=== PATIENT | female | born 1935 | race Caucasian/White ===

== ENCOUNTER → 2016-10-02 | Outpatient (CLI) | payer OTHER, BC ==
[~2016-10-02] MED LIST: ASPI81TA28 PO; ATOR-26 PO; CIPR1TAB11 PO; LISI-725 PO; METO50TA7 PO; NTRGSL/4 UT; ULT50X PO; VTMD1000 PO; XRL10 PO
[2016-10-02 14:55] LABS: BASO % 0.3 %; BASO ABS # 0.02 K/uL (0-0.2); COMPLETE YES; HEMATOCRIT 43.4 % (37-47); IG% 0.2 %; LYMPH % 17.7 %; LYMPH ABS # 1.07 K/uL (1.2-3.4); MEAN CORPUSCULAR HEMOGLOBIN 30.9 pg (25-34); MEAN CORPUSCULAR HGB CONC 32.5 g/dl (32-36); MEAN PLATELET VOLUME 10.6 fL (7.4-10.4); MONO % 7.5 %; NEUT % 73.3 %; PLATELET COUNT 217 K/uL (130-400); RED BLOOD COUNT 4.57 M/uL (4.2-5.4); WHITE BLOOD COUNT 6.04 K/uL (4.8-10.8)
[2016-10-02 15:04] LABS: ALT/SGPT 29 U/L (12-78); AST/SGOT 56 U/L (15-37); BLOOD UREA NITROGEN 19 mg/dl (7-18); BUN/CREATININE RATIO 29.4 (10-20); CALCIUM 8.5 mg/dl (8.5-10.1); CARBON DIOXIDE 30 mmol/L (21-32); CHLORIDE 107 mmol/L (98-107); CREATININE 0.65 mg/dl (0.60-1.20); GLUCOSE 87 mg/dl (70-99); POTASSIUM 4.2 mmol/L (3.5-5.1); SODIUM 144 mmol/L (136-145)
[2016-10-02 15:17] LABS: ALKALINE PHOSPHATASE 75 U/L (45-117); CHOLESTEROL 113 mg/dl (0-200); HDL CHOLESTEROL 56 mg/dl; LDL CHOLESTEROL CALCULATED 45 mg/dl; THYROID STIMULATING HORMONE 0.869 uIu/ml (0.300-4.500); TRIGLYCERIDES 59 mg/dl (0-150); VERY LOW DENSITY LIPOPROT CALC 12 mg/dl
[2016-10-02 15:25] LABS: ESTIMATED AVERAGE GLUCOSE 117 mg/dl; HA1C FLAG Normal (Normal)
--- NOTE | 2016-10-06 12:06 | CODING QUERY MEDICAL NECESSITY ---
SUPPORTING DIAGNOSIS NEEDED Dr. Lujan, A supporting diagnosis is required for the test/procedure performed on this patient in order for us to be reimbursed by the patient's insurance. Please provide a supporting diagnosis for the following test/procedure listed below next to the test name along with your signature. *If there is no additional diagnosis for this patient that would support the following test/procedure please document that below next to the test/procedure. Test(s)/Procedure(s) that require a supporting diagnosis: * 13707 GLYCATED HEMOGLOBIN DIAGNOSIS: DATE OF SERVICE: 10/02/16 Provider Signature: Date: Thank you Bryan Winter [facility] Information Management Once completed, please kindly fax back to [phone] For questions please call [phone]
== END | disposition home or self-care (01) ==
LOC: C.LABBC 10:28
PROVIDERS: ATTEND Internal Medicine
DX: I25.10 Atherosclerotic heart disease of native coronary artery without angina pectoris (principal); E78.5 Hyperlipidemia, unspecified; R73.01 Impaired fasting glucose

== ENCOUNTER 2017-03-25 19:48 | Inpatient (IN) | payer OTHER, BC ==
[~2017-03-25] VITALS: Ht 167.6 cm; Wt 71.0 kg
[~2017-03-25 19:48] MED LIST changes: -CIPR1TAB11 PO; -ULT50X PO; -VTMD1000 PO
[2017-03-25] MEDS ORDERED: ONDANSETRON INJ 2 MG/ML 2 ML VIAL IV STA (20:09)
[2017-03-25] MEDS ORDERED: SODIUM CHLORIDE 0.9% 1000ML 1,000 ML IV ONE (20:09)
[2017-03-25] MEDS ORDERED: ACETAMINOPHEN 500 MG TAB PO STA (20:09)
[2017-03-25] MEDS ORDERED: MoRPHine SULFATE 4 MG/ML 1 ML CARP\\VIAL IV PRN (20:15)
[2017-03-25] MEDS ORDERED: MoRPHine SULFATE 2 MG/ML CARP ONE ×2 (20:25→21:17)
[2017-03-25 20:40] LABS: BASO % 0.3 %; BASO ABS # 0.03 K/uL (0-0.2); COMPLETE YES; EOS % 0.7 %; HEMATOCRIT 41.5 % (37-47); IG% 0.3 %; LYMPH % 12.6 %; LYMPH ABS # 1.15 K/uL (1.2-3.4); MEAN CELL VOLUME 95.4 fL (80-100); MEAN CORPUSCULAR HEMOGLOBIN 31.7 pg (25-34); MEAN CORPUSCULAR HGB CONC 33.3 g/dl (32-36); MEAN PLATELET VOLUME 10.1 fL (7.4-10.4); NEUT % 78.1 %; PLATELET COUNT 211 K/uL (130-400); RED BLOOD COUNT 4.35 M/uL (4.2-5.4)
[2017-03-25 20:50] LABS: PARTIAL THROMBOPLASTIN RATIO 1.1; PROTHROMBIN TIME (PATIENT) 11.1 SECONDS (9.0-12.0)
[2017-03-25 20:56] LABS: BUN/CREATININE RATIO 26.2 (10-20); CALCIUM 9.4 mg/dl (8.5-10.1); CREATININE 0.78 mg/dl (0.60-1.20); POTASSIUM 3.9 mmol/L (3.5-5.1)
--- NOTE | 2017-03-25 21:28 | DIAGNOSTIC IMAGING REPORT ---
HEAD WITHOUT CONTRAST (CT) CT DOSE: 537.48 mGy.cm HISTORY: Trauma fall, xarelto use TECHNIQUE: Multiaxial CT images of the head were performed without the use of intravenous contrast. A dose lowering technique was utilized adhering to the principles of ALARA. Comparison: None. Findings: The paranasal sinuses and mastoid air cells are clear. The calvarium and skull base are intact. The ventricles and sulci are within normal limits. There is no mass, hematoma, midline shift, or acute infarct. Impression: No acute intracranial abnormality. The above report was generated using voice recognition software. It may contain grammatical, syntax or spelling errors. Electronically signed by: Tito Hernandes M.D. 03/25/2017 9:26 PM Dictated Date/Time: 03/25/2017 9:24 PM
--- NOTE | 2017-03-25 21:33 | DIAGNOSTIC IMAGING REPORT ---
RIGHT LOWER EXTREMITY WITHOUT CT DOSE: 303.47 mGy.cm HISTORY: Trauma. Pain. fall, right hip pain Right TECHNIQUE: Multiaxial CT images of the right were performed and reformatted in the sagittal and coronal plane without the use of contrast. A dose lowering technique was utilized adhering to the principles of ALARA. COMPARISON: None. FINDINGS: Findings highly suspect for a nondisplaced subcapital fracture of the right hip. Peripheral osteophytic reaction complicates evaluation to a degree. Nevertheless, there is a high suspicion for nondisplaced 7P fracture. Acetabulum is intact. There are mild degenerative changes of the articular services. Mild soft tissue edematous changes present. Main osseous structures show moderate degenerative change but no additional abnormalities appreciated. Moderate degenerative change throughout. IMPRESSION: Findings highly suspect for a nondisplaced subcapital fracture right hip. The above report was generated using voice recognition software. It may contain grammatical, syntax or spelling errors. Electronically signed by: Tito Hernandes M.D. 03/25/2017 9:32 PM Dictated Date/Time: 03/25/2017 9:26 PM
--- NOTE | 2017-03-25 22:01 | DIAGNOSTIC IMAGING REPORT ---
CHEST ONE VIEW PORTABLE CLINICAL HISTORY: hip fx trauma. Pain. COMPARISON STUDY: 12/14/2015 FINDINGS: Mild stable cardiomegaly. Lungs are clear. Minimal chronic pleural reactive change left base. IMPRESSION: Mild stable cardiomegaly. Chronic change. No acute process. The above report was generated using voice recognition software. It may contain grammatical, syntax or spelling errors. Electronically signed by: Tito Hernandes M.D. 03/25/2017 9:59 PM Dictated Date/Time: 03/25/2017 9:59 PM
[2017-03-25 22:23] LABS: URINE APPEARANCE CLEAR (CLEAR); URINE BILIRUBIN NEG (NEG); URINE COLOR YELLOW; URINE NITRITE POS (NEG); URINE PH 6.5 (4.5-7.5); URINE SPECIFIC GRAVITY 1.019 (1.000-1.030); UROBILINOGEN NEG (NEG); ZZURINE CULT IF INDIC CATH YES
[2017-03-25] MEDS ORDERED: ONDANSETRON INJ 2 MG/ML 2 ML VIAL IV PRN (22:30)
[2017-03-25] MEDS ORDERED: ZOLPIDEM TARTRATE 5 MG TAB PO PRN (22:30)
[2017-03-25] MEDS ORDERED: MoRPHine SULFATE 2 MG/ML CARP IV PRN (22:30)
[2017-03-25 22:41] LABS: MANUAL MICROSCOPIC REQUIRED? NO; REVIEW REQ? NO
[2017-03-25] MEDS ORDERED: MoRPHine SULFATE 2 MG/ML CARP IV STA (22:42)
--- NOTE | 2017-03-25 22:42 | EMERGENCY ROOM VISIT NOTE ---
History Report prepared by Pilar: Martha Bell Under the Supervision of: Dr. Jamie Mojica M.D. First contact with patient: 20:02 Chief Complaint: HIP PAIN Stated Complaint: FALL/ RT HIP PAIN History of Present Illness The patient is an 81 year old female who presents to the Emergency Room with complaints of an episode of right hip pain starting two and a half hours ago. The patient states that she was at the park walking her dog when another dog approached her dog to say hello. The patient states that her dog yanked her to meet the other dog and she fell in the grass on her right hip. She reports that she did walk home, but had to be assisted. The patient states that since the accident the pain in her hip has worsened. The patient denies loss of consciousness, illness, and hitting her head. She states she is on Xarelto for a mild heart attack that occurred 10 years ago. Source of History: patient Onset: two and a half hours ago Position: other (right hip) Timing: other (episode) Modifying Factors (Worsening): movement Associated Symptoms: No LOC Note: The patient denies illness and hitting her head. Review of Systems See HPI for pertinent positives & negatives. A total of 10 systems reviewed and were otherwise negative. Past Medical & Surgical Medical Problems: (1) Arthritis (2) History of SD (myocardial infarction) (3) HYPERLIPIDEMIA NEC/NOS (4) Hypertension (5) SD (myocardial infarction) (6) PNEUMONIA, ORGANISM NOS (7) Shingles (8) Subcapital fracture of right hip Surgical Problems: (1) History of cardiac catheterization (2) History of knee surgery Family History Hypertension Social History Smoking Status: Never Smoker Alcohol Use: occasionally Drug Use: none Marital Status: Housing Status: lives with family Occupation Status: retired Current/Historical Medications Scheduled Aspirin (Aspirin Ec), 81 MG PO DAILY Atorvastatin (Lipitor), 80 MG PO HS Lisinopril (Zestril), 20 MG PO DAILY Metoprolol Succ (Toprol Xl) (Toprol-Xl), 50 MG PO DAILY Rivaroxaban (Xarelto), 20 MG PO DAILYBD Scheduled PRN Nitroglycerin (Nitrostat), 0.4 MG UT UD PRN for Chest Pain Allergies Coded Allergies: Penicillins (Verified Allergy, Intermediate, hands swell, rash, 03/25/17) Rofecoxib (Verified Allergy, Mild, 03/25/17) Shellfish Allergy (Verified Allergy, Unknown, UNKNOWN, 03/25/17) Sulfa Antibiotics (Verified Allergy, Unknown, UNKNOWN, 03/25/17) Physical Exam Vital Signs Date Time Temp Pulse Resp B/P (MAP) Pulse Ox O2 Delivery O2 Flow Rate FiO2 03/25/17 21:49 70 20 169/72 94 Nasal Cannula 2.0 03/25/17 20:38 81 20 152/82 97 Room Air 03/25/17 19:48 37.1 69 20 136/74 95 Room Air Physical Exam GENERAL: Patient is in no acute distress. HEENT: No acute trauma, normocephalic atraumatic, mucous membranes moist, no nasal congestion, no scleral icterus. NECK: No stridor, no adenopathy, no meningismus, trachea is midline. No posterior c-spine tenderness. LUNGS: Clear to auscultation bilaterally, no wheeze, no rhonchi, breath sounds equal. HEART: Without murmurs gallops or rubs, regular rate and rhythm. ABDOMEN: Soft, nontender, bowel sounds positive, no hernias, no peritonitis. EXTREMITIES: No gross deformity to the right lower extremity. Pain is present to palpation of the right groin and proximal femur. The right knee, right ankle , and right foot are nontender. The pelvis is stable. No upper extremity trauma noted. NEUROLOGIC: Oriented x 3, no acute motor or sensory deficits, no focal weakness. SKIN: No rash, no jaundice, no diaphoresis. Medical Decision & Procedures ER Provider Diagnostic Interpretation: Radiology results as stated below per my review and radiologist interpretation: CHEST ONE VIEW PORTABLE CLINICAL HISTORY: hip fx trauma. Pain. COMPARISON STUDY: 12/14/2015 FINDINGS: Mild stable cardiomegaly. Lungs are clear. Minimal chronic pleural reactive change left base. IMPRESSION: Mild stable cardiomegaly. Chronic change. No acute process. The above report was generated using voice recognition software. It may contain grammatical, syntax or spelling errors. Electronically signed by: Tito Hernandes M.D. 03/25/2017 9:59 PM Dictated Date/Time: 03/25/2017 9:59 PM HEAD WITHOUT CONTRAST (CT) CT DOSE: 537.48 mGy.cm HISTORY: Trauma fall, xarelto use TECHNIQUE: Multiaxial CT images of the head were performed without the use of intravenous contrast. A dose lowering technique was utilized adhering to the principles of ALARA. Comparison: None. Findings: The paranasal sinuses and mastoid air cells are clear. The calvarium and skull base are intact. The ventricles and sulci are within normal limits. There is no mass, hematoma, midline shift, or acute infarct. Impression: No acute intracranial abnormality. The above report was generated using voice recognition software. It may contain grammatical, syntax or spelling errors. Electronically signed by: Tito Hernandes M.D. 03/25/2017 9:26 PM Dictated Date/Time: 03/25/2017 9:24 PM RIGHT LOWER EXTREMITY WITHOUT CT DOSE: 303.47 mGy.cm HISTORY: Trauma. Pain. fall, right hip pain Right TECHNIQUE: Multiaxial CT images of the right were performed and reformatted in the sagittal and coronal plane without the use of contrast. A dose lowering technique was utilized adhering to the principles of ALARA. COMPARISON: None. FINDINGS: Findings highly suspect for a nondisplaced subcapital fracture of the right hip. Peripheral osteophytic reaction complicates evaluation to a degree. Nevertheless, there is a high suspicion for nondisplaced 7P fracture. Acetabulum is intact. There are mild degenerative changes of the articular services. Mild soft tissue edematous changes present. Main osseous structures show moderate degenerative change but no additional abnormalities appreciated. Moderate degenerative change throughout. IMPRESSION: Findings highly suspect for a nondisplaced subcapital fracture right hip. The above report was generated using voice recognition software. It may contain grammatical, syntax or spelling errors. Electronically signed by: Tito Hernandes M.D. 03/25/2017 9:32 PM Dictated Date/Time: 03/25/2017 9:26 PM Laboratory Results 03/25/17 20:31 Red Blood Count 4.35, Mean Corpuscular Volume 95.4, Mean Corpuscular Hemoglobin 31.7, Mean Corpuscular Hemoglobin Concent 33.3, Mean Platelet Volume 10.1, Neutrophils (%) (Auto) 78.1, Lymphocytes (%) (Auto) 12.6, Monocytes (%) (Auto) 8.0, Eosinophils (%) (Auto) 0.7, Basophils (%) (Auto) 0.3, Neutrophils # (Auto) 7.10, Lymphocytes # (Auto) 1.15, Monocytes # (Auto) 0.73, Eosinophils # (Auto) 0.06, Basophils # (Auto) 0.03 03/25/17 20:31 Test 03/25/17 20:31 03/25/17 22:07 White Blood Count 9.10 K/uL (4.8-10.8) Red Blood Count 4.35 M/uL (4.2-5.4) Hemoglobin 13.8 g/dL (12.0-16.0) Hematocrit 41.5 % (37-47) Mean Corpuscular Volume 95.4 fL (80-100) Mean Corpuscular Hemoglobin 31.7 pg (25-34) Mean Corpuscular Hemoglobin Concent 33.3 g/dl (32-36) Platelet Count 211 K/uL (130-400) Mean Platelet Volume 10.1 fL (7.4-10.4) Neutrophils (%) (Auto) 78.1 % Lymphocytes (%) (Auto) 12.6 % Monocytes (%) (Auto) 8.0 % Eosinophils (%) (Auto) 0.7 % Basophils (%) (Auto) 0.3 % Neutrophils # (Auto) 7.10 K/uL (1.4-6.5) Lymphocytes # (Auto) 1.15 K/uL (1.2-3.4) Monocytes # (Auto) 0.73 K/uL (0.11-0.59) Eosinophils # (Auto) 0.06 K/uL (0-0.5) Basophils # (Auto) 0.03 K/uL (0-0.2) RDW Standard Deviation 50.9 fL (36.4-46.3) RDW Coefficient of Variation 14.5 % (11.5-14.5) Immature Granulocyte % (Auto) 0.3 % Immature Granulocyte # (Auto) 0.03 K/uL (0.00-0.02) Prothrombin Time 11.1 SECONDS (9.0-12.0) Prothromb Time International Ratio 1.0 (0.9-1.1) Activated Partial Thromboplast Time 29.4 SECONDS (21.0-31.0) Partial Thromboplastin Ratio 1.1 Anion Gap 7.0 mmol/L (3-11) Est Creatinine Clear Calc Drug Dose 55.2 ml/min Estimated GFR () 81.5 Estimated GFR (Non- 70.3 BUN/Creatinine Ratio 26.2 (10-20) Calcium Level 9.4 mg/dl (8.5-10.1) Laboratory results reviewed by me. Medications Administered Medications (Trade) Dose Ordered Sig/Samuel Route Start Time Stop Time Status Last Admin Dose Admin Sodium Chloride 1,000 ml @ 150 mls/hr [id number] ONCE IV 03/25/17 20:09 03/26/17 02:48 03/25/17 20:34 150 MLS/HR Acetaminophen (Tylenol Tab) 1,000 mg NOW STAT PO 03/25/17 20:09 03/25/17 20:12 DC 03/25/17 20:34 1,000 MG Ondansetron HCl (Zofran Inj) 4 mg NOW STAT IV 03/25/17 20:09 03/25/17 20:12 DC 03/25/17 20:33 4 MG Morphine Sulfate (MoRPHine SULFATE INJ) 2 mg STK-MED ONCE .ROUTE 03/25/17 20:25 03/25/17 20:26 DC 03/25/17 20:33 2 MG Morphine Sulfate (MoRPHine SULFATE INJ) 2 mg STK-MED ONCE .ROUTE 03/25/17 21:17 03/25/17 21:18 DC 03/25/17 21:20 2 MG ECG Indication: other (hip fracture) Rate (beats per minute): 84 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 A complete history and physical exam was performed. 2008: Ordered Zofran Inj 4 mg IV, Tylenol Tab 1000 mg PO, NSS 1000 ml @ 150 mls/ hr IV. 2014: Ordered Morphine Sulfate 2 mg PRN IV pain. 2024: Morphine Sulfate 2 mg given for pain. 2116: Morphine Sulfate 2 mg given for pain. 2139: I updated the patient on the test results and discussed what the future treatment plan will be. 2158: Discussed the patient's case with Dr. Aragon. The patient will be evaluated for further management. Medical Decision Differential diagnoses include pelvic fracture, hip fracture, femur fracture, hematoma, contusion, intracranial bleeding, neck injury, chest or abdominal trauma. There is no leukocytosis or concerning anemia. No significant electrolyte abnormality, kidney failure or hepatitis. There is no coagulopathy. Urinalysis result is pending. EKG shows a sinus rhythm, no acute ischemia. Brain CT shows no acute bleed or mass effect. Hip CT shows a subcapital hip fracture. On exam, there was no evidence for injury to the chest, abdomen or neck. The patient received IV saline, IV Zofran, IV morphine and oral Tylenol. She is more comfortable. The patient was updated on her findings. She does require a hospital stay. I did speak with case management. The on-call hospitalist was consulted. The patient will require orthopedic intervention. Medication Reconcilliation Current Medication List: was personally reviewed by me Blood Pressure Screening Patient's blood pressure: Elevated blood pressure Blood pressure disposition: Elevated BP felt to be situational Consults Time Called: 2144 Consulting Physician: Dr. Aragon Returned Call: [id number] Discussed the patient's case with Dr. Aragon. The patient will be evaluated for further management. Impression Primary Impression: Hip fracture, right Additional Impression: Fall Scribe Attestation The scribe's documentation has been prepared under my direction and personally reviewed by me in its entirety. I confirm that the note above accurately reflects all work, treatment, procedures, and medical decision making performed by me. Departure Information Dispostion Being Evaluated By Hospitalist Referrals Endy Lujan M.D. (PCP) Patient Instructions My [facility] Problem Qualifiers
[2017-03-25] MEDS ORDERED: CIPROFLOXACIN 400MG / 200ML D5W IV STA (22:44)
[2017-03-25] MEDS ORDERED: MAGNESIUM HYDROXIDE SUSP 30 ML UDC PO PRN (23:00)
[2017-03-25] MEDS ORDERED: POLYETHYLENE (MIRALAX) 17 GM PACK PO PRN (23:00)
[2017-03-25] MEDS ORDERED: HYDROmorphone INJ 0.5 MG/0.5 ML SYR IV PRN ×2 (23:00)
[2017-03-25] MEDS ORDERED: NALOXONE HCL 0.4 MG/1 ML VIAL/CARP IV PRN (23:00)
[2017-03-25] MEDS ORDERED: BISACODYL 10 MG SUPP PR PRN (23:00)
[2017-03-25 23:21] VITALS: BP 171/78; PULSE 76; TEMP 37.2; O2SAT 98; Ht 167.6 cm; Wt 71.0 kg
--- NOTE | 2017-03-25 23:52 | History and Physical ---
History & Physical Date & Time of Service: Mar 25, 2017 at 22:56 Chief Complaint: Fall/ Rt Hip Pain Primary Care Physician: Endy Lujan M.D. History of Present Illness Source: patient, clinic records, hospital records Mrs Negron is an 81 year old female who presents to the ER with right hip pain after falling. She was pulled over by her dog onto her right hip around 17:30. She fell onto grass without any loss of consciousness. She was helped up by a bystander and walked 75 yards back to her house partially weight bearing on her right hip. She was able to partially weight bear at that time. She phoned for an ambulance due to pain in her right groin increasing. She denies any symptoms before the fall and was in good health. No chest pain, shortness of breath or dizziness specifically. After the fall she denies any loss of consciousness, dizziness, memory loss, weakness or change in sensation in her upper or lower extremities other than some pain in her right groin when she moves her hip. She denies any change in speech, hearing or vision. She denies any back pain, left groin/hip pain, knee pain, wrist pain post fall. She is under Dr Renteria for coronary artery disease after an NSTEMI in September 2013 (medically managed due to too small for intervention) and paroxysmal atrial fibrillation with RVR in November 2014 (hence her rivaroxaban). Last echo in 2015 showed normal wall motion abnormalities and LVEF 65-70%, mild mitral regurgitation, mild tricuspid regurgitation. She also has a remote history of obstructive sleep apnea but is non compliant with CPAP (uses once/week as per her daughter). Although last sleep test was in 2012 needing on 4cm CPAP and she has lost significant weight since then. Past Medical/Surgical History Medical Problems: (1) Arthritis Status: Chronic (2) HYPERLIPIDEMIA NEC/NOS Status: Chronic (3) Hypertension Status: Chronic (4) TX (myocardial infarction) Status: Chronic (5) PNEUMONIA, ORGANISM NOS Status: Resolved (6) Shingles Status: Chronic Surgical Problems: (1) History of cardiac catheterization Status: Resolved (2) History of knee surgery Status: Resolved Family History Hypertension Social History Smoking Status: Never Smoker Drug Use: none Marital Status: Occupational Status: retired Immunizations History of Influenza Vaccine: Yes Influenza Vaccine Date: Apr 03, 2012 History of Tetanus Vaccine?: Yes Tetanus Immunization Date: Apr 04, 2010 History of Pneumococcal: Yes Pneumococcal Date: Apr 04, 2011 History of Hepatitis B Vaccine: No Multi-Drug Resistant Organisms History of MDRO: No Allergies Coded Allergies: Penicillins (Verified Allergy, Intermediate, hands swell, rash, 03/27/17) Rofecoxib (Verified Allergy, Mild, 03/27/17) Shellfish Allergy (Verified Allergy, Unknown, UNKNOWN, 03/27/17) Sulfa Antibiotics (Verified Allergy, Unknown, UNKNOWN, 03/27/17) Home Medications Scheduled Aspirin (Aspirin Ec), 81 MG PO DAILY Atorvastatin (Lipitor), 80 MG PO HS Cholecalciferol (Vitamin D3), 2,000 INTER.UNIT PO QAM Lisinopril (Zestril), 20 MG PO DAILY Metoprolol Succ (Toprol Xl) (Toprol-Xl), 50 MG PO DAILY Rivaroxaban (Xarelto), 20 MG PO DAILYBD Scheduled PRN Nitroglycerin (Nitrostat), 0.4 MG UT UD PRN for Chest Pain Review of Systems Constitutional: + weight loss, No fever, No chills, No weakness Eyes: No worsening of vision, No eye pain, No redness ENT: No hearing loss Respiratory: No cough, No sputum, No wheezing, No shortness of breath, No dyspnea on exertion, No dyspnea at rest, No hemoptysis Cardiovascular: No chest pain, No orthopnea, No PND, No edema, No claudication , No palpitations Abdomen: No pain, No nausea, No vomiting, No diarrhea, No constipation, No GI bleeding Musculoskeletal: + joint pain (right groin) Genitourinary - Female: + problem reported (zhang catheter placed), No dysuria , No urinary frequency, No urinary urgency, No urinary incontinence, No urinary retention Endocrine: No fatigue Hematologic / Lymphatic: No abnormal bleeding/bruising Integumentary: No rash, No itch Physical Exam Vital Signs Date Time Temp Pulse Resp B/P (MAP) Pulse Ox O2 Delivery O2 Flow Rate FiO2 03/25/17 21:49 70 20 169/72 94 Nasal Cannula 2.0 03/25/17 20:38 81 20 152/82 97 Room Air 03/25/17 19:48 37.1 69 20 136/74 95 Room Air General Appearance: WD/WN, no apparent distress Head: normocephalic, atraumatic Eyes: normal inspection, PERRL, EOMI ENT: normal ENT inspection Neck: supple, no JVD, trachea midline Respiratory/Chest: chest non-tender, lungs clear, normal breath sounds, no respiratory distress, no accessory muscle use Cardiovascular: regular rate, rhythm, no edema, no murmur, normal peripheral pulses (Right DT and PT pulses palpable) Abdomen/GI: normal bowel sounds, non tender, soft Extremities/Musculoskelatal: no calf tenderness, normal capillary refill, no pedal edema, + pertinent finding (cap refil in right foot <2s, PT/DP pulses right intact, Sensation intact distal to right hip, right groin pain with rotation of her right hip, at rest right hip with 20 degrees internally rotated) Neurologic/Psych: no motor/sensory deficits (limited secondary to right groin pain from right hip fracture) Skin: normal color (no bruising over right hip, intact skin), warm/dry, no rash Diagnostics Laboratory Results Results Past 24 Hours Test 03/25/17 20:31 03/25/17 22:07 Range/Units White Blood Count 9.10 4.8-10.8 K/uL Red Blood Count 4.35 4.2-5.4 M/uL Hemoglobin 13.8 12.0-16.0 g/dL Hematocrit 41.5 37-47 % Mean Corpuscular Volume 95.4 80-100 fL Mean Corpuscular Hemoglobin 31.7 25-34 pg Mean Corpuscular Hemoglobin Concent 33.3 32-36 g/dl Platelet Count 211 130-400 K/uL Mean Platelet Volume 10.1 7.4-10.4 fL Neutrophils (%) (Auto) 78.1 % Lymphocytes (%) (Auto) 12.6 % Monocytes (%) (Auto) 8.0 % Eosinophils (%) (Auto) 0.7 % Basophils (%) (Auto) 0.3 % Neutrophils # (Auto) 7.10 1.4-6.5 K/uL Lymphocytes # (Auto) 1.15 1.2-3.4 K/uL Monocytes # (Auto) 0.73 0.11-0.59 K/uL Eosinophils # (Auto) 0.06 0-0.5 K/uL Basophils # (Auto) 0.03 0-0.2 K/uL RDW Standard Deviation 50.9 36.4-46.3 fL RDW Coefficient of Variation 14.5 11.5-14.5 % Immature Granulocyte % (Auto) 0.3 % Immature Granulocyte # (Auto) 0.03 0.00-0.02 K/uL Prothrombin Time 11.1 9.0-12.0 SECONDS Prothromb Time International Ratio 1.0 0.9-1.1 Activated Partial Thromboplast Time 29.4 21.0-31.0 SECONDS Partial Thromboplastin Ratio 1.1 Sodium Level 141 136-145 mmol/L Potassium Level 3.9 3.5-5.1 mmol/L Chloride Level 106 98-107 mmol/L Carbon Dioxide Level 28 21-32 mmol/L Anion Gap 7.0 3-11 mmol/L Blood Urea Nitrogen 20 7-18 mg/dl Creatinine 0.78 0.60-1.20 mg/dl Est Creatinine Clear Calc Drug Dose 55.2 ml/min Estimated GFR () 81.5 Estimated GFR (Non- 70.3 BUN/Creatinine Ratio 26.2 10-20 Random Glucose 86 70-99 mg/dl Calcium Level 9.4 8.5-10.1 mg/dl Urine Color YELLOW Urine Appearance CLEAR CLEAR Urine pH 6.5 4.5-7.5 Urine Specific [place] 1.019 1.000-1.030 Urine Protein NEG NEG Urine Glucose (UA) NEG NEG Urine Ketones TRACE NEG Urine Occult Blood NEG NEG Urine Nitrite POS NEG Urine Bilirubin NEG NEG Urine Urobilinogen NEG NEG Urine Leukocyte Esterase TRACE NEG Urine WBC (Auto) 1-5 0-5 /hpf Urine RBC (Auto) 0-4 0-4 /hpf Urine Hyaline Casts (Auto) 1-5 0-5 /lpf Urine Epithelial Cells (Auto) 10-20 0-5 /lpf Urine Bacteria (Auto) 4+ NEG Microbiology Results 03/25/17 Urine Culture, Received Pending Diagnostic Radiology CHEST ONE VIEW PORTABLE CLINICAL HISTORY: hip fx trauma. Pain. COMPARISON STUDY: 12/14/2015 FINDINGS: Mild stable cardiomegaly. Lungs are clear. Minimal chronic pleural reactive change left base. IMPRESSION: Mild stable cardiomegaly. Chronic change. No acute process. The above report was generated using voice recognition software. It may contain grammatical, syntax or spelling errors. Electronically signed by: Tito Hernandes M.D. 03/25/2017 9:59 PM Dictated Date/Time: 03/25/2017 9:59 PM HEAD WITHOUT CONTRAST (CT) CT DOSE: 537.48 mGy.cm HISTORY: Trauma fall, xarelto use TECHNIQUE: Multiaxial CT images of the head were performed without the use of intravenous contrast. A dose lowering technique was utilized adhering to the principles of ALARA. Comparison: None. Findings: The paranasal sinuses and mastoid air cells are clear. The calvarium and skull base are intact. The ventricles and sulci are within normal limits. There is no mass, hematoma, midline shift, or acute infarct. Impression: No acute intracranial abnormality. The above report was generated using voice recognition software. It may contain grammatical, syntax or spelling errors. Electronically signed by: Tito Hernandes M.D. 03/25/2017 9:26 PM Dictated Date/Time: 03/25/2017 9:24 PM RIGHT LOWER EXTREMITY WITHOUT CT DOSE: 303.47 mGy.cm HISTORY: Trauma. Pain. fall, right hip pain Right TECHNIQUE: Multiaxial CT images of the right were performed and reformatted in the sagittal and coronal plane without the use of contrast. A dose lowering technique was utilized adhering to the principles of ALARA. COMPARISON: None. FINDINGS: Findings highly suspect for a nondisplaced subcapital fracture of the right hip. Peripheral osteophytic reaction complicates evaluation to a degree. Nevertheless, there is a high suspicion for nondisplaced 7P fracture. Acetabulum is intact. There are mild degenerative changes of the articular services. Mild soft tissue edematous changes present. Main osseous structures show moderate degenerative change but no additional abnormalities appreciated. Moderate degenerative change throughout. IMPRESSION: Findings highly suspect for a nondisplaced subcapital fracture right hip. The above report was generated using voice recognition software. It may contain grammatical, syntax or spelling errors. Electronically signed by: Tito Hernandes M.D. 03/25/2017 9:32 PM Dictated Date/Time: 03/25/2017 9:26 PM CXR normal EKG As read by myself: 84 bpm NSR Q waves in III and aVF similar to previous EKG on 12/14/2015 No significant changes to EKG from 12/14/2015 No change from prior EKG Impression Assessment and Plan 81 year old female with PMHx CAD and paroxysmal atrial fibrillation presents with a right non displaced subcapital hip fracture Right subcapital hip fracture - Consult ortho in morning - right knee done by Dr Marcos therefore will consult the [facility] - Imaging not definitive but given examination and history picture is consistent with right hip fracture - will defer any further imaging ie. MRI to ortho in morning if required. - Hold rivaroxaban and aspirin for surgery. - Bed rest - Consult anesthesiology in morning - NV checks Q4H per protocol UTI - complicated with urinary catheter needed due to hip fracture. Nitrites and LE positive, 4+ bacteria. - ciprofloxacin 400 mg Q12H (penicillin allergy with some swelling therefore will avoid cephalosporin) - Follow up urine culture - No fever, chills or WBC to suggest bacteremia Coronary artery disease, Paroxysmal atrial fibrillation, dyslipidemia - no current atrial fibrillation or ischemia - hold aspirin and lisinopril (can restart lisinopril if Cr stable in morning and BP high) - continue atorvastatin and metoprolol - admit to telemetry Minor neurocognitive disorder - concern for opiate use while inpatient. Monitor for signs of delirium. Caution with narcotic use. Obstructive sleep apnea - will defer CPAP given she does not use this at home and significant weight loss since last sleep study showing ALISTAIR. VTE Prophylaxis - hold rivaroxaban for surgery - DINAH + SCD on left leg Code - Full as per patient wishes Disposition - will admit to telemetry due to cardiac history Attending Addendum: I have physically seen and examined this patient, have directed the resident's medical activities, and agree with the H&P as noted above with the following exceptions as noted. The patient is awake, alert and oriented 3, well-developed and well-nourished , normocephalic and atraumatic, lying in bed and in no acute distress. HEENT--PERRL, EOMI, mucous membranes and oropharynx dry. Neck--supple, no JVD or bruits, thyroid normal, trachea midline, no adenopathy. Heart--normal S1 and S2, no extra beats, no murmurs, rubs or gallops. Lungs--clear bilaterally with good air movement, no respiratory distress, no accessory muscle use. Abdomen--normal bowel sounds and soft, nontender and nondistended, no hernias or masses, no organomegaly. Extremities--no cyanosis, clubbing or edema. There are good distal pulses b/l. Dermatologic--normal skin turgor, normal color, warm and dry, no abnormal lymph nodes, no rash. Neurologic--cranial nerves II through XII grossly intact. Rheumatologic--right groin pain with movement and direct pressure. Psychiatric--normal affect. Assessment and Plan: 1. Right subcapital hip fracture-- Hold Xarelto and aspirin. Nothing by mouth except meds after midnight. Consult Dr. Marcos. Pain control. 2. Complicated UTI-- Cipro 400 mg IV every 12 hours. Follow urine culture and sensitivities. 3. CAD/hypertension/PAF-- Admission to telemetry. Continue metoprolol with hold parameters. Hold aspirin, Xarelto and lisinopril. Level of Care Telemetry Resuscitation Status FULL RESUSCITATION VTE Prophylaxis VTE Risk Assessment Done? Y/N: Yes Risk Level: Moderate Given or contraindicated: T.E.DNicholas Stockings, SCD's Additional Copies To Endy Lujan M.D.; Abe Renteria MD Resident Tracking Resident Involvement: Resident Care Provided Care Provided: Adult Hospital Medicine
[2017-03-26] VITALS (9 sets, daily range): BP systolic 120–169; BP diastolic 66–96; PULSE 57–104; TEMP 36.8–37.3; O2SAT 91–99
[2017-03-26] MEDS: CIPROFLOXACIN / D5W 400 MG in PREMIXED IN D5W 200 ML IV SCH ×3 (00:25→23:51)
[2017-03-26] MEDS: FAMOTIDINE IV INJ 20 MG in DEXTROSE 5% 100ML 100 ML IV SCH ×2 (00:25→11:49)
[2017-03-26] MEDS: ACETAMINOPHEN IV 650 MG in EMPTY BAG 0 ML IV SCH ×4 (02:19→21:47)
[2017-03-26 06:26] LABS: BASO % 0.2 %; BASO ABS # 0.02 K/uL (0-0.2); COMPLETE YES; EOS % 0.5 %; HEMATOCRIT 38.8 % (37-47); IG% 0.3 %; LYMPH ABS # 0.92 K/uL (1.2-3.4); MEAN CELL VOLUME 95.3 fL (80-100); MEAN CORPUSCULAR HEMOGLOBIN 30.7 pg (25-34); MEAN CORPUSCULAR HGB CONC 32.2 g/dl (32-36); MEAN PLATELET VOLUME 10.1 fL (7.4-10.4); MONO % 8.6 %; NEUT % 81.4 %; PLATELET COUNT 176 K/uL (130-400); RED BLOOD COUNT 4.07 M/uL (4.2-5.4); WHITE BLOOD COUNT 10.21 K/uL (4.8-10.8)
--- NOTE | 2017-03-26 06:55 | DIAGNOSTIC IMAGING REPORT ---
LEFT SHOULDER MIN 2 VIEWS ROUTINE CLINICAL HISTORY: 81 years-old Female presenting with left proximal humerus pain s/p fall. TECHNIQUE: Internal rotation, external rotation, and Grashey views of the left shoulder were obtained. COMPARISON: Correlation made to plain radiographs of the right shoulder from 2008. FINDINGS: Image quality is degraded by suboptimal positioning on Grashey view. Allowing for this limitation, no subluxation or acute fracture. Glenohumeral and acromioclavicular joints congruent. Visualized portion of the left hemithorax demonstrates atherosclerosis of aortic arch. IMPRESSION: No acute osseous injury of the left shoulder allowing for suboptimal positioning. Electronically signed by: Endy Quan M.D. 03/26/2017 6:54 AM Dictated Date/Time: 03/26/2017 6:52 AM
[2017-03-26 07:03] LABS: BUN/CREATININE RATIO 25.3 (10-20); CALCIUM 8.2 mg/dl (8.5-10.1); CREATININE 0.66 mg/dl (0.60-1.20); POTASSIUM 4.1 mmol/L (3.5-5.1)
--- NOTE | 2017-03-26 07:23 | DIAGNOSTIC IMAGING REPORT ---
RIGHT SHOULDER MIN 2 VIEWS ROUTINE CLINICAL HISTORY: 81 years-old Female presenting with right proximal humeral pain s/p fall Right. TECHNIQUE: Internal rotation, external rotation, and Grashey views of the right shoulder were obtained. COMPARISON: 2008. FINDINGS: Image quality is slightly limited due to suboptimal positioning on Grashey view. Allowing for this limitation, no subluxation or acute fracture. Glenohumeral and acromioclavicular joints congruent. Degenerative change noted at the glenohumeral joint, not significantly changed since 2008. Calcification also noted in the region of the greater tubercle, which could suggest calcific tendinitis. Visualized portion of the right hemithorax within normal limits. IMPRESSION: No acute osseous injury of the right shoulder. Degenerative change of the glenohumeral joint, similar to 2008. Electronically signed by: Endy Quan M.D. 03/26/2017 7:22 AM Dictated Date/Time: 03/26/2017 7:20 AM
[2017-03-26] MEDS: METOPROLOL SUCC 50MG EXT REL TAB PO SCH (08:15)
--- NOTE | 2017-03-26 08:36 | DIAGNOSTIC IMAGING REPORT ---
RIGHT PELVIS/UNILATERAL HIP 2-3VIEWS CLINICAL HISTORY: 81 years-old Female presenting with right hip pain. TECHNIQUE: Single frontal view of the pelvis and frontal and crosstable lateral views of the right hip were obtained. COMPARISON: Correlation made to CT from 03/25/2017. FINDINGS: Again demonstrated is the nondisplaced subcapital right femoral neck fracture with slight angulation similar to most recent CT. The femoral head remains congruent in the hip joint. Osteopenia may be present. No underlying osseous lesion is evident. Regional soft tissues in the pelvis grossly normal. IMPRESSION: Nondisplaced mildly angulated subcapital right femoral neck fracture, unchanged since most recent CT. Electronically signed by: Endy Quan M.D. 03/26/2017 8:35 AM Dictated Date/Time: 03/26/2017 8:31 AM
[2017-03-26] MEDS: SODIUM CHLORIDE 0.9% 1000ML 1,000 ML IV SCH ×2 (08:57→21:47)
--- NOTE | 2017-03-26 09:33 | Medical Consult ---
Consultation Date of Consultation: Mar 26, 2017. Attending Physician: Joshua Ramirez MD Reason for Consultation: Left Subcapital Femoral Fracture History of Present Illness This 81 yo female sustained a fall while walking her dog last evening. Pt states that she tripped over the dog's leash, causing her to fall and strike her left hip off of a grassy surface. Pt state that she was able to ambulate approx 40 yards back to her residence with assistance, but had significant pain localized to the anterior surface of her Left hip. Pt states that as the evening progressed that the pain increases so she called EMS and was transported to the ED for evaluation and hospital admission. At this time pt only complains of pain in the hip when attempting a straight leg raise. She has no pain with palpation of the Left hip. Pt also denies N/T, CP, SOB, N/V/D/ C, head trauma, LOC, syncope, open skin areas or discharge. Past Medical/Surgical History Medical Problems: (1) Fall Status: Acute (2) Hip fracture, right Status: Acute (3) Substernal chest pain Status: Acute Family History Hypertension Social History Smoking Status: Never Smoker Smokeless Tobacco Use: No Alcohol Use: occasionally Drug Use: none Marital Status: Housing Status: lives with family (Daughter) Occupation Status: retired Allergies Coded Allergies: Penicillins (Verified Allergy, Intermediate, hands swell, rash, 03/25/17) Rofecoxib (Verified Allergy, Mild, 03/25/17) Shellfish Allergy (Verified Allergy, Unknown, UNKNOWN, 03/25/17) Sulfa Antibiotics (Verified Allergy, Unknown, UNKNOWN, 03/25/17) Current Inpatient Medications Current Inpatient Medications Medications (Trade) Dose Ordered Sig/Samuel Route Start Time Stop Time Status Last Admin Dose Admin Atorvastatin Calcium (Lipitor Tab) 80 mg HS PO 03/26/17 21:00 04/25/17 20:59 Metoprolol Succinate (Toprol Xl Tab) 50 mg DAILY PO 03/26/17 09:00 04/25/17 08:59 03/26/17 08:15 50 MG Ondansetron HCl (Zofran Inj) 4 mg Q6H PRN IV 03/25/17 22:30 04/24/17 22:29 Zolpidem Tartrate (Ambien Tab) 5 mg HS PRN PO 03/25/17 22:30 04/24/17 22:29 Famotidine 20 mg/ Dextrose 102 ml @ 200 mls/hr Q12H IV 03/26/17 00:00 04/25/17 00:00 03/26/17 00:25 200 MLS/HR Ciprofloxacin/ Dextrose 400 mg/ Prmx 200 ml @ 100 mls/hr Q12H IV 03/26/17 00:00 04/05/17 00:00 03/26/17 00:25 100 MLS/HR Hydromorphone HCl (Dilaudid Inj) 0.25 mg Q20M PRN IV 03/25/17 23:00 04/08/17 22:59 Hydromorphone HCl (Dilaudid Inj) 0.5 mg Q20M PRN IV 03/25/17 23:00 04/08/17 22:59 03/26/17 00:28 0.5 MG Naloxone HCl (Narcan Inj) 0.1 mg PRN PRN IV 03/25/17 23:00 04/24/17 22:59 Senna/Docusate Sodium (Senokot S Tab) 2 tab HS PO 03/26/17 21:00 04/25/17 20:59 Polyethylene (Miralax Powder Packet) 17 gm DAILY PRN PO 03/25/17 23:00 04/24/17 22:59 Magnesium Hydroxide (Milk Of Magnesia Susp) 30 ml DAILY PRN PO 03/25/17 23:00 04/24/17 22:59 Bisacodyl (Dulcolax Supp) 10 mg DAILY PRN MD 03/25/17 23:00 04/24/17 22:59 Acetaminophen 650 mg/Empty Bag 65 ml @ 260 mls/hr Q6H IV 03/26/17 02:00 04/25/17 01:59 03/26/17 08:15 260 MLS/HR Sodium Chloride 1,000 ml @ 100 mls/hr Q10H IV 03/26/17 08:00 04/25/17 07:59 03/26/17 08:57 100 MLS/HR Review of Systems Constitutional: + weakness (in Left LE), No fever, No chills, No sweats, No weight loss, No fatigue, No problem reported Cardiovascular: No chest pain, No orthopnea, No PND, No edema, No claudication , No palpitations, No problem reported Abdomen: No pain, No nausea, No vomiting, No diarrhea, No constipation, No GI bleeding, No problem reported Musculoskeletal: No joint pain, No muscle pain, No swelling, No calf pain, No problem reported Neurologic: + balance problems (Unable to bear wt on Left LE), No memory loss, No paralysis, No weakness, No numbness/tingling, No vertigo, No problem reported Psychiatric: No depression symptoms, No anhedonism, No anxiety, No insomnia, No substance abuse, No problem reported Hematologic / Lymphatic: No abnormal bleeding/bruising, No clotting problems, No swollen lymph nodes, No night sweats, No problem reported Integumentary: No rash, No itch, No new/changing skin lesions, No color change , No bleeding, No problem reported Physical Exam Date Time Temp Pulse Resp B/P (MAP) Pulse Ox O2 Delivery O2 Flow Rate FiO2 03/26/17 07:17 36.8 68 20 151/78 (102) 99 Nasal Cannula 2.0 03/26/17 04:07 37.0 72 18 120/88 (99) 98 03/26/17 04:00 97 Nasal Cannula 2.0 03/26/17 00:00 97 Nasal Cannula 2.0 03/26/17 00:00 37.1 78 16 169/96 (120) 97 Nasal Cannula 2.0 03/25/17 23:21 37.2 76 18 171/78 98 Nasal Cannula 2.0 03/25/17 21:49 70 20 169/72 94 Nasal Cannula 2.0 03/25/17 20:38 81 20 152/82 97 Room Air 03/25/17 19:48 37.1 69 20 136/74 95 Room Air General Appearance: WD/WN, no apparent distress Head: normocephalic, atraumatic Eyes: normal inspection, PERRL, EOMI ENT: normal ENT inspection, hearing grossly normal, pharynx normal Neck: no JVD, trachea midline Respiratory/Chest: chest non-tender, lungs clear, normal breath sounds, no respiratory distress, no accessory muscle use Cardiovascular: regular rate, rhythm, no edema, no gallop, no murmur, normal peripheral pulses Abdomen/GI: normal bowel sounds, non tender, soft Extremities/Musculoskelatal: normal inspection, no calf tenderness, normal capillary refill, no pedal edema, non-tender, + pertinent finding (ROM at Left hip very limited due to subcapital femoral fracture. Unable to perform SLRT in Lt LE. Hammer to defect in digits 2-4. N/V intact in Lt LE. Perip pulses easily palpable. Cap refill < 2 seconds. Calf soft, supply and non-tender. No tenderness to palpation over Anterior, lateral or posterior aspect of Left Hip. Minimal edema. No erythema, ecchymosis, warmth or palpable deformity. 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6 % 9.0 % Monocytes (%) (Auto) 8.0 % 8.6 % Eosinophils (%) (Auto) 0.7 % 0.5 % Basophils (%) (Auto) 0.3 % 0.2 % Neutrophils # (Auto) 7.10 K/uL 8.31 K/uL Lymphocytes # (Auto) 1.15 K/uL 0.92 K/uL Monocytes # (Auto) 0.73 K/uL 0.88 K/uL Eosinophils # (Auto) 0.06 K/uL 0.05 K/uL Basophils # (Auto) 0.03 K/uL 0.02 K/uL RDW Standard Deviation 50.9 fL 50.9 fL RDW Coefficient of Variation 14.5 % 14.6 % Immature Granulocyte % (Auto) 0.3 % 0.3 % Immature Granulocyte # (Auto) 0.03 K/uL 0.03 K/uL Prothrombin Time 11.1 SECONDS Prothromb Time International Ratio 1.0 Activated Partial Thromboplast Time 29.4 SECONDS Partial Thromboplastin Ratio 1.1 Sodium Level 141 mmol/L 139 mmol/L Potassium Level 3.9 mmol/L 4.1 mmol/L Chloride Level 106 mmol/L 106 mmol/L Carbon Dioxide Level 28 mmol/L 29 mmol/L Anion Gap 7.0 mmol/L 4.0 mmol/L Blood Urea Nitrogen 20 mg/dl 17 mg/dl Creatinine 0.78 mg/dl 0.66 mg/dl Est Creatinine Clear Calc Drug Dose 55.2 ml/min 65.8 ml/min Estimated GFR () 81.5 94.7 Estimated GFR (Non- 70.3 81.7 BUN/Creatinine Ratio 26.2 25.3 Random Glucose 86 mg/dl 114 mg/dl Calcium Level 9.4 mg/dl 8.2 mg/dl Urine Color YELLOW Urine Appearance CLEAR Urine pH 6.5 Urine Specific [place] 1.019 Urine Protein NEG Urine Glucose (UA) NEG Urine Ketones TRACE Urine Occult Blood NEG Urine Nitrite POS Urine Bilirubin NEG Urine Urobilinogen NEG Urine Leukocyte Esterase TRACE Urine WBC (Auto) 1-5 /hpf Urine RBC (Auto) 0-4 /hpf Urine Hyaline Casts (Auto) 1-5 /lpf Urine Epithelial Cells (Auto) 10-20 /lpf Urine Bacteria (Auto) 4+ Total Bilirubin 1.3 mg/dl Aspartate Amino Transf (AST/SGOT) 51 U/L Alanine Aminotransferase (ALT/SGPT) 28 U/L Alkaline Phosphatase 84 U/L Total Protein 6.1 gm/dl Albumin 3.0 gm/dl Globulin 3.1 gm/dl Albumin/Globulin Ratio 1.0 Assessment & Plan Assessment: Acute non-displaced left subcapital femoral fracture Plan: Will discuss findings with Dr. Gutierrez Patient is to be NPO after midnight today No blood thinners after 11 PM Later today will have Dr. Gutierrez go over consent for surgery All risks of surgery discussed with patient and she understands. Cont all home meds. Meds for pain control as prev instructed. Additional Copies To Endy Gutierrez M.D.
--- NOTE | 2017-03-26 10:20 | Medical Consult ---
Consultation Note Date of Service Mar 26, 2017. Consultation Note Fawn is an 81-year-old female who fell yesterday while walking her dog. She was able to ambulate afterwards. Because of right hip pain she came to the emergency room. The patient is seen in conjunction with DELISA Sánchez for further details refer to his dictation he and I saw and evaluated this patient together and I am in agreement with the plan. She is afebrile her vital signs are stable. Her labs are noted her white count and hematocrit are acceptable. Her PRP is noted. X-rays of both shoulders are reviewed showing no evidence of fracture. Hip films and CT scan show a impacted nondisplaced subcapital fracture of the right hip there is no arthritis. She is awake alert and oriented. She moves both upper extremities without difficulty. She can flex left knee without any problems. She can move her right leg with knee flexion causing some pain in the groin. Both upper extremities and both lower extremities are nontender to palpation. Right foot cells pedis pulses 1+. She has normal sensation no swelling and 5 out of 5 ankle and toe plantarflexion and dorsiflexion strength. Her skin is intact. The impression is a nondisplaced impacted subcapital fracture of the right hip Plan findings are discussed with the patient treatment options are reviewed. Recommend surgical stabilization with percutaneous cannulated screws. We discussed the possibility of hemiarthroplasty. An informed consent is obtained. Bed rest with no weightbearing on the right lower extremity. Hold her anticoagulation. Nothing by mouth after midnight for surgery tomorrow morning.
--- NOTE | 2017-03-26 11:46 | Anesthesiology Progress Note ---
Anesthesia Progress Note Date of Service Mar 26, 2017. Progress Notes Ms. Miller fell while walking her dog (denied LOC, CP, SOB, syncope) and sustained fracture to RIGHT hip. Allergies to PCN (she thinks it is hives), Rofecoxib, shellfish and sulfa medications. Medications notable for outpatient XARELTO use (last dose 03/25/17). PSH significant for heart cath (2013 NSTEMI no stents), knee surgery (2012). PMH significant for ALISTAIR (non-compliant CPAP), VA ( NSTEMI 09/2013), HTN, HLD, hx/o PAF with RVR (November 2014), OA. Never smoker. Prior to injury was able to do stairs without CP/SOB. EKG shows inferior infarct noted prior to 2003 with HR of 84 in NSR. Echo from 2016 showed EF 65-70% with mild MR and mild TR. Patient type and screened. Airway exam notable for MP 2 but with poor dentition with multiple missing teeth. Anesthesia plan was discussed with patient and she was consented for GA given that it will be only 48 hours since her last dose of xarelto (TALAT recommends 3 days). All questions answered.
--- NOTE | 2017-03-26 16:32 | Family Medicine Progress Note ---
Progress Note Date of Service Mar 26, 2017. Subjective Pt evaluation today including: conversation w/ patient, physical exam, chart review, lab review, conversation w/ [employer] product consultant, review of inpatient medication list Pain: minimal 1-08/25 Voiding: zhang catheter in place Patient admitted yesterday evening for hip fracture and UTI Pain currently /. Has some mild left shoulder discomfort from fall Denies any shortness of breath, chest pain, palpitations Denies any calf tenderness Denies any pain with urination, lower abdominal pain or increased frequency of urination Constitutional: No fever, No chills, No sweats Respiratory: No cough, No sputum, No shortness of breath Cardiovascular: No chest pain, No edema, No palpitations Abdomen: No pain, No nausea, No vomiting Musculoskeletal: + joint pain, No swelling, No calf pain Female : No dysuria, No urinary frequency, No hematuria Neurologic: No paralysis, No weakness, No numbness/tingling Heme: No abnormal bleeding/bruising Skin: No rash, No itch, No new/changing skin lesions Medications Current Inpatient Medications Medications (Trade) Dose Ordered Sig/Samuel Route Start Time Stop Time Status Last Admin Dose Admin Atorvastatin Calcium (Lipitor Tab) 80 mg HS PO 03/26/17 21:00 04/25/17 20:59 Metoprolol Succinate (Toprol Xl Tab) 50 mg DAILY PO 03/26/17 09:00 04/25/17 08:59 03/26/17 08:15 50 MG Ondansetron HCl (Zofran Inj) 4 mg Q6H PRN IV 03/25/17 22:30 04/24/17 22:29 Zolpidem Tartrate (Ambien Tab) 5 mg HS PRN PO 03/25/17 22:30 04/24/17 22:29 Ciprofloxacin/ Dextrose 400 mg/ Prmx 200 ml @ 100 mls/hr Q12H IV 03/26/17 00:00 04/05/17 00:00 03/26/17 11:49 100 MLS/HR Hydromorphone HCl (Dilaudid Inj) 0.25 mg Q20M PRN IV 03/25/17 23:00 04/08/17 22:59 03/26/17 14:36 0.25 MG Hydromorphone HCl (Dilaudid Inj) 0.5 mg Q20M PRN IV 03/25/17 23:00 04/08/17 22:59 03/26/17 00:28 0.5 MG Naloxone HCl (Narcan Inj) 0.1 mg PRN PRN IV 03/25/17 23:00 04/24/17 22:59 Senna/Docusate Sodium (Senokot S Tab) 2 tab HS PO 03/26/17 21:00 04/25/17 20:59 Polyethylene (Miralax Powder Packet) 17 gm DAILY PRN PO 03/25/17 23:00 04/24/17 22:59 Magnesium Hydroxide (Milk Of Magnesia Susp) 30 ml DAILY PRN PO 03/25/17 23:00 04/24/17 22:59 Bisacodyl (Dulcolax Supp) 10 mg DAILY PRN [place] 03/25/17 23:00 04/24/17 22:59 Acetaminophen 650 mg/Empty Bag 65 ml @ 260 mls/hr Q6H IV 03/26/17 02:00 04/25/17 01:59 03/26/17 14:36 260 MLS/HR Sodium Chloride 1,000 ml @ 100 mls/hr Q10H IV 03/26/17 08:00 04/25/17 07:59 03/26/17 08:57 100 MLS/HR Cefazolin Sodium (Ancef 2000mg/60 ml D5W) 2,000 mg PREOP IV 03/27/17 06:00 03/27/17 18:00 Famotidine (Pepcid Tab) 20 mg BID PO 03/26/17 21:00 04/25/17 20:59 Objective Vital Signs Date Time Temp Pulse Resp B/P (MAP) Pulse Ox O2 Delivery O2 Flow Rate FiO2 03/26/17 16:10 Room Air 03/26/17 15:05 37.3 70 20 127/66 (86) 93 Room Air 03/26/17 12:10 Room Air 03/26/17 10:53 37.1 57 20 138/71 (93) 95 03/26/17 08:30 99 Room Air 03/26/17 07:17 36.8 68 20 151/78 (102) 99 Nasal Cannula 2.0 03/26/17 04:07 37.0 72 18 120/88 (99) 98 03/26/17 04:00 97 Nasal Cannula 2.0 03/26/17 00:00 97 Nasal Cannula 2.0 03/26/17 00:00 37.1 78 16 169/96 (120) 97 Nasal Cannula 2.0 03/25/17 23:21 37.2 76 18 171/78 98 Nasal Cannula 2.0 03/25/17 21:49 70 20 169/72 94 Nasal Cannula 2.0 03/25/17 20:38 81 20 152/82 97 Room Air 03/25/17 19:48 37.1 69 20 136/74 95 Room Air Physical Exam General Appearance: WD/WN, no apparent distress Respiratory/Chest: lungs clear, no respiratory distress, no accessory muscle use Cardiovascular: regular rate, rhythm, no edema, no JVD, no murmur Abdomen: normal bowel sounds, non tender, soft Extremities: non-tender, no pedal edema, no calf tenderness, normal capillary refill, + pertinent finding (R foot minimally shortened and internally rotated, no erythema or pain to palpation along hip joint, good peripheral pulses) Neurologic/Psychiatric: no motor/sensory deficits, normal mood/affect, oriented x 3 Skin: normal color, warm/dry, no rash Laboratory Results Results Past 24 Hours Test 03/25/17 20:31 03/25/17 22:07 03/26/17 06:12 Range/Units White Blood Count 9.10 10.21 4.8-10.8 K/uL Red Blood Count 4.35 4.07 4.2-5.4 M/uL Hemoglobin 13.8 12.5 12.0-16.0 g/dL Hematocrit 41.5 38.8 37-47 % Mean Corpuscular Volume 95.4 95.3 80-100 fL Mean Corpuscular Hemoglobin 31.7 30.7 25-34 pg Mean Corpuscular Hemoglobin Concent 33.3 32.2 32-36 g/dl Platelet Count 211 176 130-400 K/uL Mean Platelet Volume 10.1 10.1 7.4-10.4 fL Neutrophils (%) (Auto) 78.1 81.4 % Lymphocytes (%) (Auto) 12.6 9.0 % Monocytes (%) (Auto) 8.0 8.6 % Eosinophils (%) (Auto) 0.7 0.5 % Basophils (%) (Auto) 0.3 0.2 % Neutrophils # (Auto) 7.10 8.31 1.4-6.5 K/uL Lymphocytes # (Auto) 1.15 0.92 1.2-3.4 K/uL Monocytes # (Auto) 0.73 0.88 0.11-0.59 K/uL Eosinophils # (Auto) 0.06 0.05 0-0.5 K/uL Basophils # (Auto) 0.03 0.02 0-0.2 K/uL RDW Standard Deviation 50.9 50.9 36.4-46.3 fL RDW Coefficient of Variation 14.5 14.6 11.5-14.5 % Immature Granulocyte % (Auto) 0.3 0.3 % Immature Granulocyte # (Auto) 0.03 0.03 0.00-0.02 K/uL Prothrombin Time 11.1 9.0-12.0 SECONDS Prothromb Time International Ratio 1.0 0.9-1.1 Activated Partial Thromboplast Time 29.4 21.0-31.0 SECONDS Partial Thromboplastin Ratio 1.1 Sodium Level 141 139 136-145 mmol/L Potassium Level 3.9 4.1 3.5-5.1 mmol/L Chloride Level 106 106 98-107 mmol/L Carbon Dioxide Level 28 29 21-32 mmol/L Anion Gap 7.0 4.0 3-11 mmol/L Blood Urea Nitrogen 20 17 7-18 mg/dl Creatinine 0.78 0.66 0.60-1.20 mg/dl Est Creatinine Clear Calc Drug Dose 55.2 65.8 ml/min Estimated GFR () 81.5 94.7 Estimated GFR (Non- 70.3 81.7 BUN/Creatinine Ratio 26.2 25.3 10-20 Random Glucose 86 114 70-99 mg/dl Calcium Level 9.4 8.2 8.5-10.1 mg/dl Urine Color YELLOW Urine Appearance CLEAR CLEAR Urine pH 6.5 4.5-7.5 Urine Specific [place] 1.019 1.000-1.030 Urine Protein NEG NEG Urine Glucose (UA) NEG NEG Urine Ketones TRACE NEG Urine Occult Blood NEG NEG Urine Nitrite POS NEG Urine Bilirubin NEG NEG Urine Urobilinogen NEG NEG Urine Leukocyte Esterase TRACE NEG Urine WBC (Auto) 1-5 0-5 /hpf Urine RBC (Auto) 0-4 0-4 /hpf Urine Hyaline Casts (Auto) 1-5 0-5 /lpf Urine Epithelial Cells (Auto) 10-20 0-5 /lpf Urine Bacteria (Auto) 4+ NEG Total Bilirubin 1.3 0.2-1 mg/dl Aspartate Amino Transf (AST/SGOT) 51 15-37 U/L Alanine Aminotransferase (ALT/SGPT) 28 12-78 U/L Alkaline Phosphatase 84 45-117 U/L Total Protein 6.1 6.4-8.2 gm/dl Albumin 3.0 3.4-5.0 gm/dl Globulin 3.1 2.5-4.0 gm/dl Albumin/Globulin Ratio 1.0 0.9-2 Microbiology Results 03/26/17 MRSA DNA Surveillance Screen - Final, Complete Specimen Negative for MRSA by DNA Probe 03/25/17 Urine Culture - Preliminary, Resulted Gram Negative Bacilli Assessment and Plan 81 year old female with PMHx CAD and paroxysmal atrial fibrillation presents with a right non displaced subcapital hip fracture Right subcapital hip fracture - Consult ortho for definitive surgery - Hold rivaroxaban and aspirin for surgery. - Bed rest - Consult anesthesiology in morning - NV checks Q4H per protocol UTI - complicated with urinary catheter needed due to hip fracture. - Nitrites and LE positive, 4+ bacteria --->patient has remained asymptomatic - ciprofloxacin 400 mg Q12H (penicillin allergy with some swelling therefore will avoid cephalosporin) - Follow up urine culture - No fever, chills or WBC to suggest bacteremia Coronary artery disease, Paroxysmal atrial fibrillation, dyslipidemia - hold aspirin - restart lisinopril as patient with normal creatinine - continue atorvastatin and metoprolol - admit to telemetry Obstructive sleep apnea - will defer CPAP given she does not use this at home and significant weight loss since last sleep study showing ALISTAIR. VTE Prophylaxis - hold rivaroxaban for surgery - DINAH + SCD on left leg Code - Full as per patient wishes Disposition - will admit to telemetry due to cardiac history Continued [facility] stay due to: ambulation difficulties History Resident Physician Supervision Note: I was present with Dr. Cabral during the history and exam. I discussed the case with the resident and agree with the findings and plan as documented in the note. Any exceptions or clarifications are listed here. Pt resting in bed with minimal pain without direct pressure on the right hip, pain well controlled w/ medication otherwise. General Appearance: no apparent distress, thin Respiratory: chest non-tender, lungs clear, normal breath sounds, no respiratory distress Cardiovascular: normal peripheral pulses, regular rate, rhythm, no edema, no murmur Gastrointestinal: normal bowel sounds, non tender, soft, no organomegaly Neurologic/Psychiatric: no motor/sensory deficits, alert, normal mood/affect, oriented x 3 Assessment/Plan 81 y/o female w/ h/o CAD, pAF p/w R hip fracture and UTI Right hip fracture (subcap) - orthopaedics consulted, input appreciated - OR in AM, holding AC/AP UTI - treating empirically while awaiting Cx 2/2 pending OR - continue cipro pAF - holding AC/AP, continue atorvastatin, metoprolol, lisinopril ALISTAIR - patient defers CPAP at this time
[2017-03-26] MEDS: FAMOTIDINE 20 MG TAB PO SCH (21:48)
[2017-03-26] MEDS: DOCUSATE SODIUM/SENNA 50/8.6MG TAB PO SCH (21:48)
[2017-03-26] MEDS: ATORVASTATIN 40 MG TAB PO SCH (21:48)
[2017-03-27] VITALS (7 sets, daily range): BP systolic 123–153; BP diastolic 63–83; PULSE 68–88; TEMP 36.5–37; O2SAT 92–97
[2017-03-27] MEDS: ACETAMINOPHEN IV 650 MG in EMPTY BAG 0 ML IV SCH ×4 (02:49→21:05)
[2017-03-27] MEDS: SODIUM CHLORIDE 0.9% 1000ML 1,000 ML IV SCH ×3 (04:29→23:59)
[2017-03-27] MEDS ORDERED: CEFAZOLIN IV 2,000 MG/60 ML D5W IV SCH (06:00)
[2017-03-27] MEDS ORDERED: BUPIVACAINE 0.5 % 5 MG/1 ML PF 10ML VIAL ONE (06:17)
--- NOTE | 2017-03-27 06:59 | Family Medicine Progress Note ---
Progress Note Date of Service Mar 27, 2017. Subjective Pt evaluation today including: conversation w/ patient, physical exam, chart review, lab review, conversation w/ senior wind energy consultant, review of inpatient medication list Pain: minimal PO Intake: NPO Voiding: zhang catheter in place Patient with no acute events overnight I saw the patient in the surgery holding room this morning Patient was in minimal pain and says the only time she has hip pain is when she tries to move it She is feeling ready for surgery and does not have any concerns this morning She denies any redness, or swelling around the hip joint She denies any chest pain, palpitations or shortness of breath Constitutional: No fever, No chills Respiratory: No cough, No wheezing, No shortness of breath Cardiovascular: No chest pain, No edema, No palpitations Abdomen: No pain, No nausea, No vomiting Musculoskeletal: No joint pain, No muscle pain, No calf pain Psychiatric: No anxiety Medications Current Inpatient Medications Medications (Trade) Dose Ordered Sig/Samuel Route Start Time Stop Time Status Last Admin Dose Admin Atorvastatin Calcium (Lipitor Tab) 80 mg HS PO 03/26/17 21:00 04/25/17 20:59 03/26/17 21:48 80 MG Metoprolol Succinate (Toprol Xl Tab) 50 mg DAILY PO 03/26/17 09:00 04/25/17 08:59 03/26/17 08:15 50 MG Ondansetron HCl (Zofran Inj) 4 mg Q6H PRN IV 03/25/17 22:30 04/24/17 22:29 Zolpidem Tartrate (Ambien Tab) 5 mg HS PRN PO 03/25/17 22:30 04/24/17 22:29 Ciprofloxacin/ Dextrose 400 mg/ Prmx 200 ml @ 100 mls/hr Q12H IV 03/26/17 00:00 04/05/17 00:00 03/26/17 23:51 100 MLS/HR Hydromorphone HCl (Dilaudid Inj) 0.25 mg Q20M PRN IV 03/25/17 23:00 04/08/17 22:59 03/26/17 14:36 0.25 MG Hydromorphone HCl (Dilaudid Inj) 0.5 mg Q20M PRN IV 03/25/17 23:00 04/08/17 22:59 03/26/17 00:28 0.5 MG Naloxone HCl (Narcan Inj) 0.1 mg PRN PRN IV 03/25/17 23:00 04/24/17 22:59 Senna/Docusate Sodium (Senokot S Tab) 2 tab HS PO 03/26/17 21:00 04/25/17 20:59 03/26/17 21:48 2 TAB Polyethylene (Miralax Powder Packet) 17 gm DAILY PRN PO 03/25/17 23:00 04/24/17 22:59 Magnesium Hydroxide (Milk Of Magnesia Susp) 30 ml DAILY PRN PO 03/25/17 23:00 04/24/17 22:59 Bisacodyl (Dulcolax Supp) 10 mg DAILY PRN NV 03/25/17 23:00 04/24/17 22:59 Acetaminophen 650 mg/Empty Bag 65 ml @ 260 mls/hr Q6H IV 03/26/17 02:00 04/25/17 01:59 03/27/17 02:49 260 MLS/HR Sodium Chloride 1,000 ml @ 100 mls/hr Q10H IV 03/26/17 08:00 04/25/17 07:59 03/27/17 04:29 100 MLS/HR Cefazolin Sodium (Ancef 2000mg/60 ml D5W) 2,000 mg PREOP IV 03/27/17 06:00 03/27/17 18:00 Famotidine (Pepcid Tab) 20 mg BID PO 03/26/17 21:00 04/25/17 20:59 03/26/17 21:48 20 MG Lisinopril (Zestril Tab) 20 mg DAILY PO 03/27/17 09:00 04/26/17 08:59 Objective Vital Signs Date Time Temp Pulse Resp B/P (MAP) Pulse Ox O2 Delivery O2 Flow Rate FiO2 03/27/17 04:00 Room Air 03/27/17 03:00 36.8 85 18 125/66 (85) 93 Room Air 03/27/17 00:00 Room Air 03/26/17 23:55 37.2 104 20 167/79 (108) 91 Room Air 03/26/17 20:00 Room Air 03/26/17 19:01 37.1 76 20 141/82 (101) 94 Room Air 03/26/17 16:10 Room Air 03/26/17 15:05 37.3 70 20 127/66 (86) 93 Room Air 03/26/17 12:10 Room Air 03/26/17 10:53 37.1 57 20 138/71 (93) 95 03/26/17 08:30 99 Room Air 03/26/17 07:17 36.8 68 20 151/78 (102) 99 Nasal Cannula 2.0 Physical Exam General Appearance: WD/WN, no apparent distress Respiratory/Chest: lungs clear, no respiratory distress, no accessory muscle use Cardiovascular: regular rate, rhythm, no JVD, no murmur Abdomen: normal bowel sounds, non tender, soft Extremities: non-tender, no pedal edema, no calf tenderness, normal capillary refill, + pertinent finding (R foot internally rotated and with SCD's on ) Neurologic/Psychiatric: alert, normal mood/affect, oriented x 3 Skin: normal color, warm/dry, no rash Assessment and Plan 81 year old female with PMHx CAD and paroxysmal atrial fibrillation presents with a right non displaced subcapital hip fracture Right subcapital hip fracture - Patient going for surgery this morning - Hold rivaroxaban and aspirin for surgery. - Bed rest - Consult anesthesiology - NV checks Q4H per protocol - Will receive cefazolin pre op - Famotidine bid for stress ulcer prophylaxis UTI - complicated with urinary catheter needed due to hip fracture. - Nitrites and LE positive, 4+ bacteria --->patient has remained asymptomatic - ciprofloxacin 400 mg Q12H (penicillin allergy with some swelling therefore will avoid cephalosporin) - Follow up urine culture - No fever, chills or WBC to suggest bacteremia Coronary artery disease, Paroxysmal atrial fibrillation, dyslipidemia - hold aspirin - restart lisinopril as patient with normal creatinine - continue atorvastatin and metoprolol - admit to telemetry Obstructive sleep apnea - will defer CPAP given she does not use this at home and significant weight loss since last sleep study showing ALISTAIR. VTE Prophylaxis - hold rivaroxaban for surgery - DINAH + SCD on left leg Code - Full as per patient wishes Disposition - will admit to telemetry due to cardiac history Continued [facility] stay due to: ambulation difficulties History Resident Physician Supervision Note: I was present with Dr. Cabral during the history and exam. I discussed the case with the resident and agree with the findings and plan as documented in the note. Any exceptions or clarifications are listed here. Pt seen and examined postoperatively at bedside. Resting comfortably in bed denying pain at this time but confused and pulling at IV/monitor leads. Reoriented effectively - when asked, oriented to self, place and time (date but not day). Stated that she was here for surgery for a chip in her skin but was reoriented to hip fracture easily. No family in room at present to compare baseline. Reports no pain, [place], vision changes, chest pain, SOB, nausea, sensory changes, fever, chills. 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 nml as tested, no motor/sensory deficits, alert, normal mood/affect, oriented x 3 Skin Characteristics: normal color, warm/dry Assessment/Plan 81 y/o female w/ h/o CAD, pAF p/w R hip fracture and UTI POD #0 for ORIF Delirium - likely sundowning from sleep/pain/postoperative - 1:1, contact family for more thorough establish of baseline, t/c CT head, though neuro exam nl and easily reoriented Right hip fracture (subcap) - orthopaedics consulted, input appreciated - restart AC in AM, pain well controlled at present UTI - UCx w/ ortiz sensitive klebsiella - continue cipro pAF - holding AC/AP, continue atorvastatin, metoprolol, lisinopril ALISTAIR - patient defers CPAP at this time
--- NOTE | 2017-03-27 07:00 | History & Physical Bridge Note ---
H&P Re-Evaluation Bridge Note: I have examined the patient, reviewed the History & Physical and in the interval since the performance of the History & Physical I have noted the following changes of clinical significance: No changes noted
[2017-03-27] MEDS ORDERED: FENTANYL CITRATE INJ 50 MCG/1 ML 2 ML VIAL ONE ×2 (07:02→08:22)
[2017-03-27] MEDS ORDERED: MIDAZOLAM HCL 1 MG/ML 2ML VIAL ONE (07:02)
[2017-03-27] MEDS ORDERED: BACITRACIN 50000 UNIT VIAL ONE (07:14)
[2017-03-27] MEDS ORDERED: POVIDONE-IODINE OP SOLN 30 ML BTL ONE (07:28)
[2017-03-27] MEDS ORDERED: FENTANYL CITRATE INJ 50 MCG/1 ML 2 ML VIAL IV PRN (08:00)
[2017-03-27] MEDS ORDERED: MEPERIDINE HCL 25 MG/ML CARP IV PRN (08:00)
[2017-03-27] MEDS ORDERED: HYDROmorphone INJ 2 MG/ML SYR/VIAL IV PRN (08:00)
[2017-03-27] MEDS ORDERED: LABETALOL HCL IV 5 MG/ML 20ML IV PRN (08:00)
[2017-03-27] MEDS ORDERED: ONDANSETRON INJ 2 MG/ML 2 ML VIAL IV PRN (08:00)
[2017-03-27] MEDS ORDERED: PHENYLEPHRINE 100MCG/ML 5ML SYR IV PRN (08:00)
[2017-03-27] MEDS ORDERED: EpHEDrine SULFATE INJ 50 MG/ML AMP IV PRN (08:00)
[2017-03-27] MEDS ORDERED: NALOXONE HCL 0.4 MG/1 ML VIAL/CARP IV PRN (08:00)
[2017-03-27] MEDS ORDERED: FLUMAZENIL 0.1 MG/1 ML 10 ML VIAL IV PRN (08:00)
[2017-03-27] MEDS ORDERED: ATROPINE SULFATE 0.1 MG/ML 5ML SYR IV PRN (08:00)
[2017-03-27] MEDS ORDERED: LARYING-O-JET KIT (LTA) ONE ×2 (08:04)
[2017-03-27] MEDS ORDERED: LIDOCAINE HCL 2% 2 ML VIAL (20MG/ML) ONE (08:04)
[2017-03-27] MEDS ORDERED: DEXAMETHASONE SOD INJ 4 MG/ML VIAL ONE (08:04)
[2017-03-27] MEDS ORDERED: NEOSTIGMINE METHYLSULFATE 5 MG/5 ML SYR ONE (08:04)
[2017-03-27] MEDS ORDERED: ROCURONIUM BROMIDE 10 MG/ML 5 ML VIAL IV ONE (08:04)
[2017-03-27] MEDS ORDERED: ONDANSETRON INJ 2 MG/ML 2 ML VIAL ONE (08:04)
[2017-03-27] MEDS ORDERED: GLYCOPYRROLATE INJ 0.2 MG/ML VIAL ONE (08:04)
[2017-03-27] MEDS ORDERED: PROPOFOL IV EMULSION 10 MG/ML 20 ML VIAL IV ONE (08:04)
[2017-03-27] MEDS ORDERED: EpHEDrine SULFATE 50MG/5ML SYR ONE (08:09)
--- NOTE | 2017-03-27 09:13 | [facility] Operative Report ---
Operative Report Operative Date Mar 27, 2017. Pre-Operative Diagnosis Nondisplaced impacted subcapital fracture of the right hip Post-Operative Diagnosis Nondisplaced impacted subcapital fracture of the right hip Procedure(s) Performed Closed Reduction Percutaneous Screws of the Right Hip Fracture Surgeon Dr. Endy Gutierrez Accordion Maker Surgeon(s) Bekah Villalba PA-C Estimated Blood Loss 10ml Findings Impacted subcapital fracture of the right hip Specimens None per surgeon Drains none Anesthesia Gen. Complication(s) None Disposition Recovery Room / PACU Indications Patient's an 81-year-old female status post fall resulting in the aformentioned injury. We'll intervention is recommended and she agreed to proceed. Description of Procedure Informed consent was obtained. The patient was identified as Fawn grijalva. She identified the operative site as the right hip. I marked with my initials. Preoperative surgical timeout was performed. Appropriate dose of IV antibiotics was given. She was positioned supine on the table. A padded peroneal post was applied. The torso was secured to the table. The right leg was placed into gentle longitudinal traction with internal rotation. The foot was well-padded. The left leg was placed in the well-leg blanco with the hip and knee flexed less than 90. The hip was also externally rotated. Fluoroscopic imaging confirmed good alignment. DVT prophylaxis will be done with her chronic is are also postoperatively. The right leg was prepped and draped in the usual sterile fashion with use of the shower curtain and C-armour drape. Fluoroscopic guidance was utilized to localize the area for the incision. The skin incision was made about 5 cm in length. Electrocautery dissection dissection was performed down to subcutaneous tissues and the IT band was split in line with the incision. A guidewire for the 7.3 cannulated screws was introduced and adjusted 1 to be just above the inferior cortex and central on the lateral view. A second pin was a introduced central on the AP view but posterior on the lateral. A third pin was introduced anterosuperior. Lengths were determined with the depth gauge. The outer cortex was opened with the reamer. Screws were then inserted under power and finished by hand. All threads crossed the fracture site. The screws were within 5-7 mm of the subchondral bone. Implants are in good position. The starting point was above the lesser trochanter. The fracture remained anatomically aligned and impacted. The wound was irrigated. The IT band was closed with inverted #1 Vicryl. The skin was closed with 2-0 Vicryl and jennifer. A soft sterile dressing was applied. The patient was then awakened and removed from the fracture table taken to the recovery room in stable condition. Her were no specimens or complications. Counts are correct in the case. Blood loss was approximately 10 mL. At the conclusion operation no one is was available to speak to. The patient will restart her anticoagulation in the morning. She'll weight-bear as tolerated with walker and PT/OT. Synthes 7.3 cannulated screws were utilized 3 I attest to the content of the Intraoperative Record and any orders documented therein. Any exceptions are noted below.
[2017-03-27] MEDS ORDERED: TRAMADOL HCL 50 MG TAB PO PRN (09:15)
--- NOTE | 2017-03-27 09:26 | [facility] Operative Report ---
Operative Report Operative Date Mar 27, 2017. Pre-Operative Diagnosis Nondisplaced impacted subcapital fracture of the right hip Post-Operative Diagnosis Nondisplaced impacted subcapital fracture of the right hip Procedure(s) Performed Closed Reduction Percutaneous Screws of the Right Hip Fracture Surgeon Dr. Endy Gutierrez Continuous Still Operator Surgeon(s) Bekah Villalba PA-C Estimated Blood Loss 10ml Findings right femoral neck fracture Specimens None per surgeon Drains none Anesthesia Gen. Disposition Recovery Room / PACU Indications Patient is an 81 year old female, s/p fall injuring her right hip, unable to ambulate without pain. Presented to the ED, x-rays/CT obtained, found to have a right impacted femoral neck fracture. Surgical intervention recommended. Risks/complications discussed, informed consent obtained. Description of Procedure She was taken to the operating room, given IV Ancef for surgical prophylaxis. Time out performed, prepped and draped in routine sterile fashion. I was present during the entire, please Dr. Gutierrez's operative report for further detail. Patient was awakened and taken to the recovery room in stable condition. I attest to the content of the Intraoperative Record and any orders documented therein. Any exceptions are noted below.
--- NOTE | 2017-03-27 09:58 | Anesthesiology Progress Note ---
Anesthesia Post Op Note Date & Time Mar 27, 2017 at 09:58 Vital Signs Pain Intensity: 0 Vital Signs Past 12 Hours Date Time Temp Pulse Resp B/P (MAP) Pulse Ox O2 Delivery O2 Flow Rate FiO2 03/27/17 09:40 96 16 123/83 96 Oxymask 2 03/27/17 09:30 92 16 163/71 97 Oxymask 10 03/27/17 09:20 92 16 147/63 100 Oxymask 10 03/27/17 09:14 36.7 83 16 141/62 96 Oxymask 10 03/27/17 04:00 Room Air 03/27/17 03:00 36.8 85 18 125/66 (85) 93 Room Air 03/27/17 00:00 Room Air 03/26/17 23:55 37.2 104 20 167/79 (108) 91 Room Air Notes Mental Status: alert / awake / arousable, participated in evaluation Pt Amnestic to Procedure: Yes Nausea / Vomiting: adequately controlled Pain: adequately controlled Airway Patency, RR, SpO2: stable & adequate BP & HR: stable & adequate Hydration State: stable & adequate Anesthetic Complications: no major complications apparent The patient is awake and stable at her baseline.
--- NOTE | 2017-03-27 10:55 | DIAGNOSTIC IMAGING REPORT ---
RIGHT HIP OR FILMS CLINICAL HISTORY: 81 years-old Female presenting with RT ORIF CANNULATED SCREWS HIP Right. TECHNIQUE: 2 fluoroscopic spot image(s) obtained as part of an intraoperative procedure. COMPARISON: Plain radiographs performed the previous day. FINDINGS/IMPRESSION: There has been interval 2 lag screw fixation across the right femoral neck for internal fixation of the subcapital fracture. Near-anatomic alignment maintained. Please see surgical report for further details. Fluoroscopy dosage (mGy): Not available. Fluoroscopy time: 1.14 minutes. Number of fluoroscopic spot images: 2. Electronically signed by: Endy Quan M.D. 03/27/2017 10:54 AM Dictated Date/Time: 03/27/2017 10:52 AM
[2017-03-27] MEDS: FAMOTIDINE 20 MG TAB PO SCH ×2 (11:08→21:05)
[2017-03-27] MEDS: METOPROLOL SUCC 50MG EXT REL TAB PO SCH (11:08)
[2017-03-27] MEDS: LISINOPRIL 20 MG TAB PO SCH (11:08)
[2017-03-27] MEDS: CIPROFLOXACIN / D5W 400 MG in PREMIXED IN D5W 200 ML IV SCH (12:07)
[2017-03-27 12:10] LABS: HEMATOCRIT 43.2 % (37-47); MEAN CELL VOLUME 97.5 fL (80-100); MEAN CORPUSCULAR HEMOGLOBIN 30.7 pg (25-34); MEAN CORPUSCULAR HGB CONC 31.5 g/dl (32-36); MEAN PLATELET VOLUME 9.9 fL (7.4-10.4); PLATELET COUNT 167 K/uL (130-400); RED BLOOD COUNT 4.43 M/uL (4.2-5.4); WHITE BLOOD COUNT 10.85 K/uL (4.8-10.8)
[2017-03-27 12:17] LABS: PROTHROMBIN TIME (PATIENT) 11.1 SECONDS (9.0-12.0)
[2017-03-27 12:38] LABS: BUN/CREATININE RATIO 14.4 (10-20); CALCIUM 8.7 mg/dl (8.5-10.1); CREATININE 0.55 mg/dl (0.60-1.20); POTASSIUM 3.7 mmol/L (3.5-5.1)
--- NOTE | 2017-03-27 16:29 | Orthopedic Progress Note ---
Orthopedic Progress Note Date of Service Mar 27, 2017. Subjective Reports: feeling well, Denies: complaints, chest pain, SOB, nausea / vomiting, light headedness, calf pain Additional Notes: States not having any pain, feels "great". Has one-on-one nurse at bedside. Objective calves soft nontender, N/V intact, capillary refill less than 2 sec., dressing C /D/I, A&O x3, toes mobile Distal pulses 1+. No edema, SCD's in place. Tolerates log rolling of right leg , tolerates gentle knee flexion to about 20 degrees with some discomfort in thigh with movement. Date Time Temp Pulse Resp B/P (MAP) Pulse Ox O2 Delivery O2 Flow Rate FiO2 03/27/17 15:32 36.6 68 18 129/64 (85) 96 Nasal Cannula 1.0 03/27/17 14:00 37.0 83 18 124/70 (88) 92 Room Air 03/27/17 12:00 Nasal Cannula 2.0 03/27/17 11:00 36.6 77 17 145/71 (95) 97 Nasal Cannula 2.0 03/27/17 10:24 36.7 88 18 153/69 (97) 96 Nasal Cannula 2.0 03/27/17 10:10 36.2 87 16 148/71 100 Oxymask 2 03/27/17 10:00 36.2 79 16 142/88 97 Oxymask 2 03/27/17 09:50 92 16 151/88 97 Oxymask 2 03/27/17 09:40 96 16 123/83 96 Oxymask 2 03/27/17 09:30 92 16 163/71 97 Oxymask 10 03/27/17 09:20 92 16 147/63 100 Oxymask 10 03/27/17 09:14 36.7 83 16 141/62 96 Oxymask 10 03/27/17 04:00 Room Air 03/27/17 03:00 36.8 85 18 125/66 (85) 93 Room Air 03/27/17 00:00 Room Air 03/26/17 23:55 37.2 104 20 167/79 (108) 91 Room Air 03/26/17 20:00 Room Air 03/26/17 19:01 37.1 76 20 141/82 (101) 94 Room Air Laboratory Results 24 Hours: Test 03/27/17 11:55 Hematocrit 43.2 % Hemoglobin 13.6 g/dL Prothromb Time International Ratio 1.0 Prothrombin Time 11.1 SECONDS Assessment & Plan Assessment: POD 0 - ORIF right hip with percutaneous screws Plan: May be OOB/WBAT RLE with assistance of a walker SCD's for DVT prophylaxis. will resume Xarelto in AM Pain medication PRN as prescribed Regular diet Care pre primary team Begin PT/OT for right hip Will re-eval in AM. Will discuss findings with Dr. Gutierrez. Discharge Planning DVT Prophylaxis: SCDs, Xarelto (to start POD 1 in AM)
[2017-03-27] MEDS: CEFAZOLIN IV 1,000 MG in DEXTROSE 5% 50ML 50 ML IV SCH (18:16)
[2017-03-27] MEDS: DOCUSATE SODIUM/SENNA 50/8.6MG TAB PO SCH (21:00)
[2017-03-27] MEDS: ATORVASTATIN 40 MG TAB PO SCH (21:05)
[2017-03-28] VITALS (9 sets, daily range): BP systolic 117–152; BP diastolic 57–79; PULSE 69–111; TEMP 36.6–37.8; O2SAT 92–97
[2017-03-28] MEDS: CIPROFLOXACIN / D5W 400 MG in PREMIXED IN D5W 200 ML IV SCH ×2 (00:10→12:19)
[2017-03-28] MEDS: ACETAMINOPHEN IV 650 MG in EMPTY BAG 0 ML IV SCH ×4 (02:15→20:03)
[2017-03-28] MEDS: CEFAZOLIN IV 1,000 MG in DEXTROSE 5% 50ML 50 ML IV SCH (02:47)
[2017-03-28 06:16] LABS: HEMATOCRIT 34.9 % (37-47); MEAN CELL VOLUME 95.1 fL (80-100); MEAN CORPUSCULAR HEMOGLOBIN 31.3 pg (25-34); PLATELET COUNT 151 K/uL (130-400); RED BLOOD COUNT 3.67 M/uL (4.2-5.4); WHITE BLOOD COUNT 10.48 K/uL (4.8-10.8)
[2017-03-28 06:57] LABS: BUN/CREATININE RATIO 19.8 (10-20); CALCIUM 8.4 mg/dl (8.5-10.1); CREATININE 0.55 mg/dl (0.60-1.20); POTASSIUM 4.2 mmol/L (3.5-5.1)
--- NOTE | 2017-03-28 07:52 | Family Medicine Progress Note ---
Progress Note Date of Service Mar 28, 2017. History Resident Physician Supervision Note: I was present with Dr. Cabral during the history and exam. I discussed the case with the resident and agree with the findings and plan as documented in the note. Any exceptions or clarifications are listed here. Pt seen at bedside, lying comfortably in bed. Denies pain in the right hip at rest, some discomfort with direct pressure or movement. Overnight, does not recall trying to get out of bed or removing monitor leads. Presently oriented x 3 with understanding of recent repair of right hip fx when asked. No contact with family per resident, daughter may be visiting briefly today. General Appearance: WD/WN, no apparent distress Eye Exam: bilateral eye PERRL, bilateral eye EOMI Neck: non-tender, full range of motion, supple Respiratory: chest non-tender, lungs clear, normal breath sounds, no respiratory distress Cardiovascular: normal peripheral pulses, regular rate, rhythm, no edema, no murmur Gastrointestinal: normal bowel sounds, non tender, soft Extremities: other (right hip dressing in place, C/D/I, distal strength 5/5) Neurologic/Psychiatric: alert, normal mood/affect, oriented x 3, other (some perseverating with relating previous events but generally accurate) Assessment/Plan 81 y/o female w/ h/o CAD, pAF p/w R hip fracture and UTI POD #1 for ORIF Delirium - likely sundowning from sleep/pain/postoperative - will do 1:1 if needed, try to contact familyagain today, CT head Right hip fracture (subcap) - orthopaedics consulted, input appreciated - pain well controlled at present, postoperative and PT management per surgical team UTI - UCx w/ ortiz sensitive klebsiella - continue cipro for 5 day course pAF - restarted apixaban, ASA, continue atorvastatin, metoprolol, lisinopril ALISTAIR - patient defers CPAP at this time
--- NOTE | 2017-03-28 08:37 | Orthopedic Progress Note ---
Orthopedic Progress Note Date of Service Mar 28, 2017. Subjective Post OP Day: 1 Reports: feeling well, pain controlled w PO medications, Denies: complaints, chest pain, SOB, nausea / vomiting, light headedness, calf pain Additional Notes: States feels so much better than before surgery Objective calves soft nontender, N/V intact, capillary refill less than 2 sec., dressing C /D/I, toes mobile Date Time Temp Pulse Resp B/P (MAP) Pulse Ox O2 Delivery O2 Flow Rate FiO2 03/28/17 07:35 36.9 85 20 137/78 (97) 93 Nasal Cannula 03/28/17 04:15 36.7 79 18 132/68 (89) 94 Room Air 03/28/17 04:00 Room Air 03/27/17 23:59 Room Air 03/27/17 23:45 36.5 77 16 123/63 (83) 95 Nasal Cannula 1.0 03/27/17 20:00 Nasal Cannula 1.0 03/27/17 19:41 36.6 78 16 146/83 (104) 95 Room Air 03/27/17 16:00 Nasal Cannula 1.0 03/27/17 15:32 36.6 68 18 129/64 (85) 96 Nasal Cannula 1.0 03/27/17 14:00 37.0 83 18 124/70 (88) 92 Room Air 03/27/17 12:00 Nasal Cannula 2.0 03/27/17 11:00 36.6 77 17 145/71 (95) 97 Nasal Cannula 2.0 03/27/17 10:24 36.7 88 18 153/69 (97) 96 Nasal Cannula 2.0 03/27/17 10:10 36.2 87 16 148/71 100 Oxymask 2 03/27/17 10:00 36.2 79 16 142/88 97 Oxymask 2 03/27/17 09:50 92 16 151/88 97 Oxymask 2 03/27/17 09:40 96 16 123/83 96 Oxymask 2 03/27/17 09:30 92 16 163/71 97 Oxymask 10 03/27/17 09:20 92 16 147/63 100 Oxymask 10 03/27/17 09:14 36.7 83 16 141/62 96 Oxymask 10 Laboratory Results 24 Hours: Test 03/27/17 11:55 03/28/17 05:55 Hematocrit 43.2 % 34.9 % Hemoglobin 13.6 g/dL 11.5 g/dL Prothromb Time International Ratio 1.0 Prothrombin Time 11.1 SECONDS Assessment & Plan Assessment: POD 1 - ORIF right hip with percutaneous screws Vitamin D deficiency Acute blood loss anemia Plan: May be OOB/WBAT RLE with assistance of a walker SCD's for DVT prophylaxis. Xarelto to be started today Pain medication PRN as prescribed Regular diet Care pre primary team Begin PT/OT for right hip Plans for discharge to [facility] when stable. Started Vitamin D due to Vitamin D deficiency Monitor H/H Will discuss findings with Dr. Gutierrez. Discharge Planning Discharge Planning: rehab hospital ([facility] DVT Prophylaxis: SCDs, Xarelto (to start POD 1 in AM)
[2017-03-28] MEDS: ASPIRIN 81 MG ECTAB PO SCH (08:43)
[2017-03-28] MEDS: LISINOPRIL 20 MG TAB PO SCH (08:44)
[2017-03-28] MEDS: FAMOTIDINE 20 MG TAB PO SCH ×2 (08:44→21:03)
[2017-03-28] MEDS: METOPROLOL SUCC 50MG EXT REL TAB PO SCH (08:44)
[2017-03-28] MEDS ORDERED: ERGOCALCIFEROL 50,000 INTER.UNIT CAP PO ONE (09:00)
--- NOTE | 2017-03-28 09:00 | Consultant Recommendations ---
Mail Distribution Clerk Recommendations Date of Service Mar 28, 2017. Mail Distribution Clerk Recommendations Physical Therapy: * Do your physical therapy at home. These are the exercises you learned while in the hospital (quad sets, leg raises, calf pumps, gluteal squeezes, knee bending, and heel props.) You should do these exercises 3-4 times per day. * You will either go to inpatient rehab ([facility]), home with Home Therapy and nursing or home with outpatient rehab. You should do rehab with the therapist 2-3 times per week. You should do therapy on your own daily. * You may bear full weight on your leg with crutches or walker unless otherwise advised. Home Exercise: * You were shown a series of exercises (heel props, heel slides, etc.) in the hospital. Do these exercises three to four times each day including the exercises you were shown in physical therapy. Dressings: * Keep incision covered with a dressing for 4-5 days after surgery. Then may keep open to air. You may begin to shower, do not soak, submerge or scrub incision. Walking: * You may weight bear as tolerated right lower extremity with the assistance of a walker. * You may be up for short periods of time. Standing and walking for 1-2 hours at a time is usually oK. You should not stand or walk for excessive periods of time as this may cause increased pain and swelling. A. Your balance may be shaky for a while. Use crutches or a walker until directed by your doctor. B. Use hand rails when walking on stairs. C. Wear low heeled shoes with non-slip soles. D. Be sure that your floors are free of things that could trip you - throw rugs, electrical cords, small objects. Avoid wet and waxed floors, especially with crutches and canes. E. Try to walk several times a day with rest periods between. F. Continue with all the exercises taught to you in the hospital. Again, make walking a part of your daily routine. VERY IMPORTANT TO READ AND REVIEW A. There are a few signs you need to watch for after you are home. If you notice any of the followin. Increased severe hip pain. Some pain is expected especially when you exercise. 2. Increased swelling in your leg or knee; pain or swelling of the calf muscle in either lower leg. 3. Any fluid drainage from the incision. 4. Shortness of breath or chest pain. TEDs/Elastic Stockings: * The white elastic stockings help limit swelling and prevent blood clots from forming in your legs. The more you wear them, the more they work. * Wear them for six weeks. Things to Watch For: * Drainage from the incision site that occurs more than one week after your surgery. * Severely increased leg pain or swelling. * Increased redness at the incision site. * Fever above 101 degrees Fahrenheit. * Unusual chest pain or shortness of breath. * Unusual pain or burning with urination. Follow-Up Visit: You will follow-up with Dr. Gutierrez 10-14 days after surgery. The office number is . You have a scheduled follow up appointment with Dr. Gutierrez on 04/11/17 at 11: 45 a.m. Avoid all tobacco products. If you need help to stop smoking, call [place]'s FREE QUITLINE at . This is a free call.
--- NOTE | 2017-03-28 10:08 | Anesthesiology Progress Note ---
Anesthesia Post Op Note Date & Time Mar 28, 2017 at 10:08 Vital Signs Pain Intensity: 0.0 Vital Signs Past 12 Hours Date Time Temp Pulse Resp B/P (MAP) Pulse Ox O2 Delivery O2 Flow Rate FiO2 03/28/17 07:35 36.9 85 20 137/78 (97) 93 Nasal Cannula 03/28/17 04:15 36.7 79 18 132/68 (89) 94 Room Air 03/28/17 04:00 Room Air 03/27/17 23:59 Room Air 03/27/17 23:45 36.5 77 16 123/63 (83) 95 Nasal Cannula 1.0 Notes Mental Status: alert / awake / arousable, participated in evaluation Pt Amnestic to Procedure: Yes Nausea / Vomiting: adequately controlled Pain: adequately controlled Airway Patency, RR, SpO2: stable & adequate BP & HR: stable & adequate Hydration State: stable & adequate Anesthetic Complications: no major complications apparent
[2017-03-28] MEDS: SODIUM CHLORIDE 0.9% 1000ML 1,000 ML IV SCH (12:19)
--- NOTE | 2017-03-28 14:42 | Family Medicine Progress Note ---
Progress Note Date of Service Mar 28, 2017. Subjective Pt evaluation today including: conversation w/ patient, physical exam, chart review, conversation w/ recruitment consultant, review of inpatient medication list Pain: none PO Intake: good Voiding: zhang catheter in place Patient with no acute events overnight Patient without any pain in her hip or leg Says she feels great Denies any leg swelling, calf pain, chest pain, palpitations or shortness of breath Constitutional: No fever, No chills, No sweats Respiratory: No cough, No shortness of breath Cardiovascular: No chest pain, No edema, No palpitations Abdomen: No pain, No nausea, No vomiting, No diarrhea, No constipation Musculoskeletal: No joint pain, No muscle pain, No swelling, No calf pain Neurologic: No paralysis, No weakness, No numbness/tingling Heme: No abnormal bleeding/bruising Skin: No rash, No new/changing skin lesions Medications Current Inpatient Medications Medications (Trade) Dose Ordered Sig/Samuel Route Start Time Stop Time Status Last Admin Dose Admin Atorvastatin Calcium (Lipitor Tab) 80 mg HS PO 03/26/17 21:00 04/25/17 20:59 03/27/17 21:05 80 MG Metoprolol Succinate (Toprol Xl Tab) 50 mg DAILY PO 03/26/17 09:00 04/25/17 08:59 03/28/17 08:44 50 MG Ondansetron HCl (Zofran Inj) 4 mg Q6H PRN IV 03/25/17 22:30 04/24/17 22:29 Zolpidem Tartrate (Ambien Tab) 5 mg HS PRN PO 03/25/17 22:30 04/24/17 22:29 Ciprofloxacin/ Dextrose 400 mg/ Prmx 200 ml @ 100 mls/hr Q12H IV 03/26/17 00:00 04/05/17 00:00 03/28/17 12:19 100 MLS/HR Hydromorphone HCl (Dilaudid Inj) 0.25 mg Q20M PRN IV 03/25/17 23:00 04/08/17 22:59 03/26/17 14:36 0.25 MG Hydromorphone HCl (Dilaudid Inj) 0.5 mg Q20M PRN IV 03/25/17 23:00 04/08/17 22:59 03/26/17 00:28 0.5 MG Naloxone HCl (Narcan Inj) 0.1 mg PRN PRN IV 03/25/17 23:00 04/24/17 22:59 Senna/Docusate Sodium (Senokot S Tab) 2 tab HS PO 03/26/17 21:00 04/25/17 20:59 03/26/17 21:48 2 TAB Polyethylene (Miralax Powder Packet) 17 gm DAILY PRN PO 03/25/17 23:00 04/24/17 22:59 Magnesium Hydroxide (Milk Of Magnesia Susp) 30 ml DAILY PRN PO 03/25/17 23:00 04/24/17 22:59 Bisacodyl (Dulcolax Supp) 10 mg DAILY PRN [place] 03/25/17 23:00 04/24/17 22:59 Acetaminophen 650 mg/Empty Bag 65 ml @ 260 mls/hr Q6H IV 03/26/17 02:00 04/25/17 01:59 03/28/17 14:32 260 MLS/HR Sodium Chloride 1,000 ml @ 100 mls/hr Q10H IV 03/26/17 08:00 04/25/17 07:59 03/28/17 12:19 100 MLS/HR Famotidine (Pepcid Tab) 20 mg BID PO 03/26/17 21:00 04/25/17 20:59 03/28/17 08:44 20 MG Lisinopril (Zestril Tab) 20 mg DAILY PO 03/27/17 09:00 04/26/17 08:59 03/28/17 08:44 20 MG Aspirin (Ecotrin Tab) 81 mg DAILY PO 03/28/17 09:00 04/27/17 08:59 03/28/17 08:43 81 MG Rivaroxaban (Xarelto Tab) 20 mg DAILYBD PO 03/28/17 16:15 04/27/17 16:14 Tramadol HCl (Ultram Tab) @ Q4H PRN PO 03/27/17 09:15 04/26/17 09:14 Cholecalciferol (Vitamin D Tab) 2,000 inter.unit QAM PO 03/29/17 09:00 04/28/17 08:59 Objective Vital Signs Date Time Temp Pulse Resp B/P (MAP) Pulse Ox O2 Delivery O2 Flow Rate FiO2 03/28/17 12:00 Room Air 03/28/17 10:57 73 93 03/28/17 10:42 36.6 69 20 117/57 (77) 97 Room Air 03/28/17 08:00 Room Air 03/28/17 07:35 36.9 85 20 137/78 (97) 93 Room Air 03/28/17 04:15 36.7 79 18 132/68 (89) 94 Room Air 03/28/17 04:00 Room Air 03/27/17 23:59 Room Air 03/27/17 23:45 36.5 77 16 123/63 (83) 95 Nasal Cannula 1.0 03/27/17 20:00 Nasal Cannula 1.0 03/27/17 19:41 36.6 78 16 146/83 (104) 95 Room Air 03/27/17 16:00 Nasal Cannula 1.0 03/27/17 15:32 36.6 68 18 129/64 (85) 96 Nasal Cannula 1.0 Physical Exam Notes: General Appearance: WD/WN, no apparent distress Respiratory/Chest: lungs clear, no respiratory distress, no accessory muscle use Cardiovascular: regular rate, rhythm, no JVD, no murmur Abdomen: normal bowel sounds, non tender, soft Extremities: non-tender, no pedal edema, no calf tenderness, normal capillary refill, + pertinent finding (bandage over R leg without any erythema surrounding , sensation intact, strong pedal push and pull without any pain) Neurologic/Psychiatric: alert, normal mood/affect, oriented x 3 Skin: normal color, warm/dry, no rash Laboratory Results Results Past 24 Hours Test 03/28/17 05:55 Range/Units White Blood Count 10.48 4.8-10.8 K/uL Red Blood Count 3.67 4.2-5.4 M/uL Hemoglobin 11.5 12.0-16.0 g/dL Hematocrit 34.9 37-47 % Mean Corpuscular Volume 95.1 80-100 fL Mean Corpuscular Hemoglobin 31.3 25-34 pg Mean Corpuscular Hemoglobin Concent 33.0 32-36 g/dl RDW Standard Deviation 50.1 36.4-46.3 fL RDW Coefficient of Variation 14.4 11.5-14.5 % Platelet Count 151 130-400 K/uL Mean Platelet Volume 10.0 7.4-10.4 fL Sodium Level 143 136-145 mmol/L Potassium Level 4.2 3.5-5.1 mmol/L Chloride Level 110 98-107 mmol/L Carbon Dioxide Level 28 21-32 mmol/L Anion Gap 5.0 3-11 mmol/L Blood Urea Nitrogen 11 7-18 mg/dl Creatinine 0.55 0.60-1.20 mg/dl Est Creatinine Clear Calc Drug Dose 72.6 ml/min Estimated GFR () 100.5 Estimated GFR (Non- 86.7 BUN/Creatinine Ratio 19.8 10-20 Random Glucose 99 70-99 mg/dl Calcium Level 8.4 8.5-10.1 mg/dl 25-Hydroxy Vitamin D Total 14.9 30-100 ng/ml Assessment and Plan 81 year old female with PMHx CAD and paroxysmal atrial fibrillation presents with a right non displaced subcapital hip fracture Right subcapital hip fracture - Patient went for screw fixation of subcapital fracture - Rivaroxaban and aspirin restarted this am - Ortho discharged patient and says patient ready for rehab at [facility] - Famotidine bid for stress ulcer prophylaxis Altered mental status - Patient has had slightl forgetfulness and long pauses when conversing - Likely delireum from pain meds, surgery, new environment vs underlying dementia - Have been trying to get hold of family to find out baseline but nobody has been answering phone - CT head w/out contrast ordered UTI - complicated with urinary catheter needed due to hip fracture. - Nitrites and LE positive, 4+ bacteria --->patient has remained asymptomatic - ciprofloxacin 400 mg Q12H (penicillin allergy with some swelling therefore will avoid cephalosporin) - Follow up urine culture - No fever, chills or WBC to suggest bacteremia Coronary artery disease, Paroxysmal atrial fibrillation, dyslipidemia -Aspirin restarted - restart lisinopril as patient with normal creatinine - continue atorvastatin and metoprolol - admit to telemetry Obstructive sleep apnea - will defer CPAP given she does not use this at home and significant weight loss since last sleep study showing ALISTAIR. VTE Prophylaxis - Rivaroxaban - DINAH + SCD on left leg Code - Full as per patient wishes Disposition - will transfer to normal medical floor - to go to [facility] for rehab Continued [facility] stay due to: ambulation difficulties, home environment unsafe for pt History Resident Physician Supervision Note: I was present with Dr. Cabral during the history and exam. I discussed the case with the resident and agree with the findings and plan as documented in the note. Any exceptions or clarifications are listed here. General Appearance: WD/WN, no apparent distress Respiratory: chest non-tender, lungs clear, normal breath sounds, no respiratory distress Cardiovascular: normal peripheral pulses, regular rate, rhythm, no edema, no murmur Neurologic/Psychiatric: no motor/sensory deficits, alert, normal mood/affect, oriented x 3 Assessment/Plan 81 y/o female w/ h/o CAD, pAF p/w R hip fracture and UTI POD #2 for ORIF Delirium - likely sundowning from sleep/pain/postoperative, CT negative - reorient and 1:1 overnight if needed Right hip fracture (subcap) - orthopaedics consulted, input appreciated - pain well controlled at present, postoperative and PT management per surgical team UTI - UCx w/ ortiz sensitive klebsiella - continue cipro for 5 day course pAF - apixaban, ASA, atorvastatin, metoprolol, lisinopril ALISTAIR - patient defers CPAP at this time
--- NOTE | 2017-03-28 15:39 | DIAGNOSTIC IMAGING REPORT ---
CT OF THE HEAD WITHOUT CONTRAST CLINICAL HISTORY: Altered mental status. COMPARISON STUDY: Head CT March 25, 2017. CT DOSE: 638.56 mGycm TECHNIQUE: Helical axial images of the head were obtained without IV contrast. Automated exposure control was utilized for the study. A dose lowering technique was utilized adhering to the principles of ALARA. FINDINGS: No acute intracranial hemorrhage, midline shift or mass effect is present. Ventricular system is stable. Basilar cisterns are patent. There are no extra-axial collections. White matter hypodensity suggests small vessel disease. There are no findings to suggest acute dural sinus thrombosis or acute territorial infarct. There are no significant calvarial abnormalities. Visualized portions of the sinuses and mastoid air cells are clear. IMPRESSION: No acute intracranial findings. Electronically signed by: Pierre Fish M.D. 03/28/2017 3:38 PM Dictated Date/Time: 03/28/2017 3:36 PM
[2017-03-28] MEDS ORDERED: CIPR1TAB11 PO (15:51)
[2017-03-28] MEDS ORDERED: ULT50X PO (15:51)
[2017-03-28] MEDS ORDERED: VTMD1000 PO (15:51)
[2017-03-28] MEDS: RIVAROXABAN 20 MG TAB PO SCH ×2 (16:27→16:28)
--- NOTE | 2017-03-28 17:53 | PROGRESS NOTE ---
DATE: 03/28/2017 She is sitting without any problem. She actually is able to cross her legs. She did well with therapy today. She has intact distal neurovascular function and motor sensation and 1+ dorsalis pedis pulse. Her pain is well controlled. She is afebrile with stable vital signs. Her urine output is adequate. Her labs are noted. She did have a head scan today which was negative. She does not remember exactly why she is here, but does recall once prompted. She also thinks that her daughter has abandoned her and she cannot understand why she cannot go home and see her cats. I discussed with her that she has had surgery and is here for rehabilitation and safety. She will hopefully eventually be sent to [facility] whenever her medical condition permits. I spoke with her daughter and discussed. As far as I am concerned, she can be transferred to [facility] when her medical condition allows. She will need to continue with her anticoagulant. She will need fall prevention precautions and use of a walker. RESHMA
[2017-03-28] MEDS ORDERED: NURSING DECISION MEDICATION ORDER SCH (19:45)
[2017-03-28] MEDS: ATORVASTATIN 40 MG TAB PO SCH (21:02)
[2017-03-28] MEDS: DOCUSATE SODIUM/SENNA 50/8.6MG TAB PO SCH (21:02)
[2017-03-28] MEDS ORDERED: MULTI-VITAMIN INFUSION INJ 10 ML, THIAMINE HCL INJ 100 MG, FoLIC ACID INJ 1 MG in SODIU... IV ONE (23:54)
[2017-03-29] VITALS (7 sets, daily range): BP systolic 143–189; BP diastolic 72–84; PULSE 73–84; TEMP 36.8–36.9; O2SAT 92–95
[2017-03-29] MEDS ORDERED: HALOPERIDOL LACTATE 5 MG/ML 1 ML VIAL IM STA (00:16)
[2017-03-29] MEDS: HALOPERIDOL LACTATE 5 MG/ML 1 ML VIAL ONE (00:32)
[2017-03-29] MEDS: CIPROFLOXACIN / D5W 400 MG in PREMIXED IN D5W 200 ML IV SCH (00:32)
[2017-03-29] MEDS: ACETAMINOPHEN IV 650 MG in EMPTY BAG 0 ML IV SCH ×4 (02:13→19:59)
--- NOTE | 2017-03-29 09:20 | Orthopedic Progress Note ---
Orthopedic Progress Note Date of Service Mar 29, 2017. Subjective Post OP Day: 2 Reports: feeling well, Denies: complaints, chest pain, SOB, nausea / vomiting, light headedness, calf pain Additional Notes: Pain controlled, states no pain in her leg today. She does recall it being her right hip that was operated on today. Asked if she could go to rehab today, because she's been "sitting here for days". Objective calves soft nontender, N/V intact, capillary refill less than 2 sec., incision C /D/I, toes mobile Mild bright red bloody drainage on dressing today, dressing removed and replaced with new dressing. Incision intact, jennifer retained. Mild bloody discharge from distal incision. No evidence of hematoma or seroma around right hip. No erythema, warmth or ecchymosis. New dressings applied. Date Time Temp Pulse Resp B/P (MAP) Pulse Ox O2 Delivery O2 Flow Rate FiO2 03/29/17 06:55 36.8 84 18 165/75 (105) 92 Room Air 03/28/17 23:09 36.9 91 19 152/79 (103) 92 Room Air 03/28/17 19:30 Room Air 03/28/17 16:31 37.0 69 18 147/77 (100) 96 Room Air 03/28/17 16:30 Room Air 03/28/17 15:45 37.0 69 18 96 1.0 03/28/17 15:42 36.9 86 19 140/64 (89) 96 Room Air 03/28/17 15:30 Room Air 03/28/17 12:00 Room Air 03/28/17 10:57 73 93 03/28/17 10:42 36.6 69 20 117/57 (77) 97 Room Air Laboratory Results 24 Hours: Test 03/29/17 04:44 Assessment & Plan Assessment: POD 2 - ORIF right hip with percutaneous screws Vitamin D deficiency Acute blood loss anemia Plan: May be OOB/WBAT RLE with assistance of a walker SCD's for DVT prophylaxis. Xarelto resumed yesterday Continue dressing changes/reinforce or change PRN right hip Pain medication PRN as prescribed Regular diet Care pre primary team Begin PT/OT for right hip Plans for discharge to [facility] when stable, okay from ortho standpoint for discharge when medically stable. Started Vitamin D due to Vitamin D deficiency Monitor H/H - results currently pending Will discuss findings with Dr. Gutierrez. CONSIDER REMOVAL OF [place] AT DISCRETION OF PRIMARY TEAM Discharge Planning [facility]charge Planning[facility] ([facility] Pain Management: Ultram DVT Prophylaxis: SCDs, Xarelto (to start POD 1 in AM)
[2017-03-29] MEDS: LISINOPRIL 20 MG TAB PO SCH (09:32)
[2017-03-29] MEDS: ASPIRIN 81 MG ECTAB PO SCH (09:33)
[2017-03-29] MEDS: CHOLECALCIFEROL 1000 INTER.UNIT TAB PO SCH (09:33)
[2017-03-29] MEDS: METOPROLOL SUCC 50MG EXT REL TAB PO SCH (09:33)
[2017-03-29] MEDS: FAMOTIDINE 20 MG TAB PO SCH ×2 (09:33→21:00)
--- NOTE | 2017-03-29 13:42 | Family Medicine Progress Note ---
Progress Note Date of Service Mar 29, 2017. Subjective Pt evaluation today including: conversation w/ patient, conversation w/ family , physical exam, conversation w/ [employer] consultant, review of inpatient medication list Pain: none PO Intake: good Voiding: zhang catheter in place Patient was pulling at IV's and wires around bed and was therefore given order 2.5 of haldol but was given 5mg. Patient unable to go to [facility] today because of receiving haldol overnight. Spoke to daughter at the bedside this morning and informed that patient drinks a large glass of spirits nightly and often has trouble making dinner for herself as she becomes frustrated with activities of daily living. She is not having any pain in her hip when at rest but is having some pain in her hip when ambulating. Constitutional: No fever, No chills, No sweats Respiratory: No cough, No sputum, No shortness of breath Cardiovascular: No chest pain, No palpitations Abdomen: No pain, No nausea, No vomiting, No diarrhea Musculoskeletal: No joint pain, No muscle pain, No calf pain Neurologic: No paralysis, No weakness, No numbness/tingling Medications Current Inpatient Medications Medications (Trade) Dose Ordered Sig/Samuel Route Start Time Stop Time Status Last Admin Dose Admin Atorvastatin Calcium (Lipitor Tab) 80 mg HS PO 03/26/17 21:00 04/25/17 20:59 03/28/17 21:02 80 MG Metoprolol Succinate (Toprol Xl Tab) 50 mg DAILY PO 03/26/17 09:00 04/25/17 08:59 03/29/17 09:33 50 MG Ondansetron HCl (Zofran Inj) 4 mg Q6H PRN IV 03/25/17 22:30 04/24/17 22:29 Zolpidem Tartrate (Ambien Tab) 5 mg HS PRN PO 03/25/17 22:30 04/24/17 22:29 Hydromorphone HCl (Dilaudid Inj) 0.25 mg Q20M PRN IV 03/25/17 23:00 04/08/17 22:59 03/26/17 14:36 0.25 MG Hydromorphone HCl (Dilaudid Inj) 0.5 mg Q20M PRN IV 03/25/17 23:00 04/08/17 22:59 03/26/17 00:28 0.5 MG Naloxone HCl (Narcan Inj) 0.1 mg PRN PRN IV 03/25/17 23:00 04/24/17 22:59 Senna/Docusate Sodium (Senokot S Tab) 2 tab HS PO 03/26/17 21:00 04/25/17 20:59 03/28/17 21:02 2 TAB Polyethylene (Miralax Powder Packet) 17 gm DAILY PRN PO 03/25/17 23:00 04/24/17 22:59 Magnesium Hydroxide (Milk Of Magnesia Susp) 30 ml DAILY PRN PO 03/25/17 23:00 04/24/17 22:59 Bisacodyl (Dulcolax Supp) 10 mg DAILY PRN [place] 03/25/17 23:00 04/24/17 22:59 Acetaminophen 650 mg/Empty Bag 65 ml @ 260 mls/hr Q6H IV 03/26/17 02:00 04/25/17 01:59 03/29/17 07:33 260 MLS/HR Famotidine (Pepcid Tab) 20 mg BID PO 03/26/17 21:00 04/25/17 20:59 03/29/17 09:33 20 MG Lisinopril (Zestril Tab) 20 mg DAILY PO 03/27/17 09:00 04/26/17 08:59 03/29/17 09:32 20 MG Aspirin (Ecotrin Tab) 81 mg DAILY PO 03/28/17 09:00 04/27/17 08:59 03/29/17 09:33 81 MG Rivaroxaban (Xarelto Tab) 20 mg DAILYBD PO 03/28/17 16:15 04/27/17 16:14 03/28/17 16:27 20 MG Tramadol HCl (Ultram Tab) @ Q4H PRN PO 03/27/17 09:15 04/26/17 09:14 Cholecalciferol (Vitamin D Tab) 2,000 inter.unit QAM PO 03/29/17 09:00 04/28/17 08:59 03/29/17 09:33 2,000 INTER.UNIT Ciprofloxacin (Cipro Tab) 500 mg BID PO 03/29/17 16:00 04/05/17 23:59 Objective Vital Signs Date Time Temp Pulse Resp B/P (MAP) Pulse Ox O2 Delivery O2 Flow Rate FiO2 03/29/17 10:15 Room Air 03/29/17 06:55 36.8 84 18 165/75 (105) 92 Room Air 03/28/17 23:09 36.9 91 19 152/79 (103) 92 Room Air 03/28/17 19:30 Room Air 03/28/17 16:31 37.0 69 18 147/77 (100) 96 Room Air 03/28/17 16:30 Room Air 03/28/17 15:45 37.0 69 18 96 1.0 03/28/17 15:42 36.9 86 19 140/64 (89) 96 Room Air 03/28/17 15:30 Room Air Physical Exam Notes: General Appearance: WD/WN, no apparent distress Respiratory/Chest: lungs clear, no respiratory distress, no accessory muscle use Cardiovascular: regular rate, rhythm, no JVD, no murmur Abdomen: normal bowel sounds, non tender, soft Extremities: non-tender, no pedal edema, no calf tenderness, normal capillary refill, + pertinent finding (bandage over R leg without any erythema surrounding , sensation intact, strong pedal push and pull without any pain) Neurologic/Psychiatric: alert, normal mood/affect, oriented x 3 Skin: normal color, warm/dry, no rash Laboratory Results Results Past 24 Hours Test 03/29/17 04:44 Range/Units Assessment and Plan 81 year old female with PMHx CAD and paroxysmal atrial fibrillation presents with a right non displaced subcapital hip fracture Right subcapital hip fracture - Patient went for screw fixation of subcapital fracture - Rivaroxaban and aspirin restarted - Ortho discharged patient and says patient ready for rehab at [facility] - Famotidine bid for stress ulcer prophylaxis - [facility] tomorrow Altered mental status - Patient has had slightl forgetfulness and long pauses when conversing - Likely delireum from pain meds, surgery, new environment vs underlying dementia - CT head w/out contrast ordered - Patient received haldol 5mg yesterday evening and will not be allowed to go to [facility] today - Will make sure patient gets 1 on 1 this evening and will attempt to calm patient to limit owning and prevent disorientation Alcohol Withdrawal - daughter states patient drinks 8 ounces of alcohol nightly - has not been hypertensive or tachycardic while in hospital - will supplement patient with thiamine, folic acid, multivitamin UTI - complicated with urinary catheter needed due to hip fracture. - Nitrites and LE positive, 4+ bacteria --->patient has remained asymptomatic - ciprofloxacin 400 mg Q12H (penicillin allergy with some swelling therefore will avoid cephalosporin) - Follow up urine culture - No fever, chills or WBC to suggest bacteremia Coronary artery disease, Paroxysmal atrial fibrillation, dyslipidemia -Aspirin restarted - restart lisinopril as patient with normal creatinine - continue atorvastatin and metoprolol - admit to telemetry Obstructive sleep apnea - will defer CPAP given she does not use this at home and significant weight loss since last sleep study showing ALISTAIR. VTE Prophylaxis - Rivaroxaban - DINAH + SCD on left leg Code - Full as per patient wishes Disposition - to go to [facility] for rehab - Case management to speak to daughter with regards to [facility] care Continued [facility] stay due to: ambulation difficulties Discharge planning: rehab hospital History Resident Physician Supervision Note: I was present with Dr. Cabral during the history and exam. I discussed the case with the resident and agree with the findings and plan as documented in the note. Any exceptions or clarifications are listed here. Pt resting in bed with mild aching pain of the right hip. Oriented x 3. No recollection of any agitation overnight. Conversant and with mood at baseline during evaluation. Reports no [place], vision changes, CP/SOB, nausea, fatigue, sensation changes. General Appearance: WD/WN, no apparent distress Respiratory: chest non-tender, lungs clear, normal breath sounds, no respiratory distress Cardiovascular: normal peripheral pulses, regular rate, rhythm, no edema, no murmur Extremities: other (right hip dressing C/D/I distal str 5/5 with good ROM of the distal extremity) Assessment/Plan 81 y/o female w/ h/o CAD, pAF p/w R hip fracture and UTI POD #2 for ORIF Delirium - likely sundowning from sleep/pain/postoperative, CT negative rec'd haldol O/N - NO HALDOL/ATIVAN - reorient and 1:1 overnight if needed Right hip fracture (subcap) - orthopaedics consulted, input appreciated - pain well controlled at present, postoperative and PT management per surgical team UTI - UCx w/ ortiz sensitive klebsiella - continue cipro for 5 day course pAF - apixaban, ASA, atorvastatin, metoprolol, lisinopril ALISTAIR - patient defers CPAP at this time Resident called for ongoing hypertension. Per resident, patient has been agitated, though reorientable during the afternoon without tremulousness. Recommended increasing lisinopril to 40mg (Cr OK) and w/ Hydralazine 5mg IV PRN x 1 with re-evaluation. Will s/o to night resident for further evaluation.
[2017-03-29] MEDS: CIPROFLOXACIN 500 MG TAB PO SCH (16:09)
[2017-03-29] MEDS ORDERED: CLONIDINE HCL 0.1 MG TAB PO PRN (17:15)
[2017-03-29] MEDS ORDERED: HydrALAZINE HCL 20 MG/ML VIAL IV. STA (17:34)
[2017-03-29] MEDS: RIVAROXABAN 20 MG TAB PO SCH (17:54)
--- NOTE | 2017-03-29 19:20 | PROGRESS NOTE ---
DATE: 03/29/2017 SUBJECTIVE: Fawn is sitting up in the chair. She reports no problems. She remains mildly confused. She does not know who I am or why she is here and is talking tangentially. Her incision is benign. Her neurovascular function is intact distally. She has done well with her physical therapy. Continue with her anticoagulation. I would consider removing her Lock[place] catheter. Orthopedically, she can go to [facility] whenever she is medically stable. Follow up instructions are in the platform consultant recommendation's note. She may weightbear as tolerated.
[2017-03-29] MEDS: ATORVASTATIN 40 MG TAB PO SCH (21:00)
[2017-03-29] MEDS: DOCUSATE SODIUM/SENNA 50/8.6MG TAB PO SCH (21:00)
[2017-03-30] MEDS: ACETAMINOPHEN IV 650 MG in EMPTY BAG 0 ML IV SCH ×4 (01:37→19:09)
[2017-03-30 07:37] VITALS: BP 180/82; PULSE 65; TEMP 36.5; O2SAT 97
[2017-03-30] MEDS: METOPROLOL SUCC 50MG EXT REL TAB PO SCH (07:41)
[2017-03-30] MEDS: LISINOPRIL 20 MG TAB PO SCH (07:41)
[2017-03-30] MEDS ORDERED: LISINOPRIL 20 MG TAB PO STA (08:28)
[2017-03-30] MEDS: CIPROFLOXACIN 500 MG TAB PO SCH ×2 (08:48→21:44)
[2017-03-30] MEDS: MULTIVITAMIN TAB PO SCH (08:49)
[2017-03-30] MEDS: ASPIRIN 81 MG ECTAB PO SCH (08:49)
[2017-03-30] MEDS: THIAMINE HCL 100 MG TAB PO SCH (08:50)
[2017-03-30] MEDS: CHOLECALCIFEROL 1000 INTER.UNIT TAB PO SCH (08:50)
--- NOTE | 2017-03-30 08:54 | Family Medicine Progress Note ---
Progress Note Date of Service Mar 30, 2017. Subjective Pt evaluation today including: conversation w/ patient, physical exam, chart review, lab review, review of studies Found pt resting comfortably. Says she's still unsure of what happened to her ( i.e. fracture). Says her leg is sore but otherwise no pain. Denies CP, SOB, abd pain, N/V/D, or other acute concerns. Is interested in rehab. Constitutional: No fever, No chills Respiratory: No cough, No shortness of breath Cardiovascular: No chest pain, No edema Abdomen: No pain, No nausea, No vomiting, No diarrhea Musculoskeletal: + joint pain Medications Current Inpatient Medications Medications (Trade) Dose Ordered Sig/Samuel Route Start Time Stop Time Status Last Admin Dose Admin Atorvastatin Calcium (Lipitor Tab) 80 mg HS PO 03/26/17 21:00 04/25/17 20:59 03/28/17 21:02 80 MG Metoprolol Succinate (Toprol Xl Tab) 50 mg DAILY PO 03/26/17 09:00 04/25/17 08:59 03/30/17 07:41 50 MG Ondansetron HCl (Zofran Inj) 4 mg Q6H PRN IV 03/25/17 22:30 04/24/17 22:29 Zolpidem Tartrate (Ambien Tab) 5 mg HS PRN PO 03/25/17 22:30 04/24/17 22:29 Hydromorphone HCl (Dilaudid Inj) 0.25 mg Q20M PRN IV 03/25/17 23:00 04/08/17 22:59 03/26/17 14:36 0.25 MG Hydromorphone HCl (Dilaudid Inj) 0.5 mg Q20M PRN IV 03/25/17 23:00 04/08/17 22:59 03/26/17 00:28 0.5 MG Naloxone HCl (Narcan Inj) 0.1 mg PRN PRN IV 03/25/17 23:00 04/24/17 22:59 Senna/Docusate Sodium (Senokot S Tab) 2 tab HS PO 03/26/17 21:00 04/25/17 20:59 03/28/17 21:02 2 TAB Polyethylene (Miralax Powder Packet) 17 gm DAILY PRN PO 03/25/17 23:00 04/24/17 22:59 Magnesium Hydroxide (Milk Of Magnesia Susp) 30 ml DAILY PRN PO 03/25/17 23:00 04/24/17 22:59 Bisacodyl (Dulcolax Supp) 10 mg DAILY PRN CO 03/25/17 23:00 04/24/17 22:59 Acetaminophen 650 mg/Empty Bag 65 ml @ 260 mls/hr Q6H IV 03/26/17 02:00 04/25/17 01:59 03/30/17 07:40 260 MLS/HR Famotidine (Pepcid Tab) 20 mg BID PO 03/26/17 21:00 04/25/17 20:59 03/29/17 09:33 20 MG Aspirin (Ecotrin Tab) 81 mg DAILY PO 03/28/17 09:00 04/27/17 08:59 03/29/17 09:33 81 MG Rivaroxaban (Xarelto Tab) 20 mg DAILYBD PO 03/28/17 16:15 04/27/17 16:14 03/29/17 17:54 20 MG Tramadol HCl (Ultram Tab) @ Q4H PRN PO 03/27/17 09:15 04/26/17 09:14 03/30/17 03:09 50 MG Cholecalciferol (Vitamin D Tab) 2,000 inter.unit QAM PO 03/29/17 09:00 04/28/17 08:59 03/29/17 09:33 2,000 INTER.UNIT Ciprofloxacin (Cipro Tab) 500 mg BID PO 03/29/17 16:00 04/05/17 23:59 03/29/17 16:09 500 MG Thiamine HCl (Vitamin B-1 Tab) 100 mg QAM PO 03/30/17 09:00 04/29/17 08:59 Folic Acid (Folvite Tab) 1 mg QAM PO 03/30/17 09:00 04/29/17 08:59 Multivitamins (Multivitamin Tab) 1 tab QAM PO 03/30/17 09:00 04/29/17 08:59 Lisinopril (Zestril Tab) 40 mg DAILY PO 03/30/17 09:00 04/26/17 08:59 Objective Vital Signs Date Time Temp Pulse Resp B/P (MAP) Pulse Ox O2 Delivery O2 Flow Rate FiO2 03/30/17 08:20 Room Air 03/30/17 07:37 36.5 65 18 180/82 (114) 97 Room Air 03/30/17 01:34 Room Air 03/29/17 23:19 36.9 82 15 146/72 (96) 92 Room Air 03/29/17 19:20 84 143/78 (99) 03/29/17 16:55 78 188/79 (115) 03/29/17 15:55 Room Air 03/29/17 15:55 189/84 (119) 03/29/17 15:55 188/79 (115) 03/29/17 15:03 36.9 73 18 160/80 (106) 95 Room Air 03/29/17 10:15 Room Air Physical Exam General Appearance: no apparent distress Respiratory/Chest: lungs clear, normal breath sounds Cardiovascular: regular rate, rhythm, no edema, no murmur Extremities: non-tender, no pedal edema, + pertinent finding (Strength 5/5 in ( B) foot movement) Skin: + pertinent finding (incision jennifer in place on right hip, no erythema/ discharge, dressing c/d/i overlying) Assessment and Plan 81 year old female with PMHx CAD and paroxysmal atrial fibrillation presents with a right non displaced subcapital hip fracture Right subcapital hip fracture: Patient s/p screw fixation of right subcapital fracture. - pain well controlled at present, postoperative and PT management per surgical team - Rivaroxaban and aspirin restarted - Ortho discharged patient and says patient ready for rehab at [facility] - Famotidine bid for stress ulcer prophylaxis - [facility] likely today (15Sep) Altered mental status: Patient has had slight forgetfulness and long pauses when conversing. Likely sundowning from sleep/pain/postoperative - 13Sep CT head w/out contrast showed no acute findings. 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 - 1 on 1 as needed to limit sundowning and prevent disorientation Alcohol Withdrawal - daughter states patient drinks 8 ounces of alcohol nightly - will supplement patient with thiamine, folic acid, multivitamin HTN: Recommended increasing lisinopril to 40mg (Cr OK) and w/ Hydralazine 5mg IV PRN x 1 with re-evaluation. UTI - Complicated with urinary catheter needed due to hip fracture. - 10Sep UCx positive for klebsiella pneumoniae, sensitive to cipro. - ciprofloxacin 400 mg Q12H (penicillin allergy with some swelling therefore will avoid cephalosporin) - No fever, chills or WBC to suggest bacteremia Coronary artery disease, Paroxysmal atrial fibrillation, dyslipidemia -Aspirin restarted - restart lisinopril as patient with normal creatinine - continue atorvastatin and metoprolol - admit to telemetry Obstructive sleep apnea - will defer CPAP given she does not use this at home and significant weight loss since last sleep study showing ALISTAIR. VTE Prophylaxis: - Rivaroxaban - DINAH + SCD on left leg Code - Full as per patient wishes Disposition - to go to [facility] for rehab - Case management to speak to daughter with regards to oil heaterman care Will discuss all the above on attending rounds this morning. RUPA, PGY1 Motion Picture Projectionist Apprentice Tracking Resident Involvement: Resident Care Provided Care Provided: Adult Hospital Medicine (inpt rounds) History Resident Physician Supervision Note: I was present with Dr. Lara during the history and exam. I discussed the case with the resident and agree with the findings and plan as documented in the note. Any exceptions or clarifications are listed here. Pt seen and examined at bedside. Recalls some confusion last night but otherwise slept well. Presently awake, alert and oriented to person and time, mostly to place (difficulty finding the word hospital). Mild aching pain of the right hip with activity or prolonged pressure which is improved from yesterday. Elated about walking with PT w/ a walker. General Appearance: WD/WN, no apparent distress Respiratory: chest non-tender, lungs clear, normal breath sounds, no respiratory distress Cardiovascular: normal peripheral pulses, regular rate, rhythm, no edema, no murmur Gastrointestinal: normal bowel sounds, non tender, soft, no organomegaly Extremities: other (right hip dressing C/D/I, 5/5 strength distally b/l of the LE) Assessment/Plan 81 y/o female w/ h/o CAD, pAF p/w R hip fracture and UTI POD #3 for ORIF Delirium - likely ing from sleep/pain/postoperative, CT negative - improving, oriented well. reorient and 1:1 overnight if needed Right hip fracture (subcap) - orthopaedics consulted, input appreciated - pain well controlled at present, postoperative and PT management per surgical team UTI - UCx w/ ortiz sensitive klebsiella - continue cipro for 5 day course pAF - apixaban, ASA, atorvastatin, metoprolol, lisinopril ALISTAIR - patient defers CPAP at this time
[2017-03-30] MEDS: LISINOPRIL 40 MG TAB PO SCH (08:59)
[2017-03-30] MEDS: FAMOTIDINE 20 MG TAB PO SCH ×2 (09:09→21:44)
--- NOTE | 2017-03-30 10:02 | Orthopedic Progress Note ---
Orthopedic Progress Note Date of Service Mar 30, 2017. Subjective Post OP Day: 3 Reports: feeling well, pain controlled w PO medications, Denies: complaints, chest pain, SOB, nausea / vomiting, light headedness, calf pain, using RED CROSS EXECUTIVE DIRECTOR Objective calves soft nontender, N/V intact, hip located, capillary refill less than 2 sec., dressing C/D/I, incision C/D/I, A&O x3, toes mobile, CMS intact Yeni in place. NO fluctuance or drainage from surgical incision site. Date Time Temp Pulse Resp B/P (MAP) Pulse Ox O2 Delivery O2 Flow Rate FiO2 03/30/17 08:20 Room Air 03/30/17 07:37 36.5 65 18 180/82 (114) 97 Room Air 03/30/17 01:34 Room Air 03/29/17 23:19 36.9 82 15 146/72 (96) 92 Room Air 03/29/17 19:20 84 143/78 (99) 03/29/17 16:55 78 188/79 (115) 03/29/17 15:55 Room Air 03/29/17 15:55 189/84 (119) 03/29/17 15:55 188/79 (115) 03/29/17 15:03 36.9 73 18 160/80 (106) 95 Room Air 03/29/17 10:15 Room Air Assessment & Plan Assessment: POD 3 - ORIF right hip with percutaneous screws Vitamin D deficiency Acute blood loss anemia Plan: May be OOB/WBAT RLE with assistance of a walker SCD's for DVT prophylaxis. Xarelto resumed Dressing changed this AM by KAM Pain medication PRN as prescribed Regular diet Care pre primary team Cont PT/OT for right hip Plans for discharge to [facility] when stable, okay from ortho standpoint for discharge when medically stable. Started Vitamin D due to Vitamin D deficiency Monitor H/H Will discuss findings with Dr. Gutierrez. CONSIDER REMOVAL OF [place] AT DISCRETION OF PRIMARY TEAM Discharge Planning Discharge Planning: rehab hospital ([facility]) Pain Management: Ultram DVT Prophylaxis: SCDs, Xarelto (to start POD 1 in AM)
[2017-03-30 11:22] VITALS: BP 116/67; PULSE 75
--- NOTE | 2017-03-30 14:29 | PROGRESS NOTE ---
DATE: 03/30/2017 She did well with PT. She is sitting up in a chair. No problems are noted. Her dressing is clean and dry. She is moving her leg readily. PLAN: For her to be weightbear as tolerated. Fall precautions. Continue her anticoagulant. Rehab. Ambulate with walker. I will see her in 2 weeks postoperatively. Her mental status appears to be much improved today. She knew the date.
[2017-03-30 15:22] VITALS: BP 167/80; PULSE 82; TEMP 36.5; O2SAT 97
[2017-03-30 16:00] VITALS: O2SAT 97
[2017-03-30] MEDS: RIVAROXABAN 20 MG TAB PO SCH (18:19)
[2017-03-30] MEDS: DOCUSATE SODIUM/SENNA 50/8.6MG TAB PO SCH (21:00)
[2017-03-30] MEDS: ATORVASTATIN 40 MG TAB PO SCH (21:44)
[2017-03-31 00:19] VITALS: BP 150/77; PULSE 68; TEMP 36.5; O2SAT 99
[2017-03-31] MEDS: ACETAMINOPHEN IV 650 MG in EMPTY BAG 0 ML IV SCH ×4 (02:04→20:26)
[2017-03-31 07:02] VITALS: BP 151/83; PULSE 72; TEMP 36.8; O2SAT 95
[2017-03-31] MEDS: CHOLECALCIFEROL 1000 INTER.UNIT TAB PO SCH (09:23)
[2017-03-31] MEDS: FAMOTIDINE 20 MG TAB PO SCH ×2 (09:23→20:27)
[2017-03-31] MEDS: CIPROFLOXACIN 500 MG TAB PO SCH ×2 (09:23→20:27)
[2017-03-31] MEDS: LISINOPRIL 40 MG TAB PO SCH (09:23)
[2017-03-31] MEDS: THIAMINE HCL 100 MG TAB PO SCH (09:23)
[2017-03-31] MEDS: MULTIVITAMIN TAB PO SCH (09:23)
[2017-03-31] MEDS: ASPIRIN 81 MG ECTAB PO SCH (09:23)
[2017-03-31] MEDS: METOPROLOL SUCC 50MG EXT REL TAB PO SCH (09:24)
[2017-03-31 15:36] VITALS: BP 114/74; PULSE 67; TEMP 36.8; O2SAT 99
[2017-03-31] MEDS: RIVAROXABAN 20 MG TAB PO SCH (17:50)
--- NOTE | 2017-03-31 19:42 | Family Medicine Progress Note ---
Progress Note Date of Service Mar 31, 2017. Subjective Pt evaluation today including: conversation w/ patient, physical exam, chart review Pain: well controlled Voiding: no voiding problems Patient reports she feels well today; she is anxious to go home. She understands her daughter wants her to go to rehab at [facility]. No other complaints. Constitutional: No see HPI, No fever, No chills, No sweats, No weight loss, No weakness, No fatigue, No problem reported Eyes: No see HPI, No worsening of vision, No eye pain, No redness, No discharge, No diplopia, No problem reported ENT: No see HPI, No hearing loss, No unusual epistaxis, No nasal symptoms, No sore throat, No tinnitus, No dental problems, No trouble swallowing, No problem reported Respiratory: No see HPI, No cough, No sputum, No wheezing, No shortness of breath, No dyspnea on exertion, No dyspnea at rest, No hemoptysis, No problem reported Cardiovascular: No see HPI, No chest pain, No orthopnea, No PND, No edema, No claudication, No palpitations, No problem reported Abdomen: No see HPI, No pain, No nausea, No vomiting, No diarrhea, No constipation, No GI bleeding, No problem reported Musculoskeletal: + joint pain (well controlled hip pain) Female : + dysuria, + urinary frequency Neurologic: + memory loss Medications Current Inpatient Medications Medications (Trade) Dose Ordered Sig/Samuel Route Start Time Stop Time Status Last Admin Dose Admin Atorvastatin Calcium (Lipitor Tab) 80 mg HS PO 03/26/17 21:00 04/25/17 20:59 03/31/17 20:29 80 MG Metoprolol Succinate (Toprol Xl Tab) 50 mg DAILY PO 03/26/17 09:00 04/25/17 08:59 03/31/17 09:24 50 MG Ondansetron HCl (Zofran Inj) 4 mg Q6H PRN IV 03/25/17 22:30 04/24/17 22:29 Zolpidem Tartrate (Ambien Tab) 5 mg HS PRN PO 03/25/17 22:30 04/24/17 22:29 Hydromorphone HCl (Dilaudid Inj) 0.25 mg Q20M PRN IV 03/25/17 23:00 04/08/17 22:59 03/26/17 14:36 0.25 MG Hydromorphone HCl (Dilaudid Inj) 0.5 mg Q20M PRN IV 03/25/17 23:00 04/08/17 22:59 03/26/17 00:28 0.5 MG Naloxone HCl (Narcan Inj) 0.1 mg PRN PRN IV 03/25/17 23:00 04/24/17 22:59 Senna/Docusate Sodium (Senokot S Tab) 2 tab HS PO 03/26/17 21:00 04/25/17 20:59 03/31/17 20:28 2 TAB Polyethylene (Miralax Powder Packet) 17 gm DAILY PRN PO 03/25/17 23:00 04/24/17 22:59 Magnesium Hydroxide (Milk Of Magnesia Susp) 30 ml DAILY PRN PO 03/25/17 23:00 04/24/17 22:59 Bisacodyl (Dulcolax Supp) 10 mg DAILY PRN [place] 03/25/17 23:00 04/24/17 22:59 Acetaminophen 650 mg/Empty Bag 65 ml @ 260 mls/hr Q6H IV 03/26/17 02:00 04/25/17 01:59 03/31/17 20:26 260 MLS/HR Famotidine (Pepcid Tab) 20 mg BID PO 03/26/17 21:00 04/25/17 20:59 03/31/17 20:27 20 MG Aspirin (Ecotrin Tab) 81 mg DAILY PO 03/28/17 09:00 04/27/17 08:59 03/31/17 09:23 81 MG Rivaroxaban (Xarelto Tab) 20 mg DAILYBD PO 03/28/17 16:15 04/27/17 16:14 03/31/17 17:50 20 MG Tramadol HCl (Ultram Tab) @ Q4H PRN PO 03/27/17 09:15 04/26/17 09:14 03/30/17 03:09 50 MG Cholecalciferol (Vitamin D Tab) 2,000 inter.unit QAM PO 03/29/17 09:00 04/28/17 08:59 03/31/17 09:23 2,000 INTER.UNIT Ciprofloxacin (Cipro Tab) 500 mg BID PO 03/29/17 16:00 04/05/17 23:59 03/31/17 20:27 500 MG Thiamine HCl (Vitamin B-1 Tab) 100 mg QAM PO 03/30/17 09:00 04/29/17 08:59 03/31/17 09:23 100 MG Folic Acid (Folvite Tab) 1 mg QAM PO 03/30/17 09:00 04/29/17 08:59 03/31/17 09:23 1 MG Multivitamins (Multivitamin Tab) 1 tab QAM PO 03/30/17 09:00 04/29/17 08:59 03/31/17 09:23 1 TAB Lisinopril (Zestril Tab) 40 mg DAILY PO 03/30/17 09:00 04/26/17 08:59 03/31/17 09:23 40 MG Objective Vital Signs Date Time Temp Pulse Resp B/P (MAP) Pulse Ox O2 Delivery O2 Flow Rate FiO2 03/31/17 15:36 36.8 67 18 114/74 (87) 99 Room Air 03/31/17 15:25 Room Air 03/31/17 08:00 Room Air 03/31/17 07:02 36.8 72 16 151/83 (105) 95 Room Air 03/31/17 00:19 36.5 68 16 150/77 (101) 99 Room Air 03/31/17 00:13 Room Air Physical Exam General Appearance: WD/WN, no apparent distress Eyes: normal inspection, PERRL, EOMI ENT: normal ENT inspection, hearing grossly normal, pharynx normal Neck: supple, no adenopathy, no JVD Respiratory/Chest: chest non-tender, lungs clear, normal breath sounds Cardiovascular: regular rate, rhythm, no edema, no gallop Abdomen: normal bowel sounds, non tender, soft Extremities: normal range of motion, non-tender, normal inspection Neurologic/Psychiatric: nurse general duty II-XII nml as tested, no motor/sensory deficits, alert (oriented to person, time, cannot name "hospital" but can describe what a hospital is) Skin: normal color, warm/dry Laboratory Results Last Resulted 03/28/17 05:55 Last Resulted 03/28/17 05:55 Assessment and Plan 81 year old female with PMHx CAD and paroxysmal atrial fibrillation presents with a right non displaced subcapital hip fracture Right subcapital hip fracture: Patient s/p screw fixation of right subcapital fracture. - pain well controlled at present, postoperative and PT management per surgical team - Rivaroxaban and aspirin restarted - Ortho discharged patient and says patient ready for rehab at [facility] - Famotidine bid for stress ulcer prophylaxis - [facility] has accepted her, awaiting bed Altered mental status: Patient has had slight forgetfulness and long pauses when conversing. Likely sundowning from sleep/pain/postoperative - 13Sep CT head w/out contrast showed no acute findings. 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 UTI - Complicated with urinary catheter needed due to hip fracture. - 10Sep UCx positive for klebsiella pneumoniae, sensitive to cipro. - ciprofloxacin 400 mg Q12H (penicillin allergy with some swelling therefore will avoid cephalosporin) - No fever, chills or WBC to suggest bacteremia - Stop cipro tomorrow (04/01) Coronary artery disease, Paroxysmal atrial fibrillation, dyslipidemia -Aspirin restarted - restart lisinopril as patient with normal creatinine - continue atorvastatin and metoprolol Obstructive sleep apnea - will defer CPAP given she does not use this at home and significant weight loss since last sleep study showing ALISTAIR. VTE Prophylaxis: - Rivaroxaban - DINAH + SCD on left leg Code - Full as per patient wishes Disposition - to go to [facility] for rehab as soon as bed is available. Discharge planning: rehab hospital History Pt seen and examined at bedside. Reports persistent mild aching pain of the R hip. Able to ambulate and participating well in PT. No recurrence of confusion, presently AAOx3. General Appearance: WD/WN, no apparent distress Respiratory: chest non-tender, lungs clear, normal breath sounds, no respiratory distress Cardiovascular: normal peripheral pulses, regular rate, rhythm, no murmur Assessment/Plan 81 y/o female w/ h/o CAD, pAF p/w R hip fracture and UTI POD #4 for ORIF Delirium - likely sundowning from sleep/pain/postoperative, CT negative - improving, oriented well. reorient and 1:1 overnight if needed Right hip fracture (subcap) - orthopaedics consulted, input appreciated - pain well controlled at present, postoperative and PT management per surgical team UTI - UCx w/ ortiz sensitive klebsiella - complete cipro TM pAF - apixaban, ASA, atorvastatin, metoprolol, lisinopril ALISTAIR - patient defers CPAP at this time Resident Tracking Resident Involvement: Resident Care Provided Care Provided: Adult Hospital Medicine
[2017-03-31] MEDS: DOCUSATE SODIUM/SENNA 50/8.6MG TAB PO SCH (20:28)
[2017-03-31] MEDS: ATORVASTATIN 40 MG TAB PO SCH (20:29)
[2017-03-31 23:12] VITALS: BP 156/80; PULSE 71; TEMP 36.7; O2SAT 97
[2017-04-01] MEDS: ACETAMINOPHEN IV 650 MG in EMPTY BAG 0 ML IV SCH ×3 (05:08→13:36)
[2017-04-01 07:13] VITALS: BP 134/87; PULSE 72; TEMP 36.5; O2SAT 96
[2017-04-01] MEDS: CHOLECALCIFEROL 1000 INTER.UNIT TAB PO SCH (07:22)
[2017-04-01] MEDS: METOPROLOL SUCC 50MG EXT REL TAB PO SCH (07:22)
[2017-04-01] MEDS: THIAMINE HCL 100 MG TAB PO SCH (07:22)
[2017-04-01] MEDS: FAMOTIDINE 20 MG TAB PO SCH (07:23)
[2017-04-01] MEDS: CIPROFLOXACIN 500 MG TAB PO SCH (07:23)
[2017-04-01] MEDS: ASPIRIN 81 MG ECTAB PO SCH (07:23)
[2017-04-01] MEDS: LISINOPRIL 40 MG TAB PO SCH (07:23)
[2017-04-01] MEDS: MULTIVITAMIN TAB PO SCH (07:24)
[2017-04-01 13:21] VITALS: BP 134/87; PULSE 72; TEMP 36.5; O2SAT 96
--- NOTE | 2017-04-01 14:08 | Discharge Instructions ---
Discharge Instructions Date of Service Apr 01, 2017. Admission Reason for Admission: Subcapital Fracture Of Right Hip Discharge Discharge Diagnosis / Problem: S/P Right Hip ORIF with percutaneous screws places Discharge Goals Goal(s): Improve function, Increase independence Activity Recommendations Activity Limitations: per Instructions/Follow-up section . Instructions / Follow-Up Instructions / Follow-Up 81 year old female with PMHx CAD and paroxysmal atrial fibrillation presents with a right non displaced subcapital hip fracture Right subcapital hip fracture: Patient s/p screw fixation of right subcapital fracture. - pain well controlled at present, postoperative and PT management per surgical team - Rivaroxaban and aspirin restarted - Ortho discharged patient and says patient ready for rehab at [facility] - PT evaluation recommends rehab at [facility] Altered mental status: Patient has had slight forgetfulness and long pauses when conversing. Likely sundowning from sleep/pain/postoperative - [address] head w/out contrast showed no acute findings. - Patient received haldol 5mg on 14Sep very drier tender but none since then. - 1 on 1 as needed to limit sundowning and prevent disorientation - No change in symptoms, still cannot name "hospital" (word finding difficulty) but otherwise oriented Alcohol Withdrawal - daughter states patient drinks 8 ounces of alcohol nightly - will supplement patient with thiamine, folic acid, multivitamin - Had conversation with patient regarding her alcohol use, she states "1 or 2 " G&Ts per week; discussed that regardless of quantity, she is drinking too much as evident by her HTN and AMS - No concern of DTs at this point. HTN: Lisinopril to 40mg (Cr OK) and w/ Hydralazine 5mg IV PRN x 1 with re- evaluation. UTI - Complicated with urinary catheter needed due to hip fracture. - 10Sep UCx positive for klebsiella pneumoniae, sensitive to cipro. - ciprofloxacin 400 mg Q12H (penicillin allergy with some swelling therefore will avoid cephalosporin) - No fever, chills or WBC to suggest bacteremia - Stop cipro today Coronary artery disease, Paroxysmal atrial fibrillation, dyslipidemia -Aspirin restarted - restart lisinopril as patient with normal creatinine - continue atorvastatin and metoprolol Current Hospital Diet Patient's current hospital diet: AHA Diet (Heart Healthy) Discharge Diet Recommended Diet: AHA Diet (Heart Healthy) Procedures Procedures Performed: Closed Reduction Percutaneous Screws of the Right Hip Fracture Pending Studies Studies pending at discharge: no Medical Emergencies . Who to Call and When: Medical Emergencies: If at any time you feel your situation is an emergency, please call 911 immediately. . Non-Emergent Contact Non-Emergency issues call your: Primary Care Provider . . "Provider Documentation" section prepared by Mirela Parisi. . Senior Quality Assurance Engineer Recommendations Senior Quality Assurance Engineer Recommendations: Physical Therapy: * Do your physical therapy at home. These are the exercises you learned while in the hospital (quad sets, leg raises, calf pumps, gluteal squeezes, knee bending, and heel props.) You should do these exercises 3-4 times per day. * You will either go to inpatient rehab ([facility]), home with Home Therapy and nursing or home with outpatient rehab. You should do rehab with the therapist 2-3 times per week. You should do therapy on your own daily. * You may bear full weight on your leg with crutches or walker unless otherwise advised. Home Exercise: * You were shown a series of exercises (heel props, heel slides, etc.) in the hospital. Do these exercises three to four times each day including the exercises you were shown in physical therapy. Dressings: * Keep incision covered with a dressing for 4-5 days after surgery. Then may keep open to air. You may begin to shower, do not soak, submerge or scrub incision. Walking: * You may weight bear as tolerated right lower extremity with the assistance of a walker. * You may be up for short periods of time. Standing and walking for 1-2 hours at a time is usually oK. You should not stand or walk for excessive periods of time as this may cause increased pain and swelling. A. Your balance may be shaky for a while. Use crutches or a walker until directed by your doctor. B. Use hand rails when walking on stairs. C. Wear low heeled shoes with non-slip soles. D. Be sure that your floors are free of things that could trip you - throw rugs, electrical cords, small objects. Avoid wet and waxed floors, especially with crutches and canes. E. Try to walk several times a day with rest periods between. F. Continue with all the exercises taught to you in the hospital. Again, make walking a part of your daily routine. VERY IMPORTANT TO READ AND REVIEW A. There are a few signs you need to watch for after you are home. If you notice any of the followin. Increased severe hip pain. Some pain is expected especially when you exercise. 2. Increased swelling in your leg or knee; pain or swelling of the calf muscle in either lower leg. 3. Any fluid drainage from the incision. 4. Shortness of breath or chest pain. TEDs/Elastic Stockings: * The white elastic stockings help limit swelling and prevent blood clots from forming in your legs. The more you wear them, the more they work. * Wear them for six weeks. Things to Watch For: * Drainage from the incision site that occurs more than one week after your surgery. * Severely increased leg pain or swelling. * Increased redness at the incision site. * Fever above 101 degrees Fahrenheit. * Unusual chest pain or shortness of breath. * Unusual pain or burning with urination. Follow-Up Visit: You will follow-up with Dr. Gutierrez 10-14 days after surgery. The office number is . You have a scheduled follow up appointment with Dr. Gutierrez on 04/11/17 at 11: 45 a.m. Avoid all tobacco products. If you need help to stop smoking, call [place]'s FREE QUITLINE at . This is a free call. VTE Core Measure Inpt VTE Proph given/why not?: Wayne Dupont, SCD's
--- NOTE | 2017-04-01 18:25 | Family Medicine Progress Note ---
Progress Note Date of Service Apr 01, 2017. Subjective Please see Discharge Summary for full Subjective assessment Additional Comments: Please see Discharge Summary for full ROS Medications Reported Home Medications Medications Dose Route/Sig Max Daily Dose Days Date Category Vitamin D3 (Cholecalciferol) 1,000 Inter.unit Tab 2,000 Inter.unit PO QAM 14 03/28/17 Rx Xarelto (Rivaroxaban) 10 Mg Tab 20 Mg PO DAILYBD 30 11/25/14 Rx Nitrostat (Nitroglycerin) 0.4 Mg Tab 0.4 Mg UT UD PRN 11/17/13 Reported Toprol-Xl (Metoprolol Succinate) 50 Mg Tabcr 50 Mg PO DAILY 11/17/13 Reported Zestril (Lisinopril) 20 Mg Tab 20 Mg PO DAILY 11/17/13 Reported Lipitor (Atorvastatin Calcium) 80 Mg Tab 80 Mg PO HS 11/17/13 Reported Aspirin Ec (Aspirin) 81 Mg Tab 81 Mg PO DAILY 11/17/13 Reported Objective Vital Signs Last Vital Signs Documentation Date Time Temp Pulse Resp B/P (MAP) Pulse Ox O2 Delivery O2 Flow Rate FiO2 04/01/17 13:21 36.5 72 16 96 Room Air 04/01/17 07:13 134/87 (103) 03/28/17 15:45 1.0 Physical Exam Notes: Please see Discharge Summary for full examination Laboratory Results Last Resulted 03/28/17 05:55 Last Resulted 03/28/17 05:55 Assessment and Plan Please see Discharge Summary for full assessment and plan 81 year old female with PMHx CAD and paroxysmal atrial fibrillation presents with a right non displaced subcapital hip fracture Right subcapital hip fracture: Patient s/p screw fixation of right subcapital fracture. - pain well controlled at present, postoperative and PT management per surgical team - Rivaroxaban and aspirin restarted - Ortho discharged patient and says patient ready for rehab at [facility] - Famotidine bid for stress ulcer prophylaxis - [facility] has accepted her, awaiting bed Altered mental status: Patient has had slight forgetfulness and long pauses when conversing. Likely sundowning from sleep/pain/postoperative - 13Sep CT head w/out contrast showed no acute findings. 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 UTI - Complicated with urinary catheter needed due to hip fracture. - 10Sep UCx positive for klebsiella pneumoniae, sensitive to cipro. - ciprofloxacin 400 mg Q12H (penicillin allergy with some swelling therefore will avoid cephalosporin) - No fever, chills or WBC to suggest bacteremia - Stop cipro tomorrow (04/01) Coronary artery disease, Paroxysmal atrial fibrillation, dyslipidemia -Aspirin restarted - restart lisinopril as patient with normal creatinine - continue atorvastatin and metoprolol Obstructive sleep apnea - will defer CPAP given she does not use this at home and significant weight loss since last sleep study showing ALISTAIR. VTE Prophylaxis: - Rivaroxaban - DINAH + SCD on left leg Code - Full as per patient wishes Disposition - to go to [facility] for rehab as soon as bed is available. Discharge planning: rehab hospital History Resident Physician Supervision Note: I was present with Dr. Parisi during the history and exam. I discussed the case with the resident and agree with the findings and plan as documented in the note. Any exceptions or clarifications are listed here. Pt seen and examined in chair. Feeling quite well - hip pain is a dull ache which worsens only slightly w/ activity. Reports no confusion or issues overnight (confirmed by nursing). Oriented x 3. Unable to find the word hospital but gives an apt description. General Appearance: WD/WN, no apparent distress Respiratory: chest non-tender, lungs clear, normal breath sounds, no respiratory distress Cardiovascular: normal peripheral pulses, regular rate, rhythm, no edema, no murmur Gastrointestinal: normal bowel sounds, non tender, soft, no organomegaly Assessment/Plan 81 y/o female w/ h/o CAD, pAF p/w R hip fracture and UTI POD #4 for ORIF Right hip fracture (subcap) - orthopaedics consulted, input appreciated - pain well controlled at present, would benefit from inpatient rehab UTI - UCx w/ ortiz sensitive klebsiella - completed cipro course pAF - apixaban, ASA, atorvastatin, metoprolol, lisinopril ALISTAIR - patient defers CPAP at this time, would encourage use as outpatient. Resident Tracking Resident Involvement: Resident Care Provided Care Provided: Adult Hospital Medicine
--- NOTE | 2017-04-01 18:34 | Discharge Summary ---
Discharge Summary Date of Service Apr 01, 2017. Discharge Summary Admission Date: Mar 25, 2017 at 22:39 Discharge Date: Mar 29, 2017 Discharge Disposition: Rehab Principal Diagnosis: right non displaced subcapital hip fracture Problems/Secondary Diagnoses: HTN, UTI, CAD Immunizations: Have You Had Influenza Vaccine: Yes Influenza Vaccine Date: Apr 03, 2012 History of Tetanus Vaccine?: Yes Tetanus Immunization Date: Apr 04, 2010 History of Pneumococcal: Yes Pneumococcal Date: Apr 04, 2011 History of Hepatitis B Vaccine: No Procedures: ORIF right hip with percutaneous screws Medication Reconciliation New Medications: Cholecalciferol (Vitamin D3) 1,000 Inter.unit Tab 2000 INTER.UNIT PO QAM for 14 Days, #14 TAB Continued Medications: Aspirin (Aspirin Ec) 81 Mg Tab 81 MG PO DAILY Atorvastatin (Lipitor) 80 Mg Tab 80 MG PO HS, TAB Lisinopril (Zestril) 20 Mg Tab 20 MG PO DAILY, TAB Metoprolol Succ (Toprol Xl) (Toprol-Xl) 50 Mg Tabcr 50 MG PO DAILY, #30 TAB Nitroglycerin (Nitrostat) 0.4 Mg Tab 0.4 MG UT UD PRN for Chest Pain Rivaroxaban (Xarelto) 10 Mg Tab 20 MG PO DAILYBD for 30 Days, TAB Discharge Exam Review of Systems: Constitutional: No fever, No chills, No sweats, No weight loss, No weakness , No fatigue, No problem reported Eyes: No worsening of vision, No eye pain, No redness, No discharge, No diplopia, No problem reported ENT: No hearing loss, No unusual epistaxis, No nasal symptoms, No sore throat, No tinnitus, No dental problems, No trouble swallowing, No problem reported Respiratory: No cough, No sputum, No wheezing, No shortness of breath, No dyspnea on exertion, No dyspnea at rest, No hemoptysis, No problem reported Cardiovascular: No chest pain, No orthopnea, No PND, No edema, No claudication, No palpitations, No problem reported Abdomen: No pain, No nausea, No vomiting, No diarrhea, No constipation, No GI bleeding, No problem reported Musculoskeletal: + problem reported (improving right thigh pain), No joint pain, No muscle pain, No swelling, No calf pain Genitourinary - Female: No dysuria, No urinary frequency, No urinary urgency , No hematuria Neurologic: + memory loss, No numbness/tingling, No vertigo Psychiatric: + substance abuse Endocrine: No fatigue Hematologic / Lymphatic: No swollen lymph nodes Integumentary: No rash Physical Exam: General Appearance: WD/WN, no apparent distress Eyes: normal inspection, PERRL, EOMI, sclerae normal ENT: normal ENT inspection, hearing grossly normal, TMs normal, pharynx normal Neck: supple, no adenopathy, thyroid normal, no JVD Respiratory/Chest: chest non-tender, lungs clear, normal breath sounds, no respiratory distress, no accessory muscle use Cardiovascular: no edema, no JVD, no murmur Abdomen / GI: normal bowel sounds, non tender, soft Extremities: + pertinent finding (bandage over R leg without any erythema surrounding, sensation intact, strong pedal push and pull without any pain) Hospital Course Mrs Negron is an 81 year old female who presented to the ER with right hip pain after falling. She was pulled over by her dog onto her right hip. She fell onto grass without any loss of consciousness. She was helped up by a bystander and walked 75 yards back to her house partially weight bearing on her right hip. She was able to partially weight bear at that time. She phoned for an ambulance due to pain in her right groin increasing. She denied any symptoms before the fall and was in good health. After the fall she denied any loss of consciousness , dizziness, memory loss, weakness or change in sensation in her upper or lower extremities other than some pain in her right groin when she moves her hip. She denied change in speech, hearing or vision, back pain, left groin/hip pain, knee pain, wrist pain post fall. She is under Dr Renteria for coronary artery disease after an NSTEMI in September 2013 (medically managed due to too small for intervention) and paroxysmal atrial fibrillation with RVR in November 2014 (hence her rivaroxaban). Last echo in 2015 showed normal wall motion abnormalities and LVEF 65-70%, mild mitral regurgitation, mild tricuspid regurgitation. She also has a remote history of obstructive sleep apnea but is non compliant with CPAP (uses once/week as per her daughter). Although last sleep test was in 2012 needing on 4cm CPAP and she has lost significant weight since then. Right subcapital hip fracture: Patient s/p screw fixation of right subcapital fracture. - pain well controlled, postoperative and PT management per surgical team - Rivaroxaban and aspirin restarted - Patient ready for rehab at [facility] Altered mental status: Patient had slight forgetfulness and long pauses when conversing. Likely sundowning from sleep/pain/postoperative - 13Sep CT head w/out contrast showed no acute findings. 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 - 10Sep UCx positive for klebsiella pneumoniae, treated with cipro Coronary artery disease, Paroxysmal atrial fibrillation, dyslipidemia - Aspirin, atorvastatin, metorpolol, and lisinopril restarted ALISTAIR Recommend regular CPAP use as outpatient Total Time Spent: Greater than 30 minutes This includes examination of the patient, discharge planning, medication reconciliation, and communication with other providers. Discharge Instructions Please refer to the electronic Patient Visit Report (Discharge Instructions) for additional information. Additional Copies To Endy Lujan M.D. Resident Tracking Resident Involvement: Resident Care Provided Care Provided: Adult [facility] Medicine
== END 2017-04-01 14:41 | DRG 481 ==
LOC: EDBD 19:48 → C.EDA 19:49 → C.2T 22:39 → ENRESERV 22:49 → C.2E 23:45 → EDBEDREQSVC 03-28 14:57 → ENRESERV 03-28 15:39 → C.MSN 03-28 16:24
PROVIDERS: ADMIT Hospitalist; ATTEND Family Medicine
PROC: 0QS634Z Reposition Right Upper Femur with Internal Fixation Device, Percutaneous Approach (ICD-10-PCS; principal; 2017-03-27 07:15)
DX: S72.011A Unspecified intracapsular fracture of right femur, initial encounter for closed fracture (principal); N39.0 Urinary tract infection, site not specified; D62 Acute posthemorrhagic anemia; F05 Delirium due to known physiological condition; F10.231 Alcohol dependence with withdrawal delirium; B96.1 Klebsiella pneumoniae [K. pneumoniae] as the cause of diseases classified elsewhere; I25.10 Atherosclerotic heart disease of native coronary artery without angina pectoris; I10 Essential (primary) hypertension; I48.0 Paroxysmal atrial fibrillation; E78.5 Hyperlipidemia, unspecified; G31.84 Mild cognitive impairment of uncertain or unknown etiology; G47.33 Obstructive sleep apnea (adult) (pediatric); E55.9 Vitamin D deficiency, unspecified; W19.XXXA Unspecified fall, initial encounter; Y93.K1 Activity, walking an animal; Y92.830 Public park as the place of occurrence of the external cause; Y99.8 Other external cause status; Z91.19 Patient's noncompliance with other medical treatment and regimen; I25.2 Old myocardial infarction; Z79.01 Long term (current) use of anticoagulants; Z79.82 Long term (current) use of aspirin; Z79.899 Other long term (current) drug therapy; Z88.0 Allergy status to penicillin; Z88.2 Allergy status to sulfonamides; Z82.49 Family history of ischemic heart disease and other diseases of the circulatory system

== ENCOUNTER → 2017-04-11 | Outpatient (CLI) | payer OTHER, BC ==
[~2017-04-11] MED LIST changes: +VTMD1000 PO
== END | disposition home or self-care (01) ==
LOC: C.RDSM 09:54
PROVIDERS: ATTEND Physical Medicine & Rehabilitation Sports Medicine
DX: S72.001A Fracture of unspecified part of neck of right femur, initial encounter for closed fracture (principal); X58.XXXA Exposure to other specified factors, initial encounter

== ENCOUNTER → 2017-06-25 | Outpatient (CLI) | payer OTHER, BC | END | disposition home or self-care (01) | LOC: C.RDSM 11:59 | PROVIDERS: ATTEND Physical Medicine & Rehabilitation Sports Medicine | DX: M25.551 Pain in right hip (principal) ==

== ENCOUNTER → 2017-09-07 | Outpatient (CLI) | payer OTHER, BC ==
[~2017-09-07] MED LIST changes: -METO50TA7 PO; +METO50TA8 PO
[2017-09-07 13:32] LABS: BASO % 0.3 %; BASO ABS # 0.02 K/uL (0-0.2); EOS % 1.8 %; EOS ABS # 0.12 K/uL (0-0.5); HEMATOCRIT 42.3 % (37-47); HEMOGLOBIN 13.7 g/dL (12.0-16.0); IG# 0.01 K/uL (0.00-0.02); LYMPH % 16.8 %; LYMPH ABS # 1.13 K/uL (1.2-3.4); MEAN CORPUSCULAR HEMOGLOBIN 30.4 pg (25-34); MEAN CORPUSCULAR HGB CONC 32.4 g/dl (32-36); MEAN PLATELET VOLUME 10.4 fL (7.4-10.4); MONO % 10.3 %; MONO ABS # 0.69 K/uL (0.11-0.59); NEUT % 70.7 %; NEUT ABS # 4.76 K/uL (1.4-6.5); PLATELET COUNT 231 K/uL (130-400); RED CELL DISTRIBUTION WIDTH CV 14.9 % (11.5-14.5); RED CELL DISTRIBUTION WIDTH SD 51.1 fL (36.4-46.3); WHITE BLOOD COUNT 6.73 K/uL (4.8-10.8)
[2017-09-07 13:47] LABS: HEMOGLOBIN A1C 5.7 % (4.5-5.6)
[2017-09-07 13:49] LABS: ALBUMIN 3.8 gm/dl (3.4-5.0); ALT/SGPT 32 U/L (12-78); BLOOD UREA NITROGEN 24 mg/dl (7-18); CALCIUM 9.1 mg/dl (8.5-10.1); CARBON DIOXIDE 30 mmol/L (21-32); CHOLESTEROL 93 mg/dl (0-200); CREATININE 0.67 mg/dl (0.60-1.20); GLUCOSE 88 mg/dl (70-99); POTASSIUM 4.2 mmol/L (3.5-5.1); SODIUM 139 mmol/L (136-145)
[2017-09-07 14:00] LABS: ALKALINE PHOSPHATASE 72 U/L (45-117); AST/SGOT 66 U/L (15-37); LDL CHOLESTEROL CALCULATED 30 mg/dl
== END | disposition home or self-care (01) ==
LOC: C.LABBC 10:21
PROVIDERS: ATTEND Physician Assistant Medical
DX: Z00.00 Encounter for general adult medical examination without abnormal findings (principal); G47.33 Obstructive sleep apnea (adult) (pediatric); I25.10 Atherosclerotic heart disease of native coronary artery without angina pectoris; R73.01 Impaired fasting glucose; I48.0 Paroxysmal atrial fibrillation; Z79.01 Long term (current) use of anticoagulants; Z51.81 Encounter for therapeutic drug level monitoring; E55.9 Vitamin D deficiency, unspecified

== ENCOUNTER 2022-01-05 12:06 | Inpatient (IN) ==
--- NOTE | 2022-01-05 13:37 | Emergency Department Note ---
ED Visit Note NAME: KYLEE LAKHANI AGE: 86 SEX: F : 1935 ARRIVES VIA: Ambulance INFORMANT: Patient, ED PROVIDER(S): Salbador Dimas MD I was consulted by the Advanced Practice Provider Donna Lanier PA-C I saw the patient personally and performed a substantive portion of the visit. This includes aspects of the HPI, MDM, diagnostic interpretations, and disposition/plan. Patient presented from December of her and does have a history of dementia. Known history of A. fib. Only on baby aspirin but no other blood thinning medications. The patient did have an elevated heart rates in the 150s so blood work was obtained in addition to her CAT scans. The patient did receive Lopressor IV. Patient's rate was improved and better controlled in the low 100s high 90s. Patient's blood work showed a white count of 12 with a normal H&H and platelet count. The patient's kidney function was unremarkable did show prerenal azotemia. The patient had been ordered IV fluids. Bilirubin is elevated but has been elevated in the past. Troponin of 14.4. Patient has no change on EKG. Do not believe that this requires further work-up at this time. Head CT negative. Chest x-ray shows possible trace pleural effusion versus epicardial fat pad. The patient is not in any respiratory extremis and has clear breath sounds. Patient does have minimally displaced fracture of S3 and S4. Patient has minimal fracture of right lateral cortex of L2. Critical Care: I have personally spent 35 minutes of critical care time in direct management of this patient. This includes bedside care, interpretation of diagnostic studies, and testing, discussion with consultants, patient, and family members, and other require inpatient management activities. This 35 minutes is in excess of all separately billable procedures. .
--- NOTE | 2022-01-05 13:39 | Emergency Department Note ---
Impression & Plan Fall, Closed L2 vertebral fracture, Sacral fracture, Ambulatory dysfunction, Atrial fibrillation with rapid ventricular response ED Provider Note CHIEF COMPLAINT: Fall HISTORY OF PRESENT ILLNESS: Fawn Miller is an 86 year old female with history of paroxysmal atrial fibrillation not currently on anticoagulants, CAD and HI s/p cath on bASA, HTN, DLD, ALISTAIR, dementia, neurocognitive disorder, among others listed below who presents to the Emergency Department via EMS from the memory care unit at [facility] for evaluation of continued pain, reportedly to her lower back and possibly her hips, after suffering a fall 3 days prior. History is limited secondary to the patient's dementia. She currently does not have any complaints and states that she feels well. Per report from [facility], the patient suffered a fall 3 days ago and landed on a toilet. They did not report any trauma to her head or loss of consciousness at that time. The patient was complaining of pain to her lower back which became worse with ambulation. They did perform bedside x-rays of the lumbar spine and pelvis at the facility which were reportedly negative. Since then, the patient has continued to have worsening pain to her lower back and possibly her hips every time they get her up to ambulate. She otherwise does not complain when laying in bed. As there were concerns for additional injuries that were not seen on the x-rays, they sent her to the ED for further evaluation today. Per chart review, the patient is currently on bASA, no other anticoagulants/antiplatelets. REVIEW OF SYSTEMS: 10 systems were reviewed and were negative unless otherwise stated in HPI as above PHYSICAL EXAM: VITALS: Vitals are noted on the nurse's note and reviewed by myself. Intermittently tachycardic and hypertensive, additional vital signs stable General: Initially resting in bed in no acute distress. Periodically yelling out, confused (history of dementia) HEENT: Normocephalic/atraumatic, PERRL, EOMI, mucous membranes moist, oropharynx clear Neck: No mid-line or paraspinal cervical tenderness, ROM intact without pain Resp: Good inspiratory effort on room air, lung sounds clear bilaterally CV: Irregularly irregular rate and rhythm, peripheral pulses palpated Back: Does not indicate tenderness to palpation on exam, no obvious step-offs or deformities Abd: Soft, non-tender to palpation MSK: No obvious long bone deformities. Moving all extremities spontaneously with good strength, sensation intact throughout Neuro: Awake and alert. Intermittently answers some questions and follows commands appropriately but periodically yelling out and confused with GCS 14 (history dementia) Differential diagnosis includes musculoskeletal, disc herniation, fracture, metastatic disease, cord compression, discitis, sciatica, cauda equina, infection, aortic disease, renal colic, gastrointestinal, as well as other pat hologies. EMERGENCY DEPARTMENT COURSE: Physical exam and history were performed. Nursing triage notes, EMR, and medication list were personally reviewed. Patient is an 86 year old female with history of paroxysmal atrial fibrillation not currently on anticoagulants, CAD and HI s/p cath on bASA, HTN, DLD, ALISTAIR, dementia, neurocognitive disorder, among others listed below who presents to the Emergency Department via EMS from the memory care unit at [facility] for evaluation of continued pain, reportedly to her lower back and possibly her hips, after suffering a fall 3 days prior. Additional history as described above. See physical exam as noted above. Continuous clinical research monitor: Order was placed for continuous clinical research monitor. Patient was placed on the clinical research monitor. Patient was noted to be in atrial fibrillation at an initial rate of 101 bpm. Shortly after the initial examination, the patient became more tachycardic in the [id number]. EKG was obtained and did show atrial fibrillation with RVR at 131 bpm. Old inferior infarct. No acute ischemic change. When compared to EKG from 07/22/2020, no significant change was found. IV access was established. She was given Lopressor 5 mg with improvement of her rate to the low 100s. Repeat EKG was obtained and did show A. fib with RVR at 103 bpm. Otherwise no other significant changes. Labs were obtained and reviewed by myself as below. Of note, mild leukocytosis with a WBC of 12.94. No concern for anemia with hemoglobin 13.5. Electrolytes WNL. Renal indices stable. LFTs nondiagnostic. High-sensitivity troponin I was elevated at 14.4. Repeat about 3 hours later had increased to 15.9. CAT scan of the head, lumbar spine and pelvis were obtained and reviewed by radiologist myself as below. Imaging of the head was negative for acute traumatic injuries. Imaging of the lumbar spine and pelvis did show d egenerative changes with a minimal fracture of the right lateral cortex of L2. There are also acute minimally displaced fractures of the anterior cortex of the S3 and S4 with small amount of presacral hemorrhage. The patient was reevaluated several times throughout her emergency department course. While she was laying flat in bed she did not seem to be in acute distress, however she did periodically become agitated secondary to her history of dementia. She also indicated severe pain with any attempts of movement. Given her ambulatory dysfunction in the setting of her lumbar and sacral inj uries as well as the elevated troponin and need for Lopressor for rate control, I do feel that she would benefit from continued management in the hospital. [facility] to [facility] the patient. I did contact [facility] and updated them on this plan. They stated that they would be in contact with her family and were in agreement with this. The chart was completed utilizing [employer] Speech Voice Recognition Software. Grammatical errors, random word insertions, pronoun errors, and incomplete sentences are an occasional consequence of this system due to software limitations, ambient noise, and hardware issues. Any formal questions or concerns about the content, text, or information contained within the body of this dictation should be directly addressed to the provider for clarification. Past Med/Surg History Medical History (Updated 01/05/22 @ 20:14 by Linda Lanier PA-C) Acute coronary syndrome Arthritis Chest pain Chronic anticoagulation Coronary artery disease Dementia Diverticulosis of colon Dyslipidemia Elevated troponin Epigastric pain History of HI (myocardial infarction) Hypertension Impaired fasting glucose Minor neurocognitive disorder New onset a-fib NSTEMI (non-ST elevated myocardial infarction) (10/13/13) Obstructive sleep apnea Paroxysmal atrial fibrillation Shingles Subcapital fracture of right hip Vitamin D deficiency Surgical History History of cardiac catheterization History of cataract surgery History of hand surgery right History of knee surgery History of open reduction and internal fixation (ORIF) procedure right hip History of tonsillectomy Family History Other No significant family history Social History Smoking Status: Unknown if ever smoked Hx Alcohol Use: Yes Alcohol type: wine Hx Substance Use: No Preferred Language: Tajik Communication Ability: Effective Visual Impairment: No Limitations Hearing Ability: Normal Inspector Fabric Required: No marital status: / Current Living Situation: Family current occupational status: retired Feels Safe at Home: Yes Childhood Exposure to Second-Hand Smoke: Yes caffeine: Yes Dental Care, Regularly: No Physical Activity Frequency: 3-4 Times per Week Seatbelt Use: always Sunscreen Use: No Allergies Allergies Allergy/AdvReac Type Severity Reaction Status Date / Time Penicillins Allergy Intermediate hands Verified 07/22/20 21:53 swell, rash rofecoxib Allergy Mild ITCHING Verified 07/22/20 21:53 shellfish derived Allergy Unknown UNKNOWN Verified 07/22/20 21:53 Sulfa (Sulfonamide Allergy Unknown UNKNOWN Verified 07/22/20 21:53 Antibiotics) grass pollen Allergy . Verified 07/22/20 21:53 mold Allergy . Verified 07/22/20 21:53 Home Meds Home Medications Medication Instructions Recorded Confirmed cholecalciferol (vitamin D3) 50 2,000 units PO DAILY 04/07/19 07/22/20 mcg (2,000 unit) capsule aspirin 81 mg chewable tablet 81 mg PO DAILY 07/03/19 07/22/20 acetaminophen 325 mg tablet 650 mg PO Q4H PRN 07/22/20 07/22/20 divalproex 250 mg tablet,delayed See Rx Instructions .ROUTE .COMPLEX 07/22/20 07/22/20 release docusate sodium 100 mg capsule 100 mg PO BID 07/22/20 07/22/20 lisinopril 10 mg tablet 10 mg PO DAILY 07/22/20 07/22/20 melatonin 5 mg tablet 5 mg PO HS 07/22/20 07/22/20 quetiapine 25 mg tablet 25 mg PO BID 07/22/20 07/22/20 Previous Rx's Medication Instructions Recorded metoprolol succinate 50 mg 50 mg PO DAILY #90 tab 05/21/19 tablet,extended release 24 hr (Toprol XL) Results & Data (ED) Vital Signs Vital Signs - 24 hr 01/05/22 11:56 01/05/22 12:21 01/05/22 13:56 Temperature 37.1 C Temperature Source Oral Pulse Rate 81 Pulse Rate [Apical] 101 H 123 H Pulse Rhythm [Apical] Pulse Strength [Apical] Respiratory Rate 18 18 18 Respiratory Effort / Characteristics Non-Labored Spontaneous Non-Labored Spontaneous Non-Labored Spontaneous Respiratory Depth Normal Normal Normal Respiratory Pattern Regular Regular Regular Blood Pressure 163/97 H Blood Pressure [Right Arm] 127/94 125/94 Blood Pressure Mean 119 Blood Pressure Mean [Right Arm] 105 104 Blood Pressure Position Sitting Blood Pressure Position [Right Arm] Sitting Sitting Pulse Oximetry 97 97 96 Oxygen Delivery Method Room Air Room Air Room Air Sepsis Recent Fever Within 48 Hours No Sepsis New/Unexplained Change in Mental Status N/A Sepsis Action Taken by Nursing No Action Required 01/05/22 14:00 01/05/22 14:41 01/05/22 15:00 Temperature Temperature Source Pulse Rate 124 H Pulse Rate [Apical] 72 Pulse Rhythm [Apical] Pulse Strength [Apical] Respiratory Rate 18 Respiratory Effort / Characteristics Non-Labored Spontaneous Respiratory Depth Normal Respiratory Pattern Regular Blood Pressure 158/136 H Blood Pressure [Right Arm] 120/75 Blood Pressure Mean Blood Pressure Mean [Right Arm] 90 Blood Pressure Position Blood Pressure Position [Right Arm] Sitting Pulse Oximetry 97 97 Oxygen Delivery Method Room Air Room Air Sepsis Recent Fever Within 48 Hours Sepsis New/Unexplained Change in Mental Status Sepsis Action Taken by Nursing 01/05/22 15:52 01/05/22 17:00 01/05/22 19:00 Temperature 37 C Temperature Source Oral Pulse Rate Pulse Rate [Apical] 99 H 108 H 107 H Pulse Rhythm [Apical] Regular Pulse Strength [Apical] Normal Respiratory Rate 18 18 18 Respiratory Effort / Characteristics Non-Labored Spontaneous Non-Labored Spontaneous Non-Labored Spontaneous Respiratory Depth Normal Normal Normal Respiratory Pattern Regular Regular Regular Blood Pressure Blood Pressure [Right Arm] 150/106 H 166/95 H 169/102 H Blood Pressure Mean Blood Pressure Mean [Right Arm] 120 118 124 Blood Pressure Position Blood Pressure Position [Right Arm] Sitting Sitting Lying Pulse Oximetry 97 96 97 Oxygen Delivery Method Room Air Room Air Room Air Sepsis Recent Fever Within 48 Hours Sepsis New/Unexplained Change in Mental Status Sepsis Action Taken by Nursing Laboratory Data Result diagrams: 01/05/22 14:03 01/05/22 14:03 Lab Results 01/05/22 01/05/22 01/05/22 Range/Units 14:03 14:03 14:03 WBC 12.94 H (4.8-10.8) K/uL RBC 4.47 (4.2-5.4) M/uL Hgb 13.5 (12.0-16.0) g/dL Hct 41.3 (37-47) % MCV 92.4 (80-100) fL MCH 30.2 (25-34) pg MCHC 32.7 (32-36) g/dL RDW Std Deviation 49.1 H (36.4-46.3) fL RDW Coeff of Gerard 14.5 (11.5-14.5) % Plt Count 231 (130-400) K/uL MPV 10.0 (7.4-10.4) fL Immature Gran % (Auto) 0.3 % Neut % (Auto) 80.2 % Lymph % (Auto) 8.0 % [place] % (Auto) 10.4 % Eos % (Auto) 0.9 % Baso % (Auto) 0.2 % Neut # (Auto) 10.39 H (1.4-6.5) K/uL Lymph # (Auto) 1.04 L (1.2-3.4) K/uL [place] # (Auto) 1.34 H (0.11-0.59) K/uL Eos # (Auto) 0.11 (0-0.5) K/uL Baso # (Auto) 0.02 (0-0.2) K/uL Immature Gran # (Auto) 0.04 H (0.00-0.02) K/uL Sodium 139 (136-145) mmol/L Potassium 4.2 (3.5-5.1) mmol/L Chloride 104 (98-107) mmol/L Carbon Dioxide 28 (21-32) mmol/L Anion Gap 7 (3-11) BUN 20 (6-23) mg/dl Creatinine 0.73 (0.6-1.2) mg/dl Est Cr Clr Drug Dosing 54.4 ml/min Est GFR ( Amer) 85.2 ml/min Est GFR (Non-Af Amer) 73.5 ml/min BUN/Creatinine Ratio 27.4 H (10-20) Glucose 110 H (70-99(Fasting)) mg/dl Calcium 9.4 (8.5-10.1) mg/dl Phosphorus 3.1 (2.5-4.9) mg/dl Magnesium 2.0 (1.7-2.4) mg/dl Total Bilirubin 1.9 H (0.2-1.0) mg/dl AST 27 (13-39) U/L ALT 11 (7-52) U/L Alkaline Phosphatase 65 (34-104) U/L Troponin I High Sens 14.4 H (0-14) pg/ml Total Protein 7.5 (6.0-8.3) gm/dl Albumin 3.7 (3.4-5.0) gm/dl Globulin 3.8 (2.5-4.0) gm/dl Albumin/Globulin Ratio 1.0 (0.9-2) TSH 1.127 (0.300-4.500) uIu/ml SARS-CoV-2, RNA, NAAT (NEGATIVE) 01/05/22 01/05/22 Range/Units 17:32 18:02 WBC (4.8-10.8) K/uL RBC (4.2-5.4) M/uL Hgb (12.0-16.0) g/dL Hct (37-47) % MCV (80-100) fL MCH (25-34) pg MCHC (32-36) g/dL RDW Std Deviation (36.4-46.3) fL RDW Coeff of Gerard (11.5-14.5) % Plt Count (130-400) K/uL MPV (7.4-10.4) fL Immature Gran % (Auto) % Neut % (Auto) % Lymph % (Auto) % [place] % (Auto) % Eos % (Auto) % Baso % (Auto) % Neut # (Auto) (1.4-6.5) K/uL Lymph # (Auto) (1.2-3.4) K/uL [place] # (Auto) (0.11-0.59) K/uL Eos # (Auto) (0-0.5) K/uL Baso # (Auto) (0-0.2) K/uL Immature Gran # (Auto) (0.00-0.02) K/uL Sodium (136-145) mmol/L Potassium (3.5-5.1) mmol/L Chloride (98-107) mmol/L Carbon Dioxide (21-32) mmol/L Anion Gap (3-11) BUN (6-23) mg/dl Creatinine (0.6-1.2) mg/dl Est Cr Clr Drug Dosing ml/min Est GFR ( Amer) ml/min Est GFR (Non-Af Amer) ml/min BUN/Creatinine Ratio (10-20) Glucose (70-99(Fasting)) mg/dl Calcium (8.5-10.1) mg/dl Phosphorus (2.5-4.9) mg/dl Magnesium (1.7-2.4) mg/dl Total Bilirubin (0.2-1.0) mg/dl AST (13-39) U/L ALT (7-52) U/L Alkaline Phosphatase (34-104) U/L Troponin I High Sens 15.9 H (0-14) pg/ml Total Protein (6.0-8.3) gm/dl Albumin (3.4-5.0) gm/dl Globulin (2.5-4.0) gm/dl Albumin/Globulin Ratio (0.9-2) TSH (0.300-4.500) uIu/ml SARS-CoV-2, RNA, NAAT NEGATIVE (NEGATIVE) Administered Medications Metoprolol Tartrate (Metoprolol Tartrate 1 Mg/Ml Vial) 5 mg IV Q5M PRN PRN Reason: Tachycardia Stop: 02/04/22 14:31 Last Admin: 01/05/22 14:41 Dose: 5 mg Documented by: [id number] Discontinued Medications Sodium Chloride (Nss 1000ml) 1,000 mls @ 999 mls/hr IV .Q1H1M ANDRE Stop: 01/05/22 15:33 Last Infusion: 01/05/22 15:50 Dose: 0 mls/hr Documented by: [id number] Admin: 01/05/22 14:42 Dose: 999 mls/hr Documented by: [id number] Imaging Data Radiologist's Impression: Lumbar Spine CT 01/05/22 13:24 CT lumbar spine wo con CLINICAL HISTORY: pain TECHNIQUE: Multidetector row helical CT of the lumbar spine was performed without administration of intravenous contrast. Coronal and sagittal reformations were obtained. Automated dose lowering techniques and/or adjustment according to patient size were utilized for this exam. Comparison: None available at the time of this dictation. FINDINGS: For counting purposes, the last complete intervertebral disc space is considered L5-S1. No acute fractures are identified. Degenerative changes are noted in the visualized spine. Grade 1 anterolisthesis is seen at L4-L5. Levoscoliosis is seen in the lower lumbar spine. Surrounding soft tissues are unremarkable. IMPRESSION: Degenerative changes without evidence of acute bony injury. ACT 112: Negative or not required by law. Electronically signed by: Billy Piper M.D. 01/05/2022 1:[address] 01/05/22 13:24 CT pelvis wo con CLINICAL HISTORY: pain with ambulation COMPARISON STUDY: Pelvis radiograph July 22, 2020. TECHNIQUE: Axial images of the pelvis and hips were obtained without IV contrast. Sagittal and coronal reconstructions were viewed. Automated exposure control was utilized for the study. A dose lowering technique was utilized adh ering to the principles of ALARA. FINDINGS: No acute proximal femoral fracture is present. A healed right femoral neck fracture is noted status post internal fixation. Sacroiliac joints are intact. There is subtle buckling of the anterior cortex of the inferior aspect of the S3 vertebral body and superior aspect of the S4 vertebral body. There is a small amount of associated presacral hemorrhage. No additional acute fractures are identified on this examination. Sigmoid diverticulosis is noted without evidence for acute diverticulitis. Caliber of visualized small and large bowel are normal. A portion of the ascending colon slightly extends into a right inguinal hernia. There is a fat-containing left inguinal hernia. IMPRESSION: 1. No acute proximal femoral fracture. Healed right femoral neck fracture status post internal fixation. 2. Acute minimally displaced fracture of the anterior cortex of the S3 and S4 with small amount of presacral hemorrhage. ACT 112: Negative or not required by law. Electronically signed by: Pierre Fish M.D. 01/05/2022 2:28 PM Chest X-Ray 01/05/22 13:33 XR chest 1V portable CLINICAL HISTORY: weakness TECHNIQUE: Single frontal radiograph of the chest was obtained. Comparison: Comparison is made to chest radiograph 07/22/2020 FINDINGS: No lines and tubes are seen. Calcified aortic knob is seen. The lungs are clear. Blunting of the left costophrenic angle is seen. IMPRESSION: Blunting of the left costophrenic angle which may represent trace pleural effusion versus scarring or epicardial fat pad. ACT 112: Negative or not required by law. Electronically signed by: Billy Piper M.D. 01/05/2022 2:[address] 01/05/22 13:37 CT OF THE HEAD WITHOUT CONTRAST CLINICAL HISTORY: fall COMPARISON STUDY: Head CT July 22, 2020. CT DOSE: 2485.55 mGy.cm TECHNIQUE: Helical axial images of the head were obtained without IV contrast. Automated exposure control was utilized for the study. A dose lowering technique was utilized adhering to the principles of ALARA. FINDINGS: No acute intracranial hemorrhage, midline shift or mass effect is present. White matter hypodensities are unchanged and suggest small vessel disease. 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 The ventricular system is unremarkable. The basal cisterns are patent. No extra-axial collections are present. There are no findings to suggest acute dural sinus thrombosis or acute territorial infarct. No significant calvarial abnormalities are present. Small amount of fluid within the left mastoid air cells is present. IMPRESSION: 1. No acute intracranial findings. No change in appearance of the brain. 2. No acute calvarial fracture. ACT 112: Negative or not required by law. Electronically signed by: Pierre Fish M.D. 01/05/2022 1:56 PM Discharge Plan Visit Data Chief Complaint: Back Injury/Pain ED Provider: Sal[facility] Dim[facility] ED Midlevel Provider: Linda Lanier Discharge Problem: Fall, Closed L2 vertebral fracture, Sacral fracture, Ambulatory dysfunction, Atrial fibrillation with rapid ventricular response Patient Disposition: Admitted As Inpatient Forms Stand Alone [facility]: [facility] Prescriptions: No Action metoprolol succinate [Toprol XL] 50 mg tablet extended release 24 hr 50 mg PO DAILY Qty: 90 RF: 4 aspirin 81 mg tablet,chewable 81 mg PO DAILY RF: 0 cholecalciferol (vitamin D3) 2,000 unit capsule 2,000 units PO DAILY RF: 0 quetiapine 25 mg tablet 25 mg PO BID RF: 0 acetaminophen 325 mg Tablet 650 mg PO Q4H PRN (Reason: Pain) RF: 0 divalproex 250 mg tablet,delayed release (DR/EC) See Rx Instructions .ROUTE .COMPLEX RF: 0 lisinopril 10 mg tablet 10 mg PO DAILY RF: 0 docusate sodium 100 mg Capsule 100 mg PO BID RF: 0 melatonin 5 mg Tablet 5 mg PO HS RF: 0 Referrals Referrals: [facility] [Primary Care Provider] -
--- NOTE | 2022-01-05 13:58 | CT Scan Report ---
CT lumbar spine wo con CLINICAL HISTORY: pain TECHNIQUE: Multidetector row helical CT of the lumbar spine was performed without administration of i ntravenous contrast. Coronal and sagittal reformations were obtained. Automated dose lowering techniq ues and/or adjustment according to patient size were utilized for this exam. Comparison: None available at the time of this dictation. FINDINGS: For counting purposes, the last complete intervertebral disc space is considered L5-S1. No acute fractures are identified. Degenerative changes are noted in the visualized spine. Grade 1 an terolisthesis is seen at L4-L5. Levoscoliosis is seen in the lower lumbar spine. Surrounding soft tis sues are unremarkable. IMPRESSION: Degenerative changes without evidence of acute bony injury. ACT 112: Negative or not required by law. Electronically signed by: Billy Piper M.D. 01/05/2022 1:56 PM
--- NOTE | 2022-01-05 13:58 | CT Scan Report ---
CT OF THE HEAD WITHOUT CONTRAST CLINICAL HISTORY: fall COMPARISON STUDY: Head CT July 22, 2020. CT DOSE: 2485.55 mGy.cm TECHNIQUE: Helical axial images of the head were obtained without IV contrast. Automated exposure con trol was utilized for the study. A dose lowering technique was utilized adhering to the principles o f ALARA. FINDINGS: No acute intracranial hemorrhage, midline shift or mass effect is present. White matter hyp odensities are unchanged and suggest small vessel disease. 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 The ventricular system is unremarkable. The basal cisterns are patent. No extra-axial c ollections are present. There are no findings to suggest acute dural sinus thrombosis or acute territ orial infarct. No significant calvarial abnormalities are present. Small amount of fluid within the l eft mastoid air cells is present. IMPRESSION: 1. No acute intracranial findings. No change in appearance of the brain. 2. No acute calvarial fracture. ACT 112: Negative or not required by law. Electronically signed by: Pierre Fish M.D. 01/05/2022 1:56 PM
[2022-01-05 14:15] LABS: Basophils # (auto) 0.02 K/uL (0-0.2); Basophils % (auto) 0.2 %; Eosinophils # (auto) 0.11 K/uL (0-0.5); Eosinophils % (auto) 0.9 %; Hematocrit (blood only) 41.3 % (37-47); Hemoglobin 13.5 g/dL (12.0-16.0); Immature Granulocytes # (auto) 0.04 K/uL (0.00-0.02); Immature Granulocytes % (auto) 0.3 %; Lymphocytes # (auto) 1.04 K/uL (1.2-3.4); Mean Corpuscular Hemoglobin 30.2 pg (25-34); Mean Corpuscular Hgb Conc 32.7 g/dL (32-36); Mean Corpuscular Volume 92.4 fL (80-100); Monocytes # (auto) 1.34 K/uL (0.11-0.59); Monocytes % (auto) 10.4 %; Neutrophils # (auto) 10.39 K/uL (1.4-6.5); Neutrophils % (auto) 80.2 %; Platelet Count 231 K/uL (130-400); RDW Coefficient of Variation 14.5 % (11.5-14.5); RDW Standard Deviation 49.1 fL (36.4-46.3); Red Blood Count 4.47 M/uL (4.2-5.4); White Blood Count 12.94 K/uL (4.8-10.8)
--- NOTE | 2022-01-05 14:30 | CT Scan Report ---
CT pelvis wo con CLINICAL HISTORY: pain with ambulation COMPARISON STUDY: Pelvis radiograph July 22, 2020. TECHNIQUE: Axial images of the pelvis and hips were obtained without IV contrast. Sagittal and manzanares l reconstructions were viewed. Automated exposure control was utilized for the study. A dose lowerin g technique was utilized adhering to the principles of ALARA. FINDINGS: No acute proximal femoral fracture is present. A healed right femoral neck fracture is note d status post internal fixation. Sacroiliac joints are intact. There is subtle buckling of the anteri or cortex of the inferior aspect of the S3 vertebral body and superior aspect of the S4 vertebral bod y. There is a small amount of associated presacral hemorrhage. No additional acute fractures are iden tified on this examination. Sigmoid diverticulosis is noted without evidence for acute diverticulitis . Caliber of visualized small and large bowel are normal. A portion of the ascending colon slightly e xtends into a right inguinal hernia. There is a fat-containing left inguinal hernia. IMPRESSION: 1. No acute proximal femoral fracture. Healed right femoral neck fracture status post internal fixati on. 2. Acute minimally displaced fracture of the anterior cortex of the S3 and S4 with small amount of pr esacral hemorrhage. ACT 112: Negative or not required by law. Electronically signed by: Pierre Fish M.D. 01/05/2022 2:28 PM
[2022-01-05] MEDS ORDERED: METOPROLOL TARTRATE 1 MG/ML VIAL IV PRN (14:32)
[2022-01-05] MEDS ORDERED: SODIUM CHLORIDE 0.9% 1000ML 1,000 ML IV SCH (14:33)
[2022-01-05 14:40] LABS: Troponin I High Sensitivity 14.4 pg/ml (0-14)
[2022-01-05 14:41] LABS: Albumin Level 3.7 gm/dl (3.4-5.0); BUN Creatinine Ratio 27.4 (10-20); Bilirubin,Total 1.9 mg/dl (0.2-1.0); Calcium 9.4 mg/dl (8.5-10.1); Creatinine Clr Calc Pharmacy 54.4 ml/min; Est GFR (African American) 85.2 ml/min; Est GFR (Non-African American) 73.5 ml/min; Globulin 3.8 gm/dl (2.5-4.0); Phosphorus 3.1 mg/dl (2.5-4.9); Potassium 4.2 mmol/L (3.5-5.1); Total Protein 7.5 gm/dl (6.0-8.3)
--- NOTE | 2022-01-05 14:43 | XRay Report ---
XR chest 1V portable CLINICAL HISTORY: weakness TECHNIQUE: Single frontal radiograph of the chest was obtained. Comparison: Comparison is made to chest radiograph 07/22/2020 FINDINGS: No lines and tubes are seen. Calcified aortic knob is seen. The lungs are clear. Blunting of the left costophrenic angle is seen. IMPRESSION: Blunting of the left costophrenic angle which may represent trace pleural effusion versus scarring or epicardial fat pad. ACT 112: Negative or not required by law. Electronically signed by: Billy Piper M.D. 01/05/2022 2:42 PM
--- NOTE | 2022-01-05 19:45 | History & Physical Report ---
Date of Service January 05, 2022 Assessment & Plan (1) Closed L2 vertebral fracture: Plan: - L2 fracture along with an acute minimally displaced fracture of the anterior cortex of the S3 and S4 with small amount of presacral hemorrhage, after sustaining a fall 3 days ago when she landed on the toilet. - Fractures are nonsurgical, so we will bring into hospital for pain management primarily. - Pain control with scheduled lidocaine patches and calcitonin nasal spray, with prn Tylenol, Toradol, and morphine. (2) Sacral fracture: Plan: - As above. (3) Atrial fibrillation with rapid ventricular response: Plan: - Only anticoagulation is baby aspirin, also on metoprolol 50 mg daily. -not on AC due to h/o ICH, cerebral amyloid angiopathy - Initially with HR 120s here, received 5 mg IV Lopressor and HR now 90s. - Will order prn Lopressor for HR > 120. (4) Coronary artery disease: Plan: - Continue baby aspirin, lisinopril, metoprolol. (5) Hypertension: Plan: - Continue lisinopril, as well as metoprolol as above for afib. (6) Alzheimer's dementia with behavioral disturbance: Plan: - Continue quetiapine 25 mg BID. - Melatonin at night. Plan: - Admit to med/tele. - SCDs only for VTE ppx due to h/o ICH - DNR/DNI. History of Present Illness Chief Complaint: back pain after a fall 3 days ago Primary Care Provider: [facility] [place] With past an 86-year-old female with past medical history of A. fib, CAD, hypertension, ALISTAIR dementia who presents today from [facility] for eval uation for back pain. Patient had a fall several days ago and landed on the toilet, since then has been complaining of low back pain with movement. They did do initial x-rays after the fall and did not identify any fracture at the time. They have been giving her Tylenol and applying lidocaine patches which initially seemed to help but the pain has been becoming increasingly worse for the past few days patient has been yelling out in pain, therefore she had been transported to our ED for further evaluation and pain control. In ED, she is tachycardic and hypertensive, SPO2 >95% on room air. Afebrile. Labs significant for WBC 12.94, T bili 1.9, initial hs troponin 14.4, repeat 15.9. All the labs within normal meds. COVID-negative. Lumbar spine CT showed minimal fracture of the right lateral cortex of L2, pelvic CT showed minimally displaced fracture of the anterior cortex of S3 and S4 with small amount of presacral hemorrhage, as well as healed right femoral neck fracture. Head CT without acute process seen, CXR showed blunting of the left costophrenic angle. Allergies Allergy/AdvReac Type Severity Reaction Status Date / Time Penicillins Allergy Intermediate hands Verified 07/22/20 21:53 swell, rash rofecoxib Allergy Mild ITCHING Verified 07/22/20 21:53 shellfish derived Allergy Unknown UNKNOWN Verified 07/22/20 21:53 Sulfa (Sulfonamide Allergy Unknown UNKNOWN Verified 07/22/20 21:53 Antibiotics) grass pollen Allergy . Verified 07/22/20 21:53 mold Allergy . Verified 07/22/20 21:53 Home Medications Medication Instructions Recorded Confirmed Type cholecalciferol (vitamin D3) 50 2,000 units PO DAILY 04/07/19 07/22/20 History mcg (2,000 unit) capsule metoprolol succinate 50 mg 50 mg PO DAILY #90 tab 05/21/19 07/22/20 Rx tablet,extended release 24 hr (Toprol XL) aspirin 81 mg chewable tablet 81 mg PO DAILY 07/03/19 07/22/20 History acetaminophen 325 mg tablet 650 mg PO Q4H PRN 07/22/20 07/22/20 History divalproex 250 mg tablet,delayed See Rx Instructions .ROUTE .COMPLEX 07/22/20 07/22/20 History release docusate sodium 100 mg capsule 100 mg PO BID 07/22/20 07/22/20 History lisinopril 10 mg tablet 10 mg PO DAILY 07/22/20 07/22/20 History melatonin 5 mg tablet 5 mg PO HS 07/22/20 07/22/20 History quetiapine 25 mg tablet 25 mg PO BID 07/22/20 07/22/20 History Past Med/Surg History Medical History Acute coronary syndrome Arthritis Chest pain Chronic anticoagulation Coronary artery disease Dementia Diverticulosis of colon Dyslipidemia Elevated troponin Epigastric pain History of DE (myocardial infarction) Hypertension Impaired fasting glucose Minor neurocognitive disorder New onset a-fib NSTEMI (non-ST elevated myocardial infarction) (10/13/13) Obstructive sleep apnea Paroxysmal atrial fibrillation Shingles Subcapital fracture of right hip Vitamin D deficiency Surgical History History of cardiac catheterization History of cataract surgery History of hand surgery right History of knee surgery History of open reduction and internal fixation (ORIF) procedure right hip History of tonsillectomy Family History Other No significant family history Social History Smoking Status: Unknown if ever smoked Hx Alcohol Use: Yes Alcohol type: wine Hx Substance Use: No Preferred Language: Upper Sorbian Communication Ability: Effective Visual Impairment: No Limitations Hearing Ability: Normal Medicare Compliance Auditor Required: No marital status: / Current Living Situation: Family current occupational status: retired Feels Safe at Home: Yes Childhood Exposure to Second-Hand Smoke: Yes caffeine: Yes Dental Care, Regularly: No Physical Activity Frequency: 3-4 Times per Week Seatbelt Use: always Sunscreen Use: No Review of Systems Review of Systems: Unobtainable due to cognitive status Physical Exam Physical Exam: General: awake, alert, no apparent distress Head: Normocephalic, atraumatic ENT: PERRL, EOMI, no pharyngeal exudate, mucous membranes moist Chest: Clear to auscultation, on room air, no adventitious breath sounds Cardiac: tachycardia, irregularly irregular rhythm consistent with afib; no murmur, no JVD, normal peripheral pulses, good capillary refill Abdominal: NABS x 4 quadrants, soft, nontender to palpation, no rebound, guarding or tenderness Extremities: Normal inspection, no peripheral edema or erythema, calfs nontender to palpation Psych: Normal mood and affect Neuro: Oriented to self;, strength intact bilaterally and rated 5/5, no motor deficits, speech is clear, no peripheral sensory deficits Skin: no rash or erythema Results & Data Results & Data ([facility]) Vital Signs (Past 12 Hours) Vital Signs Temp Pulse Pulse Resp BP BP Pulse Ox 01/05/22 19:00 37 C 107 H 18 169/102 H 97 01/05/22 17:00 108 H 18 166/95 H 96 01/05/22 15:52 99 H 18 150/106 H 97 01/05/22 15:00 72 18 120/75 97 01/05/22 14:41 124 H 158/136 H 01/05/22 14:00 97 01/05/22 13:56 123 H 18 125/94 96 01/05/22 12:21 37.1 C 81 18 163/97 H 97 01/05/22 11:56 101 H 18 127/94 97 Laboratory Results Abnormal lab results 01/05/22 01/05/22 01/05/22 Range/Units 14:03 14:03 17:32 WBC 12.94 H (4.8-10.8) K/uL RDW Std Deviation 49.1 H (36.4-46.3) fL Neut # (Auto) 10.39 H (1.4-6.5) K/uL Lymph # (Auto) 1.04 L (1.2-3.4) K/uL [place] # (Auto) 1.34 H (0.11-0.59) K/uL Immature Gran # (Auto) 0.04 H (0.00-0.02) K/uL BUN/Creatinine Ratio 27.4 H (10-20) Glucose 110 H (70-99(Fasting)) mg/dl Total Bilirubin 1.9 H (0.2-1.0) mg/dl Troponin I High Sens 14.4 H 15.9 H (0-14) pg/ml Diagnostic Findings Lumbar Spine CT 01/05/22 13:24 CT lumbar spine wo con CLINICAL HISTORY: pain TECHNIQUE: Multidetector row helical CT of the lumbar spine was performed without administration of intravenous contrast. Coronal and sagittal reformations were obtained. Automated dose lowering techniques and/or adjustment according to patient size were utilized for this exam. Comparison: None available at the time of this dictation. FINDINGS: For counting purposes, the last complete intervertebral disc space is considered L5-S1. No acute fractures are identified. Degenerative changes are noted in the visualized spine. Grade 1 anterolisthesis is seen at L4-L5. Levoscoliosis is seen in the lower lumbar spine. Surrounding soft tissues are unremarkable. IMPRESSION: Degenerative changes without evidence of acute bony injury. ACT 112: Negative or not required by law. Electronically signed by: Blily Piper M.D. 01/05/2022 1:[address] 01/05/22 13:24 CT pelvis wo con CLINICAL HISTORY: pain with ambulation COMPARISON STUDY: Pelvis radiograph July 22, 2020. TECHNIQUE: Axial images of the pelvis and hips were obtained without IV contrast. Sagittal and coronal reconstructions were viewed. Automated exposure control was utilized for the study. A dose lowering technique was utilized adhering to the principles of ALARA. FINDINGS: No acute proximal femoral fracture is present. A healed right femoral neck fracture is noted status post internal fixation. Sacroiliac joints are intact. There is subtle buckling of the anterior cortex of the inferior aspect of the S3 vertebral body and superior aspect of the S4 vertebral body. There is a small amount of associated presacral hemorrhage. No additional acute fractures are identified on this examination. Sigmoid diverticulosis is noted without evidence for acute diverticulitis. Caliber of visualized small and large bowel are normal. A portion of the ascending colon slightly extends into a right inguinal hernia. There is a fat-containing left inguinal hernia. IMPRESSION: 1. No acute proximal femoral fracture. Healed right femoral neck fracture status post internal fixation. 2. Acute minimally displaced fracture of the anterior cortex of the S3 and S4 with small amount of presacral hemorrhage. ACT 112: Negative or not required by law. Electronically signed by: Pierre Fish M.D. 01/05/2022 2:28 PM Chest X-Ray 01/05/22 13:33 XR chest 1V portable CLINICAL HISTORY: weakness TECHNIQUE: Single frontal radiograph of the chest was obtained. Comparison: Comparison is made to chest radiograph 07/22/2020 FINDINGS: No lines and tubes are seen. Calcified aortic knob is seen. The lungs are clear. Blunting of the left costophrenic angle is seen. IMPRESSION: Blunting of the left costophrenic angle which may represent trace pleural effusion versus scarring or epicardial fat pad. ACT 112: Negative or not required by law. Electronically signed by: Billy Piper M.D. 01/05/2022 2:[address] 01/05/22 13:37 CT OF THE HEAD WITHOUT CONTRAST CLINICAL HISTORY: fall COMPARISON STUDY: Head CT July 22, 2020. CT DOSE: 2485.55 mGy.cm TECHNIQUE: Helical axial images of the head were obtained without IV contrast. Automated exposure control was utilized for the study. A dose lowering technique was utilized adhering to the principles of ALARA. FINDINGS: No acute intracranial hemorrhage, midline shift or mass effect is present. White matter hypodensities are unchanged and suggest small vessel disease. 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 The ventricular system is unremarkable. The basal cisterns are patent. No extra-axial collections are present. There are no findings to suggest acute dural sinus thrombosis or acute territorial infarct. No significant calvarial abnormalities are present. Small amount of fluid within the left mastoid air cells is present. IMPRESSION: 1. No acute intracranial findings. No change in appearance of the brain. 2. No acute calvarial fracture. ACT 112: Negative or not required by law. Electronically signed by: Pierre Fish M.D. 01/05/2022 1:56 PM ECG Additional Comments: Atrial fibrillation with rapid ventricular response Inferior infarct (cited on or before 18-AUG-2003) Abnormal ECG When compared with ECG of 05-JAN-2022 13:59, (unconfirmed) No significant change was found. Code Status & VTE Plan Code Status DNR/DNI. Supervising Physician Co-Signing Physician Notes PA Supervision Note: I personally saw and examined the patient. I verified all gurrola points and agree with RUBEN Ni with the following exceptions and/or additions: S-Pt is an 86 yo female with a h/o ICH, CAA, HTN,severe dementia, AFib, CAD, ALISTAIR, here with fall resulting in severe lower back pain. Pt not able to say anything about her cpdition due o dementia. Has no idea she is in the hospital or why. Is pleasant and does deny pain while lying still. History and ROS reviewed as above and in records O- Vitals reviewed Gen: [AAOx1, NAD] HEENT: [anicteric sclerae, EOMI] CV: [irreg irreg, mild tachycardia no mgr nl S1S2] Pulm: [CTAB no wcr] Abd: [+BS soft NT ND no masses or hernias] Ext: [no edema, 2+ DP pulses] Skin: [no rashes, warm/dry] Neuro: [full strength throughout] Labs, rads reviewed A/P-86 yo female here with fall resulting in severe LBP as per report, found to have sacral and lumbar fractures. Admit for pain control, PT eval, may need SNF. IV lopressor for rate control, continue home po metoprolol, monitor on tele PG Care Time/CCT Total # of Minutes Spent Total Time Spent with Patient: Total time spent is greater than 50% in coordination of care (as documented) at patient's floor/unit and/or counseling patient: Coding Level of Care Code 92608 Initial Inpt Care Lvl 3 Diagnoses Closed L2 vertebral fracture S32.029A Sacral fracture S32.10XA Atrial fibrillation with rapid ventricular response I48.91 Alzheimer's dementia with behavioral disturbance G30.9; F02.81 Coronary artery disease I25.10 Hypertension I10 Hypertension type: essential hypertension (1) Hypertension Hypertension type: essential hypertension Qualified Code(s): I10 - Essential (primary) hypertension
[2022-01-05] MEDS ORDERED: POLYETHYLENE (MIRALAX) 17 GM PACK PO PRN (22:50)
[2022-01-05] MEDS: DOCUSATE SODIUM 100 MG CAP PO SCH (23:16)
[2022-01-05] MEDS: MELATONIN 3 MG TAB PO SCH (23:16)
[2022-01-05] MEDS: QUEtiapine FUMARATE 25 MG TABLET PO SCH (23:16)
[2022-01-05] MEDS ORDERED: HALOPERIDOL LACTATE 5 MG/ML 1 ML VIAL IM STA (23:21)
[2022-01-06] MEDS: METOPROLOL TARTRATE 1 MG/ML VIAL IV PRN ×3 (00:33→12:52)
[2022-01-06] MEDS: MoRPHine SULFATE 2 MG/ML CARP IV PRN ×2 (00:33→11:51)
[2022-01-06 02:53] LABS: Appearance Urine Cloudy (Clear); Bacteria Urine Automated 4+ (Negative); Bilirubin Urine Negative (Negative); Blood Urine Negative (Negative); Color Urine Yellow; Glucose Urine UA Negative (Negative); Ketones Urine 2+ (Negative); Leukocyte Esterase Urine 1+ (Negative); Nitrite Urine Negative (Negative); Protein Urine Negative (Negative); RBC Urine Automated 0-4 /hpf (0-4); Urobilinogen Urine Positive (Negative); pH Urine 5.5 (4.5-7.5)
[2022-01-06] MEDS ORDERED: HALOPERIDOL LACTATE 5 MG/ML 1 ML VIAL IM STA (03:54)
[2022-01-06] MEDS ORDERED: CEFEPIME 1,000 MG in SYRINGE 0 ML IV SCH (04:00)
[2022-01-06] MEDS ORDERED: diphenhydrAMINE 50 MG/ML VIAL IV PRN (04:01)
[2022-01-06] MEDS: QUEtiapine FUMARATE 25 MG TABLET PO SCH ×2 (07:17→20:54)
--- NOTE | 2022-01-06 07:50 | Electrocardiogram Report ---
Test Reason : Blood Pressure : / mmHG Vent. Rate : 131 BPM Atrial Rate : 144 BPM P-R Int : 000 ms QRS Dur : 084 ms QT Int : 308 ms P-R-T Axes : 000 006 059 degrees QTc Int : 454 ms Atrial fibrillation with rapid ventricular response Cannot rule out Inferior infarct (cited on or before 18-AUG-2003) Nonspecific T wave abnormality Abnormal ECG When compared with ECG of 22-JUL-2020 15:50, No significant change was found Confirmed by Abe Renteria ([id number]) on 01/06/2022 7:50:31 AM Referred By: REFERRED SELF Confirmed By:Abe Renteria
[2022-01-06] MEDS: CALCITONIN SALMON NA 200 IU/AC 3.7 ML BTL SCH (08:26)
[2022-01-06] MEDS: lisinopril 10 MG TAB PO SCH (08:27)
[2022-01-06] MEDS: CHOLECALCIFEROL 1,000 UNITS 25 MCG TAB PO SCH (08:27)
[2022-01-06] MEDS: DOCUSATE SODIUM 100 MG CAP PO SCH ×2 (08:27→20:54)
[2022-01-06] MEDS: ASPIRIN 81 MG ECTAB PO SCH (08:27)
[2022-01-06] MEDS: METOPROLOL SUCC 50MG EXT REL TAB PO SCH (08:28)
[2022-01-06] MEDS: LIDOCAINE 5% 1 PATCH TD SCH (08:28)
[2022-01-06 08:46] LABS: Albumin Level 3.3 gm/dl (3.4-5.0); BUN Creatinine Ratio 36.8 (10-20); Bilirubin,Total 2.3 mg/dl (0.2-1.0); Calcium 8.4 mg/dl (8.5-10.1); Creatinine Clr Calc Pharmacy 68.5 ml/min; Est GFR (African American) 95.9 ml/min; Est GFR (Non-African American) 82.8 ml/min; Globulin 3.3 gm/dl (2.5-4.0); Potassium 3.9 mmol/L (3.5-5.1); Total Protein 6.6 gm/dl (6.0-8.3)
[2022-01-06 08:47] LABS: Troponin I High Sensitivity 21.6 pg/ml (0-14)
[2022-01-06 08:56] LABS: Hematocrit (blood only) 38.2 % (37-47); Hemoglobin 12.4 g/dL (12.0-16.0); Mean Corpuscular Hgb Conc 32.5 g/dL (32-36); Mean Corpuscular Volume 92.3 fL (80-100); RDW Coefficient of Variation 14.3 % (11.5-14.5); RDW Standard Deviation 48.6 fL (36.4-46.3); Red Blood Count 4.14 M/uL (4.2-5.4); White Blood Count 11.59 K/uL (4.8-10.8)
[2022-01-06 08:57] LABS: Basophils # (auto) 0.02 K/uL (0-0.2); Basophils % (auto) 0.2 %; Eosinophils % (auto) 0.9 %; Immature Granulocytes # (auto) 0.03 K/uL (0.00-0.02); Immature Granulocytes % (auto) 0.3 %; Lymphocytes # (auto) 0.99 K/uL (1.2-3.4); Lymphocytes % (auto) 8.5 %; Mean Platelet Volume 10.2 fL (7.4-10.4); Monocytes # (auto) 1.41 K/uL (0.11-0.59); Monocytes % (auto) 12.2 %; Neutrophils # (auto) 9.04 K/uL (1.4-6.5); Neutrophils % (auto) 77.9 %; Platelet Count 214 K/uL (130-400)
--- NOTE | 2022-01-06 09:07 | Hospitalist Progress Note ---
Date of Service January 06, 2022 Assessment & Plan (1) Fall: Plan: 86yo Female PMH alzheimers dementia with behavioral disturbances, afib, CAD, HTN, ALISTAIR here for fall with vertebral fracture. (1) Closed L2 vertebral fracture: - L2 fracture along with an acute minimally displaced fracture of the anterior cortex of the S3 and S4 with small amount of presacral hemorrhage, after sustaining a fall 3 days ago when she landed on the toilet. - Fractures are nonsurgical, in hospital for pain management primarily. - Pain control with scheduled lidocaine patches and calcitonin nasal spray, with prn Tylenol, Toradol, and morphine. - PT/OT consulted ()Weakness - Patient evaluated by PT/OT, non cooperative 2/2 to her dementia. She originally arrived from Dementia memory unit, if she is ambulatory they can accept her back, otherwise will require rehab at SNF at [facility]. Will continue to assess. (2) Sacral fracture: - As above. (3) Atrial fibrillation with rapid ventricular response: - Only anticoagulation is baby aspirin, also on metoprolol 50 mg daily. - not on AC due to h/o ICH, cerebral amyloid angiopathy - prn Lopressor for HR > 120. (4) Coronary artery disease: - Continue baby aspirin, lisinopril, metoprolol. (5) Hypertension: - Continue lisinopril, as well as metoprolol as above for afib. (6) Alzheimer's dementia with behavioral disturbance: - Continue quetiapine 25 mg BID. - Melatonin at night. - PRN haldol for behavioral disturbances. - Admit to med/tele. - SCDs only for VTE ppx due to h/o ICH - DNR/DNI. (2) Closed L2 vertebral fracture: (3) Sacral fracture: (4) Ambulatory dysfunction: (5) Atrial fibrillation with rapid ventricular response: (6) Alzheimer's dementia with behavioral disturbance: (7) Dementia: (8) History of OK (myocardial infarction): (9) Coronary artery disease: (10) Dyslipidemia: (11) Paroxysmal atrial fibrillation: Admission and Anticipated Discharge Date Admission Date: January 05, 2022 Supervising Physician Co-Signing Physician Notes I personally examined the patient and verified all gurrola points of history and exam, discussed case, and agree with decision making with Dr Ashton. Resting comfortably, asleep whenever I see her. Given that she is here for pain control and appears to be under control, and allow her to rest. Vitals noted, in general she is in no distress. Breathing unlabored no accessory muscle use good effort. Skin without rashes pallor or icterus. Neuro without focal deficits at rest. Age-related osteoporosis with current pathological fracture of vertebra (L2, S3- S4)pain control thus far has been fairly easy. Work towards transition back to her regular level of care. Outpatient bone health management Otherwise as above Subjective Patient seen at bedside pleasantly demented, unable to recall reason she arrived in hospital, date or location. She states she slept and ate well, has not gone to the bathroom yet. Patient was agitated last night refused night dose seroquel required 2 doses of haldol. She accepted her seroquel dose in AM. Review of Systems Review of Systems: Negative fever chills Negative headache dizziness Negative chest pain palpitations SOB Negative nausea vomitting diarrhea constipation Negative numbness tingling rash swelling Physical Exam Constitutional: WD/WN, vitals as above + obese Eyes: PERRL, conjunctivae normal, anicteric sclerae ENMT: external ear and nose normal, oropharynx normal Neck: trachea midline, no thyromegaly Respiratory: normal respiratory effort, lungs clear to auscultation Cardiovascular: Rate/Rhythm: + irregularly irregular Heart Sounds: normal S1 and normal S2; no gallop, no murmur and no cardiac rub Chest (Breasts): Chest: normal inspection of chest Gastrointestinal (Abdomen): normal bowel sounds, soft, nontender, no hepatosplenomegaly Skin: no rashes, warm and dry Psychiatric: Orientation: oriented to person Results & Data Results & Data ([facility]) Vital Signs (Past 12 Hours) Vital Signs Temp Pulse Pulse Resp BP BP Pulse Ox 01/06/22 07:56 36.8 C 107 H 18 158/85 H 92 01/06/22 03:33 135 H 01/06/22 02:38 36.5 C 107 H 22 161/91 H 94 01/06/22 00:33 125 H 113/75 01/05/22 23:07 37.5 C 124 H 18 126/88 96 01/05/22 23:00 150 H 01/05/22 22:50 Pulse Ox 01/06/22 07:56 01/06/22 03:33 01/06/22 02:38 01/06/22 00:33 01/05/22 23:07 01/05/22 23:00 01/05/22 22:50 98 Diagnostic Findings Laboratory Results WBC 11.59 K/uL (4.8-10.8) H 01/06/22 08:03 RBC 4.14 M/uL (4.2-5.4) L 01/06/22 08:03 Hgb 12.4 g/dL (12.0-16.0) 01/06/22 08:03 Hct 38.2 % (37-47) 01/06/22 08:03 MCV 92.3 fL (80-100) 01/06/22 08:03 MCH 30.0 pg (25-34) 01/06/22 08:03 MCHC 32.5 g/dL (32-36) 01/06/22 08:03 RDW Std Deviation 48.6 fL (36.4-46.3) H 01/06/22 08:03 RDW Coeff of Gerard 14.3 % (11.5-14.5) 01/06/22 08:03 Plt Count 214 K/uL (130-400) 01/06/22 08:03 MPV 10.2 fL (7.4-10.4) 01/06/22 08:03 Immature Gran % (Auto) 0.3 % 01/06/22 08:03 Neut % (Auto) 77.9 % 01/06/22 08:03 Lymph % (Auto) 8.5 % 01/06/22 08:03 Morris % (Auto) 12.2 % 01/06/22 08:03 Eos % (Auto) 0.9 % 01/06/22 08:03 Baso % (Auto) 0.2 % 01/06/22 08:03 Neut # (Auto) 9.04 K/uL (1.4-6.5) H 01/06/22 08:03 Lymph # (Auto) 0.99 K/uL (1.2-3.4) L 01/06/22 08:03 Morris # (Auto) 1.41 K/uL (0.11-0.59) H 01/06/22 08:03 Eos # (Auto) 0.10 K/uL (0-0.5) 01/06/22 08:03 Baso # (Auto) 0.02 K/uL (0-0.2) 01/06/22 08:03 Immature Gran # (Auto) 0.03 K/uL (0.00-0.02) H 01/06/22 08:03 Sodium 138 mmol/L (136-145) 01/06/22 08:03 Potassium 3.9 mmol/L (3.5-5.1) 01/06/22 08:03 Chloride 106 mmol/L (98-107) 01/06/22 08:03 Carbon Dioxide 25 mmol/L (21-32) 01/06/22 08:03 Anion Gap 7 (3-11) 01/06/22 08:03 BUN 21 mg/dl (6-23) 01/06/22 08:03 Creatinine 0.57 mg/dl (0.6-1.2) L 01/06/22 08:03 Est Cr Clr Drug Dosing 68.5 ml/min 01/06/22 08:03 Est GFR ( Amer) 95.9 ml/min 01/06/22 08:03 Est GFR (Non-Af Amer) 82.8 ml/min 01/06/22 08:03 BUN/Creatinine Ratio 36.8 (10-20) H 01/06/22 08:03 Glucose 97 mg/dl (70-99(Fasting)) 01/06/22 08:03 Lactate 1.0 mmol/L (0.4-2.0) 01/06/22 08:03 Calcium 8.4 mg/dl (8.5-10.1) L 01/06/22 08:03 Phosphorus 3.1 mg/dl (2.5-4.9) 01/05/22 14:03 Magnesium 2.0 mg/dl (1.7-2.4) 01/05/22 14:03 Total Bilirubin 2.3 mg/dl (0.2-1.0) H 01/06/22 08:03 AST 30 U/L (13-39) 01/06/22 08:03 ALT 12 U/L (7-52) 01/06/22 08:03 Alkaline Phosphatase 57 U/L (34-104) 01/06/22 08:03 Troponin I High Sens 21.6 pg/ml (0-14) H 01/06/22 08:03 Total Protein 6.6 gm/dl (6.0-8.3) 01/06/22 08:03 Albumin 3.3 gm/dl (3.4-5.0) L 01/06/22 08:03 Globulin 3.3 gm/dl (2.5-4.0) 01/06/22 08:03 Albumin/Globulin Ratio 1.0 (0.9-2) 01/06/22 08:03 Procalcitonin < 0.05 ng/ml (0-0.5) 01/06/22 08:03 TSH 1.127 uIu/ml (0.300-4.500) 01/05/22 14:03 Urine Color Yellow 01/06/22 01:45 Urine Appearance Cloudy (Clear) A 01/06/22 01:45 Urine pH 5.5 (4.5-7.5) 01/06/22 01:45 Ur Specific [place] 1.020 (1.000-1.030) 01/06/22 01:45 Urine Protein Negative (Negative) 01/06/22 01:45 Urine Glucose (UA) Negative (Negative) 01/06/22 01:45 Urine Ketones 2+ (Negative) H 01/06/22 01:45 Urine Blood Negative (Negative) 01/06/22 01:45 Urine Nitrite Negative (Negative) 01/06/22 01:45 Urine Bilirubin Negative (Negative) 01/06/22 01:45 Urine Urobilinogen Positive (Negative) H 01/06/22 01:45 Ur Leukocyte Esterase 1+ (Negative) H 01/06/22 01:45 Urine WBC (Auto) 10-30 /hpf (0-5) H 01/06/22 01:45 Urine RBC (Auto) 0-4 /hpf (0-4) 01/06/22 01:45 U Hyaline Cast (Auto) 5-10 /lpf (0-5) H 01/06/22 01:45 U Epithel Cells (Auto) 5-10 /lpf (0-5) H 01/06/22 01:45 Urine Bacteria (Auto) 4+ (Negative) H 01/06/22 01:45 Urine Yeast Not Reportable 01/06/22 01:45 Nasal Screen MRSA (PCR) Negative (Negative) 01/06/22 02:45 SARS-CoV-2, RNA, NAAT NEGATIVE (NEGATIVE) 01/05/22 18:[address] 01/05/22 13:24 CT lumbar spine wo con CLINICAL HISTORY: pain TECHNIQUE: Multidetector row helical CT of the lumbar spine was performed without administration of intravenous contrast. Coronal and sagittal reformations were obtained. Automated dose lowering techniques and/or adjustment according to patient size were utilized for this exam. Comparison: None available at the time of this dictation. FINDINGS: For counting purposes, the last complete intervertebral disc space is considered L5-S1. No acute fractures are identified. Degenerative changes are noted in the visualized spine. Grade 1 anterolisthesis is seen at L4-L5. Levoscoliosis is seen in the lower lumbar spine. Surrounding soft tissues are unremarkable. IMPRESSION: Degenerative changes without evidence of acute bony injury. ACT 112: Negative or not required by law. Electronically signed by: Billy Piper M.D. 01/05/2022 1:[address] 01/05/22 13:24 CT pelvis wo con CLINICAL HISTORY: pain with ambulation COMPARISON STUDY: Pelvis radiograph July 22, 2020. TECHNIQUE: Axial images of the pelvis and hips were obtained without IV contrast. Sagittal and coronal reconstructions were viewed. Automated exposure control was utilized for the study. A dose lowering technique was utilized adhering to the principles of ALARA. FINDINGS: No acute proximal femoral fracture is present. A healed right femoral neck fracture is noted status post internal fixation. Sacroiliac joints are intact. There is subtle buckling of the anterior cortex of the inferior aspect of the S3 vertebral body and superior aspect of the S4 vertebral body. There is a small amount of associated presacral hemorrhage. No additional acute fractures are identified on this examination. Sigmoid diverticulosis is noted without evidence for acute diverticulitis. Caliber of visualized small and large bowel are normal. A portion of the ascending colon slightly extends into a right inguinal hernia. There is a fat-containing left inguinal hernia. IMPRESSION: 1. No acute proximal femoral fracture. Healed right femoral neck fracture status post internal fixation. 2. Acute minimally displaced fracture of the anterior cortex of the S3 and S4 with small amount of presacral hemorrhage. ACT 112: Negative or not required by law. Electronically signed by: Pierre Fish M.D. 01/05/2022 2:28 PM Chest X-Ray 01/05/22 13:33 XR chest 1V portable CLINICAL HISTORY: weakness TECHNIQUE: Single frontal radiograph of the chest was obtained. Comparison: Comparison is made to chest radiograph 07/22/2020 FINDINGS: No lines and tubes are seen. Calcified aortic knob is seen. The lungs are clear. Blunting of the left costophrenic angle is seen. IMPRESSION: Blunting of the left costophrenic angle which may represent trace pleural effusion versus scarring or epicardial fat pad. ACT 112: Negative or not required by law. Electronically signed by: Billy Piper M.D. 01/05/2022 2:[address] 01/05/22 13:37 CT OF THE HEAD WITHOUT CONTRAST CLINICAL HISTORY: fall COMPARISON STUDY: Head CT July 22, 2020. CT DOSE: 2485.55 mGy.cm TECHNIQUE: Helical axial images of the head were obtained without IV contrast. Automated exposure control was utilized for the study. A dose lowering technique was utilized adhering to the principles of ALARA. FINDINGS: No acute intracranial hemorrhage, midline shift or mass effect is present. White matter hypodensities are unchanged and suggest small vessel disease. 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 The ventricular system is unremarkable. The basal cisterns are patent. No extra-axial collections are present. There are no findings to suggest acute dural sinus thrombosis or acute territorial infarct. No significant calvarial abnormalities are present. Small amount of fluid within the left mastoid air cells is present. IMPRESSION: 1. No acute intracranial findings. No change in appearance of the brain. 2. No acute calvarial fracture. ACT 112: Negative or not required by law. Electronically signed by: Pierre Fish M.D. 01/05/2022 1:56 PM Medications Administered Current Inpatient Medications Acetaminophen (Acetaminophen 325 Mg Tab) 650 mg PO Q4H PRN PRN Reason: Pain Stop: 02/04/22 22:49 Last Admin: 01/06/22 12:52 Dose: 650 mg Documented by: Aspirin (Aspirin 81 Mg Ectab) 81 mg PO DAILY ANDRE Stop: 02/05/22 08:59 Last Admin: 01/06/22 08:27 Dose: 81 mg Documented by: Calcitonin [place] (Calcitonin [place] Na 200 Iu/Ac 3.7 Ml Btl) 1 sprays NA DAILY ANDRE Stop: 02/05/22 08:59 Last Admin: 01/06/22 08:26 Dose: 1 sprays Documented by: Cefdinir (Cefdinir 300 Mg Cap) 300 mg PO BID [facility] Stop: 01/10/22 20:59 Diphenhydramine HCl (Diphenhydramine 50 Mg/Ml Vial) 25 mg IV ONE PRN PRN Reason: Allergic Reaction Docusate Sodium (Docusate Sodium 100 Mg Cap) 100 mg PO BID [facility] Stop: 02/04/22 22:49 Last Admin: 01/06/22 08:27 Dose: 100 mg Documented by: Sodium Chloride (Nss 1000ml) 1,000 mls @ 80 mls/hr IV .[id number] [facility] Stop: 01/07/22 03:29 Last Admin: 01/06/22 15:08 Dose: 80 mls/hr Documented by: Sodium Chloride (Nss 1000ml) 1,000 mls @ 80 mls/hr IV .[id number] [facility] Stop: 01/07/22 15:59 Lidocaine (Lidocaine 5% 1 Patch) 1 patch TD QAM [facility] Stop: 02/05/22 08:59 Last Admin: 01/06/22 08:28 Dose: 1 patch Documented by: Lisinopril (Lisinopril 10 Mg Tab) 10 mg PO DAILY [facility] Stop: 02/05/22 08:59 Last Admin: 01/06/22 08:27 Dose: 10 mg Documented by: Melatonin (Melatonin 3 Mg Tab) 3 mg PO HS [facility] Stop: 02/04/22 22:49 Last Admin: 01/05/22 23:16 Dose: Not Given Documented by: Metoprolol Succinate (Metoprolol Succ 50mg Ext Rel Tab) 50 mg PO DAILY [facility] Stop: 02/05/22 08:59 Last Admin: 01/06/22 08:28 Dose: 50 mg Documented by: Metoprolol Tartrate (Metoprolol Tartrate 1 Mg/Ml Vial) 5 mg IV Q5M PRN PRN Reason: Tachycardia Stop: 02/04/22 22:49 Last Admin: 01/06/22 12:52 Dose: 5 mg Documented by: Miscellaneous (Remove Lidoderm Patch) 1 ea N/A DAILY@2100 [facility] Stop: 02/05/22 20:59 Morphine Sulfate (Morphine Sulfate 2 Mg/Ml Carp) 2 mg IV Q3H PRN PRN Reason: Severe Pain Stop: 01/19/22 22:49 Last Admin: 01/06/22 11:51 Dose: 2 mg Documented by: Ondansetron HCl (Ondansetron Inj 2 Mg/Ml 2 Ml Vial) 4 mg IV Q6H PRN PRN Reason: Nausea Stop: 02/04/22 22:49 Last Admin: 01/06/22 11:51 Dose: 4 mg Documented by: Polyethylene Glycol (Polyethylene (Miralax) 17 Gm Pack) 17 gm PO DAILY PRN PRN Reason: Constipation Stop: 02/04/22 22:49 Quetiapine Fumarate (Quetiapine Fumarate 25 Mg Tablet) 25 mg PO BID ANDRE Stop: 02/04/22 22:49 Last Admin: 01/06/22 07:17 Dose: 25 mg Documented by: Vitamin D (Cholecalciferol 1,000 Units 25 Mcg Tab) 2,000 units PO DAILY ANDRE Stop: 02/05/22 08:59 Last Admin: 01/06/22 08:27 Dose: 2,000 units Documented by: Resident Activity Tracking Resident Involvement: Resident Care Provided Care Provided: Adult Hospital Medicine (1) Dementia Dementia behavioral disturbance: with behavioral disturbance Dementia type: unspecified type Qualified Code(s): F03.91 - Unspecified dementia with behavioral disturbance
[2022-01-06] MEDS: ONDANSETRON INJ 2 MG/ML 2 ML VIAL IV PRN (11:51)
--- NOTE | 2022-01-06 12:10 | Electrocardiogram Report ---
Test Reason : Blood Pressure : / mmHG Vent. Rate : 103 BPM Atrial Rate : 416 BPM P-R Int : 000 ms QRS Dur : 084 ms QT Int : 328 ms P-R-T Axes : 000 -01 098 degrees QTc Int : 429 ms Atrial fibrillation with rapid ventricular response Inferior infarct (cited on or before 18-AUG-2003) Abnormal ECG When compared with ECG of 05-JAN-2022 13:59, (unconfirmed) No significant change was found Confirmed by Samy Ceballos ([id number]) on 01/06/2022 12:10:22 PM Referred By: REFERRED SELF Confirmed By:Samy Ceballos
[2022-01-06] MEDS: ACETAMINOPHEN 325 MG TAB PO PRN (12:52)
[2022-01-06] MEDS ORDERED: SODIUM CHLORIDE 0.9% 1000ML 1,000 ML IV SCH (15:00)
[2022-01-06] MEDS ORDERED: Nursing to Pharmacy Communication SCH (15:15)
--- NOTE | 2022-01-06 17:16 | Billing Data ---
Date of Service January 06, 2022 Coding Level of Care Code 44779 Subseq Hosp Care Lvl 2
[2022-01-06] MEDS: MELATONIN 3 MG TAB PO SCH (20:54)
[2022-01-06] MEDS: CEFDINIR 300 MG CAP PO SCH (20:54)
[2022-01-07] MEDS ORDERED: SODIUM CHLORIDE 0.9% 1000ML 1,000 ML IV SCH (03:30)
--- NOTE | 2022-01-07 06:49 | Hospitalist Progress Note ---
Date of Service January 07, 2022 Assessment & Plan (1) Fall: Plan: 86yo Female PMH Alzheimer dementia with behavioral disturbances, afib, CAD, HTN, ALISTAIR here for fall with vertebral fracture. (1) Closed L2 vertebral fracture: - L2 fracture along with an acute minimally displaced fracture of the anterior cortex of the S3 and S4 with small amount of presacral hemorrhage, after sustaining a fall 3 days ago when she landed on the toilet. - Fractures are nonsurgical, in hospital for pain management primarily. - Pain control with scheduled lidocaine patches and calcitonin nasal spray, with prn Tylenol, Toradol, and morphine. - PT/OT consulted. ()Weakness - Patient evaluated by PT/OT, non cooperative 2/2 to her dementia. She originally arrived from Dementia memory unit, if she is ambulatory they can accept her back, otherwise will require rehab at SNF at [facility]. Will continue to assess. (2) Sacral fracture: - As above. (3) Atrial fibrillation with rapid ventricular response: - Only anticoagulation is baby aspirin, also on metoprolol 50 mg daily. - not on AC due to h/o ICH, cerebral amyloid angiopathy - prn Lopressor for HR > 120. (4) Coronary artery disease: - Continue baby aspirin, lisinopril, metoprolol. (5) Hypertension: - Continue lisinopril, as well as metoprolol as above for afib. (6) Alzheimer's dementia with behavioral disturbance: - Continue quetiapine 25 mg BID. - Melatonin at night. - PRN haldol for behavioral disturbances. FENa: heart healthy minced and moist Code Status: DNR/DNI DVT PPX: SCDs PT/OT: Ordered Case Management: Pending Dispo: med/Thuy Gandhi Do PGY 2, FCM (2) Closed L2 vertebral fracture: (3) Sacral fracture: (4) Ambulatory dysfunction: (5) Atrial fibrillation with rapid ventricular response: (6) Alzheimer's dementia with behavioral disturbance: (7) Dementia: (8) History of [place] (myocardial infarction): (9) Coronary artery disease: (10) Dyslipidemia: (11) Paroxysmal atrial fibrillation: Admission and Anticipated Discharge Date Admission Date: January 05, 2022 Supervising Physician Co-Signing Physician Notes I personally examined the patient and verified all gurrola points of history and exam, discussed case, and agree with decision making with Dr Ashton. again resting comfortably. no new issues noted. Vitals noted, in general she is in no distress. Breathing unlabored no accessory muscle use good effort. Skin without rashes pallor or icterus. Neuro without focal deficits at rest. Age-related osteoporosis with current pathological fracture of vertebra (L2, S3- S4)pain control thus far has been fairly easy (really only has had a few doses of morphine). Work towards transition back to her regular level of care (PT/OT, case management communicating w her facility). Outpatient bone health management Otherwise as above Subjective Patient seen at bedside, comfortable, asleep. Arousable on exam, denies any pain discomfort, ate slept well. Per nursing no acute events over night. Review of Systems Review of Systems: Negative fever chills Negative headache dizziness Negative chest pain palpitations SOB Negative nausea vomitting diarrhea constipation Negative numbness tingling rash swelling Physical Exam Constitutional: WD/WN, vitals as above + obese Eyes: PERRL, conjunctivae normal, anicteric sclerae ENMT: external ear and nose normal, oropharynx normal Neck: trachea midline, no thyromegaly Respiratory: normal respiratory effort, lungs clear to auscultation Cardiovascular: Rate/Rhythm: + irregularly irregular Heart Sounds: normal S1 and normal S2; no gallop, no murmur and no cardiac rub Chest (Breasts): Chest: normal inspection of chest Gastrointestinal (Abdomen): normal bowel sounds, soft, nontender, no hepatosplenomegaly Skin: no rashes, warm and dry Psychiatric: Orientation: oriented to person Results & Data Results & Data ([facility]) Vital Signs (Past 12 Hours) Vital Signs Temp Pulse Pulse Resp BP Pulse Ox 01/07/22 03:24 36.6 C 87 20 127/85 91 01/06/22 23:29 36.4 C L 116 H 16 144/82 H 92 01/06/22 22:16 85 01/06/22 19:46 36.0 C L 18 L 18 125/79 94 Laboratory Results 01/07/22 01/07/22 Range/Units 07:30 07:30 WBC 9.87 (4.8-10.8) K/uL RBC 3.94 L (4.2-5.4) M/uL Hgb 12.3 (12.0-16.0) g/dL Hct 37.3 (37-47) % MCV 94.7 (80-100) fL MCH 31.2 (25-34) pg MCHC 33.0 (32-36) g/dL RDW Std Deviation 49.2 H (36.4-46.3) fL RDW Coeff of Gerard 14.2 (11.5-14.5) % Plt Count 201 (130-400) K/uL MPV 9.7 (7.4-10.4) fL Sodium 137 (136-145) mmol/L Potassium 4.5 (3.5-5.1) mmol/L Chloride 106 (98-107) mmol/L Carbon Dioxide 29 (21-32) mmol/L Anion Gap 2 L (3-11) BUN 26 H (6-23) mg/dl Creatinine 0.70 (0.6-1.2) mg/dl Est Cr Clr Drug Dosing 56.7 ml/min Est GFR ( Amer) 89.7 ml/min Est GFR (Non-Af Amer) 77.4 ml/min BUN/Creatinine Ratio 37.1 H (10-20) Glucose 93 (70-99(Fasting)) mg/dl Calcium 8.5 (8.5-10.1) mg/dl Resident Activity Tracking Resident Involvement: Resident Care Provided Care Provided: Adult Hospital Medicine (1) Dementia Dementia behavioral disturbance: with behavioral disturbance Dementia type: unspecified type Qualified Code(s): F03.91 - Unspecified dementia with behavioral disturbance
[2022-01-07 07:50] LABS: Hematocrit (blood only) 37.3 % (37-47); Hemoglobin 12.3 g/dL (12.0-16.0); Mean Corpuscular Hemoglobin 31.2 pg (25-34); Mean Corpuscular Volume 94.7 fL (80-100); Mean Platelet Volume 9.7 fL (7.4-10.4); Platelet Count 201 K/uL (130-400); RDW Coefficient of Variation 14.2 % (11.5-14.5); RDW Standard Deviation 49.2 fL (36.4-46.3); Red Blood Count 3.94 M/uL (4.2-5.4); White Blood Count 9.87 K/uL (4.8-10.8)
[2022-01-07 08:14] LABS: BUN Creatinine Ratio 37.1 (10-20); Calcium 8.5 mg/dl (8.5-10.1); Creatinine Clr Calc Pharmacy 56.7 ml/min; Est GFR (African American) 89.7 ml/min; Est GFR (Non-African American) 77.4 ml/min; Potassium 4.5 mmol/L (3.5-5.1)
[2022-01-07] MEDS: METOPROLOL SUCC 50MG EXT REL TAB PO SCH (08:52)
[2022-01-07] MEDS: lisinopril 10 MG TAB PO SCH (08:52)
[2022-01-07] MEDS: ASPIRIN 81 MG ECTAB PO SCH (08:52)
[2022-01-07] MEDS: CHOLECALCIFEROL 1,000 UNITS 25 MCG TAB PO SCH (08:53)
[2022-01-07] MEDS: DOCUSATE SODIUM 100 MG CAP PO SCH ×2 (08:53→21:14)
[2022-01-07] MEDS: QUEtiapine FUMARATE 25 MG TABLET PO SCH ×2 (08:53→21:14)
[2022-01-07] MEDS: CEFDINIR 300 MG CAP PO SCH ×2 (08:53→21:15)
[2022-01-07] MEDS: CALCITONIN SALMON NA 200 IU/AC 3.7 ML BTL SCH (08:54)
[2022-01-07] MEDS: LIDOCAINE 5% 1 PATCH TD SCH (08:55)
--- NOTE | 2022-01-07 12:57 | Billing Data ---
Date of Service January 07, 2022 Coding Level of Care Code 52998 Subseq Hosp Care Lvl 1
[2022-01-07] MEDS: METOPROLOL TARTRATE 1 MG/ML VIAL IV PRN (13:55)
[2022-01-07] MEDS: MELATONIN 3 MG TAB PO SCH (21:14)
[2022-01-07] MEDS: ACETAMINOPHEN 325 MG TAB PO PRN (21:32)
--- NOTE | 2022-01-08 07:12 | Hospitalist Progress Note ---
Date of Service January 08, 2022 Assessment & Plan (1) Fall: Plan: 86yo Female PMH Alzheimer dementia with behavioral disturbances, afib, CAD, HTN, ALISTAIR here for fall with vertebral fracture. (1) Closed L2 vertebral fracture: - L2 fracture along with an acute minimally displaced fracture of the anterior cortex of the S3 and S4 with small amount of presacral hemorrhage, after sustaining a fall 3 days ago when she landed on the toilet. - Fractures are nonsurgical, in hospital for pain management primarily. - Pain control with scheduled lidocaine patches and calcitonin nasal spray, with prn Tylenol, Toradol, and morphine. - PT/OT consulted. ()Weakness - Patient evaluated by PT/OT, non cooperative 2/2 to her dementia. She originally arrived from Dementia memory unit, if she is ambulatory they can accept her back, otherwise will require rehab at SNF at [facility]. Will continue to assess. ()Bacteuria - positive UA -WBC 12.94 --> 9.72 -given cefepime in ED -started on cefdinir (2) Sacral fracture: - As above. (3) Atrial fibrillation with rapid ventricular response: - Only anticoagulation is baby aspirin, also on metoprolol 50 mg daily. - not on AC due to h/o ICH, cerebral amyloid angiopathy - prn Lopressor for HR > 120. (4) Coronary artery disease: - Continue baby aspirin, lisinopril, metoprolol. (5) Hypertension: - Continue lisinopril, as well as metoprolol as above for afib. (6) Alzheimer's dementia with behavioral disturbance: - Continue quetiapine 25 mg BID. - Melatonin at night. - PRN haldol for behavioral disturbances. FENa: heart healthy minced and moist Code Status: DNR/DNI DVT PPX: SCDs PT/OT: Ordered Case Management: Pending Dispo: med/tele Thuy Ashton Do PGY 2, FCM (2) Closed L2 vertebral fracture: (3) Sacral fracture: (4) Ambulatory dysfunction: (5) Atrial fibrillation with rapid ventricular response: (6) Alzheimer's dementia with behavioral disturbance: (7) Dementia: (8) History of [place] (myocardial infarction): (9) Coronary artery disease: (10) Dyslipidemia: (11) Paroxysmal atrial fibrillation: Admission and Anticipated Discharge Date Admission Date: January 05, 2022 Supervising Physician Co-Signing Physician Notes I personally examined the patient and verified all gurrola points of history and exam, discussed case, and agree with decision making with Dr Ashton. once again resting comfortably. still no new issues noted. Vitals noted, in general she is in no distress. Breathing unlabored no accessory muscle use good effort. Skin without rashes pallor or icterus. Neuro without focal deficits at rest. Age-related osteoporosis with current pathological fracture of vertebra (L2, S3- S4)pain control thus far has been fairly easy. PT/OT, case management communicating w her facility as far as [facility] vs SNF. Outpatient bone health management Otherwise as above Subjective Patient seen at bedside, calm comfortable cooperative. She states her nephew will bring in a picture for her, states she will have assistance to go to the bathroom soon. Patient denies any pain, states she ate and slept well. No acute concerns at this time. Review of Systems Review of Systems: Negative fever chills Negative headache dizziness Negative chest pain palpitations SOB Negative nausea vomitting diarrhea constipation Negative numbness tingling rash swelling Physical Exam Constitutional: WD/WN, vitals as above + obese Eyes: PERRL, conjunctivae normal, anicteric sclerae ENMT: external ear and nose normal, oropharynx normal Neck: trachea midline, no thyromegaly Respiratory: normal respiratory effort, lungs clear to auscultation Cardiovascular: Rate/Rhythm: + irregularly irregular Heart Sounds: normal S1 and normal S2; no gallop, no murmur and no cardiac rub Chest (Breasts): Chest: normal inspection of chest Gastrointestinal (Abdomen): normal bowel sounds, soft, nontender, no hepatosplenomegaly Skin: no rashes, warm and dry Psychiatric: Orientation: oriented to person Results & Data Results & Data ([facility]) Vital Signs (Past 12 Hours) Vital Signs Temp Pulse Pulse Resp BP Pulse Ox 01/08/22 03:23 35.9 C L 87 20 145/84 H 93 01/07/22 22:47 36.8 C 93 H 18 122/82 94 01/07/22 22:18 104 H 01/07/22 19:44 36.7 C 102 H 18 160/91 H 92 Laboratory Results 01/08/22 01/08/22 Range/Units 10:27 10:27 WBC 9.72 (4.8-10.8) K/uL RBC 4.12 L (4.2-5.4) M/uL Hgb 12.4 (12.0-16.0) g/dL Hct 37.7 (37-47) % MCV 91.5 (80-100) fL MCH 30.1 (25-34) pg MCHC 32.9 (32-36) g/dL RDW Std Deviation 45.9 (36.4-46.3) fL RDW Coeff of Gerard 13.9 (11.5-14.5) % Plt Count 220 (130-400) K/uL MPV 10.5 H (7.4-10.4) fL Absolute Nucleated RBC 0.06 H (0-0) K/uL Nucleated RBC % (auto) 0.6 % Sodium 136 (136-145) mmol/L Potassium 4.2 (3.5-5.1) mmol/L Chloride 103 (98-107) mmol/L Carbon Dioxide 25 (21-32) mmol/L Anion Gap 8 (3-11) BUN 22 (6-23) mg/dl Creatinine 0.51 L (0.6-1.2) mg/dl Est Cr Clr Drug Dosing 77.9 ml/min Est GFR ( Amer) 99.5 ml/min Est GFR (Non-Af Amer) 85.9 ml/min BUN/Creatinine Ratio 43.1 H (10-20) Glucose 85 (70-99(Fasting)) mg/dl Calcium 8.8 (8.5-10.1) mg/dl Medications Administered Current Inpatient Medications Acetaminophen (Acetaminophen 325 Mg Tab) 650 mg PO Q4H PRN PRN Reason: Pain Stop: 02/04/22 22:49 Last Admin: 01/07/22 21:32 Dose: 650 mg Documented by: Aspirin (Aspirin 81 Mg Ectab) 81 mg PO DAILY ANDRE Stop: 02/05/22 08:59 Last Admin: 01/08/22 09:45 Dose: 81 mg Documented by: Calcitonin [place] (Calcitonin [place] Na 200 Iu/Ac 3.7 Ml Btl) 1 sprays NA DAILY ANDRE Stop: 02/05/22 08:59 Last Admin: 01/08/22 09:46 Dose: 1 sprays Documented by: Cefdinir (Cefdinir 300 Mg Cap) 300 mg PO BID ANDRE Stop: 01/10/22 20:59 Last Admin: 01/08/22 09:46 Dose: 300 mg Documented by: Diphenhydramine HCl (Diphenhydramine 50 Mg/Ml Vial) 25 mg IV ONE PRN PRN Reason: Allergic Reaction Docusate Sodium (Docusate Sodium 100 Mg Cap) 100 mg PO BID [facility] Stop: 02/04/22 22:49 Last Admin: 01/08/22 09:45 Dose: 100 mg Documented by: Lidocaine (Lidocaine 5% 1 Patch) 1 patch TD QAM [facility] Stop: 02/05/22 08:59 Last Admin: 01/08/22 09:54 Dose: Not Given Documented by: Lisinopril (Lisinopril 10 Mg Tab) 10 mg PO DAILY [facility] Stop: 02/05/22 08:59 Last Admin: 01/08/22 09:44 Dose: 10 mg Documented by: Melatonin (Melatonin 3 Mg Tab) 3 mg PO HS [facility] Stop: 02/04/22 22:49 Last Admin: 01/07/22 21:14 Dose: 3 mg Documented by: Metoprolol Succinate (Metoprolol Succ 50mg Ext Rel Tab) 50 mg PO DAILY [facility] Stop: 02/05/22 08:59 Last Admin: 01/08/22 09:45 Dose: 50 mg Documented by: Metoprolol Tartrate (Metoprolol Tartrate 1 Mg/Ml Vial) 5 mg IV Q5M PRN PRN Reason: Tachycardia Stop: 02/04/22 22:49 Last Admin: 01/07/22 13:55 Dose: 5 mg Documented by: Miscellaneous (Remove Lidoderm Patch) 1 ea N/A DAILY@2100 [facility] Stop: 02/05/22 20:59 Last Admin: 01/07/22 21:15 Dose: 1 ea Documented by: Morphine Sulfate (Morphine Sulfate 2 Mg/Ml Carp) 2 mg IV Q3H PRN PRN Reason: Severe Pain Stop: 01/19/22 22:49 Last Admin: 01/06/22 11:51 Dose: 2 mg Documented by: Ondansetron HCl (Ondansetron Inj 2 Mg/Ml 2 Ml Vial) 4 mg IV Q6H PRN PRN Reason: Nausea Stop: 02/04/22 22:49 Last Admin: 01/06/22 11:51 Dose: 4 mg Documented by: Quetiapine Fumarate (Quetiapine Fumarate 25 Mg Tablet) 25 mg PO BID [facility] Stop: 02/04/22 22:49 Last Admin: 01/08/22 09:45 Dose: 25 mg Documented by: Vitamin D (Cholecalciferol 1,000 Units 25 Mcg Tab) 2,000 units PO DAILY ANDRE Stop: 02/05/22 08:59 Last Admin: 01/08/22 09:45 Dose: 2,000 units Documented by: Resident Activity Tracking Resident Involvement: Resident Care Provided Care Provided: Adult Hospital Medicine (1) Dementia Dementia behavioral disturbance: with behavioral disturbance Dementia type: unspecified type Qualified Code(s): F03.91 - Unspecified dementia with behavioral disturbance
[2022-01-08] MEDS: lisinopril 10 MG TAB PO SCH (09:44)
[2022-01-08] MEDS: ASPIRIN 81 MG ECTAB PO SCH (09:45)
[2022-01-08] MEDS: DOCUSATE SODIUM 100 MG CAP PO SCH ×2 (09:45→22:43)
[2022-01-08] MEDS: CHOLECALCIFEROL 1,000 UNITS 25 MCG TAB PO SCH (09:45)
[2022-01-08] MEDS: METOPROLOL SUCC 50MG EXT REL TAB PO SCH (09:45)
[2022-01-08] MEDS: QUEtiapine FUMARATE 25 MG TABLET PO SCH ×2 (09:45→22:44)
[2022-01-08] MEDS: CALCITONIN SALMON NA 200 IU/AC 3.7 ML BTL SCH (09:46)
[2022-01-08] MEDS: CEFDINIR 300 MG CAP PO SCH ×2 (09:46→22:43)
[2022-01-08] MEDS: LIDOCAINE 5% 1 PATCH TD SCH (09:54)
[2022-01-08 11:16] LABS: BUN Creatinine Ratio 43.1 (10-20); Calcium 8.8 mg/dl (8.5-10.1); Creatinine Clr Calc Pharmacy 77.9 ml/min; Est GFR (African American) 99.5 ml/min; Est GFR (Non-African American) 85.9 ml/min; Hematocrit (blood only) 37.7 % (37-47); Hemoglobin 12.4 g/dL (12.0-16.0); Mean Corpuscular Hemoglobin 30.1 pg (25-34); Mean Corpuscular Hgb Conc 32.9 g/dL (32-36); Mean Corpuscular Volume 91.5 fL (80-100); Mean Platelet Volume 10.5 fL (7.4-10.4); Nucleated RBC # (auto) 0.06 K/uL (0-0); Nucleated RBC % (auto) 0.6 %; Platelet Count 220 K/uL (130-400); Potassium 4.2 mmol/L (3.5-5.1); RDW Coefficient of Variation 13.9 % (11.5-14.5); RDW Standard Deviation 45.9 fL (36.4-46.3); Red Blood Count 4.12 M/uL (4.2-5.4); White Blood Count 9.72 K/uL (4.8-10.8)
--- NOTE | 2022-01-08 14:55 | Billing Data ---
Date of Service January 08, 2022 Coding Level of Care Code 43698 Subseq Hosp Care Lvl 1
[2022-01-08 19:45] LABS: Appearance Urine Clear (Clear); Bilirubin Urine Negative (Negative); Blood Urine Negative (Negative); Color Urine Yellow; Glucose Urine UA Negative (Negative); Ketones Urine 3+ (Negative); Leukocyte Esterase Urine Negative (Negative); Nitrite Urine Negative (Negative); Protein Urine Negative (Negative); Specific Gravity Urine 1.021 (1.000-1.030); Urobilinogen Urine Negative (Negative); pH Urine 5.5 (4.5-7.5)
[2022-01-08] MEDS: MELATONIN 3 MG TAB PO SCH (22:44)
[2022-01-09] MEDS: METOPROLOL TARTRATE 1 MG/ML VIAL IV PRN (07:58)
[2022-01-09] MEDS: MoRPHine SULFATE 2 MG/ML CARP IV PRN (07:58)
[2022-01-09] MEDS ORDERED: POLYETHYLENE (MIRALAX) 17 GM PACK PO SCH (09:00)
[2022-01-09] MEDS: LIDOCAINE 5% 1 PATCH TD SCH (09:40)
[2022-01-09] MEDS: ASPIRIN 81 MG ECTAB PO SCH (09:41)
[2022-01-09] MEDS: CEFDINIR 300 MG CAP PO SCH (09:41)
[2022-01-09] MEDS: CHOLECALCIFEROL 1,000 UNITS 25 MCG TAB PO SCH (09:41)
[2022-01-09] MEDS: METOPROLOL SUCC 50MG EXT REL TAB PO SCH (09:41)
[2022-01-09] MEDS: lisinopril 10 MG TAB PO SCH (09:41)
[2022-01-09] MEDS: DOCUSATE SODIUM 100 MG CAP PO SCH ×2 (09:41→22:34)
[2022-01-09] MEDS: QUEtiapine FUMARATE 25 MG TABLET PO SCH (09:41)
[2022-01-09] MEDS: CALCITONIN SALMON NA 200 IU/AC 3.7 ML BTL SCH (09:42)
--- NOTE | 2022-01-09 10:47 | Hospitalist Progress Note ---
Date of Service January 09, 2022 Assessment & Plan (1) Fall: Plan: 86yo Female PMH Alzheimer dementia with behavioral disturbances, afib, CAD, HTN, ALISTAIR here for fall with vertebral fracture. (1) Closed L2 vertebral fracture: Osteoporosis related Fx - L2 fracture along with an acute minimally displaced fracture of the anterior cortex of the S3 and S4 with small amount of presacral hemorrhage, after sustaining a fall 3 days ago when she landed on the toilet. - Fractures are nonsurgical, in hospital for pain management primarily. - Pain control with scheduled lidocaine patches and calcitonin nasal spray, with prn Tylenol, Toradol, and morphine. - PT/OT consulted. ()Weakness - Patient evaluated by PT/OT, non cooperative 2/2 to her dementia. She originally arrived from Dementia memory unit, if she is ambulatory they can accept her back, otherwise will require rehab at SNF at [facility]. Will continue to assess. ()Bacteuria - positive UA -WBC 12.94 --> 9.72 -given cefepime in ED -started on cefdinir 3 days, switched to cephazolin, will continue total 5 days (d/c after doses tomorrow) (2) Sacral fracture: - As above. (3) Atrial fibrillation with rapid ventricular response: - Only anticoagulation is baby aspirin, also on metoprolol 50 mg daily. - not on AC due to h/o ICH, cerebral amyloid angiopathy - prn Lopressor for HR > 120. (4) Coronary artery disease: - Continue baby aspirin, lisinopril, metoprolol. (5) Hypertension: - Continue lisinopril, as well as metoprolol as above for afib. (6) Alzheimer's dementia with behavioral disturbance: - d/c'd seroquel -resumed home regime risperidone 0.25mg BID, 0.5mg HS Trazodone 37.5mg BID Mirtazipine 30mg HS Buspirone 5mg TID FENa: heart healthy minced and moist Code Status: DNR/DNI DVT PPX: SCDs PT/OT: Ordered Case Management: Pending Dispo: med/tele Thuy Ashton Do PGY 2, FCM (2) Closed L2 vertebral fracture: (3) Sacral fracture: (4) Ambulatory dysfunction: (5) Atrial fibrillation with rapid ventricular response: (6) Alzheimer's dementia with behavioral disturbance: (7) Dementia: (8) History of [place] (myocardial infarction): (9) Coronary artery disease: (10) Dyslipidemia: (11) Paroxysmal atrial fibrillation: Admission and Anticipated Discharge Date Admission Date: January 05, 2022 Supervising Physician Co-Signing Physician Notes Resident Physician Supervision Note: I independently interviewed and examined the patient and verified the gurrola history and physical, reviewed labs and image studies and agree with resident Dr. Ashton findings and care plan. Subjective Patient seen at bedside, calm comfortable cooperative. Arousable at bedside. Patient denies any pain at this time, states she slept well. No acute concerns at this time. Review of Systems Review of Systems: Negative fever chills Negative headache dizziness Negative chest pain palpitations SOB Negative nausea vomitting diarrhea constipation Negative numbness tingling rash swelling Physical Exam Constitutional: WD/WN, vitals as above + obese Eyes: PERRL, conjunctivae normal, anicteric sclerae ENMT: external ear and nose normal, oropharynx normal Neck: trachea midline, no thyromegaly Respiratory: normal respiratory effort, lungs clear to auscultation Cardiovascular: Rate/Rhythm: + irregularly irregular Heart Sounds: normal S1 and normal S2; no gallop, no murmur and no cardiac rub Chest (Breasts): Chest: normal inspection of chest Gastrointestinal (Abdomen): normal bowel sounds, soft, nontender, no hepatosplenomegaly Skin: no rashes, warm and dry Psychiatric: Orientation: oriented to person Results & Data Results & Data ([facility]) Vital Signs (Past 12 Hours) Vital Signs Temp Pulse Pulse Resp BP BP Pulse Ox 01/09/22 07:58 162 H 162/108 H 01/09/22 06:52 36.7 C 91 H 18 158/89 H 90 01/09/22 03:03 36.4 C L 82 18 146/90 H 96 01/08/22 22:54 36.4 C L 97 H 18 156/92 H 96 Laboratory Results 01/08/22 Range/Units 19:00 Urine Color Yellow Urine Appearance Clear (Clear) Urine pH 5.5 (4.5-7.5) Ur Specific [place] 1.021 (1.000-1.030) Urine Protein Negative (Negative) Urine Glucose (UA) Negative (Negative) Urine Ketones 3+ H (Negative) Urine Blood Negative (Negative) Urine Nitrite Negative (Negative) Urine Bilirubin Negative (Negative) Urine Urobilinogen Negative (Negative) Ur Leukocyte Esterase Negative (Negative) Medications Administered Current Inpatient Medications Acetaminophen (Acetaminophen 325 Mg Tab) 650 mg PO Q4H PRN PRN Reason: Pain Stop: 02/04/22 22:49 Last Admin: 01/07/22 21:32 Dose: 650 mg Documented by: Aspirin (Aspirin 81 Mg Ectab) 81 mg PO DAILY ANDRE Stop: 02/05/22 08:59 Last Admin: 01/09/22 09:41 Dose: 81 mg Documented by: Buspirone HCl (Buspirone 5 Mg Tab) 5 mg PO TID [facility] Stop: 02/08/22 13:59 Calcitonin [place] (Calcitonin [place] Na 200 Iu/Ac 3.7 Ml Btl) 1 sprays NA DAILY ANDRE Stop: 02/05/22 08:59 Last Admin: 01/09/22 09:42 Dose: 1 sprays Documented by: Cephalexin HCl (Cephalexin 250 Mg Cap) 250 mg PO QID [facility] Stop: 01/10/22 17:01 Diphenhydramine HCl (Diphenhydramine 50 Mg/Ml Vial) 25 mg IV ONE PRN PRN Reason: Allergic Reaction Docusate Sodium (Docusate Sodium 100 Mg Cap) 100 mg PO BID [facility] Stop: 02/04/22 22:49 Last Admin: 01/09/22 09:41 Dose: 100 mg Documented by: Lidocaine (Lidocaine 5% 1 Patch) 1 patch TD QAM ANDRE Stop: 02/05/22 08:59 Last Admin: 01/09/22 09:40 Dose: 1 patch Documented by: Lisinopril (Lisinopril 10 Mg Tab) 10 mg PO DAILY ANDRE Stop: 02/05/22 08:59 Last Admin: 01/09/22 09:41 Dose: 10 mg Documented by: Melatonin (Melatonin 3 Mg Tab) 3 mg PO HS [facility] Stop: 02/04/22 22:49 Last Admin: 01/08/22 22:44 Dose: 3 mg Documented by: Metoprolol Succinate (Metoprolol Succ 50mg Ext Rel Tab) 50 mg PO DAILY [facility]RE Stop: 02/05/22 08:59 Last Admin: 01/09/22 09:41 Dose: 50 mg Documented by: Metoprolol Tartrate (Metoprolol Tartrate 1 Mg/Ml Vial) 5 mg IV Q5M PRN PRN Reason: Tachycardia Stop: 02/04/22 22:49 Last Admin: 01/09/22 07:58 Dose: 5 mg Documented by: Mirtazapine (Mirtazapine Tab 15 Mg Tab) 30 mg PO HS [facility]RE Stop: 02/08/22 20:59 Miscellaneous (Remove Lidoderm Patch) 1 ea N/A DAILY@2100 [facility] Stop: 02/05/22 20:59 Last Admin: 01/08/22 22:44 Dose: 1 ea Documented by: Morphine Sulfate (Morphine Sulfate 2 Mg/Ml Carp) 2 mg IV Q3H PRN PRN Reason: Severe Pain Stop: 01/19/22 22:49 Last Admin: 01/09/22 07:58 Dose: 2 mg Documented by: Ondansetron HCl (Ondansetron Inj 2 Mg/Ml 2 Ml Vial) 4 mg IV Q6H PRN PRN Reason: Nausea Stop: 02/04/22 22:49 Last Admin: 01/06/22 11:51 Dose: 4 mg Documented by: Polyethylene Glycol (Polyethylene (Miralax) 17 Gm Pack) 34 gm PO DAILY [facility]RE Stop: 02/09/22 08:59 Risperidone (Risperidone 0.5 Mg Tablet) 0.5 mg PO HS [facility]RE Stop: 02/08/22 20:59 Risperidone (Risperidone 0.5 Mg Tablet) 0.25 mg PO BID@0900,1400 [facility] Stop: 02/08/22 13:59 Trazodone HCl (Trazodone Hcl 50 Mg Tab) 37.5 mg PO BID [facility] Stop: 02/08/22 20:59 Vitamin D (Cholecalciferol 1,000 Units 25 Mcg Tab) 2,000 units PO DAILY [facility] Stop: 02/05/22 08:59 Last Admin: 01/09/22 09:41 Dose: 2,000 units Documented by: Resident Activity Tracking Resident Involvement: Resident Care Provided Care Provided: Adult Hospital Medicine (1) Dementia Dementia behavioral disturbance: with behavioral disturbance Dementia type: unspecified type Qualified Code(s): F03.91 - Unspecified dementia with behavioral disturbance
[2022-01-09] MEDS: risperiDONE 0.5 MG TABLET PO SCH ×2 (13:11→22:34)
[2022-01-09] MEDS: busPIRone 5 MG TAB PO SCH ×2 (13:11→22:33)
[2022-01-09] MEDS: cephALEXin 250 MG CAP PO SCH ×3 (13:11→22:33)
[2022-01-09 13:21] LABS: Hematocrit (blood only) 39.8 % (37-47); Hemoglobin 13.2 g/dL (12.0-16.0); Mean Corpuscular Hemoglobin 29.9 pg (25-34); Mean Corpuscular Hgb Conc 33.2 g/dL (32-36); Platelet Count 240 K/uL (130-400); RDW Coefficient of Variation 13.9 % (11.5-14.5); RDW Standard Deviation 45.7 fL (36.4-46.3); Red Blood Count 4.42 M/uL (4.2-5.4); White Blood Count 10.74 K/uL (4.8-10.8)
[2022-01-09] MEDS: MELATONIN 3 MG TAB PO SCH (22:33)
[2022-01-09] MEDS: traZODone HCL 50 MG TAB PO SCH (22:35)
[2022-01-09] MEDS: MIRTAZAPINE TAB 15 MG TAB PO SCH (22:35)
[2022-01-09] MEDS: ACETAMINOPHEN 325 MG TAB PO PRN (23:58)
[2022-01-10 07:05] LABS: Hematocrit (blood only) 42.4 % (37-47); Mean Corpuscular Hemoglobin 30.1 pg (25-34); Mean Corpuscular Volume 91.2 fL (80-100); Platelet Count 252 K/uL (130-400); RDW Standard Deviation 45.9 fL (36.4-46.3); Red Blood Count 4.65 M/uL (4.2-5.4); White Blood Count 9.58 K/uL (4.8-10.8)
--- NOTE | 2022-01-10 07:07 | Hospitalist Progress Note ---
Date of Service January 10, 2022 Assessment & Plan (1) Fall: Plan: 86yo Female PMH Alzheimer dementia with behavioral disturbances, afib, CAD, HTN, ALISTAIR here for fall with vertebral fracture. (1) Closed L2 vertebral fracture: Osteoporosis related Fx - L2 fracture along with an acute minimally displaced fracture of the anterior cortex of the S3 and S4 with small amount of presacral hemorrhage, after sustaining a fall 3 days ago when she landed on the toilet. - Fractures are nonsurgical, in hospital for pain management primarily. - Pain control with scheduled lidocaine patches and calcitonin nasal spray, tylenol and ibuprofen, with prn Toradol, and morphine. - PT/OT consulted, unlikely to participate in rehab, recommend SNF ()Weakness - Patient evaluated by PT/OT, non cooperative 2/2 to her dementia. She originally arrived from Dementia memory unit. - will require rehab at SNF at [facility]. ()Bacteuria - positive UA -WBC 12.94 --> 9.58 -given cefepime in ED -started on cefdinir 3 days, switched to cephazolin, will continue total 5 days (d/c today) (2) Sacral fracture: - As above. (3) Atrial fibrillation with rapid ventricular response: - Only anticoagulation is baby aspirin, also on metoprolol 50 mg daily. - not on AC due to h/o ICH, cerebral amyloid angiopathy - prn Lopressor for HR > 120. (4) Coronary artery disease: - Continue baby aspirin, lisinopril, metoprolol. (5) Hypertension: - Continue lisinopril, as well as metoprolol as above for afib. (6) Alzheimer's dementia with behavioral disturbance: - d/c'd seroquel -resumed home regime risperidone 0.25mg BID, 0.5mg HS Trazodone 37.5mg BID Mirtazipine 30mg HS Buspirone 5mg TID FENa: heart healthy minced and moist Code Status: DNR/DNI DVT PPX: SCDs PT/OT: Ordered Case Management: SNF at [facility] Sunday Dispo: med/tele Thuy Ashton Do PGY 2, FCM (2) Closed L2 vertebral fracture: (3) Sacral fracture: (4) Ambulatory dysfunction: (5) Atrial fibrillation with rapid ventricular response: (6) Alzheimer's dementia with behavioral disturbance: (7) Dementia: (8) History of [place] (myocardial infarction): (9) Coronary artery disease: (10) Dyslipidemia: (11) Paroxysmal atrial fibrillation: Admission and Anticipated Discharge Date Admission Date: January 05, 2022 Supervising Physician Co-Signing Physician Notes Resident Physician Supervision Note: I independently interviewed and examined the patient and verified the gurrola history and physical, reviewed labs and image studies and agree with resident Dr. Ashton findings and care plan. Subjective Patient seen at bedside, calm comfortable cooperative. Arousable at bedside. Patient denies any pain at this time, states she slept ate well. No acute concerns at this time. Per nursing she has not had a BM yet. Patient will complain of pain only when being moved. Otherwise was calmer tonight. Review of Systems Review of Systems: Negative fever chills Negative headache dizziness Negative chest pain palpitations SOB Negative nausea vomitting diarrhea constipation Negative numbness tingling rash swelling Physical Exam Constitutional: WD/WN, vitals as above + obese Eyes: PERRL, conjunctivae normal, anicteric sclerae ENMT: external ear and nose normal, oropharynx normal Neck: trachea midline, no thyromegaly Respiratory: normal respiratory effort, lungs clear to auscultation Cardiovascular: Rate/Rhythm: + irregularly irregular Heart Sounds: normal S1 and normal S2; no gallop, no murmur and no cardiac rub Chest (Breasts): Chest: normal inspection of chest Gastrointestinal (Abdomen): normal bowel sounds, soft, nontender, no hepatosplenomegaly Skin: no rashes, warm and dry Psychiatric: Orientation: oriented to person Results & Data Results & Data ([facility]) Vital Signs (Past 12 Hours) Vital Signs Temp Pulse Pulse Resp BP Pulse Ox 01/10/22 04:40 36.6 C 91 H 18 121/75 95 01/10/22 00:06 36.5 C 102 H 18 125/66 92 01/09/22 22:27 90 01/09/22 20:00 36.6 C 97 H 18 158/91 H 95 Laboratory Results 01/10/22 Range/Units 06:29 WBC 9.58 (4.8-10.8) K/uL RBC 4.65 (4.2-5.4) M/uL Hgb 14.0 (12.0-16.0) g/dL Hct 42.4 (37-47) % MCV 91.2 (80-100) fL MCH 30.1 (25-34) pg MCHC 33.0 (32-36) g/dL RDW Std Deviation 45.9 (36.4-46.3) fL RDW Coeff of Gerard 14.0 (11.5-14.5) % Plt Count 252 (130-400) K/uL MPV 10.0 (7.4-10.4) fL Medications Administered Current Inpatient Medications Acetaminophen (Acetaminophen 325 Mg Tab) 650 mg PO Q6H ANDRE Stop: 02/09/22 11:59 Aspirin (Aspirin 81 Mg Ectab) 81 mg PO DAILY ANDRE Stop: 02/05/22 08:59 Last Admin: 01/10/22 08:02 Dose: 81 mg Documented by: Buspirone HCl (Buspirone 5 Mg Tab) 5 mg PO TID ANDRE Stop: 02/08/22 13:59 Last Admin: 01/10/22 08:02 Dose: 5 mg Documented by: Calcitonin [place] (Calcitonin [place] Na 200 Iu/Ac 3.7 Ml Btl) 1 sprays NA DAILY [facility]RE Stop: 02/05/22 08:59 Last Admin: 01/10/22 08:01 Dose: 1 sprays Documented by: Cephalexin HCl (Cephalexin 250 Mg Cap) 250 mg PO QID [facility]RE Stop: 01/10/22 17:01 Last Admin: 01/10/22 08:02 Dose: 250 mg Documented by: Diphenhydramine HCl (Diphenhydramine 50 Mg/Ml Vial) 25 mg IV ONE PRN PRN Reason: Allergic Reaction Docusate Sodium (Docusate Sodium 100 Mg Cap) 100 mg PO BID ANDRE Stop: 02/04/22 22:49 Last Admin: 01/10/22 08:01 Dose: 100 mg Documented by: Ibuprofen (Ibuprofen 200 Mg Tab) 400 mg PO QID ANDRE Stop: 02/09/22 08:59 Last Admin: 01/10/22 09:51 Dose: 400 mg Documented by: Lidocaine (Lidocaine 5% 1 Patch) 1 patch TD QAM [facility]RE Stop: 02/05/22 08:59 Last Admin: 01/10/22 08:02 Dose: 1 patch Documented by: Lisinopril (Lisinopril 10 Mg Tab) [address] [facility] Stop: 02/05/22 08:59 Last Admin: 01/10/22 08:00 Dose: 10 mg Documented by: Melatonin (Melatonin 3 Mg Tab) [address] [facility] Stop: 02/04/22 22:49 Last Admin: 01/09/22 22:33 Dose: 3 mg Documented by: Metoprolol Succinate (Metoprolol Succ 50mg Ext Rel Tab) 50 mg PO DAILY [facility] Stop: 02/05/22 08:59 Last Admin: 01/10/22 08:02 Dose: 50 mg Documented by: Metoprolol Tartrate (Metoprolol Tartrate 1 Mg/Ml Vial) 5 mg IV Q5M PRN PRN Reason: Tachycardia Stop: 02/04/22 22:49 Last Admin: 01/09/22 07:58 Dose: 5 mg Documented by: Mirtazapine (Mirtazapine Tab 15 Mg Tab) [address] [facility] Stop: 02/08/22 20:59 Last Admin: 01/09/22 22:35 Dose: 30 mg Documented by: Miscellaneous (Remove Lidoderm Patch) 1 ea N/A DAILY@2100 [facility] Stop: 02/05/22 20:59 Last Admin: 01/09/22 23:42 Dose: 1 ea Documented by: Morphine Sulfate (Morphine Sulfate 2 Mg/Ml Carp) 2 mg IV Q3H PRN PRN Reason: Severe Pain Stop: 01/19/22 22:49 Last Admin: 01/10/22 07:59 Dose: 2 mg Documented by: Ondansetron HCl (Ondansetron Inj 2 Mg/Ml 2 Ml Vial) 4 mg IV Q6H PRN PRN Reason: Nausea Stop: 02/04/22 22:49 Last Admin: 01/10/22 07:59 Dose: 4 mg Documented by: Polyethylene Glycol (Polyethylene (Miralax) 17 Gm Pack) [address] [facility] Stop: 02/10/22 08:59 Risperidone (Risperidone 0.5 Mg Tablet) 0.[address] [facility] Stop: 02/08/22 20:59 Last Admin: 01/09/22 22:34 Dose: 0.5 mg Documented by: Risperidone (Risperidone 0.5 Mg Tablet) 0.25 mg PO BID@0900,1400 [facility] Stop: 02/08/22 13:59 Last Admin: 01/10/22 08:02 Dose: 0.25 mg Documented by: Trazodone HCl (Trazodone Hcl 50 Mg Tab) 37.[address] [facility] Stop: 02/08/22 20:59 Last Admin: 01/10/22 08:00 Dose: 37.5 mg Documented by: Vitamin D (Cholecalciferol 1,000 Units 25 Mcg Tab) 2,000 units PO DAILY [facility]RE Stop: 02/05/22 08:59 Last Admin: 01/10/22 08:01 Dose: 2,000 units Documented by: Resident Activity Tracking Resident Involvement: Resident Care Provided Care Provided: Adult Hospital Medicine (1) Dementia Dementia behavioral disturbance: with behavioral disturbance Dementia type: unspecified type Qualified Code(s): F03.91 - Unspecified dementia with behavioral disturbance
[2022-01-10] MEDS: ACETAMINOPHEN 325 MG TAB PO PRN (07:58)
[2022-01-10] MEDS: ONDANSETRON INJ 2 MG/ML 2 ML VIAL IV PRN (07:59)
[2022-01-10] MEDS: MoRPHine SULFATE 2 MG/ML CARP IV PRN (07:59)
[2022-01-10] MEDS: lisinopril 10 MG TAB PO SCH (08:00)
[2022-01-10] MEDS: traZODone HCL 50 MG TAB PO SCH ×2 (08:00→21:26)
[2022-01-10] MEDS: DOCUSATE SODIUM 100 MG CAP PO SCH ×2 (08:01→21:25)
[2022-01-10] MEDS: CALCITONIN SALMON NA 200 IU/AC 3.7 ML BTL SCH (08:01)
[2022-01-10] MEDS: CHOLECALCIFEROL 1,000 UNITS 25 MCG TAB PO SCH (08:01)
[2022-01-10] MEDS: busPIRone 5 MG TAB PO SCH ×3 (08:02→21:27)
[2022-01-10] MEDS: ASPIRIN 81 MG ECTAB PO SCH (08:02)
[2022-01-10] MEDS: METOPROLOL SUCC 50MG EXT REL TAB PO SCH (08:02)
[2022-01-10] MEDS: LIDOCAINE 5% 1 PATCH TD SCH (08:02)
[2022-01-10] MEDS: risperiDONE 0.5 MG TABLET PO SCH ×3 (08:02→21:27)
[2022-01-10] MEDS: cephALEXin 250 MG CAP PO SCH ×3 (08:02→16:38)
[2022-01-10] MEDS ORDERED: POLYETHYLENE (MIRALAX) 17 GM PACK PO SCH (09:00)
[2022-01-10] MEDS: IBUPROFEN 200 MG TAB PO SCH ×4 (09:51→21:27)
[2022-01-10] MEDS: ACETAMINOPHEN 325 MG TAB PO SCH ×2 (13:45→17:35)
[2022-01-10] MEDS: SODIUM CHLORIDE 0.9% 1000ML 1,000 ML IV SCH (16:38)
[2022-01-10] MEDS: MELATONIN 3 MG TAB PO SCH (21:26)
[2022-01-10] MEDS: MIRTAZAPINE TAB 15 MG TAB PO SCH (21:26)
[2022-01-11] MEDS: SODIUM CHLORIDE 0.9% 1000ML 1,000 ML IV SCH (05:14)
[2022-01-11] MEDS: ACETAMINOPHEN 325 MG TAB PO SCH ×2 (06:10)
[2022-01-11 07:06] LABS: Hematocrit (blood only) 41.4 % (37-47); Hemoglobin 13.5 g/dL (12.0-16.0); Mean Corpuscular Hemoglobin 30.7 pg (25-34); Mean Corpuscular Hgb Conc 32.6 g/dL (32-36); Mean Corpuscular Volume 94.1 fL (80-100); Platelet Count 273 K/uL (130-400); RDW Coefficient of Variation 14.1 % (11.5-14.5); RDW Standard Deviation 48.1 fL (36.4-46.3); White Blood Count 8.07 K/uL (4.8-10.8)
[2022-01-11 07:28] LABS: BUN Creatinine Ratio 25.4 (10-20); Calcium 8.9 mg/dl (8.5-10.1); Est GFR (Non-African American) 78.5 ml/min
[2022-01-11] MEDS: CHOLECALCIFEROL 1,000 UNITS 25 MCG TAB PO SCH (07:48)
[2022-01-11] MEDS: CALCITONIN SALMON NA 200 IU/AC 3.7 ML BTL SCH (07:48)
[2022-01-11] MEDS: ASPIRIN 81 MG ECTAB PO SCH (07:48)
[2022-01-11] MEDS: IBUPROFEN 200 MG TAB PO SCH (07:48)
[2022-01-11] MEDS: DOCUSATE SODIUM 100 MG CAP PO SCH (07:48)
[2022-01-11] MEDS: busPIRone 5 MG TAB PO SCH (07:48)
[2022-01-11] MEDS: LIDOCAINE 5% 1 PATCH TD SCH (07:49)
[2022-01-11] MEDS: risperiDONE 0.5 MG TABLET PO SCH (07:49)
[2022-01-11] MEDS: METOPROLOL SUCC 50MG EXT REL TAB PO SCH (07:49)
[2022-01-11] MEDS: lisinopril 10 MG TAB PO SCH (07:49)
[2022-01-11] MEDS: traZODone HCL 50 MG TAB PO SCH (07:54)
[2022-01-11] MEDS ORDERED: POLYETHYLENE (MIRALAX) 17 GM PACK PO SCH (09:00)
--- NOTE | 2022-01-11 13:58 | Discharge Summary ---
Date of Service January 11, 2022 Admission HPI Per Admitting Provider With past an 86-year-old female with past medical history of A. fib, CAD, hypertension, ALISTAIR dementia who presents today from [facility] for evaluation for back pain. Patient had a fall several days ago and landed on the toilet, since then has been complaining of low back pain with movement. They did do initial x-rays after the fall and did not identify any fracture at the time. They have been giving her Tylenol and applying lidocaine patches which initially seemed to help but the pain has been becoming increasingly worse for the past few days patient has been yelling out in pain, therefore she had been transported to our ED for further evaluation and pain control. In ED, she is tachycardic and hypertensive, SPO2 >95% on room air. Afebrile. Labs significant for WBC 12.94, T bili 1.9, initial hs troponin 14.4, repeat 15.9. All the labs within normal meds. COVID-negative. Lumbar spine CT showed minimal fracture of the right lateral cortex of L2, pelvic CT showed minimally displaced fracture of the anterior cortex of S3 and S4 with small amount of presacral hemorrhage, as well as healed right femoral neck fracture. Head CT without acute process seen, CXR showed blunting of the left costophrenic angle. Admission Exam Per Admitting Provider General: awake, alert, no apparent distress Head: Normocephalic, atraumatic ENT: PERRL, EOMI, no pharyngeal exudate, mucous membranes moist Chest: Clear to auscultation, on room air, no adventitious breath sounds Cardiac: tachycardia, irregularly irregular rhythm consistent with afib; no murmur, no JVD, normal peripheral pulses, good capillary refill Abdominal: NABS x 4 quadrants, soft, nontender to palpation, no rebound, guarding or tenderness Extremities: Normal inspection, no peripheral edema or erythema, calfs nontender to palpation Psych: Normal mood and affect Neuro: Oriented to self;, strength intact bilaterally and rated 5/5, no motor deficits, speech is clear, no peripheral sensory deficits Skin: no rash or erythema Principal Diagnosis fall Discharge Exam Constitutional: WD/WN, vitals as above + obese Eyes: PERRL, conjunctivae normal, anicteric sclerae ENMT: external ear and nose normal, oropharynx normal Neck: trachea midline, no thyromegaly Respiratory: normal respiratory effort, lungs clear to auscultation Cardiovascular: Rate/Rhythm: + irregularly irregular Heart Sounds: normal S1 and normal S2; no gallop, no murmur and no cardiac rub Chest (Breasts): Chest: normal inspection of chest Gastrointestinal (Abdomen): normal bowel sounds, soft, nontender, no hepatosplenomegaly Skin: no rashes, warm and dry Psychiatric: Orientation: oriented to person Discharge Data Allergies Allergy/AdvReac Type Severity Reaction Status Date / Time Penicillins Allergy Intermediate hands Verified 07/22/20 21:53 swell, rash rofecoxib Allergy Mild ITCHING Verified 07/22/20 21:53 shellfish derived Allergy Unknown UNKNOWN Verified 07/22/20 21:53 Sulfa (Sulfonamide Allergy Unknown UNKNOWN Verified 07/22/20 21:53 Antibiotics) grass pollen Allergy . Verified 07/22/20 21:53 mold Allergy . Verified 07/22/20 21:53 Consultations 01/05/22 18:47 ED Decision to Admit Stat Ordered Studies 01/05/22 13:24 CT lumbar spine wo con Stat CT pelvis wo con Stat 01/05/22 13:37 CT head/brain wo con Stat Hospital Course (1) Fall: 86 yo F w/ pMHx of Alzheimer dementia with behavioral disturbances, a fib, CAD, HTN, ALISTAIR here for fall with vertebral fracture. Closed L2 vertebral fracture: Osteoporosis related Fx. - L2 fracture along with an acute minimally displaced fracture of the anterior cortex of the S3 and S4 with small amount of presacral hemorrhage, after sustaining a fall 3 days ago when she landed on the toilet. - Fractures are nonsurgical, in hospital for pain management primarily. - Pain control with scheduled lidocaine patches and calcitonin nasal spray, with prn Tylenol, Toradol, and morphine. Weakness - Patient evaluated by PT/OT, uncooperative due to her dementia Bacteruria - resolved - positive UA - WBC 12.94 --> 8 - treated with cefepime x1day, cefdinir x3 days, and cephazolin x1 day 5 days total Sacral fracture: - As above. Atrial fibrillation with rapid ventricular response: - Only anticoagulation is baby aspirin, also on metoprolol succinate 50 mg daily. - not on AC due to h/o ICH, cerebral amyloid angiopathy Coronary artery disease: - Continue baby aspirin, lisinopril, metoprolol. Hypertension: - Continue lisinopril, as well as metoprolol as above for afib. Alzheimer's dementia with behavioral disturbance: -resumed home regime risperidone 0.25mg BID, 0.5mg HS Trazodone 37.5mg BID Mirtazapine 30mg HS Buspirone 5mg TID FENa: heart healthy minced and moist Code Status: DNR/DNI (2) Closed L2 vertebral fracture: (3) Sacral fracture: (4) Ambulatory dysfunction: (5) Atrial fibrillation with rapid ventricular response: (6) Coronary artery disease: (7) Chronic anticoagulation: (8) Dyslipidemia: (9) Obstructive sleep apnea: Total Time Total Time Spent Total Time Spent (In Minutes): please see attending attestation Discharge Plan Discharge Items Patient Disposition: Transfer Inpatient Rehab Fac Reason For Visit: INTRACTABLE PAIN DUE TO LUMBAR, SACRAL FRACTURES Discharge Diagnosis: Lumbar Sacral Fractures Activity: Per Instructions section Non-emergency contact: Primary Care Provider Call non-emergency contact if: you have any medication questions, your symptoms worsen and you have a fever Follow-up/Referrals: Antwon Osuna [place] [Primary Care Provider] - Diet: Heart Healthy Addtl Attending Provider Instructions: 86 yo Female w/ PMHx of Alzheimer dementia with behavioral disturbances, afib, CAD, HTN, ALISTAIR here for fall with vertebral fracture. Closed L2 vertebral fracture: Osteoporosis related Fx. - L2 fracture along with an acute minimally displaced fracture of the anterior cortex of the S3 and S4 with small amount of presacral hemorrhage, after sustaining a fall 3 days ago when she landed on the toilet. - Fractures are nonsurgical, in hospital for pain management primarily. - Pain control with scheduled lidocaine patches and calcitonin nasal spray, with prn Tylenol, Toradol, and morphine. Weakness - Patient evaluated by PT/OT, uncooperative due to her dementia Bacteruria - resolved - positive UA - WBC 12.94 --> 8 - treated with cefepime x1day, cefdinir x3 days, and cephazolin x1 day 5 days total Sacral fracture: - As above. Atrial fibrillation with rapid ventricular response: - Only anticoagulation is baby aspirin, also on metoprolol succinate 50 mg daily. - not on AC due to h/o ICH, cerebral amyloid angiopathy Coronary artery disease: - Continue baby aspirin, lisinopril, metoprolol. Hypertension: - Continue lisinopril, as well as metoprolol as above for afib. Alzheimer's dementia with behavioral disturbance: -resumed home regime risperidone 0.25mg BID, 0.5mg HS Trazodone 37.5mg BID Mirtazapine 30mg HS Buspirone 5mg TID FENa: heart healthy minced and moist Code Status: DNR/DNI Pending Studies at Discharge: No Stand-Alone Forms: My [facility] Skilled Items Patient informed of condition?: Yes DNR: Yes Discharge Level of Care: Acute rehab Communicable Disease: No Discharge Prognosis: Stable Lines: None Urinary Catheter: No Medications and DC Order Prescriptions: New polyethylene glycol 3350 [Miralax] 17 gram Powder In Packet 51 g PO DAILY 14 Days RF: 0 calcitonin (salmon) 200 unit/actuation [place],Non-Aerosol 1 spray NA DAILY 14 Days Qty: 3.7 RF: 0 lidocaine 5 % Adhesive Patch,Medicated 1 patch transdermal QAM 14 Days Qty: 15 RF: 0 ibuprofen 200 mg Tablet 400 mg PO QID 14 Days Qty: 112 RF: 0 Continued aspirin 81 mg tablet,chewable 81 mg PO DAILY RF: 0 cholecalciferol (vitamin D3) 2,000 unit capsule 2,000 units PO DAILY RF: 0 lisinopril 10 mg tablet 10 mg PO DAILY RF: 0 docusate sodium 100 mg Capsule 100 mg PO BID RF: 0 melatonin 5 mg Tablet 5 mg PO HS RF: 0 buspirone 5 mg tablet 5 mg PO TID RF: 0 trazodone 50 mg tablet 37.5 mg PO BID RF: 0 mirtazapine 30 mg tablet 30 mg PO HS RF: 0 risperidone 0.5 mg tablet 0.5 mg PO HS RF: 0 risperidone 0.5 mg tablet 0.25 mg PO BID RF: 0 Changed acetaminophen 325 mg Tablet 650 mg PO Q6H 14 Days Qty: 0 RF: 0 metoprolol tartrate 25 mg tablet 25 mg PO BID Qty: 0 RF: 0 Discharge Orders: Discharge Order (Routine); Ordered 01/11/22 Ordered By: Amilcar Saenz Admission Data Admit Date/Time: 01/05/22 20:10 Attending Provider: Vera Montes Admit Provider: Dianne Guerrero Primary Care Provider: Antwon Osuna [place] Other Providers: Dianne Guerrero ; Antwon Osuna [facility] ; Jadon Sheldon Other Interventions: Discharge Summary Assessment (RN) Last Done: 01/11/22 09:13 Supervising Physician Co-Signing Physician Notes Resident Physician Supervision Note: I independently interviewed and examined the patient and verified the gurrola history and physical, reviewed labs and image studies and agree with resident Dr. Saenz findings and care plan. Resident Activity Tracking Resident Involvement: Resident Care Provided Care Provided: [facility] Medicine CBC Results Results Complete Blood Count Results: RBC 4.40 M/uL (4.2-5.4) 01/11/22 WBC 8.07 K/uL (4.8-10.8) 01/11/22 Hgb 13.5 g/dL (12.0-16.0) 01/11/22 Hct 41.4 % (37-47) 01/11/22 Plt Count 273 K/uL (130-400) 01/11/22 Chemistry (BMP) Results BMP Results: Sodium 140 mmol/L (136-145) 01/11/22 Potassium 4.0 mmol/L (3.5-5.1) 01/11/22 Chloride 105 mmol/L (98-107) 01/11/22 Carbon Dioxide 31 mmol/L (21-32) 01/11/22 Anion Gap 4 (3-11) 01/11/22 BUN 17 mg/dl (6-23) 01/11/22 Creatinine 0.67 mg/dl (0.6-1.2) 01/11/22 Glucose 102 mg/dl (70-99(Fasting)) H 01/11/22
== END 2022-01-11 09:53 | DRG 543 ==
LOC: ED 12:06 → 2W 20:10 → SUATTDRO 20:10 → 2W 22:02

== ENCOUNTER 2023-02-01 21:29 | Inpatient (IN) ==
[2023-02-01] MEDS ORDERED: NALOXONE HCL 0.4 MG/1 ML VIAL/CARP ONE (21:33)
[2023-02-01] MEDS ORDERED: CEFEPIME 2,000 MG/20 ML VIAL IV STA (21:51)
[2023-02-01] MEDS ORDERED: SODIUM CHLORIDE 0.9% 1000ML 1,000 ML IV ONE (21:51)
[2023-02-01 21:54] LABS: iSTAT Creatinine 1.1 mg/dl (0.6-1.3); iSTAT Hemoglobin 12.9 g/dl (12.0-16.0); iSTAT Ionized Calcium 1.28 mmol/l (1.12-1.32); iSTAT Potassium 4.9 mmol/L (3.3-5.0)
[2023-02-01 22:04] LABS: Basophils # (auto) 0.02 K/uL (0-0.2); Basophils % (auto) 0.3 %; Eosinophils # (auto) 0.17 K/uL (0-0.50); Eosinophils % (auto) 2.3 %; Hematocrit (blood only) 39.6 % (37.0-47.0); Hemoglobin 12.6 g/dl (12.0-16.0); Immature Granulocytes # (auto) 0.04 K/uL (0.01-0.20); Immature Granulocytes % (auto) 0.5 %; Lymphocytes % (auto) 17.3 %; Mean Corpuscular Hemoglobin 31.7 pg (25.0-34.0); Mean Corpuscular Hgb Conc 31.8 g/dL (32.0-36.0); Mean Corpuscular Volume 99.7 fL (80.0-100.0); Mean Platelet Volume 10.5 fL (9.4-12.4); Monocytes # (auto) 0.85 K/uL (0.11-0.59); Monocytes % (auto) 11.3 %; Neutrophils # (auto) 5.13 K/uL (1.40-6.50); Neutrophils % (auto) 68.3 %; Platelet Count 220 K/uL (130-400); RDW Coefficient of Variation 16.2 % (11.5-14.5); RDW Standard Deviation 59.2 fL (36.4-46.3); Red Blood Count 3.97 M/uL (4.20-5.40); White Blood Count 7.51 K/ul (4.8-10.8)
[2023-02-01 22:04] LABS: Appearance Urine Turbid (Clear); Bacteria Urine Automated 4+ (Negative); Bilirubin Urine Negative (Negative); Blood Urine 3+ (Negative); Color Urine Yellow; Epithelial Cell Urine Auto >30 /lpf (0-5); Glucose Urine UA Negative (Negative); Ketones Urine Trace (Negative); Leukocyte Esterase Urine 3+ (Negative); Nitrite Urine Positive (Negative); Protein Urine 2+ (Negative); Urobilinogen Urine Negative (Negative); WBC Urine Automated >30 /hpf (0-5)
[2023-02-01 22:25] LABS: Alanine Aminotransferase 21 U/L (7-52); Albumin Level 3.5 gm/dl (3.4-5.0); Alkaline Phosphatase 76 U/L (34-104); Anion Gap 4 (3-11); Aspartate Aminotransferase 34 U/L (13-39); BUN Creatinine Ratio 36.2 (10-20); Bilirubin,Total 0.6 mg/dl (0.2-1.0); Blood Urea Nitrogen 34 mg/dl (6-23); Calcium 9.7 mg/dl (8.6-10.3); Carbon Dioxide 29 mmol/L (21-32); Chloride 109 mmol/L (98-107); Creatinine Clr Calc Pharmacy 40.5 ml/min; Est GFR (African American) 62.3 ml/min; Est GFR (Non-African American) 53.8 ml/min; Glucose 87 mg/dl (70-99(Fasting)); Potassium 5.2 mmol/L (3.5-5.1); Sodium 142 mmol/L (136-145)
[2023-02-01 22:30] LABS: Troponin I High Sensitivity 10.6 pg/ml (0-14)
[2023-02-01] MEDS ORDERED: NALOXONE HCL 0.4 MG/1 ML VIAL/CARP IV STA (22:33)
--- NOTE | 2023-02-01 22:45 | CT Scan Report ---
CT SCAN OF THE BRAIN WITHOUT IV CONTRAST CLINICAL HISTORY: Change in mental status. COMPARISON STUDY: CT of the brain dated 01/05/2022. TECHNIQUE: Unenhanced axial CT scan of the brain is performed from the vertex to the skull base. A do se lowering technique was utilized adhering to the principles of ALARA. CT DOSE: 625.80 mGy.cm FINDINGS: Brain parenchyma: There is age-related involutional change mild subcortical and periventricular micro angiopathic disease. 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 A small chronic infa rct is again seen in the high right frontoparietal region. There is no hemorrhage, mass effect, or ev idence of acute territorial ischemia by CT criteria. Baker-white matter differentiation is preserved. No extra-axial fluid collection is seen. Ventricles, sulci, cisterns: Prominent secondary to involutional change. Intracranial vasculature: There is atherosclerotic calcification of the cavernous carotid and vertebr al arteries. Calvarium: Unremarkable. Sinuses and mastoids: There is moderate mucosal thickening in the left sphenoid sinus. Trace mucosal thickening seen in the right sided sinus. The remaining paranasal sinuses are clear. There are large mastoid effusions. Orbits: The bony orbits are grossly intact. There are bilateral ocular lens implants. IMPRESSION: There is no hemorrhage, mass effect, or evidence of acute territorial ischemia by CT dawson tee. ACT 112: Negative or not required by law. Electronically signed by: Jamie Greenfield M.D. 02/01/2023 10:43 PM
[2023-02-01 22:51] LABS: Influenza A virus by PCR Negative (Neg); Influenza B virus by PCR Negative (Neg); RSV by PCR Negative (Neg); SARS CoV2 RNA(COVID-19) Ceph NEGATIVE (Negative)
[2023-02-01 22:53] LABS: Base Excess VBG 3.6 mEq/L; HCO3 VBG 30 mmol/L; Oxygen Saturation VBG 76.8 %; PCO2 VBG 52 mmHg (38-50); PO2 VBG 48 mmHg; pH VBG 7.37 (7.36-7.41)
[2023-02-01] MEDS ORDERED: DEXTROSE 50% 50 ML SYRINGE IV STA (22:59)
[2023-02-01] MEDS ORDERED: STAT IV STA (22:59)
[2023-02-01] MEDS ORDERED: CALCIUM GLUCONATE 10% 1,000 MG in DEXTROSE 5% 50 ML IV STA (22:59)
[2023-02-01] MEDS ORDERED: INSULIN HUMAN REGULAR PER UNIT 5 UNITS in SYRINGE 9.9 ML IV STA (22:59)
[2023-02-01] MEDS ORDERED: INSULIN HUMAN REGULAR PER UNIT 5 UNITS in SYRINGE 4.95 ML IV STA (23:03)
[2023-02-01 23:37] LABS: INR 0.9 (0.9-1.1); Partial Thromboplastin Ratio 1.1; Prothrombin Time 10.3 Seconds (9.0-12.0)
--- NOTE | 2023-02-01 23:45 | XRay Report ---
SINGLE VIEW CHEST CLINICAL HISTORY: Sepsis. FINDINGS: An AP, portable, semierect chest radiograph is compared to study dated 01/05/2022. The exami nation is degraded by portable technique and patient rotation. The heart is enlarged and noting athe rosclerotic calcification of the thoracic aorta. The pulmonary vasculature is noncongested. Chronic i nterstitial thickening is similar to previous. There is mild bibasilar scarring/atelectasis. The lung s and pleural spaces are otherwise clear. No pneumothorax is seen. The skeletal structures are osteop enic. The bony thorax is grossly intact. Degenerative changes noted in the shoulders and spine. IMPRESSION: Cardiomegaly with no acute cardiopulmonary abnormality identified. ACT 112: Negative or not required by law. Electronically signed by: Jamie Greenfield M.D. 02/01/2023 11:44 PM
--- NOTE | 2023-02-01 23:46 | Emergency Department Note ---
History of Present Illness General Chief complaint: Unresponsive Stated complaint: UNRESPONSIVE, PERIODS OF APNEA, BRADYCARDIC Time Seen by Provider: 02/01/23 21:34 Source: EMS History of Present Illness Provider complaint: Unresponsive altered mental status 87-year-old female with history of dementia presents to the emergency department from skilled nursing via EMS for unresponsiveness and altered mental status. EMS reports that the skilled nursing staff reported that the patient was less responsive and altered today. They report that she was having episodes of bradycardia and apnea. EMS reports that the patient is DNR however they do not have paperwork for this. Home Medications Medication Instructions Recorded Confirmed Type cholecalciferol (vitamin D3) 50 2,000 units PO DAILY 04/07/19 07/22/20 History mcg (2,000 unit) capsule aspirin 81 mg chewable tablet 81 mg PO DAILY 07/03/19 07/22/20 History docusate sodium 100 mg capsule 100 mg PO BID 07/22/20 07/22/20 History lisinopril 10 mg tablet 10 mg PO DAILY 07/22/20 07/22/20 History melatonin 5 mg tablet 5 mg PO HS 07/22/20 07/22/20 History buspirone 5 mg tablet 5 mg PO TID 01/09/22 01/09/22 History mirtazapine 30 mg tablet 30 mg PO HS 01/09/22 01/09/22 History risperidone 0.5 mg tablet 0.25 mg PO BID 01/09/22 01/09/22 History risperidone 0.5 mg tablet 0.5 mg PO HS 01/09/22 01/09/22 History trazodone 50 mg tablet 37.5 mg PO BID 01/09/22 01/09/22 History acetaminophen 325 mg tablet 650 mg PO Q6H 14 days #0 tabs 01/10/22 07/22/20 Rx metoprolol tartrate 25 mg tablet 25 mg PO BID #0 tabs 01/10/22 01/09/22 Rx Allergies Allergy/AdvReac Type Severity Reaction Status Date / Time Penicillins Allergy Intermediate hands Verified 07/22/20 21:53 swell, rash rofecoxib Allergy Mild ITCHING Verified 07/22/20 21:53 shellfish derived Allergy Unknown UNKNOWN Verified 07/22/20 21:53 Sulfa (Sulfonamide Allergy Unknown UNKNOWN Verified 07/22/20 21:53 Antibiotics) grass pollen Allergy . Verified 07/22/20 21:53 mold Allergy . Verified 07/22/20 21:53 Past Med/Surg History Medical History (Updated 02/02/23 @ 02:41 by Terrance Vazquez MD) Acute coronary syndrome Arthritis Chest pain Chronic anticoagulation Coronary artery disease Dementia Diverticulosis of colon Dyslipidemia Elevated troponin Epigastric pain History of CO (myocardial infarction) Hypertension Impaired fasting glucose Minor neurocognitive disorder New onset a-fib NSTEMI (non-ST elevated myocardial infarction) (10/13/13) Obstructive sleep apnea Paroxysmal atrial fibrillation Shingles Subcapital fracture of right hip Vitamin D deficiency Surgical History History of cardiac catheterization History of cataract surgery History of hand surgery right History of knee surgery History of open reduction and internal fixation (ORIF) procedure right hip History of tonsillectomy Family History Other No significant family history Social History Smoking Status: Unknown if ever smoked Preferred Language: Icelandic Communication Ability: Impaired Visual Impairment: No Limitations Hearing Ability: Normal Outside Food Server Required: No Beliefs That Will Affect Care: None marital status: / Current Living Situation: [facility] Current Living Situation Comment: Lives at [facility] current occupational status: retired Feels Safe at Home: Yes Childhood Exposure to Second-Hand Smoke: Yes caffeine: Yes Dental Care, Regularly: No Physical Activity Frequency: 3-4 Times per Week Seatbelt Use: always Sunscreen Use: No Physical Exam Vital Signs Vital Signs - 24 hr 02/01/23 21:39 02/01/23 22:00 02/01/23 21:38 Temperature 34.0 C L 34.0 C L Temperature Source Rectal Rectal Pulse Rate 83 80 Pulse Rate [Finger] Respiratory Rate 23 Respiratory Effort / Characteristics Gasping/Agonal Blood Pressure 128/80 Blood Pressure [Right Arm] Blood Pressure Mean 96 Blood Pressure Mean [Right Arm] Pulse Oximetry 92 Oxygen Delivery Method Nasal Cannula Oxygen Flow Rate 6 Sepsis Recent Fever Within 48 Hours No Sepsis New/Unexplained Change in Mental Status No Sepsis Action Taken by Nursing Adv Provider Notified 02/01/23 21:49 02/01/23 21:55 02/01/23 22:00 Temperature Temperature Source Pulse Rate 90 86 87 Pulse Rate [Finger] Respiratory Rate 18 22 16 Respiratory Effort / Characteristics Blood Pressure 130/77 143/87 H 140/99 Blood Pressure [Right Arm] Blood Pressure Mean 94 105 112 Blood Pressure Mean [Right Arm] Pulse Oximetry 95 96 96 Oxygen Delivery Method Nasal Cannula Room Air Room Air Oxygen Flow Rate 6 Sepsis Recent Fever Within 48 Hours Sepsis New/Unexplained Change in Mental Status Sepsis Action Taken by Nursing 02/01/23 22:06 02/01/23 22:11 02/01/23 23:36 Temperature Temperature Source Pulse Rate 83 85 41 L Pulse Rate [Finger] Respiratory Rate 16 16 Respiratory Effort / Characteristics Blood Pressure 140/70 141/80 H Blood Pressure [Right Arm] Blood Pressure Mean 93 100 Blood Pressure Mean [Right Arm] Pulse Oximetry 96 95 Oxygen Delivery Method Room Air Room Air Oxygen Flow Rate Sepsis Recent Fever Within 48 Hours Sepsis New/Unexplained Change in Mental Status Sepsis Action Taken by Nursing 02/01/23 23:00 02/02/23 00:00 Temperature 34.1 C L 34.7 C L Temperature Source Lockett Cath ( Temp Sensing) Pulse Rate Pulse Rate [Finger] 59 L Respiratory Rate 22 Respiratory Effort / Characteristics Blood Pressure Blood Pressure [Right Arm] 121/66 Blood Pressure Mean Blood Pressure Mean [Right Arm] 84 Pulse Oximetry 95 Oxygen Delivery Method Room Air Oxygen Flow Rate Sepsis Recent Fever Within 48 Hours Sepsis New/Unexplained Change in Mental Status Sepsis Action Taken by Nursing Physical Exam HENT: Exam performed. - Head: Normocephalic and atraumatic. EYES: Conjunctivae and EOM are normal. Right eye exhibits no discharge. Left eye exhibits no discharge. No scleral icterus. CV: Normal rate, regular rhythm, normal heart sounds and intact distal pulses. There is no peripheral edema. Palpable radial pulses bue. PULM/CHEST: Effort normal and breath sounds normal. No respiratory distress. No stridor. no wheezes. no rales. ABD: The abdomen is soft. There is no tenderness. Course Course 2133: The patient was evaluated in room B1. A complete history and physical exam was performed Cardiac monitoring: An order was placed for continuous cardiac monitoring. The monitor shows a rate of 80 with atrial flutter rhythm interpreted by me On arrival the patient is on nonrebreather mask. Patient was titrated to nasal cannula. On arrival the patient's manual blood pressure is within normal limits. Narcan 1.2 mg was ordered for the patient with no significant change in her mental status. Accu-Chek was within normal limits. Patient was found to be hypothermic. Sepsis protocols were initiated and the patient was started on a Pito hugger. External medical records were reviewed and the patient is listed as a DNR/DNI from her last admission in 2021. Family did arrive and stated that the patient is DNR/DNI. Daughter and granddaughter who are at bedside states that the patient is not on any blood thinners has not had any recent traumas and has a history of a hemorrhagic CVA. 2300: Blood pressure and heart rate stable on Pito hugger. Labs are significant for a potassium of 5.2. Calcium gluconate as well as 5 units of insulin and 1 amp of D50 ordered for the patient. Urinalysis does show 4+ bacteria. CT of t he head shows no ICH. Chest x-ray shows no acute infiltrate. Patient treated with cefepime for UTI causing sepsis. [facility] will be notified. Administered Medications Sodium Chloride (Nss 1000ml) 1,000 mls @ 500 mls/hr IV .Q2H ANDRE Stop: 02/02/23 04:29 Last Admin: 02/02/23 02:50 Dose: 500 mls/hr Documented By: DAKOTAH Discontinued Medications Dextrose (Dextrose 50% 50 Ml Syringe) 50 ml IV NOW STA Stop: 02/01/23 23:00 Last Admin: 02/01/23 23:50 Dose: 50 ml Documented By: DAKOTAH Sodium Chloride (Nss 1000ml) 1,000 mls @ 999 mls/hr IV .Q1H1M ONE Stop: 02/01/23 22:51 Last Infusion: 02/01/23 23:22 Dose: 0 mls/hr Documented By: Admin: 02/01/23 22:08 Dose: 999 mls/hr Documented By: DAPHNE Cefepime HCl (Maxipime) 2,000 mg in 20 mls @ 5 mls/min IV NOW STA; Protocol Stop: 02/01/23 21:54 Last Admin: 02/01/23 22:12 Dose: 5 mls/min Documented By: DAPHNE Calcium Gluconate 1,000 mg/ (Dextrose) 60 mls @ 240 mls/hr IV ONCE STA Stop: 02/01/23 23:13 Last Infusion: 02/02/23 00:21 Dose: 0 mls/hr Documented By: Admin: 02/01/23 23:50 Dose: 240 mls/hr Documented By: DAKOTAH Insulin Human Regular 5 units/ (Syringe) 5 mls @ 3 mls/sec IV ONE STA Stop: 02/01/23 23:04 Last Admin: 02/01/23 23:50 Dose: 3 mls/sec Documented By: DAKOTAH Co-signed By: ROBERTH Miscellaneous (Stat Iv) 1 each N/A NOW STA Stop: 02/01/23 23:00 Last Admin: 02/01/23 23:25 Dose: 1 each Documented By: DAKOTAH Naloxone HCl (Naloxone Hcl 0.4 Mg/1 Ml Vial/Carp) Confirm Administered Dose 2 mg .ROUTE .STK-MED ONE Stop: 02/01/23 21:34 Last Admin: 02/01/23 22:36 Dose: Not Given Documented By: DAPHNE Naloxone HCl (Naloxone Hcl 0.4 Mg/1 Ml Vial/Carp) 2 mg IV NOW STA Stop: 02/01/23 22:34 Last Admin: 02/01/23 21:36 Dose: 2 mg Documented By: DAPHNE Critical Care Time Critical Care Time: Yes Total Critical Care Time: 89 I have personally spent greater than 89 minutes of critical care time in the direct management of this patient. This includes bedside care, interpretation of diagnostic studies, and testing, discussion with consultants, patient, and family members, and other required patient management activities. This 89 minutes is in excess of all separately billable procedures. Medical Decision Making Medical Records Attestation: I reviewed the patient's medical records. External medical records reviewed. Patient is a DNR/DNI from 2021 Laboratory Data Attestation: I reviewed the patient's lab results. 02/01/23 21:45 02/01/23 21:45 Lab Results 02/01/23 02/01/23 02/01/23 Range/Units 21:39 21:42 21:45 WBC 7.51 (4.8-10.8) K/ul RBC 3.97 L (4.20-5.40) M/uL Hgb 12.6 (12.0-16.0) g/dl POC Hgb 12.9 (12.0-16.0) g/dl Hct 39.6 (37.0-47.0) % POC Hct 38 (37-47) % MCV 99.7 (80.0-100.0) fL MCH 31.7 (25.0-34.0) pg MCHC 31.8 L (32.0-36.0) g/dL RDW Std Deviation 59.2 H (36.4-46.3) fL RDW Coeff of Gerard 16.2 H (11.5-14.5) % Plt Count 220 (130-400) K/uL MPV 10.5 (9.4-12.4) fL Immature Gran % (Auto) 0.5 % Neut % (Auto) 68.3 % Lymph % (Auto) 17.3 % [place] % (Auto) 11.3 % Eos % (Auto) 2.3 % Baso % (Auto) 0.3 % Neut # (Auto) 5.13 (1.40-6.50) K/uL Lymph # (Auto) 1.30 (1.2-3.4) K/uL [place] # (Auto) 0.85 H (0.11-0.59) K/uL Eos # (Auto) 0.17 (0-0.50) K/uL Baso # (Auto) 0.02 (0-0.2) K/uL Immature Gran # (Auto) 0.04 (0.01-0.20) K/uL PT INR APTT PTT Ratio VBG pH (7.36-7.41) VBG pCO2 (38-50) mmHg VBG pO2 mmHg VBG HCO3 mmol/L VBG O2 Saturation % VBG Base Excess mEq/L POC Sodium 144 (135-144) mmol/L Sodium (136-145) mmol/L POC Potassium 4.9 (3.3-5.0) mmol/L Potassium (3.5-5.1) mmol/L POC Chloride 108 (101-112) mmol/L Chloride (98-107) mmol/L Carbon Dioxide (21-32) mmol/L POC Total CO2 29 (24-31) mmol/L Anion Gap (3-11) POC Anion Gap 14.0 L (16-25) mmol/L POC BUN 33 H (7-18) mg/dl BUN (6-23) mg/dl Creatinine (0.6-1.2) mg/dl POC Creatinine 1.1 (0.6-1.3) mg/dl Est Cr Clr Drug Dosing ml/min Est GFR ( Amer) ml/min Est GFR (Non-Af Amer) ml/min BUN/Creatinine Ratio (10-20) Glucose (70-99(Fasting)) mg/dl POC Glucose 98 (70-99) mg/dl POC Glucose (other) 91 (70-99) mg/dl Lactate (0.4-2.0) mmol/L Calcium (8.6-10.3) mg/dl POC Ioniz Calcium Moni 1.28 (1.12-1.32) mmol/l Magnesium (1.7-2.4) mg/dl Total Bilirubin (0.2-1.0) mg/dl Direct Bilirubin AST (13-39) U/L ALT (7-52) U/L Alkaline Phosphatase (34-104) U/L Ammonia (18-72) umol/L Troponin I High Sens (0-14) pg/ml Total Protein (6.0-8.3) gm/dl Albumin (3.4-5.0) gm/dl Procalcitonin (0-0.5) ng/ml Urine Color Urine Appearance (Clear) Urine pH (4.5-7.5) Ur Specific [place] (1.000-1.030) Urine Protein (Negative) Urine Glucose (UA) (Negative) Urine Ketones (Negative) Urine Blood (Negative) Urine Nitrite (Negative) Urine Bilirubin (Negative) Urine Urobilinogen (Negative) Ur Leukocyte Esterase (Negative) Urine WBC (Auto) (0-5) /hpf Urine RBC (Auto) (0-4) /hpf U Hyaline Cast (Auto) (0-5) /lpf U Epithel Cells (Auto) (0-5) /lpf Urine Bacteria (Auto) (Negative) Urine Yeast SARS-CoV-2 (PCR) (Negative) Influenza Type A (PCR) (Neg) Influenza Type B (PCR) (Neg) RSV (RT-PCR) (Neg) 02/01/23 02/01/23 02/01/23 Range/Units 21:45 21:45 21:50 WBC (4.8-10.8) K/ul RBC (4.20-5.40) M/uL Hgb (12.0-16.0) g/dl POC Hgb (12.0-16.0) g/dl Hct (37.0-47.0) % POC Hct (37-47) % MCV (80.0-100.0) fL MCH (25.0-34.0) pg MCHC (32.0-36.0) g/dL RDW Std Deviation (36.4-46.3) fL RDW Coeff of Gerard (11.5-14.5) % Plt Count (130-400) K/uL MPV (9.4-12.4) fL Immature Gran % (Auto) % Neut % (Auto) % Lymph % (Auto) % [place] % (Auto) % Eos % (Auto) % Baso % (Auto) % Neut # (Auto) (1.40-6.50) K/uL Lymph # (Auto) (1.2-3.4) K/uL [place] # (Auto) (0.11-0.59) K/uL Eos # (Auto) (0-0.50) K/uL Baso # (Auto) (0-0.2) K/uL Immature Gran # (Auto) (0.01-0.20) K/uL PT Cancelled INR Cancelled APTT Cancelled PTT Ratio Cancelled VBG pH (7.36-7.41) VBG pCO2 (38-50) mmHg VBG pO2 mmHg VBG HCO3 mmol/L VBG O2 Saturation % VBG Base Excess mEq/L POC Sodium (135-144) mmol/L Sodium 142 (136-145) mmol/L POC Potassium (3.3-5.0) mmol/L Potassium 5.2 H (3.5-5.1) mmol/L POC Chloride (101-112) mmol/L Chloride 109 H (98-107) mmol/L Carbon Dioxide 29 (21-32) mmol/L POC Total CO2 (24-31) mmol/L Anion Gap 4 (3-11) POC Anion Gap (16-25) mmol/L POC BUN (7-18) mg/dl BUN 34 H (6-23) mg/dl Creatinine 0.94 (0.6-1.2) mg/dl POC Creatinine (0.6-1.3) mg/dl Est Cr Clr Drug Dosing 40.5 ml/min Est GFR ( Amer) 62.3 ml/min Est GFR (Non-Af Amer) 53.8 ml/min BUN/Creatinine Ratio 36.2 H (10-20) Glucose 87 (70-99(Fasting)) mg/dl POC Glucose (70-99) mg/dl POC Glucose (other) (70-99) mg/dl Lactate (0.4-2.0) mmol/L Calcium 9.7 (8.6-10.3) mg/dl POC Ioniz Calcium Moni (1.12-1.32) mmol/l Magnesium 2.0 (1.7-2.4) mg/dl Total Bilirubin 0.6 (0.2-1.0) mg/dl Direct Bilirubin TNP AST 34 (13-39) U/L ALT 21 (7-52) U/L Alkaline Phosphatase 76 (34-104) U/L Ammonia (18-72) umol/L Troponin I High Sens 10.6 (0-14) pg/ml Total Protein 7.0 (6.0-8.3) gm/dl Albumin 3.5 (3.4-5.0) gm/dl Procalcitonin (0-0.5) ng/ml Urine Color Yellow Urine Appearance Turbid A (Clear) Urine pH 6.0 (4.5-7.5) Ur Specific [place] 1.020 (1.000-1.030) Urine Protein 2+ H (Negative) Urine Glucose (UA) Negative (Negative) Urine Ketones Trace H (Negative) Urine Blood 3+ H (Negative) Urine Nitrite Positive A (Negative) Urine Bilirubin Negative (Negative) Urine Urobilinogen Negative (Negative) Ur Leukocyte Esterase 3+ H (Negative) Urine WBC (Auto) >30 H (0-5) /hpf Urine RBC (Auto) 10-30 H (0-4) /hpf U Hyaline Cast (Auto) 1-5 (0-5) /lpf U Epithel Cells (Auto) >30 H (0-5) /lpf Urine Bacteria (Auto) 4+ H (Negative) Urine Yeast Not Reportable SARS-CoV-2 (PCR) (Negative) Influenza Type A (PCR) (Neg) Influenza Type B (PCR) (Neg) RSV (RT-PCR) (Neg) 02/01/23 02/01/23 02/01/23 Range/Units 22:00 22:05 22:05 WBC (4.8-10.8) K/ul RBC (4.20-5.40) M/uL Hgb (12.0-16.0) g/dl POC Hgb (12.0-16.0) g/dl Hct (37.0-47.0) % POC Hct (37-47) % MCV (80.0-100.0) fL MCH (25.0-34.0) pg MCHC (32.0-36.0) g/dL RDW Std Deviation (36.4-46.3) fL RDW Coeff of Gerard (11.5-14.5) % Plt Count (130-400) K/uL MPV (9.4-12.4) fL Immature Gran % (Auto) % Neut % (Auto) % Lymph % (Auto) % [place] % (Auto) % Eos % (Auto) % Baso % (Auto) % Neut # (Auto) (1.40-6.50) K/uL Lymph # (Auto) (1.2-3.4) K/uL [place] # (Auto) (0.11-0.59) K/uL Eos # (Auto) (0-0.50) K/uL Baso # (Auto) (0-0.2) K/uL Immature Gran # (Auto) (0.01-0.20) K/uL PT INR APTT PTT Ratio VBG pH (7.36-7.41) VBG pCO2 (38-50) mmHg VBG pO2 mmHg VBG HCO3 mmol/L VBG O2 Saturation % VBG Base Excess mEq/L POC Sodium (135-144) mmol/L Sodium (136-145) mmol/L POC Potassium (3.3-5.0) mmol/L Potassium (3.5-5.1) mmol/L POC Chloride (101-112) mmol/L Chloride (98-107) mmol/L Carbon Dioxide (21-32) mmol/L POC Total CO2 (24-31) mmol/L Anion Gap (3-11) POC Anion Gap (16-25) mmol/L POC BUN (7-18) mg/dl BUN (6-23) mg/dl Creatinine (0.6-1.2) mg/dl POC Creatinine (0.6-1.3) mg/dl Est Cr Clr Drug Dosing ml/min Est GFR ( Amer) ml/min Est GFR (Non-Af Amer) ml/min BUN/Creatinine Ratio (10-20) Glucose (70-99(Fasting)) mg/dl POC Glucose (70-99) mg/dl POC Glucose (other) (70-99) mg/dl Lactate 2.0 (0.4-2.0) mmol/L Calcium (8.6-10.3) mg/dl POC Ioniz Calcium Moni (1.12-1.32) mmol/l Magnesium (1.7-2.4) mg/dl Total Bilirubin (0.2-1.0) mg/dl Direct Bilirubin AST (13-39) U/L ALT (7-52) U/L Alkaline Phosphatase (34-104) U/L Ammonia (18-72) umol/L Troponin I High Sens (0-14) pg/ml Total Protein (6.0-8.3) gm/dl Albumin (3.4-5.0) gm/dl Procalcitonin < 0.05 (0-0.5) ng/ml Urine Color Urine Appearance (Clear) Urine pH (4.5-7.5) Ur Specific [place] (1.000-1.030) Urine Protein (Negative) Urine Glucose (UA) (Negative) Urine Ketones (Negative) Urine Blood (Negative) Urine Nitrite (Negative) Urine Bilirubin (Negative) Urine Urobilinogen (Negative) Ur Leukocyte Esterase (Negative) Urine WBC (Auto) (0-5) /hpf Urine RBC (Auto) (0-4) /hpf U Hyaline Cast (Auto) (0-5) /lpf U Epithel Cells (Auto) (0-5) /lpf Urine Bacteria (Auto) (Negative) Urine Yeast SARS-CoV-2 (PCR) NEGATIVE (Negative) Influenza Type A (PCR) Negative (Neg) Influenza Type B (PCR) Negative (Neg) RSV (RT-PCR) Negative (Neg) 02/01/23 02/01/23 02/01/23 Range/Units 22:05 22:44 22:44 WBC (4.8-10.8) K/ul RBC (4.20-5.40) M/uL Hgb (12.0-16.0) g/dl POC Hgb (12.0-16.0) g/dl Hct (37.0-47.0) % POC Hct (37-47) % MCV (80.0-100.0) fL MCH (25.0-34.0) pg MCHC (32.0-36.0) g/dL RDW Std Deviation (36.4-46.3) fL RDW Coeff of Gerard (11.5-14.5) % Plt Count (130-400) K/uL MPV (9.4-12.4) fL Immature Gran % (Auto) % Neut % (Auto) % Lymph % (Auto) % [place] % (Auto) % Eos % (Auto) % Baso % (Auto) % Neut # (Auto) (1.40-6.50) K/uL Lymph # (Auto) (1.2-3.4) K/uL [place] # (Auto) (0.11-0.59) K/uL Eos # (Auto) (0-0.50) K/uL Baso # (Auto) (0-0.2) K/uL Immature Gran # (Auto) (0.01-0.20) K/uL PT 10.3 INR 0.9 APTT 31.0 PTT Ratio 1.1 VBG pH 7.37 (7.36-7.41) VBG pCO2 52 H (38-50) mmHg VBG pO2 48 mmHg VBG HCO3 30 mmol/L VBG O2 Saturation 76.8 % VBG Base Excess 3.6 mEq/L POC Sodium (135-144) mmol/L Sodium (136-145) mmol/L POC Potassium (3.3-5.0) mmol/L Potassium (3.5-5.1) mmol/L POC Chloride (101-112) mmol/L Chloride (98-107) mmol/L Carbon Dioxide (21-32) mmol/L POC Total CO2 (24-31) mmol/L Anion Gap (3-11) POC Anion Gap (16-25) mmol/L POC BUN (7-18) mg/dl BUN (6-23) mg/dl Creatinine (0.6-1.2) mg/dl POC Creatinine (0.6-1.3) mg/dl Est Cr Clr Drug Dosing ml/min Est GFR ( Amer) ml/min Est GFR (Non-Af Amer) ml/min BUN/Creatinine Ratio (10-20) Glucose (70-99(Fasting)) mg/dl POC Glucose (70-99) mg/dl POC Glucose (other) (70-99) mg/dl Lactate (0.4-2.0) mmol/L Calcium (8.6-10.3) mg/dl POC Ioniz Calcium Moni (1.12-1.32) mmol/l Magnesium (1.7-2.4) mg/dl Total Bilirubin (0.2-1.0) mg/dl Direct Bilirubin AST (13-39) U/L ALT (7-52) U/L Alkaline Phosphatase (34-104) U/L Ammonia 28.0 (18-72) umol/L Troponin I High Sens (0-14) pg/ml Total Protein (6.0-8.3) gm/dl Albumin (3.4-5.0) gm/dl Procalcitonin (0-0.5) ng/ml Urine Color Urine Appearance (Clear) Urine pH (4.5-7.5) Ur Specific [place] (1.000-1.030) Urine Protein (Negative) Urine Glucose (UA) (Negative) Urine Ketones (Negative) Urine Blood (Negative) Urine Nitrite (Negative) Urine Bilirubin (Negative) Urine Urobilinogen (Negative) Ur Leukocyte Esterase (Negative) Urine WBC (Auto) (0-5) /hpf Urine RBC (Auto) (0-4) /hpf U Hyaline Cast (Auto) (0-5) /lpf U Epithel Cells (Auto) (0-5) /lpf Urine Bacteria (Auto) (Negative) Urine Yeast SARS-CoV-2 (PCR) (Negative) Influenza Type A (PCR) (Neg) Influenza Type B (PCR) (Neg) RSV (RT-PCR) (Neg) 02/01/23 Range/Units 22:44 WBC (4.8-10.8) K/ul RBC (4.20-5.40) M/uL Hgb (12.0-16.0) g/dl POC Hgb (12.0-16.0) g/dl Hct (37.0-47.0) % POC Hct (37-47) % MCV (80.0-100.0) fL MCH (25.0-34.0) pg MCHC (32.0-36.0) g/dL RDW Std Deviation (36.4-46.3) fL RDW Coeff of Gerard (11.5-14.5) % Plt Count (130-400) K/uL MPV (9.4-12.4) fL Immature Gran % (Auto) % Neut % (Auto) % Lymph % (Auto) % [place] % (Auto) % Eos % (Auto) % Baso % (Auto) % Neut # (Auto) (1.40-6.50) K/uL Lymph # (Auto) (1.2-3.4) K/uL [place] # (Auto) (0.11-0.59) K/uL Eos # (Auto) (0-0.50) K/uL Baso # (Auto) (0-0.2) K/uL Immature Gran # (Auto) (0.01-0.20) K/uL PT INR APTT PTT Ratio VBG pH (7.36-7.41) VBG pCO2 (38-50) mmHg VBG pO2 mmHg VBG HCO3 mmol/L VBG O2 Saturation % VBG Base Excess mEq/L POC Sodium (135-144) mmol/L Sodium (136-145) mmol/L POC Potassium (3.3-5.0) mmol/L Potassium (3.5-5.1) mmol/L POC Chloride (101-112) mmol/L Chloride (98-107) mmol/L Carbon Dioxide (21-32) mmol/L POC Total CO2 (24-31) mmol/L Anion Gap (3-11) POC Anion Gap (16-25) mmol/L POC BUN (7-18) mg/dl BUN (6-23) mg/dl Creatinine (0.6-1.2) mg/dl POC Creatinine (0.6-1.3) mg/dl Est Cr Clr Drug Dosing ml/min Est GFR ( Amer) ml/min Est GFR (Non-Af Amer) ml/min BUN/Creatinine Ratio (10-20) Glucose (70-99(Fasting)) mg/dl POC Glucose (70-99) mg/dl POC Glucose (other) (70-99) mg/dl Lactate (0.4-2.0) mmol/L Calcium (8.6-10.3) mg/dl POC Ioniz Calcium Moni (1.12-1.32) mmol/l Magnesium (1.7-2.4) mg/dl Total Bilirubin (0.2-1.0) mg/dl Direct Bilirubin 0.1 AST (13-39) U/L ALT (7-52) U/L Alkaline Phosphatase (34-104) U/L Ammonia (18-72) umol/L Troponin I High Sens (0-14) pg/ml Total Protein (6.0-8.3) gm/dl Albumin (3.4-5.0) gm/dl Procalcitonin (0-0.5) ng/ml Urine Color Urine Appearance (Clear) Urine pH (4.5-7.5) Ur Specific [place] (1.000-1.030) Urine Protein (Negative) Urine Glucose (UA) (Negative) Urine Ketones (Negative) Urine Blood (Negative) Urine Nitrite (Negative) Urine Bilirubin (Negative) Urine Urobilinogen (Negative) Ur Leukocyte Esterase (Negative) Urine WBC (Auto) (0-5) /hpf Urine RBC (Auto) (0-4) /hpf U Hyaline Cast (Auto) (0-5) /lpf U Epithel Cells (Auto) (0-5) /lpf Urine Bacteria (Auto) (Negative) Urine Yeast SARS-CoV-2 (PCR) (Negative) Influenza Type A (PCR) (Neg) Influenza Type B (PCR) (Neg) RSV (RT-PCR) (Neg) Imaging Data Attestation: I personally reviewed and interpreted this imaging study as follows: My Impression: Chest x-ray: Chest x-ray negative. Airway clear. No pneumothorax. No consolidation. No cardiomegaly or cephalization.. No free air under the diaphragm. No fractures of the skeletal structures. Radiologist's Impression: Chest X-Ray 02/01/23 21:39 SINGLE VIEW CHEST CLINICAL HISTORY: Sepsis. FINDINGS: An AP, portable, semierect chest radiograph is compared to study dated 01/05/2022. The examination is degraded by portable technique and patient rotation. The heart is enlarged and noting atherosclerotic calcification of the thoracic aorta. The pulmonary vasculature is noncongested. Chronic interstitial thickening is similar to previous. There is mild bibasilar scarring/atelectasis. The lungs and pleural spaces are otherwise clear. No pneumothorax is seen. The skeletal structures are osteopenic. The bony thorax is grossly intact. Degenerative changes noted in the shoulders and spine. IMPRESSION: Cardiomegaly with no acute cardiopulmonary abnormality identified. ACT 112: Negative or not required by law. Electronically signed by: Jamie Greenfield M.D. 02/01/2023 11:[address] 02/01/23 21:40 CT SCAN OF THE BRAIN WITHOUT IV CONTRAST CLINICAL HISTORY: Change in mental status. COMPARISON STUDY: CT of the brain dated 01/05/2022. TECHNIQUE: Unenhanced axial CT scan of the brain is performed from the vertex to the skull base. A dose lowering technique was utilized adhering to the princip les of YAMILE. CT DOSE: 625.80 mGy.cm FINDINGS: Brain parenchyma: There is age-related involutional change mild subcortical and periventricular microangiopathic disease. 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 A small chronic infarct is again seen in the high right frontoparietal region. There is no hemorrhage, mass effect, or evidence of acute territorial ischemia by CT criteria. Baker-white matter differentiation is preserved. No extra-axial fluid collection is seen. Ventricles, sulci, cisterns: Prominent secondary to involutional change. Intracranial vasculature: There is atherosclerotic calcification of the cavernous carotid and vertebral arteries. Calvarium: Unremarkable. Sinuses and mastoids: There is moderate mucosal thickening in the left sphenoid sinus. Trace mucosal thickening seen in the right sided sinus. The remaining paranasal sinuses are clear. There are large mastoid effusions. Orbits: The bony orbits are grossly intact. There are bilateral ocular lens implants. IMPRESSION: There is no hemorrhage, mass effect, or evidence of acute territorial ischemia by CT criteria. ACT 112: Negative or not required by law. Electronically signed by: Jamie Greenfield M.D. 02/01/2023 10:43 PM ECG Data Attestation: I personally reviewed and interpreted this ECG as follows: Additional Comments: EKG #1 at 2136: Atrial flutter with rate of 72. QRS [address] elev ation or ST depression. EKG #2 at 2344: Atrial fibrillation with rate of 78. QRS [address] elevation or ST depression. [facility] Narrative 2133: The patient was evaluated in room B1. A complete history and physical exam was performed Cardiac monitoring: An order was placed for continuous cardiac monitoring. The monitor shows a rate of 80 with atrial flutter rhythm interpreted by me On arrival the patient is on nonrebreather mask. Patient was titrated to nasal cannula. On arrival the patient's manual blood pressure is within normal limit s. Narcan 1.2 mg was ordered for the patient with no significant change in her mental status. Accu-Chek was within normal limits. Patient was found to be hypothermic. Sepsis protocols were initiated and the patient was started on a Pito hugger. External medical records were reviewed and the patient is listed as a DNR/DNI from her last admission in 2021. Family did arrive and stated that the patient is DNR/DNI. Daughter and granddaughter who are at bedside states that the patient is not on any blood thinners has not had any recent traumas and has a history of a hemorrhagic CVA. 2300: Blood pressure and heart rate stable on Pito hugger. Labs are significant for a potassium of 5.2. Calcium gluconate as well as 5 units of insulin and 1 amp of D50 ordered for the patient. Urinalysis does show 4+ bacteria. CT of the head shows no ICH. Chest x-ray shows no acute infiltrate. Patient treated with cefepime for UTI causing sepsis. [facility] Vazquez will be notified. Impression & Plan Sepsis, Alzheimer's dementia with behavioral disturbance, Hypothermia, Hyperkalemia Discharge Plan Visit Data Chief Complaint: Unresponsive Stated Complaint: UNRESPONSIVE, PERIODS OF APNEA, BRADYCARDIC ED Provider: Gokul Padilla Discharge Problem: Sepsis, Alzheimer's dementia with behavioral disturbance, Hypothermia, Hyperkalemia Patient Disposition: Admitted As Inpatient Forms Stand Alone Forms: My [facility] Prescriptions Prescriptions: No Action aspirin 81 mg tablet,chewable 81 mg PO DAILY cholecalciferol (vitamin D3) 2,000 unit capsule 2,000 units PO DAILY lisinopril 10 mg tablet 10 mg PO DAILY docusate sodium 100 mg Capsule 100 mg PO BID melatonin 5 mg Tablet 5 mg PO HS buspirone 5 mg tablet 5 mg PO TID trazodone 50 mg tablet 37.5 mg PO BID mirtazapine 30 mg tablet 30 mg PO HS risperidone 0.5 mg tablet 0.5 mg PO HS risperidone 0.5 mg tablet 0.25 mg PO BID acetaminophen 325 mg Tablet 650 mg PO Q6H 14 Days Qty: 0 0RF Rx Instructions: NEEDED FOR PAIN RATED 1-3 ON A SCALE OF "0-10" metoprolol tartrate 25 mg tablet 25 mg PO BID Qty: 0 0RF Referrals Referrals: Alphonso Singh MD [Primary Care Provider] - Sepsis Qualifiers: Sepsis type: sepsis due to unspecified organism Sepsis acute organ dysfunction status: unspecified Qualified Code(s): A41.9 - Sepsis, unspecified organism
[2023-02-02] MEDS ORDERED: SODIUM CHLORIDE 0.9% 1000ML 1,000 ML IV SCH (02:30)
--- NOTE | 2023-02-02 02:43 | History & Physical Report ---
Date of Service February 02, 2023 Assessment & Plan (1) Unresponsive: Plan: 87-year-old female coming from [facility] with past medical history significant for paroxysmal atrial fibrillation, cerebral amyloid angiopathy, hypertension, history of CAD, history of compression fracture of L2, closed fracture of sacrum, osteoporosis, late onset Alzheimer's disease, psychosis, anxiety, history of non-ST elevated VT, presents with unresponsiveness and found to hypothermia and UTI. Unresponsive Hypothermia UTI CT head is okay Worsening Alzheimer's disease and severe dementia ER gave IV cefepime. Will start on meropenem IV Vanco for now until cultures are available MRSA screen IV fluids Continue Pito hugger Close monitor on the telemetry floor Hypothermia Mostly from sepsis We will check TSH levels Continue Pito hugger Improving Will monitor Sepsis UTI Antibiotics as able, IV fluids We will follow the cultures Alzheimer's disease History of psychosis Anxiety We will hold her home medications of risperidone trazodone and Remeron for now as patient is unresponsive We will monitor for delirium History of CAD On aspirin and beta-valente We will continue beta-valente with holding parameters Hypertension continue metoprolol Hold lisinopril for now Paroxysmal A-fib On metoprolol and aspirin Will monitor DVT prophylaxis heparin subcu Disposition close monitoring telemetry CODE STATUS DNR/DNI as per my discussion with the daughter (2) Hypothermia: (3) Sepsis: (4) Hyperkalemia: History of Present Illness Chief Complaint: Unresponsive, hypothermia, UTI Primary Care Provider: Alphonso Singh MD 87-year-old female coming from [facility] with past medical history significant for paroxysmal atrial fibrillation, cerebral amyloid angiopathy, hypertension, history of CAD, history of compression fracture of L2, closed fracture of sacrum, osteoporosis, late onset Alzheimer's disease, psychosis, anxiety, history of non-ST elevated VT, presents with unresponsiveness and found to hypothermia and UTI. Patient receives 1 L warm fluid and on Pito hugger and received IV cefepime. Patient still very drowsy not arousable moans with painful stimuli. Not able to reach [facility]. Saturating okay. Blood pressure is okay. As per daughter patient's Alzheimer's disease is getting worse and since springtime she is mostly sleepy. Patient knows her name but does not know where she is as per the daughter. Daughter states that since last 2 weeks patient's stop recognizing the daughter. As per daughter patient was found in the room tachypneic and hypothermic and was brought in here. As per daughter since year ago when she had fallen and had C5 fracture she is nonambulatory. She she needs to be slinged into wheelchair. Patient's eating very soft diet and she needs to be fed. As per as per daughter no recent fever or nausea or vomiting or diarrhea as far as she knows. Allergies Allergy/AdvReac Type Severity Reaction Status Date / Time Penicillins Allergy Intermediate hands Verified 07/22/20 21:53 swell, rash rofecoxib Allergy Mild ITCHING Verified 07/22/20 21:53 shellfish derived Allergy Unknown UNKNOWN Verified 07/22/20 21:53 Sulfa (Sulfonamide Allergy Unknown UNKNOWN Verified 07/22/20 21:53 Antibiotics) grass pollen Allergy . Verified 07/22/20 21:53 mold Allergy . Verified 07/22/20 21:53 Home Medications Medication Instructions Recorded Confirmed Type cholecalciferol (vitamin D3) 50 2,000 units PO DAILY 04/07/19 07/22/20 History mcg (2,000 unit) capsule aspirin 81 mg chewable tablet 81 mg PO DAILY 07/03/19 07/22/20 History docusate sodium 100 mg capsule 100 mg PO BID 07/22/20 07/22/20 History lisinopril 10 mg tablet 10 mg PO DAILY 07/22/20 07/22/20 History melatonin 5 mg tablet 5 mg PO HS 07/22/20 07/22/20 History buspirone 5 mg tablet 5 mg PO TID 01/09/22 01/09/22 History mirtazapine 30 mg tablet 30 mg PO HS 01/09/22 01/09/22 History risperidone 0.5 mg tablet 0.25 mg PO BID 01/09/22 01/09/22 History risperidone 0.5 mg tablet 0.5 mg PO HS 01/09/22 01/09/22 History trazodone 50 mg tablet 37.5 mg PO BID 01/09/22 01/09/22 History acetaminophen 325 mg tablet 650 mg PO Q6H 14 days #0 tabs 01/10/22 07/22/20 Rx metoprolol tartrate 25 mg tablet 25 mg PO BID #0 tabs 01/10/22 01/09/22 Rx Past Med/Surg History Medical History (Updated 02/02/23 @ 02:41 by Terrance Vazquez MD) Acute coronary syndrome Arthritis Chest pain Chronic anticoagulation Coronary artery disease Dementia Diverticulosis of colon Dyslipidemia Elevated troponin Epigastric pain History of VT (myocardial infarction) Hypertension Impaired fasting glucose Minor neurocognitive disorder New onset a-fib NSTEMI (non-ST elevated myocardial infarction) (10/13/13) Obstructive sleep apnea Paroxysmal atrial fibrillation Shingles Subcapital fracture of right hip Vitamin D deficiency Surgical History History of cardiac catheterization History of cataract surgery History of hand surgery right History of knee surgery History of open reduction and internal fixation (ORIF) procedure right hip History of tonsillectomy Family History Other No significant family history Social History Smoking Status: Unknown if ever smoked Preferred Language: Romansh Communication Ability: Impaired Visual Impairment: No Limitations Hearing Ability: Normal Mother Superior Required: No Beliefs That Will Affect Care: None marital status: / Current Living Situation: [facility] Current Living Situation Comment: Lives at [facility] current occupational status: retired Feels Safe at Home: Yes Childhood Exposure to Second-Hand Smoke: Yes caffeine: Yes Dental Care, Regularly: No Physical Activity Frequency: 3-4 Times per Week Seatbelt Use: always Sunscreen Use: No Review of Systems Review of Systems: Unobtainable due to reduced consciousness Physical Exam Physical Exam: General- drowsy Head- atraumatic Eyes- PERRL ENT- dry Neck- no neck masses seen Lungs- clear to auscultation and percussion Heart- regular rhythm; no murmur, no gallop, no rub appreciated Abdomen- normal bowel sounds, soft, no distension Extremities- no pretibial edema, no erythema seen Neuro- very drowsy, moves extremities and moans on painful stimuli Skin- warm & dry Results & Data Results & Data Vital Signs (Past 12 Hours) Vital Signs Temp Pulse Pulse Resp BP BP Pulse Ox 02/02/23 00:00 34.7 C L 59 L 22 121/66 95 02/01/23 23:00 34.1 C L 02/01/23 23:36 41 L 02/01/23 22:11 85 16 141/80 H 95 02/01/23 22:06 83 16 140/70 96 02/01/23 22:00 87 16 140/99 96 02/01/23 21:55 86 22 143/87 H 96 02/01/23 21:49 90 18 130/77 95 02/01/23 21:38 80 02/01/23 22:00 34.0 C L 02/01/23 21:39 34.0 C L 83 23 128/80 92 O2 Del Method O2 Flow Rate 02/02/23 00:00 Room Air 02/01/23 23:00 02/01/23 23:36 02/01/23 22:11 Room Air 02/01/23 22:06 Room Air 02/01/23 22:00 Room Air 02/01/23 21:55 Room Air 02/01/23 21:49 Nasal Cannula 6 02/01/23 21:38 02/01/23 22:00 02/01/23 21:39 Nasal Cannula 6 Diagnostic Findings Laboratory Results WBC 7.51 K/ul (4.8-10.8) 02/01/23 21:45 RBC 3.97 M/uL (4.20-5.40) L 02/01/23 21:45 Hgb 12.6 g/dl (12.0-16.0) 02/01/23 21:45 POC Hgb 12.9 g/dl (12.0-16.0) 02/01/23 21:42 Hct 39.6 % (37.0-47.0) 02/01/23 21:45 POC Hct 38 % (37-47) 02/01/23 21:42 MCV 99.7 fL (80.0-100.0) 02/01/23 21:45 MCH 31.7 pg (25.0-34.0) 02/01/23 21:45 MCHC 31.8 g/dL (32.0-36.0) L 02/01/23 21:45 RDW Std Deviation 59.2 fL (36.4-46.3) H 02/01/23 21:45 RDW Coeff of Gerard 16.2 % (11.5-14.5) H 02/01/23 21:45 Plt Count 220 K/uL (130-400) 02/01/23 21:45 MPV 10.5 fL (9.4-12.4) 02/01/23 21:45 Immature Gran % (Auto) 0.5 % 02/01/23 21:45 Neut % (Auto) 68.3 % 02/01/23 21:45 Lymph % (Auto) 17.3 % 02/01/23 21:45 [place] % (Auto) 11.3 % 02/01/23 21:45 Eos % (Auto) 2.3 % 02/01/23 21:45 Baso % (Auto) 0.3 % 02/01/23 21:45 Neut # (Auto) 5.13 K/uL (1.40-6.50) 02/01/23 21:45 Lymph # (Auto) 1.30 K/uL (1.2-3.4) 02/01/23 21:45 [place] # (Auto) 0.85 K/uL (0.11-0.59) H 02/01/23 21:45 Eos # (Auto) 0.17 K/uL (0-0.50) 02/01/23 21:45 Baso # (Auto) 0.02 K/uL (0-0.2) 02/01/23 21:45 Immature Gran # (Auto) 0.04 K/uL (0.01-0.20) 02/01/23 21:45 PT 10.3 Seconds (9.0-12.0) 02/01/23 22:44 INR 0.9 (0.9-1.1) 02/01/23 22:44 APTT 31.0 Seconds (21.0-31.0) 02/01/23 22:44 PTT Ratio 1.1 02/01/23 22:44 VBG pH 7.37 (7.36-7.41) 02/01/23 22:44 VBG pCO2 52 mmHg (38-50) H 02/01/23 22:44 VBG pO2 48 mmHg 02/01/23 22:44 VBG HCO3 30 mmol/L 02/01/23 22:44 VBG O2 Saturation 76.8 % 02/01/23 22:44 VBG Base Excess 3.6 mEq/L 02/01/23 22:44 POC Sodium 144 mmol/L (135-144) 02/01/23 21:42 Sodium 142 mmol/L (136-145) 02/01/23 21:45 POC Potassium 4.9 mmol/L (3.3-5.0) 02/01/23 21:42 Potassium 5.2 mmol/L (3.5-5.1) H 02/01/23 21:45 POC Chloride 108 mmol/L (101-112) 02/01/23 21:42 Chloride 109 mmol/L (98-107) H 02/01/23 21:45 Carbon Dioxide 29 mmol/L (21-32) 02/01/23 21:45 POC Total CO2 29 mmol/L (24-31) 02/01/23 21:42 Anion Gap 4 (3-11) 02/01/23 21:45 POC Anion Gap 14.0 mmol/L (16-25) L 02/01/23 21:42 POC BUN 33 mg/dl (7-18) H 02/01/23 21:42 BUN 34 mg/dl (6-23) H 02/01/23 21:45 Creatinine 0.94 mg/dl (0.6-1.2) 02/01/23 21:45 POC Creatinine 1.1 mg/dl (0.6-1.3) 02/01/23 21:42 Est Cr Clr Drug Dosing 40.5 ml/min 02/01/23 21:45 Est GFR ( Amer) 62.3 ml/min 02/01/23 21:45 Est GFR (Non-Af Amer) 53.8 ml/min 02/01/23 21:45 BUN/Creatinine Ratio 36.2 (10-20) H 02/01/23 21:45 Glucose 87 mg/dl (70-99(Fasting)) 02/01/23 21:45 POC Glucose 98 mg/dl (70-99) 02/01/23 21:39 POC Glucose (other) 91 mg/dl (70-99) 02/01/23 21:42 Lactate 2.0 mmol/L (0.4-2.0) 02/01/23 22:05 Calcium 9.7 mg/dl (8.6-10.3) 02/01/23 21:45 POC Ioniz Calcium Moni 1.28 mmol/l (1.12-1.32) 02/01/23 21:42 Magnesium 2.0 mg/dl (1.7-2.4) 02/01/23 21:45 Total Bilirubin 0.6 mg/dl (0.2-1.0) 02/01/23 21:45 Direct Bilirubin 0.1 mg/dl (0-0.2) 02/01/23 22:44 AST 34 U/L (13-39) 02/01/23 21:45 ALT 21 U/L (7-52) 02/01/23 21:45 Alkaline Phosphatase 76 U/L (34-104) 02/01/23 21:45 Ammonia 28.0 umol/L (18-72) 02/01/23 22:05 Troponin I High Sens 10.6 pg/ml (0-14) 02/01/23 21:45 Total Protein 7.0 gm/dl (6.0-8.3) 02/01/23 21:45 Albumin 3.5 gm/dl (3.4-5.0) 02/01/23 21:45 Procalcitonin < 0.05 ng/ml (0-0.5) 02/01/23 22:05 Urine Color Yellow 02/01/23 21:50 Urine Appearance Turbid (Clear) A 02/01/23 21:50 Urine pH 6.0 (4.5-7.5) 02/01/23 21:50 Ur Specific [place] 1.020 (1.000-1.030) 02/01/23 21:50 Urine Protein 2+ (Negative) H 02/01/23 21:50 Urine Glucose (UA) Negative (Negative) 02/01/23 21:50 Urine Ketones Trace (Negative) H 02/01/23 21:50 Urine Blood 3+ (Negative) H 02/01/23 21:50 Urine Nitrite Positive (Negative) A 02/01/23 21:50 Urine Bilirubin Negative (Negative) 02/01/23 21:50 Urine Urobilinogen Negative (Negative) 02/01/23 21:50 Ur Leukocyte Esterase 3+ (Negative) H 02/01/23 21:50 Urine WBC (Auto) >30 /hpf (0-5) H 02/01/23 21:50 Urine RBC (Auto) 10-30 /hpf (0-4) H 02/01/23 21:50 U Hyaline Cast (Auto) 1-5 /lpf (0-5) 02/01/23 21:50 U Epithel Cells (Auto) >30 /lpf (0-5) H 02/01/23 21:50 Urine Bacteria (Auto) 4+ (Negative) H 02/01/23 21:50 Urine Yeast Not Reportable 02/01/23 21:50 SARS-CoV-2 (PCR) NEGATIVE (Negative) 02/01/23 22:00 Influenza Type A (PCR) Negative (Neg) 02/01/23 22:00 Influenza Type B (PCR) Negative (Neg) 02/01/23 22:00 RSV (RT-PCR) Negative (Neg) 02/01/23 22:00 Impressions Chest X-Ray 02/01/23 21:39 SINGLE VIEW CHEST CLINICAL HISTORY: Sepsis. FINDINGS: An AP, portable, semierect chest radiograph is compared to study dated 01/05/2022. The examination is degraded by portable technique and patient rotation. The heart is enlarged and noting atherosclerotic calcification of the thoracic aorta. The pulmonary vasculature is noncongested. Chronic interstitial thickening is similar to previous. There is mild bibasilar scarring/atelectasis. The lungs and pleural spaces are otherwise clear. No pneumothorax is seen. The skeletal structures are osteopenic. The bony thorax is grossly intact. Degenerative changes noted in the shoulders and spine. IMPRESSION: Cardiomegaly with no acute cardiopulmonary abnormality identified. ACT 112: Negative or not required by law. Electronically signed by: Jamie Greenfield M.D. 02/01/2023 11:[address] 02/01/23 21:40 CT SCAN OF THE BRAIN WITHOUT IV CONTRAST CLINICAL HISTORY: Change in mental status. COMPARISON STUDY: CT of the brain dated 01/05/2022. TECHNIQUE: Unenhanced axial CT scan of the brain is performed from the vertex to the skull base. A dose lowering technique was utilized adhering to the principles of ALARA. CT DOSE: 625.80 mGy.cm FINDINGS: Brain parenchyma: There is age-related involutional change mild subcortical and periventricular microangiopathic disease. 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 A small chronic infarct is again seen in the high right frontoparietal region. There is no hemorrhage, mass effect, or evidence of acute territorial ischemia by CT criteria. Baker-white matter differentiation is preserved. No extra-axial fluid collection is seen. Ventricles, sulci, cisterns: Prominent secondary to involutional change. Intracranial vasculature: There is atherosclerotic calcification of the cavernous carotid and vertebral arteries. Calvarium: Unremarkable. Sinuses and mastoids: There is moderate mucosal thickening in the left sphenoid sinus. Trace mucosal thickening seen in the right sided sinus. The remaining paranasal sinuses are clear. There are large mastoid effusions. Orbits: The bony orbits are grossly intact. There are bilateral ocular lens implants. IMPRESSION: There is no hemorrhage, mass effect, or evidence of acute territorial ischemia by CT criteria. ACT 112: Negative or not required by law. Electronically signed by: Jamie Greenfield M.D. 02/01/2023 10:43 PM ECG Additional Comments: ECG A-fib at a rate of [address] abnormality seen (3) Sepsis Sepsis acute organ dysfunction status: unspecified Sepsis type: sepsis due to unspecified organism Qualified Code(s): A41.9 - Sepsis, unspecified organism
[2023-02-02] MEDS ORDERED: VANCOMYCIN CONSULT ACTIVE PRN (05:10)
[2023-02-02] MEDS ORDERED: NITROGLYCERIN SL 0.4 MG/TAB TAB SL PRN (05:10)
[2023-02-02] MEDS ORDERED: VANCOMYCIN HCL 1,000 MG in SODIUM CHLORIDE 0.9% 250 ML IV SCH (05:10)
[2023-02-02] MEDS ORDERED: VANCOMYCIN HCL 1,750 MG in SODIUM CHLORIDE 0.9% 500 ML IV ONE (06:00)
[2023-02-02] MEDS ORDERED: VANCOMYCIN HCL 1,500 MG in SODIUM CHLORIDE 0.9% 500 ML IV ONE (06:00)
[2023-02-02] MEDS: SODIUM CHLORIDE 0.9% 1000ML 1,000 ML IV SCH ×3 (06:07→22:03)
[2023-02-02] MEDS: MEROPENEM 500 MG in SYRINGE 0 ML IV SCH ×3 (06:19→21:58)
[2023-02-02 06:27] LABS: Basophils # (auto) 0.02 K/uL (0-0.2); Basophils % (auto) 0.2 %; Eosinophils # (auto) 0.06 K/uL (0-0.50); Eosinophils % (auto) 0.6 %; Hematocrit (blood only) 33.9 % (37.0-47.0); Hemoglobin 11.1 g/dl (12.0-16.0); Immature Granulocytes # (auto) 0.05 K/uL (0.01-0.20); Immature Granulocytes % (auto) 0.5 %; Lymphocytes # (auto) 0.98 K/uL (1.2-3.4); Lymphocytes % (auto) 9.9 %; Mean Corpuscular Hemoglobin 32.4 pg (25.0-34.0); Mean Corpuscular Hgb Conc 32.7 g/dL (32.0-36.0); Mean Corpuscular Volume 98.8 fL (80.0-100.0); Mean Platelet Volume 10.7 fL (9.4-12.4); Monocytes # (auto) 1.16 K/uL (0.11-0.59); Monocytes % (auto) 11.7 %; Neutrophils # (auto) 7.63 K/uL (1.40-6.50); Neutrophils % (auto) 77.1 %; Platelet Count 227 K/uL (130-400); RDW Coefficient of Variation 16.6 % (11.5-14.5); RDW Standard Deviation 59.6 fL (36.4-46.3); Red Blood Count 3.43 M/uL (4.20-5.40)
[2023-02-02 06:40] LABS: BUN Creatinine Ratio 36.3 (10-20); Creatinine Clr Calc Pharmacy 41.9 ml/min; Est GFR (African American) 64.8 ml/min; Est GFR (Non-African American) 55.9 ml/min; Magnesium 1.7 mg/dl (1.7-2.4); Potassium 4.6 mmol/L (3.5-5.1)
[2023-02-02] MEDS ORDERED: SODIUM CHLORIDE 0.9% 500 ML IV SCH (07:15)
[2023-02-02] MEDS: ASPIRIN 81 MG ECTAB PO SCH (09:02)
[2023-02-02] MEDS: DOCUSATE SODIUM 100 MG CAP PO SCH ×2 (09:03→21:55)
[2023-02-02] MEDS: CHOLECALCIFEROL 1,000 UNITS 25 MCG TAB PO SCH (09:03)
[2023-02-02] MEDS: METOPROLOL TARTRATE 25 MG TAB PO SCH ×2 (09:03→21:55)
[2023-02-02] MEDS: HEPARIN SOD 5,000 UNIT/0.5 ML VIAL SQ SCH ×2 (09:14→21:58)
--- NOTE | 2023-02-02 10:51 | Pharmacy Report ---
Pharmacy PK ABX Note - Date of Service February 02, 2023 - Assessment and Plan Assessment 87 year old F receiving Vancomycin and Meropenem empirically for treatment of possible UTI. * Day #1 of antimicrobial therapy. * PMHx significant for Alzheimer's dementia. * Labs/Vitals: Hypothermic at 34.0oC upon arrival to ED. Pito hugger applied and patient's temp was actually high at 37.8oC this morning. No leukocytosis. SCr appears to be near baseline at 0.9 mg/dL. Lactate and procalcitonin normal. UA positive for nitrites, 3+ leukocyte esterases and >30 for both WBCs and epithelial cells. * Micro: Blood and urine cultures both pending. MRSA nasal swab negative. * Recommendations: Patient does not meet sepsis criteria and has no previous cultures or risk factors to indicate need for broad spectrum antibiotics. Recommend de-escalation to ceftriaxone only at this time. Has received cephalosporins safely in the past. Plan Vancomycin * Loading dose: 1500 mg IV x 1 * Maintenance dose: 1250 mg IV every 24 hours * Regimen is predicted to achieve target AUC/ALLIE of 400-600 mg/L.hr * No level will be ordered unless therapy extends beyond 48 hours Meropenem * 500 mg IV every 8 hours remains appropriate per renal function Pharmacy will continue to follow and will adjust dose/frequency as necessary. Thank you. Pharmacy has transitioned to AUC monitoring for vancomycin. AUC/ALLIE is the preferred PK/PD target and is associated with decreased risk of nephrotoxicity compared to traditional trough targets.
--- NOTE | 2023-02-02 14:16 | Electrocardiogram Report ---
Test Reason : Blood Pressure : / mmHG Vent. Rate : 078 BPM Atrial Rate : 000 BPM P-R Int : 000 ms QRS Dur : 094 ms QT Int : 368 ms P-R-T Axes : 000 026 007 degrees QTc Int : 419 ms Poor data quality, interpretation may be adversely affected Atrial fibrillation Low voltage QRS Old Inferior infarct (cited on or before 18-AUG-2003) Abnormal ECG When compared with ECG of 01-FEB-2023 21:36, No significant change Confirmed by Mark Schmitt ([id number]) on 02/02/2023 12:25:06 PM Referred By: Antwon oconnor [facility] Confirmed By:Mark Schmitt
--- NOTE | 2023-02-02 14:16 | Electrocardiogram Report ---
Test Reason : Blood Pressure : / mmHG Vent. Rate : 072 BPM Atrial Rate : 366 BPM P-R Int : 000 ms QRS Dur : 094 ms QT Int : 366 ms P-R-T Axes : 000 -11 044 degrees QTc Int : 400 ms Poor data quality, interpretation may be adversely affected Atrial flutter with variable A-V block Old Inferior infarct (cited on or before 18-AUG-2003) Abnormal ECG When compared with ECG of 05-JAN-2022 17:31, HR has increased by 31 bpm Confirmed by Mark Schmitt ([id number]) on 02/02/2023 12:21:09 PM Referred By: Antwon oconnor [facility] Confirmed By:Mark Schmitt
[2023-02-02] MEDS ORDERED: VANCOMYCIN HCL 1,250 MG in SODIUM CHLORIDE 0.9% 250 ML IV SCH (16:00)
--- NOTE | 2023-02-02 18:18 | Hospitalist Progress Note ---
Date of Service February 02, 2023 Assessment & Plan Admission and Anticipated Discharge Date Admission Date: February 02, 2023 Subjective Patient admitted overnight. Seen first in the ER in the morning. Barely re sponsive. Does not follow commands. Does not open eyes or answer questions. Discussed with RN at the bedside in ER. Heart rate improved, blood pressure and temperature improved but BP still on lower side. annie hugger was removed. Continue with IV antibiotics, IV fluids. Patient reassessed in the afternoon, on the floor, with her RN at the bedside. Patient opens eyes but does not answer questions. Moves extremities. Per RN, patient was voicing discomfort with movement and nursing care. Patient more responsive now. Blood pressure increased/improved. Temperature normal. Per RN, family was updated and plans to visit tomorrow. We will continue to closely monitor. Continue IV antibiotics, follow cultures. MD Latoya Results & Data Results & Data Vital Signs (Past 12 Hours) Vital Signs Temp Pulse Pulse Resp BP BP Pulse Ox 02/02/23 16:00 02/02/23 17:05 36.5 C 108 H 20 144/95 H 94 02/02/23 11:32 02/02/23 11:26 99 H 15 116/58 L 95 02/02/23 10:00 99 H 24 96 02/02/23 10:00 36.7 C 124/83 02/02/23 09:00 90 18 92 02/02/23 09:00 98/69 L 02/02/23 08:30 121/77 02/02/23 08:30 121 H 23 94 02/02/23 08:00 37.5 C 100 H 22 91 02/02/23 08:00 105/61 02/02/23 07:30 103/61 02/02/23 07:30 108 H 24 90 02/02/23 07:00 113 H 28 H 92 02/02/23 07:00 104/56 L 02/02/23 06:30 113 H 26 H 98/53 L 90 02/02/23 06:18 107 H 22 101/77 90 02/02/23 06:37 37.8 C H Pulse Ox O2 Del Method O2 Del Method 02/02/23 16:00 Room Air 02/02/23 17:05 Room Air 02/02/23 11:32 95 Room Air 07/21/23 11:26 Room Air 02/02/23 10:00 02/02/23 10:00 02/02/23 09:00 02/02/23 09:00 02/02/23 08:30 02/02/23 08:30 02/02/23 08:00 02/02/23 08:00 02/02/23 07:30 02/02/23 07:30 02/02/23 07:00 02/02/23 07:00 02/02/23 06:30 02/02/23 06:18 02/02/23 06:37
[2023-02-03] MEDS: MEROPENEM 500 MG in SYRINGE 0 ML IV SCH (06:09)
--- NOTE | 2023-02-03 07:26 | Hospitalist Progress Note ---
Date of Service February 03, 2023 Assessment & Plan (1) Unresponsive: Plan: 87-year-old female coming from [facility] with past medical history significant for paroxysmal atrial fibrillation, cerebral amyloid angiopathy, hypertension, history of CAD, history of compression fracture of L2, closed fracture of sacrum, osteoporosis, late onset Alzheimer's disease, psychosis, anxiety, history of non-ST elevated [place], presents with unresponsiveness and found to be hypothermic and UTI. Unresponsive Hypothermia UTI CT head negative Worsening Alzheimer's disease and severe dementia ER gave IV cefepime. Started on meropenem and IV Vancomycin on admission - until cultures are available MRSA screen negative IV fluids Pito hugger now stopped as hypothermia has resolved Close monitor on the telemetry floor Hypothermia- resolved Mostly from sepsis TSH 1.8 (wnl) Continue Pito hugger- dc'ed Will monitor Sepsis UTI- ucultx positive for Proteus mirabilis Blood cultx - negative so far Cont. Antibiotics - will dc meropenem, vanvo - will start cefazolin We will follow the final cultures Alzheimer's disease History of psychosis Anxiety We will hold her home medications of risperidone trazodone and Remeron for now as patient is very drowsy We will monitor for delirium History of CAD On aspirin and beta-valente We will continue beta-valente with holding parameters Hypertension continue metoprolol Hold lisinopril for now Paroxysmal A-fib On metoprolol and aspirin Will monitor DVT prophylaxis heparin subcu Disposition close monitoring telemetry CODE STATUS DNR/DNI as per admitting provider's discussion with the daughter (2) Hypothermia: (3) Sepsis: (4) Hyperkalemia: Admission and Anticipated Discharge Date Admission Date: February 02, 2023 Subjective Patient seen in follow up of unresponsiveness, sepsis, UTI, hx of dementia Pt more responsive now, evaluated by speech therapist for possible PO intake However doesn't answer my questions, appears comfortable, moves extremities Review of Systems Review of Systems: Unobtainable due to cognitive status Physical Exam Physical Exam: General- elderly obese F , drowsy Head- atraumatic Eyes- PERRL ENT- dry Neck- supple, no neck masses seen Lungs- clear to auscultation and percussion Heart- regular rhythm; no murmur Abdomen- normal bowel sounds, soft, no distension, + obese Extremities- no pretibial edema, no erythema seen Neuro- very drowsy, but opens eyes when moved , moves extremities Skin- warm & dry Results & Data Results & Data Vital Signs (Past 12 Hours) Vital Signs Temp Pulse Pulse Resp BP Pulse Ox O2 Del Method 02/03/23 04:03 36.4 C L 107 H 22 128/80 95 Room Air 02/02/23 22:30 97 H 02/02/23 23:42 36.7 C 106 H 21 144/67 H 94 Room Air Medications Administered Current Inpatient Medications Aspirin (Aspirin 81 Mg Ectab) 81 mg PO DAILY ANDRE Stop: 03/04/23 08:59 Last Admin: 02/02/23 09:02 Dose: Not Given Docusate Sodium (Docusate Sodium 100 Mg Cap) 100 mg PO BID ANDRE Stop: 03/04/23 08:59 Last Admin: 02/02/23 21:55 Dose: Not Given Heparin Sodium (Porcine) (Heparin Sod 5,000 Unit/0.5 Ml Vial) 5,000 units SQ Q1 2 ANDRE Stop: 03/04/23 08:59 Last Admin: 02/02/23 21:58 Dose: 5,000 units Sodium Chloride (Nss 1000ml) 1,000 mls @ 100 mls/hr IV .Q10H [facility] Stop: 03/04/23 05:09 Last Admin: 02/02/23 22:03 Dose: 100 mls/hr Meropenem 500 mg/ Syringe 10 mls @ 2 mls/min IV Q8H [facility]; Protocol Stop: 02/12/23 05:59 Last Admin: 02/03/23 06:09 Dose: 2 mls/min Vancomycin HCl 1,250 mg/ (Sodium Chloride) 275 mls @ 200 mls/hr IV Q24H [facility] Stop: 02/04/23 15:59 Last Infusion: 02/02/23 19:47 Dose: Infused Metoprolol Tartrate (Metoprolol Tartrate 25 Mg Tab) 25 mg PO BID ANDRE Stop: 03/04/23 08:59 Last Admin: 02/02/23 21:55 Dose: Not Given Miscellaneous Information (Vancomycin Consult Active) 1 each N/A UD PRN PRN Reason: Consult Stop: 03/04/23 05:09 Nitroglycerin (Nitroglycerin Sl 0.4 Mg/Tab Tab) 0.4 mg SL Q5M PRN PRN Reason: Chest Pain Stop: 03/04/23 05:09 Vitamin D (Cholecalciferol 1,000 Units 25 Mcg Tab) 2,000 units PO DAILY ANDRE Stop: 03/04/23 08:59 Last Admin: 02/02/23 09:03 Dose: Not Given (3) Sepsis Sepsis acute organ dysfunction status: unspecified Sepsis type: sepsis due to unspecified organism Qualified Code(s): A41.9 - Sepsis, unspecified organism
[2023-02-03 07:34] LABS: Hematocrit (blood only) 35.2 % (37.0-47.0); Hemoglobin 11.6 g/dl (12.0-16.0); Mean Corpuscular Hemoglobin 31.8 pg (25.0-34.0); Mean Corpuscular Volume 96.4 fL (80.0-100.0); Mean Platelet Volume 10.4 fL (9.4-12.4); Platelet Count 206 K/uL (130-400); RDW Coefficient of Variation 16.6 % (11.5-14.5); RDW Standard Deviation 58.9 fL (36.4-46.3); Red Blood Count 3.65 M/uL (4.20-5.40); White Blood Count 7.58 K/ul (4.8-10.8)
[2023-02-03] MEDS: SODIUM CHLORIDE 0.9% 1000ML 1,000 ML IV SCH (08:15)
[2023-02-03] MEDS: ASPIRIN 81 MG ECTAB PO SCH (08:16)
[2023-02-03] MEDS: METOPROLOL TARTRATE 25 MG TAB PO SCH ×3 (08:16→20:12)
[2023-02-03] MEDS: DOCUSATE SODIUM 100 MG CAP PO SCH (08:16)
[2023-02-03] MEDS: CHOLECALCIFEROL 1,000 UNITS 25 MCG TAB PO SCH (08:16)
[2023-02-03 08:51] LABS: BUN Creatinine Ratio 29.1 (10-20); Calcium 8.7 mg/dl (8.6-10.3); Creatinine Clr Calc Pharmacy 47.7 ml/min; Est GFR (African American) 76.9 ml/min; Est GFR (Non-African American) 66.4 ml/min; Magnesium 1.6 mg/dl (1.7-2.4); Phosphorus 2.1 mg/dl (2.5-4.9); Potassium 4.1 mmol/L (3.5-5.1)
[2023-02-03] MEDS: HEPARIN SOD 5,000 UNIT/0.5 ML VIAL SQ SCH ×2 (08:51→20:12)
[2023-02-03] MEDS: ceFAZolin 2000MG 2,000 MG/15 ML SYR IV SCH (12:33)
[2023-02-03] MEDS ORDERED: Nursing to Pharmacy Communication SCH (20:15)
[2023-02-03] MEDS: DOCUSATE SODIUM SYRUP 100 MG/10 ML UDC PO SCH (22:46)
[2023-02-04] MEDS: ceFAZolin 2000MG 2,000 MG/15 ML SYR IV SCH ×3 (00:41→22:36)
[2023-02-04 07:05] LABS: Hematocrit (blood only) 37.1 % (37.0-47.0); Hemoglobin 11.8 g/dl (12.0-16.0); Mean Corpuscular Hemoglobin 31.3 pg (25.0-34.0); Mean Corpuscular Hgb Conc 31.8 g/dL (32.0-36.0); Mean Corpuscular Volume 98.4 fL (80.0-100.0); Mean Platelet Volume 10.7 fL (9.4-12.4); Platelet Count 210 K/uL (130-400); RDW Coefficient of Variation 16.8 % (11.5-14.5); Red Blood Count 3.77 M/uL (4.20-5.40); White Blood Count 9.09 K/ul (4.8-10.8)
[2023-02-04 07:10] LABS: BUN Creatinine Ratio 24.1 (10-20); Calcium 9.2 mg/dl (8.6-10.3); Creatinine Clr Calc Pharmacy 45.4 ml/min; Est GFR (African American) 72.5 ml/min; Est GFR (Non-African American) 62.5 ml/min; Magnesium 1.6 mg/dl (1.7-2.4); Phosphorus 2.1 mg/dl (2.5-4.9); Potassium 4.2 mmol/L (3.5-5.1)
[2023-02-04] MEDS: ASPIRIN 81 MG ECTAB PO SCH (09:13)
[2023-02-04] MEDS: CHOLECALCIFEROL 1,000 UNITS 25 MCG TAB PO SCH (09:13)
[2023-02-04] MEDS ORDERED: Nursing to Pharmacy Communication SCH (09:30)
[2023-02-04] MEDS: HEPARIN SOD 5,000 UNIT/0.5 ML VIAL SQ SCH ×2 (10:11→22:34)
[2023-02-04] MEDS: METOPROLOL TARTRATE 25 MG TAB PO SCH ×2 (10:13→22:35)
[2023-02-04] MEDS: DOCUSATE SODIUM SYRUP 100 MG/10 ML UDC PO SCH ×2 (10:28→22:34)
--- NOTE | 2023-02-04 12:43 | Hospitalist Progress Note ---
Date of Service February 04, 2023 Assessment & Plan (1) Unresponsive: Plan: 87-year-old female coming from [facility] with past medical history significant for paroxysmal atrial fibrillation, cerebral amyloid angiopathy, hypertension, history of CAD, history of compression fracture of L2, closed fracture of sacrum, osteoporosis, late onset Alzheimer's disease, psychosis, anxiety, history of non-ST elevated [place], presents with unresponsiveness and found to be hypothermic and UTI. Unresponsive Hypothermia UTI CT head negative Worsening Alzheimer's disease and severe dementia ER gave IV cefepime. Started on meropenem and IV Vancomycin on admission - until cultures are available MRSA screen negative IV fluids now stopped Pito hugger now stopped as hypothermia has resolved Close monitor on the telemetry floor Hypothermia- resolved Mostly from sepsis TSH 1.8 (wnl) Pito hugger- dc'ed Will monitor Sepsis UTI- ucultx positive for Proteus mirabilis Blood cultx - negative so far Cont. Antibiotics - dc'ed meropenem, vanco - c/w cefazolin We will follow the final cultures Alzheimer's disease History of psychosis Anxiety We will hold her home medications of risperidone trazodone and Remeron for now as patient is very drowsy We will monitor for delirium History of CAD On aspirin and beta-valente We will continue beta-valente with holding parameters Hypertension continue metoprolol Hold lisinopril for now Paroxysmal A-fib On metoprolol and aspirin Will monitor DVT prophylaxis heparin subcu Disposition close monitoring telemetry CODE STATUS DNR/DNI as per admitting provider's discussion with the daughter (2) Hypothermia: (3) Sepsis: (4) Hyperkalemia: Admission and Anticipated Discharge Date Admission Date: February 02, 2023 Subjective Patient seen in follow up of unresponsiveness, sepsis, UTI, hx of dementia Pt more responsive now, mumbling but not answering all questions appropriately Appears comfortable, moves extremities Review of Systems Review of Systems: All systems reviewed & are unremarkable except as noted in Subjective Physical Exam Physical Exam: General- elderly obese F , drowsy, mumbling Head- atraumatic Eyes- PERRL ENT- dry Neck- supple, no neck masses seen Lungs- clear to auscultation Heart- regular rhythm; no murmur Abdomen- normal bowel sounds, soft, no distension, + obese Extremities- no pretibial edema, no erythema seen Neuro- drowsy, but opens eyes when moved , mumbling when asked questions, moves extremities Skin- warm & dry Results & Data Results & Data Vital Signs (Past 12 Hours) Vital Signs Temp Pulse Pulse Resp BP Pulse Ox O2 Del Method 02/04/23 10:39 36.5 C 82 16 129/88 92 Room Air 02/04/23 07:45 Room Air 02/04/23 08:05 36.3 C L 80 17 162/105 H 95 Room Air 02/04/23 07:58 99 H 02/04/23 04:05 37.2 C 65 22 154/90 H 90 Room Air Laboratory Results 02/04/23 02/04/23 Range/Units 05:43 05:43 WBC 9.09 (4.8-10.8) K/ul RBC 3.77 L (4.20-5.40) M/uL Hgb 11.8 L (12.0-16.0) g/dl Hct 37.1 (37.0-47.0) % MCV 98.4 (80.0-100.0) fL MCH 31.3 (25.0-34.0) pg MCHC 31.8 L (32.0-36.0) g/dL RDW Std Deviation 61.0 H (36.4-46.3) fL RDW Coeff of Gerard 16.8 H (11.5-14.5) % Plt Count 210 (130-400) K/uL MPV 10.7 (9.4-12.4) fL Sodium 142 (136-145) mmol/L Potassium 4.2 (3.5-5.1) mmol/L Chloride 111 H (98-107) mmol/L Carbon Dioxide 26 (21-32) mmol/L Anion Gap 5 (3-11) BUN 20 (6-23) mg/dl Creatinine 0.83 (0.6-1.2) mg/dl Est Cr Clr Drug Dosing 45.4 ml/min Est GFR ( Amer) 72.5 ml/min Est GFR (Non-Af Amer) 62.5 ml/min BUN/Creatinine Ratio 24.1 H (10-20) Glucose 77 (70-99(Fasting)) mg/dl Calcium 9.2 (8.6-10.3) mg/dl Phosphorus 2.1 L (2.5-4.9) mg/dl Magnesium 1.6 L (1.7-2.4) mg/dl Medications Administered Current Inpatient Medications Aspirin (Aspirin 81 Mg Ectab) 81 mg PO DAILY ANDRE Stop: 03/04/23 08:59 Last Admin: 02/04/23 09:13 Dose: 81 mg Docusate Sodium (Docusate Sodium Syrup 100 Mg/10 Ml Udc) 100 mg PO BID ANDRE Stop: 03/05/23 20:59 Last Admin: 02/04/23 10:28 Dose: Not Given Heparin Sodium (Porcine) (Heparin Sod 5,000 Unit/0.5 Ml Vial) 5,000 units SQ Q12 ANDRE Stop: 03/04/23 08:59 Last Admin: 02/04/23 10:11 Dose: 5,000 units Sodium Chloride (Nss 1000ml) 1,000 mls @ 80 mls/hr IV .[id number] [facility] Stop: 03/04/23 05:09 Last Admin: 02/03/23 08:15 Dose: 100 mls/hr Cefazolin Sodium (Ancef 2000mg) 2,000 mg in 15 mls @ 3.75 mls/min IV Q12H ANDRE Stop: 02/13/23 11:59 Last Admin: 02/04/23 12:18 Dose: 3.75 mls/min Magnesium Oxide (Magnesium Oxide 400 Mg Tab) 400 mg PO BID ANDRE Stop: 03/06/23 12:44 Metoprolol Tartrate (Metoprolol Tartrate 25 Mg Tab) 25 mg PO BID ANDRE Stop: 03/04/23 08:59 Last Admin: 02/04/23 10:13 Dose: 25 mg Nitroglycerin (Nitroglycerin Sl 0.4 Mg/Tab Tab) 0.4 mg SL Q5M PRN PRN Reason: Chest Pain Stop: 03/04/23 05:09 Vitamin D (Cholecalciferol 1,000 Units 25 Mcg Tab) 2,000 units PO DAILY ANDRE Stop: 03/04/23 08:59 Last Admin: 02/04/23 09:13 Dose: 2,000 units (3) Sepsis Sepsis acute organ dysfunction status: unspecified Sepsis type: sepsis due to unspecified organism Qualified Code(s): A41.9 - Sepsis, unspecified organism
[2023-02-04] MEDS: MAGNESIUM OXIDE 400 MG TAB PO SCH ×2 (13:46→22:36)
[2023-02-05 07:30] LABS: BUN Creatinine Ratio 35.7 (10-20); Calcium 8.7 mg/dl (8.6-10.3); Creatinine Clr Calc Pharmacy 53.9 ml/min; Est GFR (Non-African American) 76.8 ml/min; Magnesium 1.7 mg/dl (1.7-2.4); Phosphorus 2.1 mg/dl (2.5-4.9)
[2023-02-05 07:59] LABS: Hematocrit (blood only) 35.2 % (37.0-47.0); Hemoglobin 11.4 g/dl (12.0-16.0); Mean Corpuscular Hemoglobin 31.8 pg (25.0-34.0); Mean Corpuscular Hgb Conc 32.4 g/dL (32.0-36.0); Mean Corpuscular Volume 98.1 fL (80.0-100.0); Mean Platelet Volume 10.7 fL (9.4-12.4); Platelet Count 190 K/uL (130-400); RDW Coefficient of Variation 16.8 % (11.5-14.5); RDW Standard Deviation 60.4 fL (36.4-46.3); Red Blood Count 3.59 M/uL (4.20-5.40); White Blood Count 9.03 K/ul (4.8-10.8)
[2023-02-05] MEDS: ASPIRIN 81 MG ECTAB PO SCH (09:15)
[2023-02-05] MEDS: CHOLECALCIFEROL 1,000 UNITS 25 MCG TAB PO SCH (09:15)
[2023-02-05] MEDS: METOPROLOL TARTRATE 25 MG TAB PO SCH ×2 (09:16→20:07)
[2023-02-05] MEDS: HEPARIN SOD 5,000 UNIT/0.5 ML VIAL SQ SCH ×2 (09:16→20:08)
[2023-02-05] MEDS: DOCUSATE SODIUM SYRUP 100 MG/10 ML UDC PO SCH ×2 (09:16→20:07)
[2023-02-05] MEDS: MAGNESIUM OXIDE 400 MG TAB PO SCH ×2 (09:16→20:07)
[2023-02-05] MEDS: ceFAZolin 2000MG 2,000 MG/15 ML SYR IV SCH ×2 (11:35→16:44)
--- NOTE | 2023-02-05 16:02 | Hospitalist Progress Note ---
Date of Service February 05, 2023 Assessment & Plan (1) Unresponsive: Plan: 87-year-old female coming from [facility] with past medical history significant for paroxysmal atrial fibrillation, cerebral amyloid angiopathy, hypertension, history of CAD, history of compression fracture of L2, closed fracture of sacrum, osteoporosis, late onset Alzheimer's disease, psychosis, anxiety, history of non-ST elevated [place], presents with unresponsiveness and found to be hypothermic and UTI. Unresponsive Hypothermia UTI CT head negative Worsening Alzheimer's disease and severe dementia ER gave IV cefepime. Started on meropenem and IV Vancomycin on admission - until cultures are available MRSA screen negative IV fluids now stopped Pito hugger now stopped as hypothermia has resolved Close monitor on the telemetry floor Hypothermia- resolved Mostly from sepsis TSH 1.8 (wnl) Pito hugger- dc'ed Will monitor Sepsis UTI- ucultx positive for Proteus mirabilis Blood cultx - negative so far Cont. Antibiotics - dc'ed meropenem, vanco - c/w cefazolin We will follow the final cultures Alzheimer's disease History of psychosis Anxiety We will hold her home medications of risperidone trazodone and Remeron for now as patient is very drowsy We will monitor for delirium History of CAD On aspirin and beta-valente We will continue beta-valente with holding parameters Hypertension continue metoprolol Hold lisinopril for now Paroxysmal A-fib On metoprolol and aspirin Will monitor DVT prophylaxis heparin subcu Disposition close monitoring telemetry CODE STATUS DNR/DNI as per admitting provider's discussion with the daughter (2) Hypothermia: (3) Sepsis: (4) Hyperkalemia: Admission and Anticipated Discharge Date Admission Date: February 02, 2023 Subjective Patient seen in follow up of unresponsiveness, sepsis, UTI, hx of dementia Pt more responsive now, does not open eyes but eats w/ assistance Appears comfortable, moves extremities Family at the bedside Review of Systems Review of Systems: All systems reviewed & are unremarkable except as noted in Subjective Physical Exam Physical Exam: General- elderly obese F , drowsy, mumbling Head- atraumatic Eyes- PERRL ENT- dry Neck- supple, no neck masses seen Lungs- clear to auscultation Heart- regular rhythm; no murmur Abdomen- normal bowel sounds, soft, no distension, + obese Extremities- no pretibial edema, no erythema seen Neuro- drowsy, mumbling when asked questions, moves extremities Skin- warm & dry Results & Data Results & Data Vital Signs (Past 12 Hours) Vital Signs Temp Pulse Resp BP Pulse Ox O2 Del Method 02/05/23 11:03 36.6 C 80 21 139/80 91 Room Air 02/05/23 08:09 36.3 C L 101 H 18 156/94 H 91 Room Air Laboratory Results 02/05/23 02/05/23 Range/Units 06:17 06:17 WBC 9.03 (4.8-10.8) K/ul RBC 3.59 L (4.20-5.40) M/uL Hgb 11.4 L (12.0-16.0) g/dl Hct 35.2 L (37.0-47.0) % MCV 98.1 (80.0-100.0) fL MCH 31.8 (25.0-34.0) pg MCHC 32.4 (32.0-36.0) g/dL RDW Std Deviation 60.4 H (36.4-46.3) fL RDW Coeff of Gerard 16.8 H (11.5-14.5) % Plt Count 190 (130-400) K/uL MPV 10.7 (9.4-12.4) fL Sodium 141 (136-145) mmol/L Potassium 4.0 (3.5-5.1) mmol/L Chloride 109 H (98-107) mmol/L Carbon Dioxide 27 (21-32) mmol/L Anion Gap 5 (3-11) BUN 25 H (6-23) mg/dl Creatinine 0.70 (0.6-1.2) mg/dl Est Cr Clr Drug Dosing 53.9 ml/min Est GFR ( Amer) 89.0 ml/min Est GFR (Non-Af Amer) 76.8 ml/min BUN/Creatinine Ratio 35.7 H (10-20) Glucose 91 (70-99(Fasting)) mg/dl Calcium 8.7 (8.6-10.3) mg/dl Phosphorus 2.1 L (2.5-4.9) mg/dl Magnesium 1.7 (1.7-2.4) mg/dl Medications Administered Current Inpatient Medications Aspirin (Aspirin 81 Mg Ectab) 81 mg PO DAILY ANDRE Stop: 03/04/23 08:59 Last Admin: 02/05/23 09:15 Dose: 81 mg Docusate Sodium (Docusate Sodium Syrup 100 Mg/10 Ml Udc) 100 mg PO BID ANDRE Stop: 03/05/23 20:59 Last Admin: 02/05/23 09:16 Dose: 100 mg Heparin Sodium (Porcine) (Heparin Sod 5,000 Unit/0.5 Ml Vial) 5,000 units SQ Q12 ANDRE Stop: 03/04/23 08:59 Last Admin: 02/05/23 09:16 Dose: 5,000 units Cefazolin Sodium (Ancef 2000mg) 2,000 mg in 15 mls @ 3.75 mls/min IV Q8H ANDRE Stop: 02/13/23 17:59 Magnesium Oxide (Magnesium Oxide 400 Mg Tab) 400 mg PO BID ANDRE Stop: 03/06/23 12:44 Last Admin: 02/05/23 09:16 Dose: 400 mg Metoprolol Tartrate (Metoprolol Tartrate 25 Mg Tab) 25 mg PO BID ANDRE Stop: 03/04/23 08:59 Last Admin: 02/05/23 09:16 Dose: 25 mg Nitroglycerin (Nitroglycerin Sl 0.4 Mg/Tab Tab) 0.4 mg SL Q5M PRN PRN Reason: Chest Pain Stop: 03/04/23 05:09 Vitamin D (Cholecalciferol 1,000 Units 25 Mcg Tab) 2,000 units PO DAILY ANDRE Stop: 03/04/23 08:59 Last Admin: 02/05/23 09:15 Dose: 2,000 units (3) Sepsis Sepsis acute organ dysfunction status: unspecified Sepsis type: sepsis due to unspecified organism Qualified Code(s): A41.9 - Sepsis, unspecified organism
[2023-02-05] MEDS ORDERED: MAGNESIUM SULFATE / D5W 1 GM/100 ML BAG IV ONE (16:15)
[2023-02-06] MEDS: ceFAZolin 2000MG 2,000 MG/15 ML SYR IV SCH ×3 (02:25→17:47)
[2023-02-06 07:07] LABS: BUN Creatinine Ratio 34.3 (10-20); Calcium 7.3 mg/dl (8.6-10.3); Creatinine Clr Calc Pharmacy 53.8 ml/min; Est GFR (Non-African American) 76.8 ml/min; Potassium 3.9 mmol/L (3.5-5.1)
--- NOTE | 2023-02-06 08:28 | Hospitalist Progress Note ---
Date of Service February 06, 2023 Assessment & Plan (1) Unresponsive: Plan: 87-year-old female coming from [facility] with past medical history significant for paroxysmal atrial fibrillation, cerebral amyloid angiopathy, hypertension, history of CAD, history of compression fracture of L2, closed fracture of sacrum, osteoporosis, late onset Alzheimer's disease, psychosis, anxiety, history of non-ST elevated [place], presents with unresponsiveness and found to be hypothermic and UTI. Unresponsive Hypothermia UTI CT head negative Worsening Alzheimer's disease and severe dementia ER gave IV cefepime. Started on meropenem and IV Vancomycin on admission - until cultures are available MRSA screen negative IV fluids now stopped Pito hugger now stopped as hypothermia has resolved Close monitor on the telemetry floor Hypothermia- resolved Mostly from sepsis TSH 1.8 (wnl) Pito hugger- dc'ed Will monitor Sepsis UTI- ucultx positive for Proteus mirabilis Blood cultx - negative so far Cont. Antibiotics - dc'ed meropenem, vanco - c/w cefazolin We will follow the final cultures Alzheimer's disease History of psychosis Anxiety We will hold her home medications of risperidone trazodone and Remeron for now as patient is very drowsy We will monitor for delirium History of CAD On aspirin and beta-valente We will continue beta-valente with holding parameters Hypertension continue metoprolol Hold lisinopril for now Paroxysmal A-fib On metoprolol and aspirin Will monitor DVT prophylaxis heparin subcu Disposition close monitoring telemetry CODE STATUS DNR/DNI as per admitting provider's discussion with the daughter (2) Hypothermia: (3) Sepsis: (4) Hyperkalemia: Admission and Anticipated Discharge Date Admission Date: February 02, 2023 Subjective Patient seen in follow up of unresponsiveness, sepsis, UTI, hx of dementia Pt more responsive now, does not open eyes much but eats w/ assistance Appears comfortable, moves extremities Review of Systems Review of Systems: All systems reviewed & are unremarkable except as noted in Subjective Physical Exam Physical Exam: General- elderly obese F , drowsy, mumbling Head- atraumatic Eyes- PERRL ENT- dry Neck- supple, no neck masses seen Lungs- clear to auscultation Heart- regular rhythm; no murmur Abdomen- normal bowel sounds, soft, no distension, + obese Extremities- no pretibial edema, no erythema seen Neuro- drowsy, mumbling when asked questions, moves extremities Skin- warm & dry Results & Data Results & Data Vital Signs (Past 12 Hours) Vital Signs Temp Pulse Pulse Resp BP Pulse Ox O2 Del Method 02/06/23 07:40 36.9 C 82 20 120/72 93 Room Air 02/06/23 03:33 36.7 C 104 H 22 157/101 H 92 Room Air 02/05/23 22:55 92 H 02/05/23 22:41 37.2 C 91 H 18 153/77 H 93 Room Air Laboratory Results 02/06/23 Range/Units 05:43 Sodium 143 (136-145) mmol/L Potassium 3.9 (3.5-5.1) mmol/L Chloride 113 H (98-107) mmol/L Carbon Dioxide 30 (21-32) mmol/L Anion Gap 0 L (3-11) BUN 24 H (6-23) mg/dl Creatinine 0.70 (0.6-1.2) mg/dl Est Cr Clr Drug Dosing 53.8 ml/min Est GFR ( Amer) 89.0 ml/min Est GFR (Non-Af Amer) 76.8 ml/min BUN/Creatinine Ratio 34.3 H (10-20) Glucose 90 (70-99(Fasting)) mg/dl Calcium 7.3 L (8.6-10.3) mg/dl Medications Administered Current Inpatient Medications Aspirin (Aspirin 81 Mg Ectab) 81 mg PO DAILY ANDRE Stop: 03/04/23 08:59 Last Admin: 02/05/23 09:15 Dose: 81 mg Docusate Sodium (Docusate Sodium Syrup 100 Mg/10 Ml Udc) 100 mg PO BID ANDRE Stop: 03/05/23 20:59 Last Admin: 02/05/23 20:07 Dose: 100 mg Heparin Sodium (Porcine) (Heparin Sod 5,000 Unit/0.5 Ml Vial) 5,000 units SQ Q12 ANDRE Stop: 03/04/23 08:59 Last Admin: 02/05/23 20:08 Dose: 5,000 units Cefazolin Sodium (Ancef 2000mg) 2,000 mg in 15 mls @ 3.75 mls/min IV Q8H ANDRE Stop: 02/13/23 17:59 Last Admin: 02/06/23 02:25 Dose: 3.75 mls/min Magnesium Oxide (Magnesium Oxide 400 Mg Tab) 400 mg PO BID [facility] Stop: 03/06/23 12:44 Last Admin: 02/05/23 20:07 Dose: 400 mg Metoprolol Tartrate (Metoprolol Tartrate 25 Mg Tab) 25 mg PO BID [facility] Stop: 03/04/23 08:59 Last Admin: 02/05/23 20:07 Dose: 25 mg Nitroglycerin (Nitroglycerin Sl 0.4 Mg/Tab Tab) 0.4 mg SL Q5M PRN PRN Reason: Chest Pain Stop: 03/04/23 05:09 Vitamin D (Cholecalciferol 1,000 Units 25 Mcg Tab) 2,000 units PO DAILY [facility] Stop: 03/04/23 08:59 Last Admin: 02/05/23 09:15 Dose: 2,000 units (3) Sepsis Sepsis acute organ dysfunction status: unspecified Sepsis type: sepsis due to unspecified organism Qualified Code(s): A41.9 - Sepsis, unspecified organism
[2023-02-06] MEDS: MAGNESIUM OXIDE 400 MG TAB PO SCH ×2 (08:50→23:11)
[2023-02-06] MEDS: CHOLECALCIFEROL 1,000 UNITS 25 MCG TAB PO SCH (08:51)
[2023-02-06] MEDS: ASPIRIN 81 MG ECTAB PO SCH (08:51)
[2023-02-06] MEDS: METOPROLOL TARTRATE 25 MG TAB PO SCH ×2 (08:51→23:12)
[2023-02-06] MEDS: HEPARIN SOD 5,000 UNIT/0.5 ML VIAL SQ SCH ×2 (08:52→23:10)
[2023-02-06] MEDS: DOCUSATE SODIUM SYRUP 100 MG/10 ML UDC PO SCH ×2 (08:56→23:10)
[2023-02-07] MEDS: ceFAZolin 2000MG 2,000 MG/15 ML SYR IV SCH (02:30)
[2023-02-07 06:56] LABS: Hematocrit (blood only) 35.2 % (37.0-47.0); Hemoglobin 11.6 g/dl (12.0-16.0); Mean Corpuscular Hemoglobin 32.1 pg (25.0-34.0); Mean Corpuscular Volume 97.5 fL (80.0-100.0); Mean Platelet Volume 10.3 fL (9.4-12.4); Platelet Count 197 K/uL (130-400); RDW Coefficient of Variation 16.3 % (11.5-14.5); RDW Standard Deviation 58.3 fL (36.4-46.3); Red Blood Count 3.61 M/uL (4.20-5.40); White Blood Count 8.11 K/ul (4.8-10.8)
[2023-02-07 07:19] LABS: BUN Creatinine Ratio 34.3 (10-20); Calcium 8.7 mg/dl (8.6-10.3); Creatinine Clr Calc Pharmacy 55.7 ml/min; Est GFR (African American) 90.3 ml/min; Est GFR (Non-African American) 77.9 ml/min
[2023-02-07] MEDS: CHOLECALCIFEROL 1,000 UNITS 25 MCG TAB PO SCH (07:44)
[2023-02-07] MEDS: DOCUSATE SODIUM SYRUP 100 MG/10 ML UDC PO SCH ×2 (07:45→20:51)
[2023-02-07] MEDS: HEPARIN SOD 5,000 UNIT/0.5 ML VIAL SQ SCH ×2 (07:50→20:50)
[2023-02-07] MEDS: MAGNESIUM OXIDE 400 MG TAB PO SCH ×2 (07:50→20:51)
[2023-02-07] MEDS: METOPROLOL TARTRATE 25 MG TAB PO SCH ×2 (07:50→20:50)
[2023-02-07] MEDS: cefTRIAXone SODIUM 2,000 MG in DEXTROSE 5% 50 ML IV SCH (10:17)
[2023-02-07] MEDS: ASPIRIN 81 MG ECTAB PO SCH (10:17)
--- NOTE | 2023-02-07 16:49 | Hospitalist Progress Note ---
Date of Service February 07, 2023 Assessment & Plan (1) Unresponsive: Plan: per Dr. Klein's notes with addendum: 87-year-old female coming from [facility] with past medical history significant for paroxysmal atrial fibrillation, cerebral amyloid angiopathy, hypertension, history of CAD, history of compression fracture of L2, closed fracture of sacrum, osteoporosis, late onset Alzheimer's disease, psychosis, anxiety, history of non-ST elevated [place], presents with unresponsiveness and found to be hypothermic and UTI. Unresponsive Hypothermia UTI CT head negative Worsening Alzheimer's disease and severe dementia ER gave IV cefepime. Started on meropenem and IV Vancomycin on admission - until cultures are available MRSA screen negative IV fluids now stopped Pito hugger now stopped as hypothermia has resolved Close monitor on the telemetry floor Hypothermia- resolved Mostly from sepsis TSH 1.8 (wnl) Pito hugger- dc'ed Will monitor 02/07 resolved mostly back to baseline MS per family Sepsis UTI u cultx positive for Proteus mirabilis Blood cultx - negative so far Cont. Antibiotics - dc'ed meropenem, vanco - c/w cefazolin We will follow the final cultures 02/07 Urine culture: Proteus Blood culture: negative changed antibiotic to Ceftriaxone, abx day 12/20 Alzheimer's disease History of psychosis Anxiety We will hold her home medications of risperidone trazodone and Remeron for now as patient is very drowsy We will monitor for delirium History of CAD On aspirin and beta-valente We will continue beta-valente with holding parameters Hypertension continue metoprolol Hold lisinopril for now as BP on the lower side Paroxysmal A-fib On metoprolol and aspirin Will monitor DVT prophylaxis heparin subcu Disposition close monitoring telemetry CODE STATUS DNR/DNI as per admitting provider's discussion with the daughter (2) Hypothermia: (3) Sepsis: (4) Hyperkalemia: Admission and Anticipated Discharge Date Admission Date: February 02, 2023 Subjective ff up for UTI, etc seen resting in bed, comfortable eyes closed but answers some questions with yes/no feels fine no pain no chest pain, dyspnea, palpitations, dizziness mostly sleeping per RN Rudy but awakens for meals mostly back to baseline as per RN no other symptoms Review of Systems Review of Systems: all noted and negative except for above Physical Exam Physical Exam: General- oriented x 0, not in distress, speaks with no effort or accessory muscle use Eyes- anicteric Neck- no JVD Lungs- clear breath sounds bilaterally, no crackles or wheezing Heart- normal rate, regular rhythm; no murmurs Abdomen- normal bowel sounds, nondistended, soft, nontender Extremities- no pretibial edema, no calf tenderness Neuro- alert, oriented x 0; no gross focal neurologic deficits Skin- warm & dry Results & Data Results & Data Vital Signs (Past 12 Hours) Vital Signs Temp Pulse Pulse Resp BP Pulse Ox O2 Del Method 02/07/23 16:14 75 02/07/23 15:21 37.1 C 85 18 106/65 93 Room Air 02/07/23 11:47 36.9 C 81 18 97/64 L 94 Room Air 02/07/23 10:31 81 02/07/23 09:56 Room Air 02/07/23 08:01 36.5 C 86 16 134/88 94 Room Air all noted and reviewed including below (3) Sepsis Sepsis acute organ dysfunction status: unspecified Sepsis type: sepsis due to unspecified organism Qualified Code(s): A41.9 - Sepsis, unspecified organism
[2023-02-08] MEDS: METOPROLOL TARTRATE 25 MG TAB PO SCH (07:53)
[2023-02-08] MEDS: MAGNESIUM OXIDE 400 MG TAB PO SCH (07:53)
[2023-02-08] MEDS: ASPIRIN 81 MG ECTAB PO SCH (07:53)
[2023-02-08] MEDS: CHOLECALCIFEROL 1,000 UNITS 25 MCG TAB PO SCH (07:53)
[2023-02-08] MEDS: cefTRIAXone SODIUM 2,000 MG in DEXTROSE 5% 50 ML IV SCH (08:47)
[2023-02-08] MEDS: DOCUSATE SODIUM SYRUP 100 MG/10 ML UDC PO SCH (08:48)
[2023-02-08] MEDS: HEPARIN SOD 5,000 UNIT/0.5 ML VIAL SQ SCH (08:50)
--- NOTE | 2023-02-08 10:28 | Hospitalist Progress Note ---
Date of Service February 08, 2023 Assessment & Plan (1) Unresponsive: Plan: per Dr. Klein's notes with addendum: 87-year-old female coming from [facility] with past medical history significant for paroxysmal atrial fibrillation, cerebral amyloid angiopathy, hypertension, history of CAD, history of compression fracture of L2, closed fracture of sacrum, osteoporosis, late onset Alzheimer's disease, psychosis, anxiety, history of non-ST elevated MD, presents with unresponsiveness and found to be hypothermic and UTI. SEVERE SEPSIS, SECONDARY TO UTI Patient presented unresponsive, hypothermic on admission CT head negative MRSA screen negative TSH 1.8 (wnl) Given IV fluids, Pito washing[place] 02/08 resolved mostly back to baseline MS per family Urine culture: Proteus Blood culture: negative Initially given vancomycin and meropenem, transition to cefazolin, then ceftriaxone We will follow the final cultures Patient has completed 7-day course of IV antibiotics Continue to monitor clinically Alzheimer's disease History of psychosis Anxiety Risperidone, trazodone, Remeron held as patient was very drowsy Patient mostly keeps her eyes closed, but is awake for meals Resume other medications gradually History of CAD On aspirin and beta-valente Hypertension continue metoprolol Lisinopril was held as BP on the lower side, blood pressure stable overall off lisinopril Monitor closely Paroxysmal A-fib On metoprolol and aspirin DVT prophylaxis heparin subcu given Disposition discharge to [facility] facility CODE STATUS DNR/DNI as per admitting provider's discussion with the daughter (2) Hypothermia: (3) Sepsis: (4) Hyperkalemia: Admission and Anticipated Discharge Date Admission Date: February 02, 2023 Subjective ff up for UTI, etc Seen resting in bed, comfortable, eyes are closed but answers simple questions When asked if she is feeling okay, patient responds certainly to Denies pain, nausea, shortness of breath Ate half of her breakfast No other issues per cleaning handyman of Systems Review of Systems: all noted and negative except for above Physical Exam Physical Exam: General-not oriented, not in distress, breathing with no effort or accessory muscle use Eyes- anicteric Neck- no JVD Lungs- clear breath sounds bilaterally, no crackles or wheezing Heart- normal rate, regular rhythm; no murmurs Abdomen- normal bowel sounds, nondistended, soft, no tenderness Extremities- no pretibial edema, no calf tenderness Neuro-eyes are closed; but no focal gross neurologic deficits Skin- warm & dry Results & Data Results & Data Vital Signs (Past 12 Hours) Vital Signs Temp Pulse Pulse Resp BP Pulse Ox O2 Del Method 02/08/23 07:55 36.5 C 76 18 132/71 95 Room Air 02/08/23 07:23 88 02/08/23 04:52 94 Room Air 02/08/23 04:13 37.3 C 93 H 20 122/75 90 Room Air 02/07/23 23:30 Room Air 02/07/23 23:23 37.2 C 93 H 18 123/87 94 Room Air O2 Flow Rate 02/08/23 07:55 02/08/23 07:23 02/08/23 04:52 02/08/23 04:13 3 02/07/23 23:30 02/07/23 23:23 all noted and reviewed including below (3) Sepsis Sepsis acute organ dysfunction status: unspecified Sepsis type: sepsis due to unspecified organism Qualified Code(s): A41.9 - Sepsis, unspecified organism
--- NOTE | 2023-02-08 10:44 | Discharge Summary ---
Discharge Summary Date of Service February 08, 2023 Notes For Next Care Provider Medication Changes From Visit Please reevaluate and resume buspirone, mirtazapine and trazodone accordingly. Admission HPI Per Admitting Provider 87-year-old female coming from [facility] with past medical history significant for paroxysmal atrial fibrillation, cerebral amyloid angiopathy, hypertension, history of CAD, history of compression fracture of L2, closed fracture of sacrum, osteoporosis, late onset Alzheimer's disease, psychosis, anxiety, history of non-ST elevated CA, presents with unresponsiveness and found to hypothermia and UTI. Patient receives 1 L warm fluid and on Pito hugger and received IV cefepime. Patient still very drowsy not arousable moans with painful stimuli. Not able to reach [facility]. Saturating okay. Blood pressure is okay. As per daughter patient's Alzheimer's disease is getting worse and since springtime she is mostly sleepy. Patient knows her name but does not know where she is as per the daughter. Daughter states that since last 2 weeks patient's stop recognizing the daughter. As per daughter patient was found in the room tachypneic and hypothermic and was brought in here. As per daughter since year ago when she had fallen and had C5 fracture she is nonambulatory. She she needs to be slinged into wheelchair. Patient's eating very soft diet and she needs to be fed. As per as per daughter no recent fever or nausea or vomiting or diarrhea as far as she knows. Admission Exam Per Admitting Provider General- drowsy Head- atraumatic Eyes- PERRL ENT- dry Neck- no neck masses seen Lungs- clear to auscultation and percussion Heart- regular rhythm; no murmur, no gallop, no rub appreciated Abdomen- normal bowel sounds, soft, no distension Extremities- no pretibial edema, no erythema seen Neuro- very drowsy, moves extremities and moans on painful stimuli Skin- warm & dry Principal Dx & Hospital Course #1 = Principal Diagnosis (1) Unresponsive: per Dr. Klein's notes with addendum: 87-year-old female coming from [facility] with past medical history significant for paroxysmal atrial fibrillation, cerebral amyloid angiopathy, hypertension, history of CAD, history of compression fracture of L2, closed fracture of sacrum, osteoporosis, late onset Alzheimer's disease, psychosis, anxiety, history of non-ST elevated CA, presents with unresponsiveness and found to be hypothermic and UTI. SEVERE SEPSIS, SECONDARY TO UTI Patient presented unresponsive, hypothermic on admission CT head negative MRSA screen negative TSH 1.8 (wnl) Given IV fluids, Pito [place] 02/08 resolved mostly back to baseline MS per family Urine culture: Proteus Blood culture: negative Initially given vancomycin and meropenem, transitioned to cefazolin, then ceftriaxone Patient has completed 7-day course of IV antibiotics Afebrile, clinically stable, appetite is good Continue to monitor clinically Alzheimer's disease History of psychosis Anxiety Risperidone, trazodone, Remeron held as patient was very drowsy Patient mostly keeps her eyes closed, answers simple questions with few phrases, and awake for meals Resume other medications gradually History of CAD On aspirin and beta-valente Hypertension continue metoprolol Lisinopril was held as BP on the lower side, blood pressure stable overall off lisinopril Monitor closely Paroxysmal A-fib On metoprolol and aspirin DVT prophylaxis heparin subcu given Disposition discharge to [facility] nursing home facility CODE STATUS DNR/DNI as per admitting provider's discussion with the daughter Discharge Exam General-not oriented, not in distress, breathing with no effort or accessory muscle use Eyes- anicteric Neck- no JVD Lungs- clear breath sounds bilaterally, no crackles or wheezing Heart- normal rate, regular rhythm; no murmurs Abdomen- normal bowel sounds, nondistended, soft, no tenderness Extremities- no pretibial edema, no calf tenderness Neuro-eyes are closed; but no focal gross neurologic deficits Skin- warm & dry Updated Medication List Medication Instructions Recorded Confirmed Type cholecalciferol (vitamin D3) 50 2,000 units PO DAILY 04/07/19 07/22/20 History mcg (2,000 unit) capsule aspirin 81 mg chewable tablet 81 mg PO DAILY 07/03/19 07/22/20 History docusate sodium 100 mg capsule 100 mg PO BID 07/22/20 07/22/20 History lisinopril 10 mg tablet 10 mg PO DAILY 07/22/20 07/22/20 History melatonin 5 mg tablet 5 mg PO HS 07/22/20 07/22/20 History buspirone 5 mg tablet 5 mg PO TID 01/09/22 01/09/22 History mirtazapine 30 mg tablet 30 mg PO HS 01/09/22 01/09/22 History risperidone 0.5 mg tablet 0.25 mg PO BID 01/09/22 01/09/22 History risperidone 0.5 mg tablet 0.5 mg PO HS 01/09/22 01/09/22 History trazodone 50 mg tablet 37.5 mg PO BID 01/09/22 01/09/22 History acetaminophen 325 mg tablet 650 mg PO Q6H 14 days #0 tabs 01/10/22 07/22/20 Rx metoprolol tartrate 25 mg tablet 25 mg PO BID #0 tabs 01/10/22 01/09/22 Rx Hospital Stay Data Consultations 02/01/23 23:04 ED Decision to Admit Stat Diagnostic Imagining Performed 02/01/23 21:40 CT head/brain wo con [place], [place] [phone] CT Scan Report Patient:KYLEE LAKHANI Admit Date:02/01/23 MR#:[id number] Address1:[address] [place], [place] [address]SANDRA Acct ID:[id number] Address2: Date:[address] [facility] Zip:[place] [address] Age:87 Location:ED Sex:F Room/Bed: Att Phy: Diagnosis:UNRESPONSIVE, PERIODS OF APNEA, BRADYCARDIC Yara Phy:Alphonso Singh MD Service Date:02/01/23 Fam Phy: Interpreting Phy:Jamie Greenfield MDAdmit Phy: Ordering Phy:Gokul Padilla MD cc: ~ CT SCAN OF THE BRAIN WITHOUT IV CONTRAST CLINICAL HISTORY: Change in mental status. COMPARISON STUDY: CT of the brain dated 01/05/2022. TECHNIQUE: Unenhanced axial CT scan of the brain is performed from the vertex to the skull base. A dose lowering technique was utilized adhering to the principles of ALARA. CT DOSE: 625.80 mGy.cm FINDINGS: Brain parenchyma: There is age-related involutional change mild subcortical and periventricular microangiopathic disease. 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 A small chronic infarct is again seen in the high right frontoparietal region. There is no hemorrhage, mass effect, or evidence of acute territorial ischemia by CT criteria. Baker-white matter differentiation is preserved. No extra-axial fluid collection is seen. Ventricles, sulci, cisterns: Prominent secondary to involutional change. Intracranial vasculature: There is atherosclerotic calcification of the cavernous carotid and vertebral arteries. Calvarium: Unremarkable. Sinuses and mastoids: There is moderate mucosal thickening in the left sphenoid sinus. Trace mucosal thickening seen in the right sided sinus. The remaining paranasal sinuses are clear. There are large mastoid effusions. Orbits: The bony orbits are grossly intact. There are bilateral ocular lens implants. IMPRESSION: There is no hemorrhage, mass effect, or evidence of acute territorial ischemia by CT criteria. Pending Results Patient Have Any Pending Studies at Discharge: No Discharge Instructions Given to Patient (Per Discharging Provider) Please evaluate and resume risperidone, mirtazapine, buspirone accordingly. Please refer to hospital discharge summary for full details. Total Time Total Time Spent Total Time Spent (In Minutes): >30 minutes
== END 2023-02-08 15:13 | DRG 872 ==
LOC: ED 21:29 → EDINP 02-02 02:30 → SUATTDRO 02-02 02:30 → 2S 02-02 05:10